=== PATIENT | male | born 1965 | race Caucasian/White ===

== ENCOUNTER 2019-08-02 19:56 | Outpatient (REF) | payer MEDICAID, SELFPAY ==
[2019-08-02 19:21] LABS: Anion Gap 6.7 mmol/L (3-11); BUN 13 mg/dL (7-18); CO2 31.3 mmol/L (21.0-32.0); CREATININE 1.24 mg/dL (0.70-1.30); Calcium 8.7 mg/dL (8.5-10.1); Calculated LDL 186 mg/dL (<100); Chloride 102 mmol/L (98-107); Cholesterol 274 mg/dL (<200); Glucose 100 mg/dL (74-106); HDL Cholesterol 44 mg/dL (40-60); Potassium 3.5 mmol/L (3.5-5.1); Sodium 140 mmol/L (136-145); Triglyceride 221 mg/dL (<150)
== END 2019-08-02 20:16 ==
LOC: NCHCN 19:56
PROVIDERS: PCP Family Medicine; Visit Provider Family Medicine
DX: I10 Essential (primary) hypertension (principal); R39.9 Unspecified symptoms and signs involving the genitourinary system; Z00.00 Encounter for general adult medical examination without abnormal findings
CPT/HCPCS: 80048; 80061

== ENCOUNTER 2020-06-29 02:32 | Outpatient (CLI) | payer MEDICAID, SELFPAY ==
[2020-06-29 10:43] LABS: Source Nasal/Nares
[2020-06-29 14:01] LABS: COVID-19 PCR Negative (Negative)
== END 2020-06-29 02:33 | disposition home or self-care (01) ==
LOC: LBO 02:32
PROVIDERS: PCP Family Medicine; Visit Provider Surgery
DX: Z20.822 Contact with and (suspected) exposure to COVID-19 (principal); Z01.818 Encounter for other preprocedural examination
CPT/HCPCS: 87635

== ENCOUNTER 2020-06-30 12:00 | Day surgery (SDC) | payer MEDICAID, SELFPAY ==
[2020-06-30 12:18] VITALS: BP 140/80; PULSE 55; RESP 16; TEMP 36.2; O2SAT 98
--- NOTE | 2020-06-30 12:23 | W.PM.DSUDISC ---
Discharge Plan Disposition Patient Disposition: HOME Condition: Good Discharge Details Reason For Visit: colon scope Attending Provider: Jazmin Cole Primary Care Provider: Ta Jensen Home Meds and New Rx's Prescriptions: Continued terazosin 5 mg capsule 5 mg PO QHS RF: 0 sildenafil [Viagra] 50 mg tablet 50 mg PO DAILY PRNRF: 0 loratadine [Allergy Relief (loratadine)] 10 mg tablet,disintegrating 10 mg PO DAILY RF: 0 lisinopril-hydrochlorothiazide 10-12.5 mg tablet 1 tab PO DAILY RF: 0 epinephrine [EpiPen 2-Kyree] 0.3 mg/0.3 mL auto-injector 0.3 mg IM Q5-15M PRNRF: 0 naproxen 500 MG tablet 500 mg PO PRN PRNRF: 0 Discontinued polyethylene glycol 3350 17 gram/dose powder 238 g PO ONCE Qty: 238 RF: 0 bisacodyl [Dulcolax (bisacodyl)] 5 mg tablet,delayed release (DR/EC) 5 mg PO ONCE Qty: 4 RF: 0 Discharge Instructions Additional Instructions: Findings:polyps No signs of Crohn's -No aspirin/NSAIDs (ibuprofen) for 72 hours. Follow up: We will send a letter in approximately 3 weeks with the results of the biopsies and pathology of the polyps, and when to repeat the colonoscopy, probably in 3 years time. Please call if you develop: fevers >101.5 Nausea or Vomiting Abdominal pain that is not transient DAY SURGERY UNIT POST COLONOSCOPY INSTRUCTIONS 1. Because there will be medication in your system for the next 24 hours, you may feel a little sleepy. Your coordination will be affected. Therefore: a. Do not drive or operate dangerous equipment for 24 hours. b. Do not drink alcohol beverages for 24 hours (not even beer). c. Plan to go home and rest for the day. 2. Generally there are no restrictions on your activity after a day or so has gone by, but you may feel a bit fatigued for a few days. 3 After you arrive home you may have a light meal and return to a normal diet as you can tolerate it without feeling sick to your stomach. 4. After surgery, you may feel pain or discomfort. This should be only transient, but if it persists please contact your doctor. 5. If there are any questions regarding the findings of your procedure, please feel free to contact your doctor. 6. If you are unable to contact your doctor with a problem, contact the hospital at [phone]. 7. Continue all your regular medications unless directed otherwise. I understand the above instructions and have no questions. Signature of Patient or Responsible Adult Escort Date/Time Name of Responsible Adult Escort Signature of Nurse Date/Time Activity:: No lifting over 20 pounds or strenuous at. Diet:: Small light meals x24 hours. Discharge Orders Discharge Orders: Discharge Order (Routine); Ordered 06/30/20 Ordered By: Jazmin Cole DS: Diagnosis Discharge Diagnosis (1) Adenomatous polyps: Status: Acute
[2020-06-30] MEDS: Lactated Ringers 1,000 ML 80 ML IV (12:39)
--- NOTE | 2020-06-30 14:00 | BOWEL_PTH ---
PATIENT: Nghia Owusu LOC: [facility] U#:[id number] AGE/SX: 55/M ROOM: RE06/30/[address]: Jazmin Cole : 1965 BED: DIS: 06/30/2020 SPEC #: [id number] RECD: 06/30/20 18:18 STATUS: [facility] #: [id number] CHARLEY: 06/30/20 14:[address]: Jazmin Cole DEPT: Surgical Specimen RECD BY: Alessandra Chapman ENTERED: 06/30/20 18:25 SP TYPE: Bowel OTHR DR: Ta Jensen Tissues: 1 - BIOPSY BOWEL 2 - BIOPSY BOWEL 3 - BIOPSY BOWEL 4 - BIOPSY BOWEL 5 - BIOPSY BOWEL 6 - BIOPSY BOWEL 7 - BIOPSY BOWEL 8 - BIOPSY BOWEL 9 - BIOPSY BOWEL 10 - BIOPSY BOWEL 11 - BIOPSY BOWEL 12 - BIOPSY BOWEL 13 - BIOPSY BOWEL 14 - BIOPSY BOWEL Procedures: GROSS AND MICRO LEVEL 4 Comments: [id number]
--- NOTE | 2020-06-30 14:14 | COLE_ITS ---
Date of service: 06/30/20 Time of Service: 14:14 Colonoscopy Report Date of procedure: 06/30/20 Pre-op diagnosis general: A. polyps and Crohn's Post-op diagnosis procedure note: same Surgeon: Jazmin Cole Anesthesia Type: General:No Airway Estimated blood loss (mL): 1 Pathology: other Complications: None Disposition: PACU Prep: Miralax/Dulcolax Retraction Time: 17mins Procedure Description: After informed consent was obtained the patient was taken to the procedure room and placed in a left decubitous position. Monitors were applied and a time out was done. The patients name, date of , procedure, allergies to medications and metal in their body was reviewed. The patient was then sedated. Once sedated and comfortable a rectal exam was done. External exam was normal. Internal exam revealed a normal sphincter tone and no palpable masses. The prostate w/out masses. The scope was then introduced and retrofelexed. No internal hemorrhoids were identified. The scope was then advanced to the cecum w/out difficulty. The TI and appendiceal orifice were identified. The prep was good. The scope was then slowly retracted over 17 minutes back into the rectum. Colon polyps were removed in the cecum, 70 cm and 20 cm. These were all less than 5 mm. They were all removed with cold biting forcep. Biopsies were taken of the terminal ileum, cecum, 90 cm, 80 cm, 70 cm, 60 cm, 50 cm, 40 cm, 30 cm, 20 cm, and in the rectum. These were taken with a cold biopsy forcep. 2 bites were taken at each location. The mucosa appears pink and healthy. There is no signs of any chronic longstanding disease. The terminal ileum appears normal. There is no signs of any stricturing. There is no diverticular disease. the scope was removed and the patient was woken up and taken back to Same day surgery in st able condition. The patient tolerated the procedure well and there were no immediate complications. Follow up: The patient should follow up in 3 years unless they develop changes in bowel habits or other new gastrointestinal complaints.
[2020-06-30 14:52] VITALS: BP 120/67; PULSE 52; RESP 16; TEMP 36.9; O2SAT 98
[2020-06-30 15:28] VITALS: BP 136/85; PULSE 51; RESP 16; TEMP 36.4; O2SAT 98
== END 2020-06-30 15:35 | disposition home or self-care (01) ==
PROVIDERS: PCP Family Medicine; Visit Provider Surgery
PROC: 0DJD8ZZ Inspection of Lower Intestinal Tract, Via Natural or Artificial Opening Endoscopic (ICD-10-PCS; CPT 45378; principal; 2020-06-30 12:30)
DX: Z12.11 Encounter for screening for malignant neoplasm of colon (principal); Z86.010 Personal history of colon polyps; K50.90 Crohn's disease, unspecified, without complications; D12.0 Benign neoplasm of cecum; I10 Essential (primary) hypertension
CPT/HCPCS: 45380; 88305; J2001

== ENCOUNTER 2020-07-12 22:05 | Outpatient (REF) | payer MEDICAID, SELFPAY ==
[2020-07-12 19:58] LABS: BUN 19 mg/dL (7-18); CREATININE 1.3 mg/dL (0.70-1.30); Calcium 8.6 mg/dL (8.5-10.1); Calculated LDL 121 mg/dL (<100); Chloride 103 mmol/L (98-107); Cholesterol 232 mg/dL (<200); Glucose 102 mg/dL (74-106); HDL Cholesterol 33 mg/dL (40-60); Potassium 3.5 mmol/L (3.5-5.1); Sodium 138 mmol/L (136-145); Triglyceride 391 mg/dL (<150)
== END 2020-07-12 22:06 | disposition home or self-care (01) ==
LOC: NCHCN 22:05
PROVIDERS: PCP Family Medicine; Visit Provider Family Medicine
DX: I10 Essential (primary) hypertension (principal); N28.9 Disorder of kidney and ureter, unspecified; E78.5 Hyperlipidemia, unspecified
CPT/HCPCS: 80048; 80061

== ENCOUNTER 2020-11-18 12:07 | Emergency (ER) | payer MEDICAID, SELFPAY ==
[2020-11-18 12:14] VITALS: BP 129/71; PULSE 57; RESP 16; TEMP 37.1; O2SAT 99
--- NOTE | 2020-11-18 12:30 | DI.RAD_ITS ---
Exam(s) XR ANKLE RT COMPLETE XR FOOT RT COMPLETE EXAM: XR ANKLE RT COMPLETE CLINICAL HISTORY: s/p twisting injury, r/o fx TECHNIQUE: COMPARISON: CR XR FOOT RT COMPLETE from 11/18/2020 CR XR FOOT RT COMPLETE from 11/18/2020 FINDINGS: Three views of the ankle and three views of the foot were obtained. The ankle mortise is well mainta ined. Alignment of the bones of the foot appears within normal limits. There is no evidence of acut e fracture or dislocation. IMPRESSION: RADIATION DOSE DELIVERED: Total DLP
[2020-11-18] MEDS: Ibuprofen 600 MG TAB PO (12:41)
--- NOTE | 2020-11-18 12:41 | ED.GENADUL_ITS ---
Discharge Plan Disposition Patient Disposition: HOME Condition: Stable Discharge Details Clinical Impression: Right foot sprain, Right ankle sprain, Contusion of right hand Primary Care Provider: Ta Jensen ED Provider: Alecia Yates Home Meds and New Rx's Prescriptions: Continued terazosin 5 mg capsule 5 mg PO QHS RF: 0 sildenafil [Viagra] 50 mg tablet 50 mg PO DAILY PRNRF: 0 loratadine [Allergy Relief (loratadine)] 10 mg tablet,disintegrating 10 mg PO DAILY RF: 0 lisinopril-hydrochlorothiazide 10-12.5 mg tablet 1 tab PO DAILY RF: 0 epinephrine [EpiPen 2-Kyree] 0.3 mg/0.3 mL auto-injector 0.3 mg IM Q5-15M PRNRF: 0 naproxen 500 MG tablet 500 mg PO PRN PRNRF: 0 Discharge Instructions Instructions: Ankle Sprain (ED), Contusion in Adults (ED), Foot Sprain (ED) Additional Instructions: Rest, ice, and elevate the affected area as much as possible. Alternate tylenol and motrin as needed and directed for pain. Follow-up with your primary care doctor in 1 week and with orthopedics if your symptoms do not improve or worsen. Return to the emergency department with any worsening or new concerning symptoms. Referrals: Vitaly Javier MD [ [facility] STAFF PHYSICIAN] - Discharge Data Discharge Physician: Alecia Yates Medical Decision Making 55-year-old male presents with right foot and ankle pain and swelling after twisting his ankle yesterday while outside working. Also states he fell onto his right hand but denies pain in his right hand or wrist. Right dorsal lateral proximal and mid foot note edema and ecchymosis. There is no deformity. He is neurovascularly intact. No evidence of trauma or tenderness to right hand or wrist. Patient referred for right foot and ankle x-rays which were negative. Will place an Victorino wrap. Patient instructed on importance of RICE. Advised to follow up with the primary care doctor for re-evaluation. Usual and customary return precautions given prior to discharge. Medical Records Medical records reviewed: Yes I reviewed the patient's medical records. Imaging Data Radiologic Study: Radiologist's impression: XR ANKLE and FOOT RT COMPLETE CLINICAL HISTORY: s/p twisting injury, r/o fx TECHNIQUE: COMPARISON: CR XR FOOT RT COMPLETE from 11/18/2020 CR XR FOOT RT COMPLETE from 11/18/2020 FINDINGS: Three views of the ankle and three views of the foot were obtained. The ankle mortise is well maintained. Alignment of the bones of the foot appears within normal limits. There is no evidence of acute fracture or dislocation. HPI General Mode of arrival: ambulatory . Date/Time Provider Initiated Documentation: 11/18/20 12:25 . Limitations to Documentation: no limitations . Information obtained by: patient . HPI Narrative: Patient is a 55-year-old male who presents with right foot and ankle pain and right hand injury after slip and fall while working outside yesterday. Patient states his main pain is in his right lateral foot. He admits to some tingling in his right hand but no significant pain. He has taken Tylenol and applied ice. He denies any other injuries. Related Data Home Medications Medication Instructions Recorded Confirmed naproxen 500 mg PO PRN PRN 05/31/16 11/18/20 epinephrine 0.3 mg/0.3 mL 0.3 mg IM Q5-15M PRN 05/25/20 11/18/20 injection, auto-injector lisinopril 10 1 tab PO DAILY 05/25/20 11/18/20 mg-hydrochlorothiazide 12.5 mg tablet loratadine 10 mg disintegrating 10 mg PO DAILY 05/25/20 11/18/20 tablet sildenafil 50 mg tablet 50 mg PO DAILY PRN 05/25/20 11/18/20 terazosin 5 mg capsule 5 mg PO QHS 05/25/20 11/18/20 Allergies Allergy/AdvReac Type Severity Reaction Status Date / Time bee stings Allergy Severe Anaphylaxsi Uncoded 11/18/20 12:20 s strong fragrants Allergy Severe Anaphylaxis Uncoded 11/18/20 12:20 Yellow jackets Allergy Severe Anaphylaxis Uncoded 11/18/20 12:20 General Stated Complaint: Orthopedic YOLANDA: 4 Review of Systems All systems reviewed & are unremarkable except as noted in HPI and below Constitutional Constitutional: Reports as per HPI, Denies chills and Denies fever(s) Eyes Eyes: Denies blurry vision ENT Ears, Nose, Mouth, and Throat: Denies dizziness, Denies sore throat and Denies throat swelling Cardiovascular Cardiovascular: Denies chest pain and Denies dyspnea Respiratory Respiratory: Denies cough and Denies dyspnea Gastrointestinal Gastrointestinal: Denies abdominal pain, Denies diarrhea and Denies vomiting Genitourinary Genitourinary: Denies hematuria and Denies dysuria Musculoskeletal Musculoskeletal: Denies back pain and Denies numbness Integumentary/Breasts Skin/Breast: Denies lesions and Denies rash Neurologic Neurologic: Denies dizziness, Denies localized weakness and Denies numbness Allergic/Immunologic Allergic/Immunologic: Denies throat swelling [facility] Medical History (Updated 11/18/20 @ 13:21 by Alecia Yates DO) Bee sting allergy GERD (gastroesophageal reflux disease) History of colon polyps History of Crohn's disease Hyperlipidemia Hypertension Renal insufficiency, mild Surgical History (Updated 07/12/20 @ 11:50 by Laila De Jesus RN) Colonoscopy - IV Sedation (05/31/16) History of colonoscopy (~06/30/20) Social History (Updated 06/23/20 @ 10:10 by KONG Piper) Smoking/Tobacco Use Status: Former Tobacco Use Quit Date: 04/14/99 Smoking risk assessment performed?: Yes Alcohol Intake: current Alcohol Intake frequency: holidays/special occasions only Drug use: Socially Substance use type: marijuana Do you feel safe at home: Yes Do you feel safe in your relationship?: Yes Exam Const General: cooperative, healthy appearing and no acute distress HENMT Head: normal to inspection Mouth: oral mucosae normal Eyes General: appearance normal, both eyes and all related structures Neck Neck: normal visual inspection Resp Effort & Inspection: normal respiratory effort and able to speak in complete sentences Cardio Rate: regular rate Skin General skin exam: no rashes or lesions noted Neuro General: patient alert, patient awake and patient oriented x3 Motor: muscle tone normal throughout Extrem Ankle/foot/toe images: 1. Moderate edema and ecchymosis noted to right dorsal lateral mid and proximal foot and right anterior ankle. Other: There is no tenderness to patient to right posterior or inferior lateral malleolus or right medial malleolus. No significant tenderness to the right fifth metatarsal. Right DP/PT pulses intact. No tenderness to palpation to right dorsal or volar hand. No pain with range of motion or tenderness to right wrist. No evidence of trauma to right hand Psych Appearance: grossly normal Affect: normal affect Course Vital Signs Vital signs: Vital Signs Temperature 98.8 F 11/18/20 12:14 Pulse 57 L 11/18/20 12:14 Respiratory Rate 16 11/18/20 12:14 Blood Pressure 129/71 11/18/20 12:14 Pulse Oximetry 99 11/18/20 12:14 Temperature 98.8 F 11/18/20 12:14 Temperature Source Temporal Artery Scan 11/18/20 12:14 Pulse 57 L 11/18/20 12:14 Respiratory Rate 16 11/18/20 12:14 Respiratory Effort Non-Labored 11/18/20 12:19 Blood Pressure 129/71 11/18/20 12:14 Blood Pressure Position Sitting 11/18/20 12:14 Pulse Oximetry 99 11/18/20 12:14 Oxygen Delivery Method Room Air 11/18/20 12:14 Oxygen Flow Rate 0 11/18/20 12:14 Pain Level 7 11/18/20 12:22
== END 2020-11-18 13:55 | disposition home or self-care (01) ==
PROVIDERS: Emergency Provider Physician Assistant; PCP Family Medicine
DX: S93.491A Sprain of other ligament of right ankle, initial encounter (principal); S93.691A Other sprain of right foot, initial encounter; S60.221A Contusion of right hand, initial encounter; W01.0XXA Fall on same level from slipping, tripping and stumbling without subsequent striking against object, initial encounter; X50.1XXA Overexertion from prolonged static or awkward postures, initial encounter
CPT/HCPCS: 99284; 73610; 73630; 99283

== ENCOUNTER 2021-03-20 06:14 | Emergency (ER) | payer MEDICAID, SELFPAY ==
[2021-03-20 06:23] VITALS: BP 140/77; PULSE 61; RESP 18; TEMP 36.8; O2SAT 99
[2021-03-20 06:25] VITALS: BP 149/77; PULSE 55; O2SAT 96
--- NOTE | 2021-03-20 06:30 | DI.RAD_ITS ---
Exam(s) XR WRIST LT COMP NAVICULAR EXAM: XR WRIST LT COMP NAVICULAR CLINICAL HISTORY: pain in wrist after fall, pain at distal radius. TECHNIQUE: 2D digital imaging was performed of the left wrist. Four images were obtained. Scaphoid , PA, oblique and lateral views were obtained. COMPARISON: No previous for comparison. FINDINGS: BONES: No acute fracture is present. No bony destructive lesion is seen. JOINTS: The carpal bones are normally aligned. SOFT TISSUE: Normal. IMPRESSION: No acute fracture or dislocation. DATA REPOSITORY: RADIATION DOSE DELIVERED:
--- NOTE | 2021-03-20 06:30 | DI.RAD_ITS ---
Exam(s) XR LUMBAR SPINE COMPLETE EXAM: XR LUMBAR SPINE COMPLETE CLINICAL HISTORY: pain in right paraspinal L spine after fall. TECHNIQUE: 2D digital imaging was performed of the lumbar spine. Five images were obtained. AP, la teral, right oblique, left oblique and L5-S1 spot views were obtained. COMPARISON: No exams were available for comparison FINDINGS: BONES: No fracture or destructive lesion. Vertebral bodies are unremarkable. Degenerative changes of the facets are seen at L5-S1. DISKS: Disc heights are well maintained. There are endplate osteophytes throughout the lumbar spine. ALIGNMENT: Lumbar spinal alignment is within normal limits. No spondylolysis or spondylolisthesis. SOFT TISSUE: Normal. IMPRESSION: No acute fracture or subluxation. DATA REPOSITORY: RADIATION DOSE DELIVERED:
[2021-03-20 06:31] VITALS: BP 139/72; PULSE 54
[2021-03-20] MEDS: Acetaminophen 500 MG TAB 1000 MG PO (06:38)
[2021-03-20] MEDS: Ibuprofen 800 MG TAB PO (06:38)
[2021-03-20] MEDS: Lidocaine 5% Patch 1 PATCH TP (06:39)
--- NOTE | 2021-03-20 06:52 | ED.GENADUL_ITS ---
Discharge Plan Disposition Patient Disposition: HOME Condition: Good Discharge Details Clinical Impression: Back pain, Acute wrist pain, Fall Primary Care Provider: Ta Jensen ED Provider: Darrion Woodson Home Meds and New Rx's Prescriptions: Continued terazosin 5 mg capsule 5 mg PO QHS RF: 0 sildenafil [Viagra] 50 mg tablet 50 mg PO DAILY PRNRF: 0 loratadine [Allergy Relief (loratadine)] 10 mg tablet,disintegrating 10 mg PO DAILY RF: 0 lisinopril-hydrochlorothiazide 10-12.5 mg tablet 1 tab PO DAILY RF: 0 epinephrine [EpiPen 2-Kyree] 0.3 mg/0.3 mL auto-injector 0.3 mg IM Q5-15M PRNRF: 0 naproxen 500 MG tablet 500 mg PO PRN PRNRF: 0 Discharge Instructions Instructions: Back Pain (ED), Wrist Sprain (ED) Additional Instructions: At this time the radiologist does not see any evidence of fracture on your spine or wrist. I suspect that you have a notable contusion to those areas and sprains. Please take Tylenol and Motrin as needed for pain. It will likely take a few weeks for the pain to resolve. Please use the wrist splint as needed for wrist support. You have been given a few pain pills to use only as needed for severe breakthrough pain. If you notice any worsening of your symptoms, or any new symptoms such as vomiting, diarrhea, fever, chills, shortness of breath, chest pain, numbness, weakness, or fainting , please return immediately to the emergency department for reevaluation. Please follow up with your primary care provider as soon as possible for reassessment and reevaluation. As always, it was a pleasure participating in your medical care today. Referrals: Ta Jensen [Primary Care Provider] - Medical Decision Making <Garcia Stevenson DO - Last Filed: 03/20/21 07:49> 56-year-old male with past medical history of Crohn's disease, GERD, high cholesterol, hypertension, mild renal insufficiency presents today for evaluation after a fall. Patient states that he slipped on the ice and went into a corkscrew pattern, hitting his left wrist, as well as his right back. He denies any pain in his buttock, chest, head or other extremities. He did not hit his head. He had no loss of consciousness. Pain is made worse in his back and worse with movement and palpation, improved with nothing. He denies any abdominal pain, numbness tingling or weakness. Patient denies any saddle anesthesia, numbness or tingling in the groin, change in sensation when wiping. Patient denies any change in sensation during sexual intercourse, difficulty achieving or maintaining an erection or ejaculation, bowel or bladder incontinence, leakage, or retention. Patient denies any weakness in the lower extremities, or imbalance. Physical exam demonstrates tenderness over the distal radius, as well as mild tenderness over her the transverse process of L3-L4. Suspect contusion, questionable potential mild fracture. Will get x-rays of these areas, give Tylenol, Motrin, and Toradol. 7:48 AM X-ray results have returned, no evidence of acute process per virtual radiology. No evidence of acute fracture. On reassessment the patient continues to show no clinical evidence of cauda equina syndrome. No midline spine tenderness. Patient urinates well, no gross hematuria. We are pending urinalysis, however I do feel that the patient is appropriate for discharge at this time. We will give thumb spica wrist splint for the patient's painful wrist, recommend Tylenol, Motrin, heating pad at home. Discussed red flags which to return. I have extensively reviewed the treatment plan and discharge instructions with the patient. I have addressed all patient concerns at this time. The patient was made aware of what symptoms to monitor for that would warrant a return to the emergency department. Discussed the plan with the patient, they demonstrate verbal understanding and agreement with our assessment and plan at this time. The documentation in this chart was dictated using [employer] dictation software. Please excuse any dictation errors. FINDINGS: Bones/joints: No acute fracture or dislocation Soft tissues: Mild swelling over the radial styloid process IMPRESSION: No acute fracture noted Thank you for allowing us to participate in the care of your patient. Dictated and Authenticated by: Jean Menard MD 03/20/2021 7:18 AM Eastern Time ([place] & [place]) FINDINGS: Bones/joints: Chronic loss of height and loss of lumbar lordosis is presumed degenerative No acute fracture. Foraminal stenosis at L4-L5 and L5-S1 noted Soft tissues: Unremarkable. IMPRESSION: No acute fracture noted Degenerative changes as described Thank you for allowing us to participate in the care of your patient. Dictated and Authenticated by: Jean Menard MD 03/20/2021 7:18 AM Eastern Time ([place] & [place]) <Darrion Woodson MD - Last Filed: 03/20/21 07:58> Patient discharged as per Dr. Thomason plan HPI <Garcia Stevenson DO - Last Filed: 03/20/21 07:49> General Date/Time Provider Initiated Documentation: 03/20/21 06:30 . HPI Narrative: 56-year-old male with past medical history of Crohn's disease, GERD, high cholesterol, hypertension, mild renal insufficiency presents today for evaluation after a fall. Patient states that he slipped on the ice and went into a corkscrew pattern, hitting his left wrist, as well as his right back. He denies any pain in his buttock, chest, head or other extremities. He did not hit his head. He had no loss of consciousness. Pain is made worse in his back and worse with movement and palpation, improved with nothing. He denies any abdominal pain, numbness tingling or weakness. Patient denies any saddle anesthesia, numbness or tingling in the groin, change in sensation when wiping. Patient denies any change in sensation during sexual intercourse, difficulty achieving or maintaining an erection or ejaculation, bowel or bladder incontinence, leakage, or retention. Patient denies any weakness in the lower extremities, or imbalance. Related Data Home Medications Medication Instructions Recorded Confirmed naproxen 500 mg PO PRN PRN 05/31/16 11/18/20 epinephrine 0.3 mg/0.3 mL 0.3 mg IM Q5-15M PRN 05/25/20 11/18/20 injection, auto-injector lisinopril 10 1 tab PO DAILY 05/25/20 11/18/20 mg-hydrochlorothiazide 12.5 mg tablet loratadine 10 mg disintegrating 10 mg PO DAILY 05/25/20 11/18/20 tablet sildenafil 50 mg tablet 50 mg PO DAILY PRN 05/25/20 11/18/20 terazosin 5 mg capsule 5 mg PO QHS 05/25/20 11/18/20 Allergies Allergy/AdvReac Type Severity Reaction Status Date / Time bee stings Allergy Severe Anaphylaxsi Uncoded 11/18/20 12:20 s strong fragrants Allergy Severe Anaphylaxis Uncoded 11/18/20 12:20 Yellow jackets Allergy Severe Anaphylaxis Uncoded 11/18/20 12:20 General Stated Complaint: Nk/Back Pain YOLANDA: 4 Review of Systems <Garcia Stevenson DO - Last Filed: 03/20/21 07:49> All systems reviewed & are unremarkable except as noted in HPI and below PFSH <Garcia Stevenson DO - Last Filed: 03/20/21 07:49> Active Problem List Right foot sprain (Acute) Right ankle sprain (Acute) Contusion of right hand (Acute) Tubular adenoma (Acute ~06/2020) Adenomatous polyps (Acute) History of Crohn's disease (Acute) Medical History Bee sting allergy GERD (gastroesophageal reflux disease) History of colon polyps Hyperlipidemia Hypertension Renal insufficiency, mild Surgical History Colonoscopy - IV Sedation (05/31/16) History of colonoscopy (~06/30/20) Social History Smoking/Tobacco Use Status: Former Tobacco Use Quit Date: 04/14/99 Smoking risk assessment performed?: Yes Alcohol Intake: current Alcohol Intake frequency: holidays/special occasions only Drug use: Socially Substance use type: marijuana Do you feel safe at home: Yes Do you feel safe in your relationship?: Yes Exam <Garcia Stevenson DO - Last Filed: 03/20/21 07:49> Narrative Exam Narrative: 1.Const: Well-nourished, Well-developed, appearing stated age 2.Eyes: PERRL, no conjunctival injection, and symmetrical lids. 3.ENT: Atraumatic external nose and ears. Moist MM. Neck: Symmetric, trachea midline, No thyromegaly. 4.CVS: +S1/S2, No murmurs or gallops. Peripheral pulses 2+ and equal in all extremities. Brisk capillary refill in all extremities. 5.RESP: Unlabored respiratory effort. Clear to auscultation bilaterally. No wheezes rales or rhonchi 6.GI: Soft, Nontender/Nondistended, No hepatosplenomegaly. No guarding or rebound. No flank or CVA tenderness. No rib tenderness. 7.MSK: Normocephalic/Atraumatic, Extremities w/o deformity or ttp No cyanosis or clubbing, Normal movement of all extremities. Left wrist: Left wrist demonstrate tenderness at the distal radius, as well as over the anatomical snuffbox. No tenderness over the distal ulna. 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 Normal movement for flexion extension for the wrist. Pain is slightly worsened with varus stretching of the wrist. No significant bruising. Sensation intact throughout. No midline tenderness to palpation over the CTLS spine. Patient does have tenderness over the transverse process of L3-L4 and L5 on the right side. No midline tenderness or left paraspinal tenderness. Normal ROM in flexion, extension, side bend, and rotation. Patient has +5 out of 5 strength in the lower extremities in dorsiflexion and plantarflexion, knee flexion and extension, hip flexion and extension. Normal strength for dorsiflexion and plantar flexion of the great toe bilaterally. There is +2 over 2 dorsalis pedis pulses bilaterally. There is normal sensation to the skin with light touch at the foot, knee, and hip. Normal saddle sensation. Good sensation over the deep sural nerve area bilaterally. Rectal exam demonstrates good rectal tone and perirectal sensation. Reflexes are +2 over 4 in the patellar reflex bilaterally. +5 out of 5 strength in the medial, ulnar, radial nerve distribution bilaterally in the hands as well as intact light touch sensation to these dermatomes on the hands 8.Skin: Warm, Dry. No rashes or lesions. 9.Neuro: final expense agent II-XII grossly intact. Sensation grossly intact, no focal neurologic deficits. 10.Psych: (AAO) x3. Appropriate mood and affect Course <Garcia Stevenson DO - Last Filed: 03/20/21 07:49> Vital Signs Vital signs: Vital Signs Temperature 36.8 C 03/20/21 06:23 Pulse 61 03/20/21 06:23 Respiratory Rate 18 03/20/21 06:23 Blood Pressure 140/77 03/20/21 06:23 Pulse Oximetry 99 03/20/21 06:23 Temperature 36.8 C 03/20/21 06:23 Temperature Source Tympanic 03/20/21 06:23 Pulse 61 03/20/21 06:23 Respiratory Rate 18 03/20/21 06:23 Respiratory Effort 03/20/21 06:27 Blood Pressure 140/77 03/20/21 06:23 Blood Pressure Position Sitting 03/20/21 06:23 Pulse Oximetry 99 03/20/21 06:23 Oxygen Delivery Method Room Air 03/20/21 06:23 Oxygen Flow Rate 0 03/20/21 06:23 Pain Level 7 03/20/21 06:23 Sign Out <Garcia Stevenson DO - Last Filed: 03/20/21 07:49> Sign Out Data: Sign Out Comment: Back pain after fall, follow-up on urinalysis. Expected discharge Last updated by Garcia Stevenson DO at 03/20/21 07:45
--- NOTE | 2021-03-20 07:18 | DI.VRAD_ITS ---
PROCEDURE INFORMATION: Exam: XR Lumbosacral Spine Exam date and time: 03/20/2021 6:32 AM Age: 56 years old Clinical indication: Injury or trauma; Work related; Blunt trauma (contusions or hematomas); Injury date: 03/20/21; Injury details: Pain in right paraspinal L spine after fall TECHNIQUE: Imaging protocol: XR of the lumbosacral spine. Views: 4 or 5 views. COMPARISON: No relevant prior studies available. FINDINGS: Bones/joints: Chronic loss of height and loss of lumbar lordosis is presumed degenerative No acute fracture. Foraminal stenosis at L4-L5 and L5-S1 noted Soft tissues: Unremarkable. IMPRESSION: No acute fracture noted Degenerative changes as described Dictated and Authenticated by: Jean Menard MD. Ordering:ALE Zelaya MD
--- NOTE | 2021-03-20 07:18 | DI.VRAD_ITS ---
PROCEDURE INFORMATION: Exam: XR Left Wrist Exam date and time: 03/20/2021 6:32 AM Age: 56 years old Clinical indication: Injury or trauma; Work related; Blunt trauma (contusions or hematomas); Left; Injury date: 03/20/21; Injury details: Pain in wrist after fall, pain at distal radius TECHNIQUE: Imaging protocol: XR Left wrist. Views: 3 or more views. COMPARISON: No relevant prior studies available. FINDINGS: Bones/joints: No acute fracture or dislocation Soft tissues: Mild swelling over the radial styloid process IMPRESSION: No acute fracture noted Dictated and Authenticated by: Jean Menard MD. Ordering:ALE Zelaya MD
[2021-03-20 07:46] VITALS: BP 120/59; PULSE 53; RESP 16; TEMP 36.6; O2SAT 98
[2021-03-20 07:50] LABS: Bilirubin Negative (Negative); Blood Trace-lysed (Negative); Clarity Clear (Clear); Glucose Negative (Negative); Ketones Negative (Negative); Leukocyte Esterase Negative (Negative); Nitrite Negative (Negative); Urobilinogen 0.2 EU/dL (Up TO 0.2); pH 5.5 (5-8)
[2021-03-20 08:08] LABS: Bacteria Rare HPF (Negative); Epithelial Cells Rare HPF (Negative); WBC 0-2 HPF (0-5)
[2021-03-20 08:09] LABS: C & S Indicated? No; Casts Negative LPF (Negative); Crystals Negative HPF (Negative); Mucus Negative (Negative)
[2021-03-20 08:13] VITALS: BP 120/59; PULSE 53; RESP 16; TEMP 36.6; O2SAT 98
== END 2021-03-20 08:12 | disposition home or self-care (01) ==
PROVIDERS: Student in an Organized Health Care Education/Training Program; Emergency Provider Emergency Medicine; PCP Family Medicine
DX: M54.50 Low back pain, unspecified (principal); M25.532 Pain in left wrist; W00.0XXA Fall on same level due to ice and snow, initial encounter
CPT/HCPCS: 29125; 99284; 72110; 73110; 81003; 81015; 99283

== ENCOUNTER 2021-04-18 19:22 | Outpatient (REF) | payer MEDICAID, SELFPAY ==
[2021-04-18 19:29] LABS: Anion Gap 8.5 mmol/L (3-11); BUN 18 mg/dL (7-18); CO2 29.5 mmol/L (21.0-32.0); CREATININE 1.2 mg/dL (0.70-1.30); Calcium 9.1 mg/dL (8.5-10.1); Chloride 104 mmol/L (98-107); Glucose 101 mg/dL (74-106); Potassium 3.6 mmol/L (3.5-5.1); Sodium 142 mmol/L (136-145)
== END 2021-04-18 19:23 | disposition home or self-care (01) ==
LOC: LBN 19:22
PROVIDERS: PCP Family Medicine; Visit Provider Family Medicine
DX: N28.9 Disorder of kidney and ureter, unspecified (principal)
CPT/HCPCS: 80048

== ENCOUNTER 2021-05-29 00:32 | Outpatient (CLI) | payer MEDICAID, SELFPAY ==
--- NOTE | 2021-05-29 | DI.MRI_ITS ---
Exam(s) MR LUMBAR SPINE WO EXAM: MR LUMBAR SPINE WO CLINICAL HISTORY: ACUTE LOW BACK PAIN, M54.5S/P FALL. TECHNIQUE: Multiplanar multisequence MRI of the Lumbar spine was performed. COMPARISON: CR,XR XR LUMBAR SPINE COMPLETE from 03/20/2021 FINDINGS: Conus medullaris is at normal level. There is no evidence of conus mass nor subjacent clumping of in trathecal nerve roots to suggest arachnoiditis. The distal thecal sac appears unremarkable.There is a small Tarlov intra sacral seen at lower S2 level, right of center, measuring 4 x 4 millimeter. Bones:There are no fractures nor ominous osseous lesions in the lumbar vertebral bodies and visualize d sacrum. With respect to the individual levels... T12-L1: Unremarkable L1-2: Normal disc height and signal. No disc herniation nor central canal stenosis.No foraminal steno sis L2-3: Modic type 2 sub endplate fatty marrow changes subjacent to the inferior endplate of L2. There is mild disc space narrowing on the right side of this disc space. There is mild symmetrical annula r bulging. Central canal dimensions are normal. No significant foraminal stenosis. No facet arthro johanne scratch L3-4: Mild disc space narrowing posteriorly with mild Modic type 2 sub endplate fatty marrow changes. There is a central subligamentous disc bulge superimposed upon annular bulging. This extends poste riorly 2 millimeters and slightly indents the anterior thecal sac. However, central canal dimensions are lower normal. There is no significant foraminal stenosis. No facet arthropathy. L4-5: There is mild disc space narrowing posteriorly. There is annular bulging with a superimposed c entral subligamentous disc protrusion. This extends posteriorly approximately 2 millimeters and inde nts the anterior thecal sac. Central canal dimensions are lower normal. There is no significant for aminal stenosis. Mild facet arthropathy. No significant ligamentum flavum hypertrophy L5-S1: Normal disc height and signal. Mild annular bulging without a dominant disc herniation. No c entral canal stenosis. No foraminal stenosis. Mild facet arthropathy. Soft tissues: Small probable cyst noted in the superior aspect left kidney, only partially included in the field of view. IMPRESSION: 1. Mild multilevel disc findings as described individually above. Although these central subligament ous disc bulges slightly indent the anterior aspect of the thecal sac at these levels, there does not appear to be significant central canal stenosis and there is no significant foraminal stenosis evide nt. Mild facet arthropathy is evident. 2. No significant osseous lesions. DATA REPOSITORY:
== END 2021-05-29 00:52 ==
PROVIDERS: PCP Family Medicine; Visit Provider Family Medicine
DX: M54.59 Other low back pain (principal); M51.37 Other intervertebral disc degeneration, lumbosacral region; M47.817 Spondylosis without myelopathy or radiculopathy, lumbosacral region; W19.XXXD Unspecified fall, subsequent encounter
CPT/HCPCS: 72148

== ENCOUNTER 2021-05-29 14:53 | Outpatient (CLI) | payer MEDICAID, SELFPAY ==
--- NOTE | 2021-05-29 14:30 | DI.RAD_ITS ---
Exam(s) XR WRIST LT COMP NAVICULAR EXAM: XR WRIST LT COMP NAVICULAR CLINICAL HISTORY: left wrist pain. TECHNIQUE: 2D digital imaging was performed. COMPARISON: CR,XR XR WRIST LT COMP NAVICULAR from 03/20/2021 FINDINGS: There is no evidence of acute fracture or dislocation. Scaphoid appears unremarkable. No significan t ulnar variance. No obvious degenerative changes. In the dorsal aspect of the wrist there is an osseous density seen which probably accessory ossicle-o s styloideum. This ossicle lies between the capitate and the bases of the 2nd and 3rd metacarpals an d may produce a small protuberance on the dorsal aspect of the hand and can sometimes give rise to sy mptoms-carpe bossu syndrome. IMPRESSION: DATA REPOSITORY: RADIATION DOSE DELIVERED:
== END 2021-05-29 14:54 | disposition home or self-care (01) ==
LOC: DIORS 14:54
PROVIDERS: PCP Family Medicine; Referring Provider Family Medicine; Visit Provider Physician Assistant
DX: M25.532 Pain in left wrist (principal)
CPT/HCPCS: 73110

== ENCOUNTER → 2021-08-23 00:12 | Outpatient (CLI) | payer MEDICAID, SELFPAY ==
--- NOTE | 2021-08-23 10:30 | DI.RAD_ITS ---
Exam(s) XR HIP LT COMPLETE AP PELVIS EXAM: XR HIP LT COMPLETE AP PELVIS CLINICAL HISTORY: LT HIP PAIN, M25.552, SUGGESTION OF OA ON MRI FOR LBP TECHNIQUE: COMPARISON: No exams were available for comparison FINDINGS: Two views were obtained. There may be slight narrowing of the cartilaginous joint spaces of both hip s superiorly. Mild hypertrophic acetabular degenerative changes noted. Humeral heads are fairly wel l maintained. IMPRESSION: Mild DJD both hips. RADIATION DOSE DELIVERED: Total DLP
== END ==
PROVIDERS: PCP Family Medicine; Visit Provider Family Medicine
DX: M25.552 Pain in left hip (principal); M16.0 Bilateral primary osteoarthritis of hip
CPT/HCPCS: 73502

== ENCOUNTER → 2021-08-28 01:06 | Outpatient (CLI) | payer MEDICAID, SELFPAY ==
--- NOTE | 2021-08-28 | DI.US_ITS ---
Exam(s) US RENAL EXAM: US RENAL CLINICAL HISTORY: PROBABLE LEFT RENAL CYST, N28.1, IMAGED ON LUMBAR MRI TECHNIQUE: Ultrasound of both kidneys performed using standard protocol. COMPARISON: No exams were available for comparison FINDINGS: RIGHT KIDNEY: Measures 12 cm in length. No cysts evident. Normal cortical thickness and corticomedullary differenti ation .No solid masses No intrarenal calculi nor hydronephrosis. LEFT KIDNEY: Measures 9 cm in length. There is a small cyst in the superior pole of the left kidney measuring 1 c m. No solid masses. There is normal cortical thickness and corticomedullary differentiation in the left kidney. No intrarenal calculi nor hydonephrosis. URINARY BLADDER: Prevoid volume is 86 cc Postvoid volume is 3 cc No evidence of bladder mass nor diverticuli. Ureterovesical jets: Both identified and appear symmetrical IMPRESSION: 1. No significant ultrasound findings in the kidneys. Small 1 cm cyst noted in the superior pole of the left kidney. No solid renal masses. No hydronephrosis 2. No significant focal findings in the urinary bladder. DATA REPOSITORY:
== END ==
PROVIDERS: PCP Family Medicine; Visit Provider Family Medicine
DX: N28.1 Cyst of kidney, acquired (principal)
CPT/HCPCS: 76770

== ENCOUNTER → 2021-08-31 00:51 | Outpatient (CLI) | payer MEDICAID, SELFPAY ==
--- NOTE | 2021-08-31 06:45 | DI.MRI_ITS ---
Exam(s) MR UPPER JOINT LT WO EXAM: MR UPPER JOINT LT WO CLINICAL HISTORY: L WRIST PAIN, DE QUERVAINS TENOSYNOVITIS LT, FX LT DISTAL RADIUS, M65.4. TECHNIQUE: Multiplanar multisequence MRI was performed. COMPARISON: None. FINDINGS: The examination is limited due to patient motion artifact. BONES: There is no fracture or contusion pattern. There are small cysts seen in the triquetrum and th e lunate. There is mild edema seen in the posterior aspect of the ulna. JOINTS: The radiocarpal joint is unremarkable. The carpal joints are unremarkable. TENDONS: Flexors: Unremarkable. Extensors: Unremarkable. The abductor pollicis longus and extensor pollicis brevis tendons are unrema rkable. There is no fluid surrounding these tendons. The surrounding fat is well maintained. No as sociated soft tissue mass is seen. There is a small fluid collection associated with the extensor car pi ulnaris tendon. It measures 1.1 x 0.3 x 1.0 cm. MUSCLES: Unremarkable. MEDIAN NERVE: Unremarkable on this noncontrast examination. ULNAR NERVE: Unremarkable on this noncontrast examination. SOFT TISSUES: There is a 0.7 x 0.7 cm cyst in the anterior lateral soft tissues of the wrist. It lie s anterior to the radial styloid. There may be communication with the radiocarpal joint. LIGAMENTS: Unremarkable. TRIANGULAR FIBROCARTILAGE: Unremarkable. OTHER: IMPRESSION: 1. Examination limited by patient motion artifact. 2. Unremarkable appearance of the extensor pollicis brevis and abductor pollicis longus tendons and s urrounding soft tissues. 3. 0.7 x 0.7 cm cyst adjacent to the radial styloid anteriorly. There may be communication with radio carpal joint and this may represent a ganglion cyst. 4. Small fluid collection associated with the extensor carpi ulnaris tendon which may represent a eldon glion cyst or tenosynovitis. 5. No evidence of an occult fracture. DATA REPOSITORY:
== END ==
PROVIDERS: PCP Family Medicine; Visit Provider Student in an Organized Health Care Education/Training Program
DX: M65.4 Radial styloid tenosynovitis [de Quervain] (principal); S52.502A Unspecified fracture of the lower end of left radius, initial encounter for closed fracture; M25.832 Other specified joint disorders, left wrist; X58.XXXA Exposure to other specified factors, initial encounter
CPT/HCPCS: 73221

== ENCOUNTER 2022-08-21 14:28 | Outpatient (REF) | payer MEDICAID, SELFPAY ==
[2022-08-21 14:46] LABS: Hemoglobin A1C 5.6 % (<5.7)
[2022-08-21 14:59] LABS: Anion Gap 10.5 mmol/L (3-11); BUN 14 mg/dL (7-18); CO2 31.5 mmol/L (21.0-32.0); CREATININE 1.1 mg/dL (0.70-1.30); Calcium 8.9 mg/dL (8.5-10.1); Calculated LDL 79 mg/dL (<100); Chloride 100 mmol/L (98-107); Cholesterol 172 mg/dL (<200); Estimated GFR 77.33 (mL/min/1.73m2); Glucose 142 mg/dL (74-106); HDL Cholesterol 36 mg/dL (40-60); Sodium 142 mmol/L (136-145); Triglyceride 288 mg/dL (<150)
[2022-08-21 15:07] LABS: Potassium 2.9 mmol/L (3.5-5.1)
[2022-08-22 10:06] LABS: HIV-1/2 Ag & Ab Screen Negative (Negative)
[2022-08-22 10:12] LABS: Varicella IgG Antibody Positive (See Note)
== END 2022-08-21 14:29 | disposition home or self-care (01) ==
LOC: NCHCN 14:28
PROVIDERS: PCP Family Medicine; Visit Provider Family Medicine
DX: I10 Essential (primary) hypertension (principal); R73.09 Other abnormal glucose; E78.5 Hyperlipidemia, unspecified; Z11.4 Encounter for screening for human immunodeficiency virus [HIV]; Z11.59 Encounter for screening for other viral diseases; Z01.84 Encounter for antibody response examination
CPT/HCPCS: 80048; 80061; 86787; 87389; 83036

== ENCOUNTER 2022-09-04 10:28 | Outpatient (REF) | payer MEDICAID, SELFPAY ==
[2022-09-04 16:13] LABS: Anion Gap 7.6 mmol/L (3-11); BUN 17 mg/dL (7-18); CO2 31.4 mmol/L (21.0-32.0); CREATININE 1.3 mg/dL (0.70-1.30); Chloride 100 mmol/L (98-107); Estimated GFR 63.28 (mL/min/1.73m2); Glucose 101 mg/dL (74-106); Magnesium 2.1 mg/dL (1.8-2.4); Potassium 3.2 mmol/L (3.5-5.1); Sodium 139 mmol/L (136-145)
== END 2022-09-04 10:29 | disposition home or self-care (01) ==
LOC: NCHCN 10:28
PROVIDERS: PCP Family Medicine; Visit Provider Family Medicine
DX: E87.8 Other disorders of electrolyte and fluid balance, not elsewhere classified (principal)
CPT/HCPCS: 80048; 83735

== ENCOUNTER 2022-10-01 15:49 | Outpatient (REF) | payer MEDICAID, SELFPAY ==
[2022-10-03 10:10] LABS: Varicella IgG Antibody Positive (See Note)
== END 2022-10-01 15:50 | disposition home or self-care (01) ==
LOC: NCHCN 15:49
PROVIDERS: PCP Family Medicine; Visit Provider Family Medicine
DX: Z00.00 Encounter for general adult medical examination without abnormal findings (principal)
CPT/HCPCS: 86787

== ENCOUNTER 2023-06-06 18:37 | Outpatient (REF) | payer MEDICAID, SELFPAY ==
[2023-06-06 18:31] LABS: HCT 42.4 % (40.0-50.0); HGB 15.1 g/dL (13.5-17.5); MCH 31.4 pg (27.0-33.0); MCHC 35.6 % (32.0-36.0); MCV 88 fL (80-95); Platelet Count 250 10^3/uL (130-400); RBC 4.81 10^6/uL (4.36-5.78); RDW 12.6 % (11.8-14.1); RDW-SD 41.1 fL; WBC 8.07 10^3/uL (4.4-10.8)
[2023-06-06 18:39] LABS: Anion Gap 12.6 mmol/L (3-11); BUN 34 mg/dL (7-18); CO2 30.4 mmol/L (21.0-32.0); CREATININE 1.5 mg/dL (0.70-1.30); Calcium 9.4 mg/dL (8.5-10.1); Chloride 94 mmol/L (98-107); Estimated GFR 52.97 (mL/min/1.73m2); Glucose 113 mg/dL (74-106); Magnesium 2.5 mg/dL (1.8-2.4); Sodium 137 mmol/L (136-145)
== END 2023-06-06 18:38 | disposition home or self-care (01) ==
LOC: NCHCN 18:37
PROVIDERS: PCP Family Medicine; Visit Provider Family Medicine
DX: R55 Syncope and collapse (principal)
CPT/HCPCS: 80048; 85027; 83735

== ENCOUNTER 2023-06-27 11:25 | Outpatient (REF) | payer MEDICAID, SELFPAY ==
[2023-06-27 15:21] LABS: Anion Gap 10.3 mmol/L (3-11); BUN 13 mg/dL (7-18); CO2 27.7 mmol/L (21.0-32.0); CREATININE 1.2 mg/dL (0.70-1.30); Chloride 106 mmol/L (98-107); Estimated GFR 69.23 (mL/min/1.73m2); Glucose 96 mg/dL (74-106); Sodium 144 mmol/L (136-145)
== END 2023-06-27 11:26 | disposition home or self-care (01) ==
LOC: NCHCN 11:25
PROVIDERS: PCP Family Medicine; Referring Provider Family Medicine; Visit Provider Family Medicine
DX: R55 Syncope and collapse (principal)
CPT/HCPCS: 80048

== ENCOUNTER 2023-06-27 13:42 | Outpatient (CLI) | payer MEDICAID, SELFPAY ==
--- NOTE | 2023-08-04 09:18 | W.CARDEVENT ---
Date of service: 08/04/23 Time of Service: 09:18 Cardiac Event Recorder Referring Provider:: Ta Jensen Indications:: syncope Cardiac Event Note: This is a cardiac event monitor. Patient was monitored for 12 days 4 hours . rhythm throughout was sinus with an average heart rate of 73. Minimum was 43, maximum 157 There were very rare isolated atrial and ventricular ectopic beats . there was no atrial fibrillation, no high-grade AV block, no pauses greater than 3 seconds. A total of 4 self-limited atrial runs occurred. The longest of these was 7 beats in duration. All were asymptomatic. Multiple patient symptoms were reported which had no correlation to any dysrhythmia
== END 2023-06-27 13:43 | disposition home or self-care (01) ==
PROVIDERS: PCP Family Medicine; Visit Provider Family Medicine
DX: R55 Syncope and collapse (principal); I49.1 Atrial premature depolarization
CPT/HCPCS: 93246

== ENCOUNTER → 2023-08-06 00:46 | Outpatient (CLI) | payer MEDICAID, SELFPAY ==
--- NOTE | 2023-08-06 08:30 | DI.US_ITS ---
APPROVED REPORT EXAM: Comprehensive 2D, Doppler, and color-flow Echocardiogram Patient Location: Out-Patient Legal Administrative Assistant: Hawa Luna RDCS (AE) Indications: Syncope and collapse Other Information Study Quality: Adequate Conclusion Normal left ventricular wall thickness and chamber size. EF is 58%. Wall motion is normal Normal right ventricular size and function Both atria are normal in size There is no structural or hemodynamically significant valvular disease Wall motion Left Ventricle The left ventricle is normal size. The left ventricular systolic function is normal. The left ventric ular ejection fraction is within the normal range. There is normal left ventricular wall thickness. T here is normal LV segmental wall motion. There is no ventricular septal defect visualized. LVEF is 58 %. Right Ventricle The right ventricle is normal size. The right ventricular systolic function is normal. Atria The left atrium size is normal. The right atrium size is normal. The interatrial septum is intact wit h no evidence for an atrial septal defect. Aortic Valve The aortic valve is normal in structure. Aortic valve is trileaflet. There is no aortic valvular sten osis. No aortic regurgitation is present. Mitral Valve The mitral valve is normal in structure. No evidence of mitral valve stenosis. Trace mitral regurgita tion. Tricuspid Valve The tricuspid valve is normal in structure. There is no tricuspid valve stenosis. Trace tricuspid reg urgitation. Unable to assess PA pressure. Pulmonic Valve The pulmonary valve is normal in structure. There is no pulmonic valvular stenosis. Trace pulmonic re gurgitation. Great Vessels The aortic root is normal in size. The ascending aorta is normal in size. Aortic arch is normal in ca liber. IVC is normal in size and collapses >50% with inspiration. Pericardium There is no pericardial effusion. 2D Dimensions IVSD d PLAX 0.96 cm M: 0.6-1.2 Ao Root d 3.06 cm M: 3.1 - 3.7 LVPW d PLAX 0.96 cm M: 0.6 - 1.2 Ao Asc Diam d 3.20 cm M: 2.6 - 3.4 LVID d PLAX 4.61 cm M: 4.2 - 5.8 Left Atrium 1.89 cm M: 3.0 - 4.0 LVDs 3.25 cm M: 2.5 - 4.0 LV EF Teichholz 56.5 % FS 29.50 % LV EDV (Teich) 98.0 mL LV ESV (Teich) 42.6 mL M-Mode TAPSE 2.39 cm (M/F) >1.7 Auto EF LV EDV A4C 122.7 mL LV EDV A2C 136.4 mL LV EDV BP 132.0 mL LV ESV A4C 53.3 mL LV ESV A2C 57.7 mL LV ESV BP 56.0 mL LVEF(%) A4C 56.6 % LVEF(%) A2C 57.7 % LVEF(%) BP 57.6 % LV SV A4C 69.4 ml LV SV A2C 78.7 ml LV SV BP 76.0 ml LV CO A4C 4.0 L/min LV CO A2C 4.5 L/min LV CO BP 4.2 L/min HR A4C 57.33 BPM HR A2C 57.33 BPM LV EDV Index (BP) LA Volume LA Length A4C 4.8 cm LA Length A2C 4.7 cm LA Area A4C s 15.88 cm2 LA Area A2C s 19.67 cm2 LA Vol A4C A-L 44.32 mL LA Vol A2C A-L 69.49 mL LA Vol Biplane A-L 56.1 mL LA Vol/BSA A4C A-L LA Vol/BSA A2C A-L LA Vol/BSA BP A-L 28.8 mL/m2 LA Vol A4C MOD 41.8 mL LA Vol A2C MOD 66.5 mL LA Vol BP MOD 53.2 mL RA Volume RA Area A4C 9.2 cm2 RA ESV A4C (A-L) 16.7mL RA Vol/BSA A4C A-L RA Length A4C 4.3 cm RA ESV A4C (MOD) 15.7mL LV Diastology MV E' medial 0.082 (>0.07 m/s) MV E Vmax 0.73 (0.4-1.3 m/s) MV E/E' MED 8.94 (<14) MV A Vmax 0.85 (0.4-1.3 m/s) MV E' lateral 0.123 (>0.1 m/s) E/A Ratio 0.9 MV E/E' LAT 5.96 (<14) MV E' Average 0.103 m/s MV E/E'(average) 7.15 Aortic Valve AoV Vmax 1.52 m/s LVOT Vmax 1.02 m/s AoV Peak Grad 9.2 mmHg LVOT Peak Grad 4.1 mmHg AoV Area (Vmax) 2.17 cm2 LVOT VTI 0.243 m AoV VTI 0.350 m LVOT Mean Grad 2.0 mmHg AoV Mean Rashid. 1.03 m/s LVOT SV 78.88 mL AoV Mean Grad 4.9 mmHg LVOT Diam s 2.00 cm AoV Area (VTI) 2.26 cm2 Velocity Ratio 0.67 Mitral Valve MV DT 271 (160-240 msec) MV Vmax TIPS 0.96 m/s MV Mean Grad 1.2 (<2mmHg) MV VTI 0.333 m Pulmonary Valve PV Vmax 1.15 (0.5-1.5 m/s) RVOT Vmax 0.69 m/s PV Peak Grad 5.3 mmHg RVOT Peak Gr. 1.9 mmHg PV Mean Rashid 0.71 m/s RVOT VTI 0.167 m PV Mean Grad 2.4 mmHg RVOT Mean Gr. 1.1 mmHg Tricuspid Valve RA Pressure 3.00 mmHg TV S' 0.18 m/s
== END ==
PROVIDERS: PCP Family Medicine; Visit Provider Family Medicine
DX: R55 Syncope and collapse (principal)
CPT/HCPCS: 93306

== ENCOUNTER 2023-10-07 15:19 | Outpatient (REF) | payer MEDICAID, SELFPAY ==
[2023-10-07 19:13] LABS: Anion Gap 11.7 mmol/L (3-11); BUN 15 mg/dL (7-18); CO2 26.3 mmol/L (21.0-32.0); CREATININE 1.2 mg/dL (0.70-1.30); Calcium 8.9 mg/dL (8.5-10.1); Chloride 105 mmol/L (98-107); Estimated GFR 69.23 (mL/min/1.73m2); Glucose 97 mg/dL (74-106); Potassium 3.8 mmol/L (3.5-5.1); Sodium 143 mmol/L (136-145)
== END 2023-10-07 15:20 | disposition home or self-care (01) ==
LOC: NCHCN 15:19
PROVIDERS: PCP Family Medicine; Visit Provider Student in an Organized Health Care Education/Training Program
DX: I10 Essential (primary) hypertension (principal)
CPT/HCPCS: 80048

== ENCOUNTER 2023-10-28 06:14 | Day surgery (SDC) | payer MEDICAID, SELFPAY ==
--- OUTSIDE RECORDS SUMMARY | 2023-10-28 06:15 | XMS_ITS | Continuity of Care Document ---
Author Organization [facility] Ambulatory Clinics Address [address] [place] [address] Care Team Providers Care Senior Account Clerk Name Role Phone JESSA GLOVER Primary Care Physician Encounter [facility] NBR [id number] Date(s): 10/08/23 - 10/08/23 [facility] Ambulatory Clinics [address] [place] [address]- [place] Patient Care team information Care Team Personnel Name: JESSA GLOVER Position: No Access Member Role: Primary Care Physician Address: Address: [address] [address]
--- OUTSIDE RECORDS SUMMARY | 2023-10-28 06:15 | XMS_ITS | Referral Summary ---
Author Organization [facility] Address [address] [place] [address] Care Team Providers Care Old Coin Dealer Name Role Phone Ta Jensen MD Primary Care Provider [phone] Social History Tobacco Use Types Packs/Day Years Used Date Smoking Tobacco: Never Assessed Interpersonal Safety Answer Date Record ed Physically Hurt Never 11/14/2019 Verbally Threaten Not on file 11/14/2019 Sex and Gender Information Value Date Recorded Sex Assigned at Not on file Gender Identity Not on file Sexual Orientation Not on file Plan of Treatment Not on file Care Teams Old Coin Dealer Relationship Specialty Start Date End Date Ta Jensen MD [facility] [place] [address] PCP - General 06/04/16
--- OUTSIDE RECORDS SUMMARY | 2023-10-28 06:15 | XMS_ITS | Clinical Summary ---
Author Organization [facility] Address [address] [place] [address] Care Team Providers Care Dye Range Tender Name Role Phone Ta Jensen MD Primary Care Provider [phone] Social History Tobacco Use Types Packs/Day Years Used Date Smoking Tobacco: Never Assessed Interpersonal Safety Answer Date Record ed Physically Hurt Never 11/14/2019 Verbally Threaten Not on file 11/14/2019 Sex and Gender Information Value Date Recorded Sex Assigned at Not on file Gender Identity Not on file Sexual Orientation Not on file Plan of Treatment Health Maintenance Due Date Last Done Comments Hepatitis C Screen 1965 COVID-19 Vaccine (2022-24 season) 2022 RSV Immunization ( o r 60+ Years) (1 - 1-dose 60+ series) 2023 Care Teams Dye Range Tender Relationship Specialty Start Date End Date Ta Jensen MD [facility] [place] [address] PCP - General 06/04/16
--- OUTSIDE RECORDS SUMMARY | 2023-10-28 06:15 | XMS_ITS | Encounter Summary ---
Author Organization [facility] Address [address] [place] [address] Care Team Providers Care Glass Blowing Instructor Name Role Phone Ta Jensen MD Primary Care Provider [phone] Encounter Details Date Type Department Care Team (Late st Contact Info) Description 10/02/2022 Lab Requisition [facility] Pathology & Laboratory Medicine - [address] [id number] Outr Resulting Lab, Provider Social History Tobacco Use Types Packs/Day Years Used Date Smoking Tobacco: Never Assessed Interpersonal Safety Answer Date Record ed Physically Hurt Never 11/14/2019 Verbally Threaten Not on file 11/14/2019 Sex and Gender Information Value Date Recorded Sex Assigned at Not on file Gender Identity Not on file Sexual Orientation Not on file documented as of this encounter Plan of Treatment Not on file documented as of this encounter Procedures Procedure Name Priority Date/Time Associated Diagnosis Comments VARICELLA IGG ANTIBODY Routine 10/01/2022 13:15 EDT documented in this encounter Results * VARICELLA IGG ANTIBODY (10/01/2022 13:15 EDT) Varicella IgG Ab Positive See Note 10/03/2022 10:05 EDT [facility] Comment:Presence of detectab le Varicella Zoster virus IgG antibodies. Blood VENOUS BLOOD / Unknown 10/01/2022 13:15 EDT 10/02/2022 16:58 EDT Provider Outr Resulting Lab IMMUNOLOGY A ND SEROLOGY ORDERABLES [facility] [address] [place] [address] documented in this encounter Visit Diagnoses Not on filedocumented in this encounter Care Teams Glass Blowing Instructor Relationship Specialty Start Date End Date Ta Jensen MD [address] [place] [address] PCP - General 06/04/16 documented as of this encounter
--- OUTSIDE RECORDS SUMMARY | 2023-10-28 06:16 | XMS_ITS | Encounter Summary ---
Author Organization [facility] Address [address] [place] [address] Care Team Providers Care Sign Painter Helper Name Role Phone Unavailable Primary Care Provider Unavailabl e Encounter Details Date Type Department Care Team (Late st Contact Info) Description 06/25/2007 Before [facility] Converted Visit (Maple) [facility] - Maple conversion [address] [place] [address] Jl Priest MD Social History Tobacco Use Types Packs/Day Years Used Date Smoking Tobacco: Never Assessed Sex and Gender Information Value Date Recorded Sex Assigned at Not on file Gender Identity Not on file Sexual Orientation Not on file documented as of this encounter Progress Notes * Jl Priest MD - 01/09/2009 1219 EDT DIVISION OF GASTROENTEROLOGY July 14, 2007 MR. NGHIA OWUSU [address] [place] [address] Dear Mr. Owusu: The small polyp we removed during your recent colonoscopy was a benign hyperplastic polyp. Hyperplastic polyps have no premalignant potential and require no particular colorectal cancer screening other than that recommended for the general population. The biopsies from the terminal ileum were completely normal and there was no endoscopic or pathologic evidence of Crohn's disease. It is my opinion that you should stop your 6-mercaptopurine and see if your joints do not feel better. The diagnosis of Crohn's disease seems uncertain to me. I would be happy to discuss this with you in person, by phone or by e-mail. Alternatively, I would be happy to talk with Ms. Salazar or Dr. Taylor if I could be helpful. Sincerely, Signed by Jl Priest MD, FACG 07/21/2007 13:07 Yvonne Priest MD, [id number] L Moses, MD, FACGPmohinder Priest MD, [phone] - Jl Priest MD, FACG - CAROLE Job ID: [id number] Doc ID: [id number] cc: MD Janice Acuña NP *Patient * Jl Priest MD - 01/09/2009 1150 EDT DIVISION OF GASTROENTEROLOGY July 10, 2007 MR. NGHIA OWUSU [address] [place] [address] Dear Nghia: As I suspected your 6 MP level is low; however, the remainder of your laboratory values are normal and your endoscopy appeared normal although I am still waiting for biopsies to become available. I would recommend that you maintain your medication at its current dose until I have had a chance to review your biopsies. If there is evidence of microscopic inflammation then I think we should double your dose of 6 MP to 100 mg a day. If there is no evidence of inflammatory bowel disease on any of the biopsies I think we should review the previous evidence that supported this diagnosis and consider whether or not you require this medication at all. Sincerely, Signed by Jl Priest MD, [facility] 07/13/2007 08:18 Yvonne Priest MD, [id number] L Moses, MD, FAC - Jl Priest MD, FACG - Job ID: [id number] Doc ID: [id number] cc: Janice Salazar NP *Patient documented in this encounter Procedure Notes * Jl Priest MD - 01/12/2009 2221 EDT [facility] Colonoscopy Procedure Report Attending Physician: JL PRIEST MD Referring Physician:JANICE SALAZAR NP Exam Date:07/07/2007 Introduction: A 42 year old male patient presents for an outpatient Colonoscopy Indications: ?? Surveillance of Crohn's disease (555.9), with histology that showed indefinite dysplasia. Consent: benefits, risks, and alternatives to the procedure were discussed and informed consent wasobtained from the patient. Preparation: pulse oximetry and blood pressure were monitored throughout the procedure. ASA Classification: Class 2 -Patient has mild to moderate systemic disturbance that may or may not be related to the disorder requiring surgery. Mallampati Classification: Class 1 - Uvula, faucial pillars, soft palate visible. Medications: ?? Demerol 125 mg IV ?? Versed 4 mg IV Rectal Exam: Normal rectal exam. Procedure: colonoscope was passed through the anus under direct visualization and advanced with ease to the terminal ileum, confirmed by appendiceal orifice, cecal strap (lovelock's foot), and ileocecal valve. The scope was withdrawn and the mucosa was carefully examined. The quality of the preparationwas good. The views were good. The patient's toleration of the procedure was good. Findings: colon appeared to be normal. Multiple cold forceps biopsies were taken. The colon appeared to be normal. Unplanned Events: There were no unplanned events. Summary: ?? Normal colon. ?? Normal colon. Recommendations: ?? Follow-up on the results of the biopsy specimens. ?? Continue current medications. Performed By: The procedure was performed by Dr. Jl Priest. Report electronically signed by Dr. JL PRIEST MD, MD, FACG on 07/07/2007 at 15:06 [facility] Document ID: [id number] documented in this encounter Consult Notes * Jl Priest MD - 01/05/2009 0059 EDT DIVISION OF GASTROENTEROLOGY CONSULTATION - 06/25/2007 Jaince Salazar NP [facility] [address] [place] [address] Dear Janice: I saw Nghia Owusu in consultation today. As you know he has had progressive symptoms over the last year including a muriate of GI symptoms and arthritic complaints mostly in his hands and wrists. My consultation with Mr. Owusu and his lasted approximately 30 minutes today. Our entire visit consisted of review of his history, problem solving and decision making. It seems most reasonable to repeat his colonoscopy with ileoscopy to look for evidence of active Crohndisease. I have also sent a battery of standard labs as well as 6 MP related metabolite levels. My guess is that Mr. Serrato under treated at 50 mg, but rather than making any changes today we have opted to data collection. I will forward the results of everything to you as it becomes available. Sincerely, Signed by Jl Priest MD, FACG 06/30/2007 16:45 Jl Priest MD, FACG [phone] D: - Jl Priest MD, FACG - NICHOL Job ID: [id number] Doc ID: [id number] cc: Janice Salazar NP documented in this encounter Plan of Treatment Not on file documented as of this encounter Visit Diagnoses Not on filedocumented in this encounter
--- OUTSIDE RECORDS SUMMARY | 2023-10-28 06:16 | XMS_ITS | Encounter Summary ---
Author Organization [facility] Address [address] [place] [address] Care Team Providers Care Loans Officer Name Role Phone Alonso Taylor MD Primary Care Provider [phone] Encounter Details Date Type Department Care Team (Late st Contact Info) Description 05/31/2016 Results Only [facility] [phone] Lisette Damico, DO [address] [place] [address] Social History Tobacco Use Types Packs/Day Years Used Date Smoking Tobacco: Never Assessed Sex and Gender Information Value Date Recorded Sex Assigned at Not on file Gender Identity Not on file Sexual Orientation Not on file documented as of this encounter Plan of Treatment Not on file documented as of this encounter Procedures Procedure Name Priority Date/Time Associated Diagnosis Comments SURGICAL PATHOLOGY Routine 05/31/2016 12 :04 EST documented in this encounter Results * SURGICAL PATHOLOGY (05/31/2016 12:04 EST) Pathology Report: SURGICAL PATHOLOGY REPORT Reports generated via electronic interface contain original data; however they are lacking the format of the original report. Caution should be taken when reading/interpret ing unformatted reports. Name: ? NGHIA OWUSU ? Accession #: ? [id number] ? : ? 1965 (Age: 51) ??M ? Collect Date: ? 05/31/2016 ? Location: ? [facility] ? Receive Date: ? 06/03/2016 ? Provider: LISETTE DAMICO DO Copy to: ALONSO ANNE MD ? Final Pathologic Diagnosis: A. COLON, CECUM, POLYP, BIOPSY: - ??Fragments of tubular adenoma. Document reviewed and electronically signed by: CATRACHITO URIBE MD Report ??Date: 06/05/2016 14:03 By the signature above, the attending physician certifies that he/she has personally conducted a gross and/or microscopic examination of the described specimens and rendered or confirmed the above diagnosis. Specimen(s) Received: Cecal polyp Clinical History: Screening; Crohn's dx Gross Description: ? Received in formalin labelled with proper patient identification (initials B, D) and cecal polyp is a pink-saldaña tissue fragment (0.3 x 0.3 x 0.2 cm). Submitted intact in 1. KONG Morfin (ASCP) 06/03/2016 1:20 PM End of Report [facility] 05/31/2016 12:0 4 EST 06/03/2016 12:04 EST Lisette Damico DO PATHOLOGY ORDERABLES [facility] [address] [place] [address] documented in this encounter Visit Diagnoses Not on filedocumented in this encounter Care Teams Loans Officer Relationship Specialty Start Date End Date Alonso Taylor MD [address] [place] [address] PCP - General 05/15/11 06/03/16 documented as of this encounter
--- OUTSIDE RECORDS SUMMARY | 2023-10-28 06:16 | XMS_ITS | Encounter Summary ---
Author Organization [facility] [address] Care Team Providers Care Health Services Administrator Name Role Phone Ta Jensen MD Primary Care Provider Encounter Details Date Type Department Care Team (Late st Contact Info) Description 01/27/2023 Telephone [facility] [place] [id number] Amalia Fernando Social History Tobacco Use Types Packs/Day Years Used Date Smoking Tobacco: Former Smokeless Tobacco: Never Comments:Quit Over 25yrs ago Sex and Gender Information Value Date Recorded Sex Assigned at Not on file Gender Identity Not on file Sexual Orientation Not on file documented as of this encounter Miscellaneous Notes * Telephone Encounter - Amalia Fernando - 01/27/2023 10:13 AM EDT LVM on 01/27/23 in regards to rescheduling his appointment with Sana Acevedo from 01/27/23. Call [phone]. documented in this encounter Plan of Treatment Not on file documented as of this encounter Visit Diagnoses Not on filedocumented in this encounter Care Teams Health Services Administrator Relationship Specialty Start Date End Date Ta Jensen MD [address] [place], [place] [address] [address] PCP - General Family Medicine 07/22/20 documented as of this encounter
--- OUTSIDE RECORDS SUMMARY | 2023-10-28 06:16 | XMS_ITS | Encounter Summary ---
Author Organization [facility] [place] [address] Care Team Providers Care Patrol Guard Name Role Phone Ta Jensen MD Primary Care Provider [phone] Reason for Visit * Auth/Cert (Routine) Specialty Diagnoses / Procedures Referred By Contac t Referred To Contact Diagnoses lumbar spondylosis without myelopathy Procedures PRO INJECTION PV FACET JOINT LUMBAR/SACRAL SECOND LEVEL PRO INJECTION PV FACET JOINT LUMBAR/SACRAL SINGLE LEVEL INJECTION, FACET JOINT, W\FLUORO, LUMBAR, 2ND LEVEL (WRVU 1) INJECTION, FACET JOINT, W\FLUORO, LUMBAR, SINGLE (WRVU 1.52) Donna Severino MD [facility] [place] [address] [facility] Referral ID Status Reason Start Date Expiration Date Visits Re quested Visits Authorized [id number] 1 1 Encounter Details Date Type Department Care Team (Latest Contact Info) Description 12/30/2022 9:26 AM EDT - 12/30/2022 11:42 AM EDT Hospital [place] [address] Donna Severino MD [facility] [place] [address] Spondylosis without myelopathy or radiculopathy, lumbar region Discharge Disposition: Home Social History Tobacco Use Types Packs/Day Years Used Date Smoking Tobacco: Former Smokeless Tobacco: Never Comments:Quit Over 25yrs ago Sex and Gender Information Value Date Recorded Sex Assigned at Not on file Gender Identity Not on file Sexual Orientation Not on file documented as of this encounter Last Filed Vital Signs Vital Sign Reading Time Taken Comments Blood Pressure 131/86 12/30/2022 11:25 AM EDT Pulse 51 12/30/2022 9:42 AM EDT Temperature - - Respiratory Rate 14 12/30/2022 9:42 AM EDT Oxygen Saturation 91% 12/30/2022 11:30 AM EDT Inhaled Oxygen Concentration - - Weight 86.2 kg (190 lb) 12/30/2022 9:42 AM EDT Height 165.1 cm (5' 5) 12/30/2022 9:42 AM EDT Body Mass Index 31.62 12/30/2022 9:42 AM EDT documented in this encounter Medications at Time of Discharge Medication Sig Dispensed Refills Start Date End Date hydroCHLOROthiazide (Hydrodiuril) 12.5 mg tablet Take 12.5 mg by mouth daily. 09/07/2022 lisinopriL (Zestril) 40 mg tablet TAKE ONE TABLET BY MOUTH EVERY DAY WITH 12.5MG HYDROCHLOROTHIAZIDE 09/07/2022 EPINEPHrine 0.3 mg/0.3 mL Auto-Injector Inject 1 kit into the muscle once as needed. Inject 0.3 mL IM once as needed for allergic reaction (Throat tight, difficulty breathing). Call 911 as directed. atorvastatin (Lipitor) 10 mg Tablet Take 10 mg by mouth nightly. 07/09/2021 cyclobenzaprine (Flexeril) 10 mg Tablet 10 mg nightly. 07/18/[address] (Cymbalta) 30 mg Capsule, Delayed Release(E.C.) 30 mg daily. 07/24/2021 loratadine (Claritin) 10 mg Tablet Take 10 mg by mouth daily. 04/11/2021 terazosin (Hytrin) 5 mg Capsule 5 mg daily. 05/11/2021 documented as of this encounter H&P Notes * Donna Severino MD - 12/30/2022 9:33 AM EDT Patient Name: Nghia Owusu Patient Age: 57 y.o. Birthdate: 1965 Admit date: 12/30/2022 Attending Physician: Donna Severino MD [facility] PREPROCEDURE HISTORY AND PHYSICAL HPI: Nghia Owusu is a 57 y.o. male who presents today for: Procedure: bilateral Lumbar Radiofrequency Of note,patient is worker comp. Please refer to the note by Sana Acevedo APRN on 10/25/22 for medical necessity. The history is obtained from the patient, and I have reviewed medical records provided by the referring physician, located in the electronic medical record to fill in gaps in the patient's recollection of events, treatments and outcomes. ROS: Patient denies recent fever, chills, infection, wounds, hospitalizations, ED visits, use of antibiotics. Pertinent positives and negatives otherwise noted in the HPI. I have reviewed the patient's past medical history, past surgical history, list of medications, allergies, family history and social history as documented in the electronic medical record. Physical Examination: BP 144/84 (Patient Position: Sitting) Pulse 51 Resp 14 Ht 165.1 cm (5' 5) Wt 86.2 kg (190 lb) SpO2 99% BMI 31.62 kg/m?? Pain Ratin/10 No pertinent changes are noted from previous assessment. Pulmonary/Chest: Effort normal. Skin: Skin is warm and dry. No rash noted. Not diaphoretic. Radiologic Data: Relevant imaging was reviewed today. Labs: No labs required Assessment and Plan: lumbar spondylosis without myelopathy Plan to proceed with bilateral Lumbar Radiofrequency. Addressed all questions and concerns. Nursing intake/checklist reviewed. Medications holds confirmed. Risks and benefits discussed with patient. No contraindications to the procedure at this time, will proceed. Micki Duque MD [facility] [place] [address] / documented in this encounter Miscellaneous Notes * Op Note - Donna Severino MD - 12/30/2022 10:25 AM EDT Pain Management Operative Note Patient Name: Nghia Owusu : [id number] MR#: [id number] Case Date: 12/30/2022 Surgeon: Surgeon(s) and Role: * Donna Severino MD - Primary * Micki Duque MD - Fellow - Assisting Present on Admission: Spondylosis without myelopathy or radiculopathy, lumbar region Postoperative diagnosis: Same LUMBAR/SACRAL MEDIAL BRANCH RADIOFREQUENCY Patient: Nghia Owusu Provider: Donna Severino MD Nghia Owusu has been referred to the [facility] for radiofrequency treatment of chronic axial back pain. Mr. Owusu has had long standing back pain which is facet joint generated and which has been refractory to other therapies. Local anesthetic medial branch blocks resulted in Mr. Owusu reporting a significant reduction of the usual axial component of pain for at least the duration of the local anesthetic effect. COMMENTS: B/L L3,4,5 MBRFA Mr. Owusu was interviewed and the medical record reviewed. There were no medical, pharmacologic, radiographic or other structural contraindications to attempting fluoroscopically guided radiofrequency treatment. Risks and expected side effects as well as potential benefit of the procedure were reviewed with Mr. Owusu, and he voiced concerns addressed. The printed consent form was signed and witnessed. Standard time-out procedure was performed. Mr. Owusu was placed in the prone position on the fluoroscopy table and automated blood pressure cuff and pulse oximeter applied. The skin entry points for approaching the anatomic target points of the segmental medial branches of bilaterally L3, L4, and L5-DR were identified with fluoroscopy and marked. Following thorough Chlorhexadine preparation of the skin and draping and 1% lidocaine infiltration of the skin entry points and subcutaneous tissues, a single 10 cm 18 guage curved needle witha 10mm active tip radiofrequency cannula was placed under fluoroscopic guidance along or across theanatomic course of each respective segmental medial branch. Each placement was stimulated at 2Hz without any evidence of distal myotomal stimulation. Lidocaine preservative free 2% was injected at each level after negative aspiration. At each placement a continuous mode radiofrequency treatment wasdone at 80 degrees C for 90 secs and then rotated 180degrees and then repeated. The needles were then removed without difficulty. This radiofrequency treatment should result in the denervation of the bilaterally L4-L5 and L5-S1. A total of 4 facets were expected to be denervated from today's treatment. Patient's neurological examination was unchanged postprocedure. Mr. Owusu's vital signs were stable throughout the procedure and were as recorded in the docflowsheet by the nursing staff. If given, dosages of intravenous drugs for anxiolysis and analgesia were documented in the Medication Administration Record (MAR). 1.5 mg midazolam was administered intravenous. Post-procedure pain score: 2/10. Follow up plans and appointments were discussed with Nghia Owusu. Post procedure instruction was given as documented in the nursing documentation and having met discharge criteria, he was discharged from the [facility]. COMMENTS: F/U with Sana Acevedo APRN as scheduled. I was the attending physician supervising the fellow in the above care and I was present with the fellow for the carlson component(s) of the procedure and remained immediately available throughout the remainder. Donna Severino MD [facility] [employer]esthes[employer] [facility] [employer] [address] [address] / [facility] CC: No referring provider defined for this encounter. documented in this encounter Plan of Treatment Not on file documented as of this encounter Procedures Procedure Name Priority Date/Time Associated Diagnosis Comments Dstr Paravertebral Fct Jnt Nrves Lumbar or Sacral Single 12/30/2022 10:17 AM EDT Spondylosis without myelopathy or radiculopathy, lumbar region Dstr Paravertebral Fct Jnt Nrves Lumbar or Sacral Addl 12/30/2022 10:17 AM EDT Spondylosis without myelopathy or radiculopathy, lumbar region DESTRUCT BY LYTIC AGENT, FACET JNT NERVE(S), LUMBAR OR SACRAL, EA ADD Routine 12/30/2022 9:36 AM EDT Spondylosis without myelopathy or radiculopathy, lumbar region DESTRUCTI BY LYTIC AGENT, FACET JOINT NERVE(S); LUMBAR OR SACRAL, SNGL Routine 12/30/2022 9:36 AM EDT Spondylosis without myelopathy or radiculopathy, lumbar region documented in this encounter Visit Diagnoses Diagnosis Spondylosis without myelopathy or radiculopathy, lumbar region documented in this encounter Active and Recently Administered Medications Times are shown in EDT. PRN Medication Order 12/28/2022 12/29/2022 12/30/2022 lidocaine (pf) (Xylocaine) (10 mg/mL) 1% injection (CANCELED) PRN, Starting on Fri12/30/22 at 1125, Until Fri12/30/22 at 1342, Intra-Operative (Intra-Procedure), Routine 1125 (Given - Provid er: Micki Duque MD - Comment: LRFA) lidocaine (pf) (Xylocaine) (20 mg/mL) 2% injection (CANCELED) PRN, Starting on Fri12/30/22 at 1125, Until Fri12/30/22 at 1342, Intra-Operative (Intra-Procedure), Routine 1125 (Given - Provid er: Micki Duque MD - Comment: LRFA) midazolam (pf) (Versed) (1 mg/mL) injection (CANCELED) PRN, Starting on Fri12/30/22 at 1028, Until Fri12/30/22 at 1342, Intra-Operative (Intra-Procedure), Routine 1028 (Given - Provid er: Jennifer Johnston RN - Comment: LRFA)1032 (Given - Provider: Jennifer Johnston RN - Comment: LRFA) documented in this encounter Care Teams Patrol Guard Relationship Specialty Start Date End Date Ta Jensen MD [address] [place] [address] PCP - General Family Medicine 07/22/20 documented as of this encounter
--- OUTSIDE RECORDS SUMMARY | 2023-10-28 06:16 | XMS_ITS | Encounter Summary ---
Author Organization [facility] [place] [address] Care Team Providers Care Emergency Dispatcher Name Role Phone Ta Jensen MD Primary Care Provider [phone] Encounter Details Date Type Department Care Team (Late st Contact Info) Description 08/22/2023 Telephone [facility] [place] [id number] Leeann Ramos Social History Tobacco Use Types Packs/Day Years Used Date Smoking Tobacco: Former Smokeless Tobacco: Never Comments:Quit Over 25yrs ago Sex and Gender Information Value Date Recorded Sex Assigned at Not on file Gender Identity Not on file Sexual Orientation Not on file documented as of this encounter Miscellaneous Notes * Telephone Encounter - Leeann Ramos - 08/22/2023 10:57 AM EDT 08/22/2023 Patient called in about pelvic pain and wanting appt. Advised we have not seen him for this issue and he needs referral sent. He will contact PCP for this. documented in this encounter Plan of Treatment Not on file documented as of this encounter Visit Diagnoses Not on filedocumented in this encounter Care Teams Emergency Dispatcher Relationship Specialty Start Date End Date Ta Jensen MD [facility] [place] [id number] PCP - General Family Medicine 07/22/20 documented as of this encounter
--- OUTSIDE RECORDS SUMMARY | 2023-10-28 06:16 | XMS_ITS | Encounter Summary ---
Author Organization [facility] Address [address] [place] [address] Care Team Providers Care Resource Conservationist Name Role Phone Unavailable Primary Care Provider Unavailabl e Encounter Details Date Type Department Care Team (Latest Contact Info) Description 06/25/2007 10:23 EDT - 06/25/2007 11:59 EDT Hospital Encounter [facility] [address] [place] [address] Jl Robledo MD Discharge Disposition: Auto Discharge Social History Tobacco Use Types Packs/Day Years Used Date Smoking Tobacco: Never Assessed Sex and Gender Information Value Date Recorded Sex Assigned at Not on file Gender Identity Not on file Sexual Orientation Not on file documented as of this encounter Discharge Disposition Disposition Code Departure Means Destination Auto Discharge documented in this encounter Plan of Treatment Not on file documented as of this encounter Visit Diagnoses Not on filedocumented in this encounter
--- OUTSIDE RECORDS SUMMARY | 2023-10-28 06:16 | XMS_ITS | Encounter Summary ---
Author Organization [facility] Address [address] [place] [address] Care Team Providers Care Fleet Assistant Name Role Phone Ta Taylor MD Primary Care Provider [phone] Encounter Details Date Type Department Care Team (Latest Contact Info) Description 05/31/2016 10:05 EST - 05/31/2016 23:59 EST Hospital Encounter [facility] [address] [place] [address] Unknown, Provider, Discharge Disposition: Home or Self Care Social History Tobacco Use Types Packs/Day Years Used Date Smoking Tobacco: Never Assessed Sex and Gender Information Value Date Recorded Sex Assigned at Not on file Gender Identity Not on file Sexual Orientation Not on file documented as of this encounter Discharge Disposition Disposition Code Departure Means Destination Home or Self Detention documented in this encounter Plan of Treatment Not on file documented as of this encounter Visit Diagnoses Not on filedocumented in this encounter Care Teams Fleet Assistant Relationship Specialty Start Date End Date Ta Taylor MD [address] [place] [address] PCP - General 05/15/11 06/03/16 documented as of this encounter
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
--- OUTSIDE RECORDS SUMMARY | 2023-10-28 06:16 | XMS_ITS | Encounter Summary ---
Author Organization [facility] [address] Care Team Providers Care Flanging Machine Operator Name Role Phone Ta Jensen MD Primary Care Provider [phone] Encounter Details Date Type Department Care Team (Late st Contact Info) Description 11/01/2021 Telephone [place] [phone] Chelly Sousa, RN Social History Tobacco Use Types Packs/Day Years Used Date Smoking Tobacco: Former Smokeless Tobacco: Never Comments:Quit Over 25yrs ago Sex and Gender Information Value Date Recorded Sex Assigned at Not on file Gender Identity Not on file Sexual Orientation Not on file documented as of this encounter Miscellaneous Notes * Telephone Encounter - Chelly Sousa, RN - 11/01/2021 2:46 PM EDT Reached voicemail and left message as identified in contacts Identified myself and provided callback number: [phone] 1. Patient instructed to arrive at 1000 on 11/06/21 with their driver trainee for their RFA procedure. Please plan to spend about 2 hours at the center (3 hours for RFA) 2. Bring Updated list of medications including dosage and reason for taking. 3. Call the Pain Clinic Nurse at for any of the following situations that occur within 2 weeks of your procedure date: a. Any questions about your procedure b. You are having a Covid vaccine or other vaccine c. You have been exposed to anybody with a contagious illness such as Covid, flu, d. You are taking antibiotics to treat an infection e. You have any skin rashes, breakdown, blisters or open wounds f. You have had any hospitalizations, ED visit, surgery, other procedure, dental procedure g. You have taken oral steroids, or had a steroid injection. 4. If you have any of the following symptoms that are NEW and NOT explained by another health condition you need to call the [facility] hotline to arrange for testing prior to your procedure: fever or chills, cough, shortness of breath or difficulty breathing, fatigue, muscle or body aches, headache, new loss of taste or smell, sore throat, congestion or runny nose, nausea or vomiting, diarrhea. The [employer] hotline number is: [phone] 5. If your pain has resolved or significantly improved such as a rating of 3 out of 10 or less, youmay need to cancel your procedure because it will likely be of little benefit to you and it is likely that your insurance will not cover it. Please call the Pain clinic nurse to discuss. 6. Was patient instructed to stop any medications? Yes a. If yes, instructions reviewed as follows: b. Name, date of last dose. ASPIRIN (6 DAY HOLD) c. Please call to reschedule your procedure if you did not stop this medication as directed. 7. Is patient having a nerve block: No a. If yes, instructed to not take any pain medication for 12 hours before the procedure time. 8. Please continue to take any prescribed medications that you were not told to stop, especially blood pressure medication because your procedure may be cancelled if your blood pressure is too high. 9. You were instructed to follow NPO guidelines: Yes if yes the following instructions were reviewed: a. You may eat up to 6 hours before your procedure b. You may have clear liquids only up to 2 hours before your procedure: water, apple juice, richard maggi, sprite, popsicles, broth, tea or coffee plain or with sweetener, absolutely no dairy products, no milk including soy, oat, almond. 10. If RFA: Does patient have a pacemaker? No If yes, document that cardiology was called and notified. documented in this encounter Plan of Treatment Not on file documented as of this encounter Visit Diagnoses Not on filedocumented in this encounter Care Teams Flanging Machine Operator Relationship Specialty Start Date End Date Ta Jensen MD [address] [place] [id number] PCP - General Family Medicine 07/22/20 documented as of this encounter
--- OUTSIDE RECORDS SUMMARY | 2023-10-28 06:16 | XMS_ITS | Encounter Summary ---
Author Organization [facility] [place] [address] Care Team Providers Care Preventive Medicine Physician Name Role Phone Ta Jensen MD Primary Care Provider [phone] Reason for Visit * Auth/Cert (Routine) Specialty Diagnoses / Procedures Referred By Contac t Referred To Contact Diagnoses lumbar spondylosis without myelopathy Procedures PRO INJECTION PV FACET JOINT LUMBAR/SACRAL SECOND LEVEL PRO INJECTION PV FACET JOINT LUMBAR/SACRAL SINGLE LEVEL INJECTION, FACET JOINT, W\FLUORO, LUMBAR, 2ND LEVEL (WRVU 1) INJECTION, FACET JOINT, W\FLUORO, LUMBAR, SINGLE (WRVU 1.52) Donna Severino MD [facility] [place] [address] [facility] Referral ID Status Reason Start Date Expiration Date Visits Re quested Visits Authorized [id number] 1 1 Encounter Details Date Type Department Care Team (Late st Contact Info) Description 12/30/2022 10:00 AM EDT Ancillary [place] [address] Donna Severino MD [facility] [place] [address] Social History Tobacco Use Types Packs/Day Years [...] Procedure Name Priority Date/Time Associated Diagnosis Comments FILM LIBRARY STORAGE ONLY PAIN CLINIC C ARM Routine 12/30/2022 1:58 PM EDT documented in this encounter Results * Film Library- Storage Only pain Clinic C-Arm (12/30/2022 1:58 PM EDT) Narrative [facility] - 12/30/2022 1:58 PM EDT See PACS for result report. Donna Severino MD G FILM LIBRARY ORD ERABLES [place], [place] documented in this encounter Visit Diagnoses Not on filedocumented in this encounter Care Teams Preventive Medicine Physician Relationship Specialty Start Date End Date Ta Jensen MD [address] [place] [address] PCP - General Family Medicine 07/22/20 documented as of this encounter
--- OUTSIDE RECORDS SUMMARY | 2023-10-28 06:16 | XMS_ITS | Clinical Summary ---
Author Organization [facility] Address [facility] [place] [address] Care Team Providers Care Healthcare Advisory Services Manager Name Role Phone Ta Jensen MD Primary Care Provider [phone] Allergies Active Allergy Reactions Criticality Noted Date Comments Unclassified Drug Rash 07/26/2021 Febreze spray. Reactions are rash, itching Venom-Yellow Jacket Anaphylaxis High 07/26/2021 Medications Medication Sig Dispensed Refills Start Date End Date Status atorvastatin (Lipitor) 10 mg Tablet Take 10 mg by mouth nightly. 07/09/2021 Active cyclobenzaprine (Flexeril) 10 mg Tablet 10 mg nightly. 07/18/[address] (Cymbalta) 30 mg Capsule, Delayed Release(E.C.) 30 mg daily. 07/24/2021 Active loratadine (Claritin) 10 mg Tablet Take 10 mg by mouth daily. 04/11/2021 Active terazosin (Hytrin) 5 mg Capsule 5 mg daily. 05/11/2021 Active EPINEPHrine 0.3 mg/0.3 mL Auto-Injector Inject 1 kit into the muscle once as needed. Inject 0.3 mL IM once as needed for allergic reaction (Throat tight, difficulty breathing). Call 911 as directed. Active hydroCHLOROthiaz jj (Hydrodiuril) 12.5 mg tablet Take 12.5 mg by mouth daily. 09/07/2022 Active lisinopriL (Zestril) 40 mg tablet TAKE ONE TABLET BY MOUTH EVERY DAY WITH 12.5MG HYDROCHLOROTHIAZIDE 09/07/2022 Active Active Problems Problem Noted Date Diagnosed Date Spondylosis without myelopat hy or radiculopathy, lumbar region 08/16/2021 Lumbar spondylosis 08/15/2021 Encounters Date Type Department Care Team Description 08/22/2023 Telephone [place] [phone] Rachel Leeann M 08/07/2023 Telephone [place] [address] Amalia Fernando from Last 3 Months Social History Tobacco Use Types Packs/Day Years Used Date Smoking Tobacco: Former Smokeless Tobacco: Never Comments:Quit Over 25yrs ago Sex and Gender Information Value Date Recorded Sex Assigned at Not on file Gender Identity Not on file Sexual Orientation Not on file Last Filed Vital Signs Vital Sign Reading [...] Mass Index 31.62 12/30/2022 9:42 AM EDT Plan of Treatment Health Maintenance Due Date Last Done Comments CT Colonography 1965 Colonoscopy 1965 Colorectal Cancer Screening 1965 FIT DNA 1965 FIT 1965 Sigmoidoscopy (10 year) with FIT yearly 1965 Sigmoidoscopy 1965 HIV screen 1981 Hepatitis C Screening 1981 Tdap adult 1982 Tetanus vaccine 1982 Diabetes Screening (HgbA1C or Glucose) 2003 Zoster vaccine (1 of 2) 2013 Advance Directive 2018 Covid-19 Vaccine ( - season) 2022 Influenza (Flu) vaccine (1 o f 1 - Influenza standard series) 12/14/2023 Care Teams Healthcare Advisory Services Manager Relationship Specialty Start Date End Date Ta Jensen MD [address] [place] [id number] PCP - General Family Medicine 07/22/20
--- OUTSIDE RECORDS SUMMARY | 2023-10-28 06:16 | XMS_ITS | Encounter Summary ---
Author Organization [facility] Address [address] [place] [address] Care Team Providers Care Hand Candy Molder Name Role Phone Unavailable Primary Care Provider Unavailabl e Encounter Details Date Type Department Care Team (Late st Contact Info) Description 07/07/2007 Results Only [facility] - [facility] [address] [place] [address] Jl Priest MD Social History Tobacco Use [...] Date/Time Associated Diagnosis Comments SURGICAL PATHOLOGY Routine 07/07/2007 0:00 EDT documented in this encounter Results * SURGICAL PATHOLOGY (07/07/2007 0:00 EDT) Pathology Report: SURGICAL PATHOLOGY REPORT Reports generated via electronic interface contain original data; however they are lacking the format of the original report. Caution should be taken when reading/interpreti ng unformatted reports. Name: ? NGHIA OWUSU ? Accession #: ? [id number] ? : ? 1965 (Age: 42) ??M ? Collect Date: ? 07/07/2007 ? Location: ? [facility] ? Receive Date: ? 07/07/2007 ? Provider: JL PRIEST MD Copy to: JIMI HAWKINS MD ? Final Pathologic Diagnosis: A. ?Terminal ileum, biopsies: ? 1. ??Ileal mucosa with no specific pathologic features. ??See comment. ? B. ?? Rectum, polyp, biopsies: ? 1. ??Hyperplastic polyp overlying prominent lymphoid aggregate. ?? Comment: ? The current biopsies were compared to the previous biopsies ([id number]), and the current specimen does not demonstrate the chronic or active ileitis seen in the prior biopsies. ??(Dr. Javier)/mpl Document reviewed and electronically signed by: Ana Vargas MD Report ??Date: 07/10/2007 16:33 By the signature above, the attending physician certifies that he/she has personally conducted a gross and/or microscopic examination of the described specimens and rendered or confirmed the above diagnosis. Specimen(s) Received: A. ?Bx TI B. ? Bx rectal polyp Clinical History: ? Hx of IBD Crohn's ??bx's from TI ??please compare with previous bx. A. R/O active ileitis Gross Description: ? Received in Hollande's fixative labelled Francoise and bx T.I. are five biopsies which vary in size from 0.3 x 0.2 x 0.1 cm up to 0.7 x 0.4 x 0.2 cm. The specimen is submitted entirely as (A1) and (A2). ?? Received in Hollande's fixative labelled Francoise and bx rectal polyp are two polypoid biopsies measuring 0.2 x 0.2 x 0.1 cm each. ??The specimens are submitted intact as (B). ??(Amirah Collado/mpl ?? End of Report YANE SHANE 07/07/2007 07/07/2007 8:5 4 EDT Jl Priest MD PATHOLOGY ORDERABLES Performing Organization Address City/State/[facility] Co de Phone Number [facility] [address] [place] [address] documented in this encounter Visit Diagnoses Not on filedocumented in this encounter
--- OUTSIDE RECORDS SUMMARY | 2023-10-28 06:16 | XMS_ITS | Encounter Summary ---
Author Organization [facility] [place] [address] Care Team Providers Care Materials Management Supervisor Name Role Phone Ta Jensen MD Primary Care Provider [phone] Encounter Details Date Type Department Care Team (Late st Contact Info) Description 01/17/2022 12:00 PM EDT Notes Only [facility] at [facility] [place] [address] [facility] [place] [address] Social History Tobacco Use Types Packs/Day Years Used Date Smoking Tobacco: Former Smokeless Tobacco: Never Comments:Quit Over 25yrs ago Sex and Gender Information Value Date Recorded Sex Assigned at Not on file Gender Identity Not on file Sexual Orientation Not on file documented as of this encounter Progress Notes * Lay Echeverria - 01/17/2022 12:00 PM EDT [facility] Care, A Service of the [facility] Patient: Nghia Owusu Date: 01/17/2022 Appointment: Telehealth, No Charge Visit Nghia attended a 60 minute Welcome Group for the Active Pain Care Service (APCS). Patients were provided detailed information on the programs and treatment options available to them through the APCS. The group also presented the rationale for engaging in active treatment strategies that include education and interdisciplinary, multimodal therapies. Patients' questions were answered and they wereprovided written materials describing the APCS and recommended next steps. Participants were encouraged to schedule an appointment for a Pain Neuroscience Education class, asresearch studies have shown that if patients have a basic understanding of how chronic pain develops and functions physiologically, they experience better treatment outcomes including improved function, reduced reliance on medications, and have greater interest in healthy exercise and movement. Plan: Nghia will be scheduled to attend Pain 100 if he is interested in participating in APCS. documented in this encounter Plan of Treatment Not on file documented as of this encounter Visit Diagnoses Not on filedocumented in this encounter Care Teams Materials Management Supervisor Relationship Specialty Start Date End Date Ta Jensen MD [address] [place] [address] PCP - General Family Medicine 07/22/20 documented as of this encounter
--- OUTSIDE RECORDS SUMMARY | 2023-10-28 06:16 | XMS_ITS | Encounter Summary ---
Author Organization [facility] [place] [address] Care Team Providers Care Supervisor Television Chassis Repair Name Role Phone Ta Jensen MD Primary Care Provider [phone] Reason for Visit * Auth/Cert (Routine) Specialty Diagnoses / Procedures Referred By Contac t Referred To Contact Diagnoses lumbar spondylosis without myelopathy Procedures PRO INJECTION PV FACET JOINT LUMBAR/SACRAL SECOND LEVEL PRO INJECTION PV FACET JOINT LUMBAR/SACRAL SINGLE LEVEL INJECTION, FACET JOINT, W\FLUORO, LUMBAR, 2ND LEVEL (WRVU 1) INJECTION, FACET JOINT, W\FLUORO, LUMBAR, SINGLE (WRVU 1.52) Donna Severino MD [facility] [place] [address] [facility] Referral ID Status Reason Start Date Expiration Date Visits Re quested Visits Authorized [id number] 1 1 Encounter Details Date Type Department Care Team (Late st Contact Info) Description 12/30/2022 10:00 AM EDT - 12/30/2022 11:00 AM EDT Surgery [place] [address] Donna Severino MD [facility] [place] [address] DESTRUCT BY LYTIC AGENT, FACET JNT NERVE(S), LUMBAR OR SACRAL, EA ADD (WRVU 1.16) Social History Tobacco Use Types Packs/Day Years Used Date Smoking Tobacco: Former Smokeless Tobacco: Never Comments:Quit Over 25yrs ago Sex and Gender Information Value Date Recorded Sex Assigned at Not on file Gender Identity Not on file Sexual Orientation Not on file documented as of this encounter Last Filed Vital Signs Vital Sign Reading Time Taken Comments Blood Pressure 125/76 12/30/2022 11:00 AM EDT Pulse 51 12/30/2022 9:42 AM EDT Temperature - - Respiratory Rate 14 12/30/2022 9:42 AM EDT Oxygen Saturation 94% 12/30/2022 11:00 AM EDT Inhaled Oxygen Concentration - - [...] date: 12/30/2022 Attending Physician: Donna Severino MD [facility] PREPROCEDURE HISTORY AND [...] Duque MD [facility] [place] [address] / documented in this encounter Miscellaneous Notes * Op Note - Donna Severino MD - 12/30/2022 10:25 AM EDT Pain Management Operative Note Patient Name: Nghia Owusu : [id number] MR#: [id number] Case Date: 12/30/2022 Surgeon: Surgeon(s) and Role: [...] remainder. Donna Severino MD [facility] Panel Maker of Anesthesiology [facility] [employer] [facility] [address] [phone] / [facility] CC: No referring provider defined for this [...] Spondylosis without myelopathy or radiculopathy, lumbar region Spondylosis without myelopathy or radiculopathy, lumbar region documented in this encounter Administered Medications Inactive Administered Medications - up to 3 most recent administrations Medication Order MAR Action Action Date Dose Rate Site lidocaine (pf) (Xylocaine) (10 mg/mL) 1% injection PRN, Starting on Fri12/30/22 at 1125, Until Fri12/30/22 at 1342, Intra-Operative (Intra-Procedure), Routine Given 12/30/2022 11:25 AM EDT 6 mLs lidocaine (pf) (Xylocaine) (20 mg/mL) 2% injection PRN, Starting on Fri12/30/22 at 1125, Until Fri12/30/22 at 1342, Intra-Operative (Intra-Procedure), Routine Given 12/30/2022 11:25 AM EDT 6 mLs midazolam (pf) (Versed) (1 mg/mL) injection PRN, Starting on Fri12/30/22 at 1028, Until Fri12/30/22 at 1342, Intra-Operative (Intra-Procedure), Routine Given 12/30/2022 10:32 AM EDT 0.5 mg Right Arm Given 12/30/2022 10:28 AM EDT 1 mg R ight Arm documented in this encounter Active and Recently [...] LRFA) documented in this encounter Care Teams Supervisor Television Chassis Repair Relationship Specialty Start Date End Date Ta Jensen MD [facility] [place] [address] PCP - General Family Medicine 07/22/20 documented as of this encounter
--- OUTSIDE RECORDS SUMMARY | 2023-10-28 06:16 | XMS_ITS | Encounter Summary ---
Author Organization [facility] Address [address] [place] [address] Care Team Providers Care Access Consultant Name Role Phone Unavailable Primary Care Provider Unavailabl e Encounter Details Date Type Department Care Team (Late st Contact Info) Description 05/13/2011 Results Only [facility] Laboratory Services - [facility] [address] [place], [place] [id number] Miek Yu MD [address] [place] [address] [place] [address] Social History Tobacco Use Types Packs/Day Years Used Date Smoking Tobacco: Never Assessed Sex and Gender Information Value Date Recorded Sex Assigned at Not on file Gender Identity Not on file Sexual Orientation Not on file documented as of this encounter Plan of Treatment Not on file documented as of this encounter Procedures Procedure Name Priority Date/Time Associated Diagnosis Comments SURGICAL PATHOLOGY Routine 05/13/2011 0:00 EST documented in this encounter Results * SURGICAL PATHOLOGY (05/13/2011 0:00 EST) Pathology Report: SURGICAL PATHOLOGY REPORT Reports generated via electronic interface contain original data; however they are lacking the format of the original report. Caution should be taken when reading/interpreting unformatted reports. Name: ? NGHIA OWUSU ? Accession #: ? [id number] ? : ? 1965 (Age: 46) ??M ? Collect Date: ? 05/13/2011 ? Location: ? [facility] ? Receive Date: ? 05/13/2011 ? Provider: MIKE YU MD Copy to: ALONSO HAWKINS MD ? Final Pathologic Diagnosis: ? Soft tissue, right hand, dorsal aspect, mass, excisional biopsy: - Suppurative granulomatous inflammation. ??See comment. Comment: ? Histologic evaluation reveals a thick area of fibrosis and chronic inflammation surrounding a central area of abundant epithelioid histiocytes with areas of stellate microabscesses. ??Rare polarizable foreign material is identified within small vessels and histiocytes. ??Differential diagnosis includes infectious etiologies such as cat scratch disease, fungal infection, acid fast organisms and bacterial organisms. ??Grocott methenamine silver (GMS) for fungal organisms and acid fast bacilli stains are negative. ??In addition, no bacterial organisms are identified on Brown and Brenn stain. ??Positive and negative controls stained appropriately. Immunohistochemical staining for Bartonella henselae is negative. ??Despite the negative stains for organisms, given the amount of acute inflammation and the clinical history of trauma, a superimposed infectious process is favored. ??Microbiology cultures are recommended should the mass persist/recur clinically. ??Recreation Director sections of this case have been reviewed at intradepartmental consultation conference. Case discussed with Dr. Mike Yu on 05/17/11 at 9:30am. ? Immunohistochemical staining was performed on this case to further characterize the lesion. ??Positive and negative controls stained appropriately. Block ?Antibody (Clone) ? Result A2 ?Bartonella henselae (H2A10, [facility]) ? Negative NOTE: ??One or more of the reagents used in immunohistochemical testing in this case may not have been cleared or approved by the U.S. Food and Drug Administration (FDA). ??The FDA has determined that such clearance or approval is not necessary. ??These tests are used for clinical purposes. ??They should not be regarded as investigational or for research. ??These reagents' ??performance characteristics have been determined by [facility]. ??This laboratory is certified under the Clinical Laboratory Improvement Amendments of 1988 (CLIA-88) as qualified to perform high complexity clinical laboratory testing. ?(Dr. Ramos)/[facility] Document reviewed and electronically signed by: JENNIFER RAMOS MD Report ??Date: 05/19/2011 16:51 By the signature above, the attending physician certifies that he/she has personally conducted a gross and/or microscopic examination of the described specimens and rendered or confirmed the above diagnosis. Specimen(s) Received: ? Right hand dorsal mass Clinical History: ? Rt hand mass Gross Description: ? Received in formalin labelled Nghia Owusu and right hand dorsal mass is a hidalgo-white, firm 3.2 x 3.0 x 0.7 cm fibrous, unoriented nodule. ??The cut surfaces are saldaña-yellow and mottled. ??No areas of hemorrhage are present. Approximately 50% of the specimen is submitted as (A1) to (A3). ??(Willian Tavera)/eleno End of Report YANE SHANE 05/13/2011 05/13/2011 16: 26 EST Mike Yu MD PATHOLOGY ORDERABLES [facility] [address] [place] [address] documented in this encounter Visit Diagnoses Not on filedocumented in this encounter
--- OUTSIDE RECORDS SUMMARY | 2023-10-28 06:16 | XMS_ITS | Encounter Summary ---
[place] [address] Care Team Providers Care Compounder Flavorings Name Role Phone Ta Jensen MD Primary Care Provider [phone] Reason for Visit * Reason Onset Date Comments Post Procedure Call 11/26/2022 Post bilater al L3, L4, L5-Dr [facility] Encounter Details Date Type Department Care Team (Late st Contact Info) Description 11/26/2022 Telephone [place] [phone] Hillary Beaver RN Post Procedure Call (Post bilateral L3, L4, L5-Dr [facility]) Social History Tobacco Use Types Packs/Day Years Used Date Smoking Tobacco: Former Smokeless Tobacco: Never Comments:Quit Over 25yrs ago Sex and Gender Information Value Date Recorded Sex Assigned at Not on file Gender Identity Not on file Sexual Orientation Not on file documented as of this encounter Miscellaneous Notes * Telephone Encounter - Hillary Beaver RN - 11/26/2022 9:23 AM EDT Post-procedure telephone follow up: patient reporting their response to the lumbar medial branch block procedure performed on 11/14/22 in the [facility] by Donna Severino MD. This is patient's: first medial branch block Patient reports that after the procedure they experienced: _x_ Patient reported post-block numeric pain scale: 1 /10 (average pain since procedure) _x_ Post-procedure pain has been reduced by 90%. (> 80% Medicare/MVP/Medicaid) _x_ Post-procedure pain has been reduced by 90%. (> 50% all other insurers) _x_ Pain relief: moderate If pain is reduced, it lasted: Yes less than 4 hours What is current pain score on a scale of 0-10? 9 Does patient's pain make activities of daily living difficult? If yes, please describe what activity and level of difficulty. Yes. Every thing is much harder to do. Pertinent recent trauma or surgery? no If yes; consult w referring provider If No, proceed Review of Pertinent Medical History for changes since last MBB: - h/o Thrombocytopenia/bleeding tendency/platelet dysfunction: no - h/o Liver disease; abnormal liver function: no - h/o Chronic kidney disease (CKD); abnormal kidney function: no - Patient on dialysis? no -Patient has pacemaker/defibrillator: no Is patient taking an anticoagulant? None Is patient taking any NSAIDS/supplements? Fish Oil ([place] 3s) , Ibuprofen (Advil, Motrin, Midol) , and Naproxen (Naprosyn, Aleve) Is patient taking aspirin? no If yes, is it prescribed? no If yes, what reason is it prescribed? Is patient taking Antibiotics? No Is patient a diabetic? No Hemoglobin A1C? Has patient been on greater than 40mg of steroid 14 days or longer? No Has patient had any steroid injections anywhere in his/her body within the last two weeks? No Does patient request sedation? yes Does patient need NPO guidelines? yes Does patient have allergies to contrast/local anesthetic/steroid? No Any changes? no Based on the information provided above and after discussion with the patient, the following actions will be taken: _x_ Patient meets criteria for radiofrequency treatment: order will be pended to Dr. Severino Patient denies further questions at this time and expressed understanding of plan. Encouraged patient to call pain clinic RN for future questions or concerns. documented in this encounter Plan of Treatment Not on file documented as of this encounter Visit Diagnoses Not on filedocumented in this encounter Care Teams Compounder Flavorings Relationship Specialty Start Date End Date [place] [address] PCP - General Family Medicine 07/22/20 documented as of this encounter
--- OUTSIDE RECORDS SUMMARY | 2023-10-28 06:16 | XMS_ITS | Encounter Summary ---
Author Organization [facility] Address [address] [place] [address] Care Team Providers Care Bowling Teacher Name Role Phone Ta Jensen MD Primary Care Provider [phone] Encounter Details Date Type Department Care Team (Late st Contact Info) Description 06/30/2020 Lab Requisition [facility] Pathology & Laboratory Medicine - [facility] [address] [place] [address] Jazmin Cole, DO [address] [place] [address] Encounter for other general examination Social History Tobacco Use Types Packs/Day Years [...] Priority Date/Time Associated Diagnosis Comments SURGICAL PATHOLOGY Today 06/30/2020 14 :00 EDT Encounter for other general examination documented in this encounter Results * SURGICAL PATHOLOGY (06/30/2020 14:00 EDT) Final Diagnosis A. ILEUM, TERMINAL, BIOPSY: - Small intestinal mucosa with no significant diagnostic abnormalities. B. COLON, CECUM, BIOPSY: - Colonic mucosa with no significant diagnostic abnormalities. C. COLON, CECUM, POLYP, BIOPSY: - Tubular adenoma. D. COLON, 90 CMS, BIOPSY: - Colonic mucosa with no significant diagnostic abnormalities. E. COLON, 80 CMS, BIOPSY: - Colonic mucosa with no significant diagnostic abnormalities. F. COLON, 70 CMS, BIOPSY: - Colonic mucosa with no significant diagnostic abnormalities. G. COLON, 70 CMS, POLYP, BIOPSY: - Colonic mucosa with focal hyperplastic change. H. COLON, 60 CMS, BIOPSY: - Colonic mucosa with no significant diagnostic abnormalities. I. COLON, 50 CMS, BIOPSY: - Colonic mucosa with no significant diagnostic abnormalities. J. COLON, 40 CMS, BIOPSY: - Colonic mucosa with no significant diagnostic abnormalities. K. COLON, 30 CMS, BIOPSY: - Colonic mucosa with no significant diagnostic abnormalities. L. COLON, 20 CMS, BIOPSY: - Colonic mucosa with no significant diagnostic abnormalities. M. COLON, 20 CMS, POLYP, BIOPSY: - Hyperplastic polyp. N. RECTUM, BIOPSY: - Colonic mucosa with no significant diagnostic abnormalities. 07/04/2020 13:40 [facility] Attestation By the signature below, the attending physician certifies that they have 1) personally conducted a gross and/or microscopic examination of the described specimen(s), and/or personally interpreted the results of laboratory testing of the described specimen(s), and 2) personally rendered or confirmed the above diagnosis. 07/04/2020 13:40 [facility] at 1340 Clinical History Crohn's disease 07/04/2020 13:40 [facility] Gross Description A. Received in formalin labelled with proper patient identification (initials B, D) and terminal ileum is a single fragment of saldaña soft tissue (0.5 x 0.3 x 0.2 cm). The specimen is entirely submitted in A1. B. Received in formalin labelled with proper patient identification (initials B, D) and cecum Bx is a single fragment of saldaña soft tissue (0.4 x 0.3 x 0.2 cm). The specimen is entirely submitted in B1. C. Received in formalin labelled with proper patient identification (initials B, D) and cecum polyp is a single fragment of saldaña soft tissue (0.4 x 0.4 x 0.3 cm). The specimen is entirely submitted in C1. D. Received in formalin labelled with proper patient identification (initials B, D) and polyp at 90 Bx is a single fragment of saldaña soft tissue (0.7 x 0.5 x 0.3 cm). The specimen is entirely submitted in D1. E. Received in formalin labelled with proper patient identification (initials B, D) and colon Bx at 80 is a single fragment of saldaña soft tissue (0.4 x 0.3 x 0.2 cm). The specimen is entirely submitted in E1. F. Received in formalin labelled with proper patient identification (initials B, D) and colon Bx at 70 is a single fragment of saldaña soft tissue (0.4 x 0.3 x 0.2 cm). The specimen is entirely submitted in F1. G. Received in formalin labelled with proper patient identification (initials B, D) and colon polyp X 70 is a single fragment of saldaña soft tissue (0.8 x 0.3 x 0.2 cm). The specimen is entirely submitted in G1. H. Received in formalin labelled with proper patient identification (initials B, D) and Bx at 60 is a single fragment of saldaña soft tissue (0.6 x 0.3 x 0.2 cm). The specimen is entirely submitted in H1. I. Received in formalin labelled with proper patient identification (initials B, D) and Bx at 50 are 2 fragments of saldaña-yellow soft tissue (0.2 x 0.2 x 0.2 cm and 0.7 x 0.2 x 0.2 cm). The specimen is entirely submitted in I1. J. Received in formalin labelled with proper patient identification (initials B, D) and Bx at 40 is a single fragment of saldaña-yellow soft tissue (0.4 x 0.4 x 0.3 cm). The specimen is entirely submitted in J1. K. Received in formalin labelled with proper patient identification (initials B, D) and Bx at 30 is a single fragment of saldaña soft tissue (0.3 x 0.3 x 0.3 cm). The specimen is entirely submitted in K1. L. Received in formalin labelled with proper patient identification (initials B, D) and Bx at 20 is a single fragment of saldaña soft tissue (0.5 x 0.3 x 0.2 cm). The specimen is entirely submitted in L1. M. Received in formalin labelled with proper patient identification (initials B, D) and polyp at 20 is a single fragment of saldaña soft tissue (0.4 x 0.4 x 0.2 cm). The specimen is entirely submitted in M1. N. Received in formalin labelled with proper patient identification (initials B, D) and rectal Bx are 2 fragments of saldaña soft tissue (0.2 x 0.2 x 0.3 cm and 0.4 x 0.3 x 0.2 cm). The specimen is entirely submitted in N 1. KONG VERA(ASCP) 07/03/2020 9:44 07/04/2020 13:40 EDT [facility] Performing Lab [facility] 07/04/2020 13:40 EDT [facility] Scanned Images 07/04/2020 13:40 EDT [facility] Tissue SPECIMEN FROM RECTUM / Unknown 06/30/2020 14:00 EDT 06/30/2020 22:46 EDT Tissue specimen (specimen) CECUM STRUCTURE / Unknown 06/30/2020 14:00 EDT 06/30/2020 22:46 EDT Tissue specimen (specimen) CECUM STRUCTURE / Unknown 06/30/2020 14:00 EDT 06/30/2020 22:46 EDT Tissue specimen (specimen) COLON STRUCTURE / Unknown 06/30/2020 14:00 EDT 06/30/2020 22:46 EDT Tissue specimen (specimen) COLON STRUCTURE / Unknown 06/30/2020 14:00 EDT 06/30/2020 22:46 EDT Tissue specimen (specimen) COLON STRUCTURE / Unknown 06/30/2020 14:00 EDT 06/30/2020 22:46 EDT Tissue specimen (specimen) COLON STRUCTURE / Unknown 06/30/2020 14:00 EDT 06/30/2020 22:46 EDT Tissue specimen (specimen) COLON STRUCTURE / Unknown 06/30/2020 14:00 EDT 06/30/2020 22:46 EDT Tissue specimen (specimen) COLON STRUCTURE / Unknown 06/30/2020 14:00 EDT 06/30/2020 22:46 EDT Tissue specimen (specimen) COLON STRUCTURE / Unknown 06/30/2020 14:00 EDT 06/30/2020 22:46 EDT Tissue specimen (specimen) COLON STRUCTURE / Unknown 06/30/2020 14:00 EDT 06/30/2020 22:46 EDT Tissue specimen (specimen) COLON STRUCTURE / Unknown 06/30/2020 14:00 EDT 06/30/2020 22:46 EDT Tissue specimen (specimen) COLON STRUCTURE / Unknown 06/30/2020 14:00 EDT 06/30/2020 22:46 EDT Tissue specimen (specimen) SPECIMEN FROM RECTUM / Unknown 06/30/2020 14:00 EDT 06/30/2020 22:46 EDT Jazmin Cole DO PATHOLOGY ORDERABLES [facility] [address] [place] [address] documented in this encounter Visit Diagnoses Diagnosis Encounter for other general examination documented in this encounter Care Teams Bowling Teacher Relationship Specialty Start Date End Date Ta Jensen MD [address] [place] [address] PCP - General 06/04/16 documented as of this encounter
--- OUTSIDE RECORDS SUMMARY | 2023-10-28 06:16 | XMS_ITS | Encounter Summary ---
[place] [address] Care Team Providers Care Basin Operator Name Role Phone Ta Jensen MD Primary Care Provider Reason for Referral * Consultation (Routine) - Closed Specialty Diagnoses / Procedures Referred By Contac t Referred To Contact [facility] Diagnoses Disc degeneration, lumbar Lumbar spondylosis F/U to back pain/no new imaging/? repeat injections FUV TRANSCRIPTION COORDINATOR last seen 12/2021 Ta Jensen MD [address] [place] [address] [facility] [place] [address] Referral ID Status Reason Start Date Expiration Date V isits Requested Visits Authorized [id number] Closed Consult, Test & Treat PCP Updated and/or Approved 06/04/2022 06/04/2023 1 1 Encounter Details Date Type Department Care Team (Latest Contact Info) Description 06/04/2022 Transcribe Orders eDH Incoming Referrals [phone] Ta Jensen MD [address] [place] [address] Disc degeneration, lumbar; Lumbar spondylosis Social History Tobacco Use Types Packs/Day Years Used Date Smoking Tobacco: Former Smokeless Tobacco: Never Comments:Quit Over 25yrs ago Sex and Gender Information Value Date Recorded Sex Assigned at Not on file Gender Identity Not on file Sexual Orientation Not on file documented as of this encounter Plan of Treatment Scheduled Referrals Name Type Priority Associated Diagnoses Orde r Schedule Referral to Pain Management Outpatient Referral Routine Disc degeneration, lumbar Lumbar spondylosis Ordered: 06/04/2022 documented as of this encounter Visit Diagnoses Diagnosis Disc degeneration, lumbar Degeneration of lumbar or lumbosacral intervertebral disc Lumbar spondylosis Lumbosacral spondylosis without myelopathy documented in this encounter Care Teams Basin Operator Relationship Specialty Start Date End Date Ta Jensen MD [address] [place] [address] PCP - General Family Medicine 07/22/20 documented as of this encounter
--- OUTSIDE RECORDS SUMMARY | 2023-10-28 06:16 | XMS_ITS | Encounter Summary ---
Author Organization [facility] Address [address] [place] [address] Care Team Providers Care Entry Level Management Name Role Phone Unavailable Primary Care Provider Unavailabl e Encounter Details Date Type Department Care Team (Late st Contact Info) Description 06/25/2007 Results Only [facility] G[facility] - [facility] [address] [place], [place] [id number] Jl Robledo MD Social History Tobacco Use Types Packs/Day Years Used Date Smoking Tobacco: Never Assessed Sex and Gender Information Value Date Recorded Sex Assigned at Not on file Gender Identity Not on file Sexual Orientation Not on file documented as of this encounter Plan of Treatment Not on file documented as of this encounter Procedures Procedure Name Priority Date/Time Associated Diagnosis Comments ZZPROMETHEUS THIOPURINE METABOLITES Routine 06/25/2007 13:26 EDT COMPLETE BLOOD COUNT Routine 06/25/2007 13:26 EDT C REACTIVE PROTEIN Routine 06/25/2007 13 :26 EDT HEPATIC FUNCTION PANEL (ALB,ALK PHOS,ALT,AST,DBIL,TOT AVILA,TOT PROT) Routine 06/25/2007 13:26 EDT documented in this encounter Results * PROMETHEUS THIOPURINE METABOLITES (06/25/2007 13:26 EDT) 6 TGN Metabolite Result 26Reference range: 230 to 400 [facility] 6 TGN Metabolite Result Assessment Lower Likelihood of Response [facility] 6 MMPN Metabolite Result < the lower limit of detection 264 Reference range: <5700 [facility] 6 MMPN Metabolite Result Assessment Not quantifiable. Lower Risk of Hepatotoxicity(Note ) ? Units of Measure: ??pmole/8 x 10(8) RBC ? Serial monitoring and graph information mailed separately. ? Proprietary and patented technology by [employer] ??The therapeutic range and toxic ? thresholds were established in ??an IBD patient population ? receiving azathioprine or 6-mercaptopurine. ??Metabolite ? testing should not replace laboratory monitoring for ? toxicity. ? References: ? Earlene Bueno et al. Pharmacogenomics and metabolite ? measurement for 6-mercaptopurine therapy in patients with ? inflammatory bowel disease. ??Gastroenterology. ??2000;118: ? 197-442. ? Frances MCKEON. Recent Advances in the diagnosis and treatment ? of pediatric inflammatory bowel disease. ??Gastroeterol Rep. ? 2000;1:248-252. ? Matilda Hermosillo et al. Utilisation of erythrocyte 6-thioguanine ? metabolite levels to optimize azathioprine therapy in ? patients with inflammatory bowel disease. Gut. ? 2001;48:642-646. ? LINDA Daniels. Clinical use and practical application of ? TPMT Enzyme and 6-mercaptopurine metabolite monitoring in ? IBD. Rev Gastroenterol Disord. 2003;3(suppl 1):S30-S38. ? Dionte Hermosillo et al. Azathioprine metabolite measurements in the ? treatment of autoimmune hepatitis in pediatric patients: ? A preliminary report. J Ped Gastro Nutr. 2002;35:391-398. ? max Hooper. The clinical pharmacology of 6-mercapto- ? purine. ??Eur J Clin Pharmacol. 1992;43(4):329-339. ? Yung Dorsey. Clinical implication of thiopurine methyltrans- ? ferase-Optimization of drug dosage and potential drug ? interactions. Ther Drug Monit 1998;20(5):527-531. ? Nohelia Roberson Optimizing treatment with thioguanine ? derivative in inflammatory bowel disease. ??Best Pract Res ? Clin Gastroenterol 2003;17(1):37-46. ? TEST PERFORMED BY [employer] [facility] ?[address] ?[place], [place] ??[address] ? [facility] 06/25/2007 13:2 6 EDT 06/25/2007 13:27 EDT Jl Robledo MD CHEMISTRY & BLOOD GA S ORDERABLES Performing Organization Address [facility] de Phone Number [facility] [address] [place] [address] * LIVER FUNCTION TESTS (06/25/2007 13:26 EDT) Albumin 4.5 3.4 - 4.9 g/dl [facility] Total Protein 7.2 6.5 - 8.3 g/dl [facility] Total Alkaline Phosphatase 94 38 - 126 U/L [facility] ALT 29 21 - 72 U/L [facility] AST 28 15 - 46 U/L [facility] Unconjugated Bilirubin 0.4 0.1 - 1.1 mg/dl [facility] Conjugated Bilirubin 0.0 0.0 - 0.3 mg/dl [facility] Bilirubin, Total <0.5 0.2 - 1.3 mg/dl [facility] 06/25/2007 13:2 6 EDT 06/25/2007 13:27 EDT Jl Robledo MD CHEMISTRY & BLOOD GA S ORDERABLES Performing Organization Address [facility] de Phone Number [facility] [address] [place] [address] * C-REACTIVE PROTEIN (06/25/2007 13:26 EDT) C-Reactive Protein 0.8 <1.0 mg/dl [facility] 06/25/2007 13:2 6 EDT 06/25/2007 13:27 EDT Jl Robledo MD CHEMISTRY & BLOOD GA S ORDERABLES [facility] [address] [place] [address] * HEMAGRAM (06/25/2007 13:26 EDT) WBC 6.02 4.0 - 10.4 K/cmm [facility] RBC 4.40 4.36 - 5.78 M/cmm [facility] Hemoglobin 14.4 13.8 - 17.3 gm/dl [facility] HCT 40.9 39.5 - 50.2 % [facility] MCV 93 81 - 95 fl [facility] MCH 32.6 27.6 - 33.0 pg [facility] MCHC 35.2 32.8 - 36.4 gm/dl [facility] PLT 244 141 - 320 K/cmm [facility] RDW-CV 13.6 11.8 - 14.1 % [facility] 06/25/2007 13:2 6 EDT 06/25/2007 13:27 EDT Jl Robledo MD HEMATOLOGY & PF4 ORD ERABLES [facility] [address] [place] [address] documented in this encounter Visit Diagnoses Not on filedocumented in this encounter
--- OUTSIDE RECORDS SUMMARY | 2023-10-28 06:16 | XMS_ITS | Encounter Summary ---
Author Organization [facility] Address [address] [place] [address] Care Team Providers Care Nurse Receptionist Name Role Phone Unavailable Primary Care Provider Unavailabl e Encounter Details Date Type Department Care Team (Latest Contact Info) Description 12/05/2005 12:32 EDT Hospital Encounter [facility] [address] [place] [address] Jl Robledo MD Discharge Disposition: Auto Discharge [...]
--- OUTSIDE RECORDS SUMMARY | 2023-10-28 06:16 | XMS_ITS | Encounter Summary ---
Author Organization [facility] [place] [address] Care Team Providers Care Automation Manager Name Role Phone Ta Jensen MD Primary Care Provider [phone] Reason for Visit * Auth/Cert Specialty Diagnoses / Procedures Referred By Contac t Referred To Contact Diagnoses lumbar spondylosis without myelopathy Procedures PRO INJECTION PV FACET JOINT LUMBAR/SACRAL SECOND LEVEL PRO INJECTION PV FACET JOINT LUMBAR/SACRAL SINGLE LEVEL INJECTION, FACET JOINT, W\FLUORO, LUMBAR, 2ND LEVEL (WRVU 1) INJECTION, FACET JOINT, W\FLUORO, LUMBAR, SINGLE (WRVU 1.52) Referral ID Status Reason Start Date Expiration Date Visits Re quested Visits Authorized [id number] 1 1 Encounter Details Date Type Department Care Team (Late st Contact Info) Description 09/20/2021 9:00 AM EDT Ancillary [place] [address] Donna Severino MD [facility] [place] [address] Social History Tobacco Use Types Packs/Day Years [...] STORAGE ONLY PAIN CLINIC C ARM Routine 09/20/2021 1:05 PM EDT documented in this encounter Results * Film Library- Storage Only pain Clinic C-Arm (09/20/2021 1:05 PM EDT) Narrative RED - 09/20/2021 1:05 PM EDT See PACS for result report. Donna Severino MD IMG FILM LIBRARY ORD ERABLES [place], [place] documented in this encounter Visit Diagnoses Not on filedocumented in this encounter Care Teams Automation Manager Relationship Specialty Start Date End Date Ta Jensen MD [address] [place] [address] PCP - General Family Medicine 07/22/20 documented as of this encounter
--- OUTSIDE RECORDS SUMMARY | 2023-10-28 06:16 | XMS_ITS | Encounter Summary ---
Author Organization [facility] [place] [address] Care Team Providers Care Chandelier Maker Name Role Phone Ta Jensen MD Primary Care Provider [phone] Reason for Referral * Occupational Therapy (Routine) - Closed Specialty Diagnoses / Procedures Referred By Contac t Referred To Contact Occupational Therapy Diagnoses Pain in left wrist Crow Russell Jr., MD [facility] [place] [address] [facility] [address] [place] [address] Referral ID Status Reason Start Date Expiration Date V isits Requested Visits Authorized [id number] Closed Evaluate and Treat 11/06/2021 11/06/2022 12 12 * Occupational Therapy (Routine) - Closed Specialty Diagnoses / Procedures Referred By Contac t Referred To Contact Diagnoses Pain in left wrist Crow Russell Jr., MD [facility] [place] [address] Referral ID Status Reason Start Date Expiration Date V isits Requested Visits Authorized [id number] Closed Evaluate and Treat 11/06/2021 05/05/2022 20 20 * Consultation (Routine) - Closed Specialty Diagnoses / Procedures Referred By Contac t Referred To Contact Neurology Diagnoses Pain in left wrist bilat ulnar 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 Crow Russell Jr., MD [facility] [place] [address] [facility] [address] [place] [address] Referral ID Status Reason Start Date Expiration Date V isits Requested Visits Authorized [id number] Closed Test Only 11/06/2021 11/06/2022 1 1 Reason for Visit * Reason Comments Establish Care NXR L WRIST PAIN DOI 03/20/21 * Consultation (Routine) - Closed Specialty Diagnoses / Procedures Referred By Contac t Referred To Contact Orthopaedics Diagnoses Pain in left wrist PAIN IN LEFT WRIST Lamin Bess MD [address] [address] [facility] Orthopaedics [address] [place] [address] Referral ID Status Reason Start Date Expiration Date V isits Requested Visits Authorized [id number] Closed Consult, Test & Treat PCP Updated and/or Approved 09/14/2021 09/14/2022 6 6 Encounter Details Date Type Department Care Team (Late st Contact Info) Description 11/06/2021 9:30 AM EDT Office [place] [address] Crow Russell Jr., MD [facility] [place] [address] Pain in left wrist Social History Tobacco Use Types Packs/Day Years Used Date Smoking Tobacco: Former Smokeless Tobacco: Never Comments:Quit Over 25yrs ago Sex and Gender Information Value Date Recorded Sex Assigned at Not on file Gender Identity Not on file Sexual Orientation Not on file documented as of this encounter Last Filed Vital Signs Vital Sign Reading Time Taken Comments Blood Pressure 136/77 11/06/2021 9:16 AM EDT Pulse - - Temperature - - Respiratory Rate - - Oxygen Saturation - - Inhaled Oxygen Concentration - - Weight 86.2 kg (190 lb) 11/06/2021 9:16 AM EDT Height 170.2 cm (5' 7) 11/06/2021 9:16 AM EDT Body Mass Index 29.76 11/06/2021 9:16 AM EDT documented in this encounter Progress Notes * Santos Hernandez MD - 11/06/2021 9:30 AM EDT Nghia Owusu 1965 [id number] 11/06/2021 HPI: 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 The onset of symptoms was 7 months prior when he fell onto his flexed wrist and LUE while loading tools into his truck. The pain is localized to the left wrist and radiates to the dorsal aspect of his ring and small finger. The patient notes mild neurosensory symptoms with decreased sensation in this region. There is mild pain at rest, no pain at night interfering with sleep, and moderate pain aggravated by activity. 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 He has not participated in hand therapy. He notes continued weakness of grasp on left and denies such issues prior to the injury. He has had plain xrays and MRI of the wrist, both reportedly normal. Has been out of work since injury. Here for second opinion. Takes no medications currently. Specific treatment and/or therapy to date: none. No related injury. History reviewed. No pertinent past medical history. Past Surgical History: Procedure Laterality Date ??? PRO INJ PARAVERTEBRAL FACET JT W/IMAGE GUID, LUMBAR/SACRAL, 3RD OR ADDL LEVEL Bilateral 08/16/2021 INJECTION, FACET JOINT, W\FLUORO, LUMBAR, 3RD LEVEL (WRVU 1) performed by Donna Severino MD at [facility] PAIN MGMT [facility] ??? PRO INJECTION PV FACET JOINT LUMBAR/SACRAL SECOND LEVEL Bilateral 08/16/2021 INJECTION, FACET JOINT, W\FLUORO, LUMBAR, 2ND LEVEL (WRVU 1) performed by Donna Severino MD at [facility] PAIN [facility]MT [facility] ??? PRO INJECTION PV FACET JOINT LUMBAR/SACRAL SECOND LEVEL Bilateral 09/20/2021 INJECTION, FACET JOINT, W\FLUORO, LUMBAR, 2ND LEVEL (WRVU 1) performed by Donna Severino MD at [facility] PAIN MGMT [facility]O ??? PRO INJECTION PV FACET JOINT LUMBAR/SACRAL SINGLE LEVEL Bilateral 08/16/2021 INJECTION, FACET JOINT, W\FLUORO, LUMBAR, SINGLE (WRVU 1.52) performed by Donna Severino MD at [facility] PAIN MGMT MSO ??? PRO INJECTION PV FACET JOINT LUMBAR/SACRAL SINGLE LEVEL Bilateral 09/20/2021 INJECTION, FACET JOINT, W\FLUORO, LUMBAR, SINGLE (WRVU 1.52) performed by Donna Severino MD at [facility] PAIN MGMT MSO History reviewed. No pertinent family history. Social History Socioeconomic History ??? Marital status: [...] on file Housing Stability: Not on file Review of Systems General: Negative Skin: Negative Eyes: Negative Cardiac: Negative Respiratory: Negative GI: Negative : Negative Musculoskeletal: Negative other than related to the chief complaint. Neurological: Negative Meds: Current Outpatient Medications on File Prior to Visit Medication Sig Dispense Refill ??? atorvastatin (Lipitor) 10 mg Tablet Take 10 mg by mouth nightly. ??? cyclobenzaprine (Flexeril) 10 mg Tablet 10 mg nightly. ??? DULoxetine DR (Cymbalta) 30 mg Capsule, Delayed Release(E.C.) 30 mg daily. ??? lisinopriL-hydrochlorothiazide (Zestoretic) 10-12.5 mg Tablet Take 1 tablet by mouth daily. FORBLOOD PRESSURE ??? terazosin (Hytrin) 5 mg Capsule 5 mg daily. ??? EPINEPHrine 0.3 mg/0.3 mL Auto-Injector Inject 1 kit into the muscle once as needed. Inject 0.3mL IM once as needed for allergic reaction (Throat tight, difficulty breathing). Call 911 as directed. ??? loratadine (Claritin) 10 mg Tablet Take 10 mg by mouth daily. No current facility-administered medications on file prior to visit. Physical Exam: Blood pressure 136/77, height 170.2 cm (5' 7), weight 86.2 kg (190 lb). Patient is well-appearing, alert and oriented. Breathing is comfortably at rest. Ambulates with normal gait without assistive device. Range of motion Cervical spine; flex/extension, rotation, and lateral bending with normal ROM. . Remainder upper limbs with normal ROM bilaterally. No thenar atrophy or softening noted. No palmar crepitus or flexor tenosynovitis. No triggering. Pain to palpation at dorsal aspect of distal radius at midline. Ulnocarpal abutment maneuvers produce no pain. DRUJ stable. Midcarpal laxity absent. Crank test negative LEFT, negative RIGHT; Grind test negative LEFT, negative RIGHT. Flexion-axial loading with no subluxation with no pain LEFT, and no subluxation and no pain RIGHT. Jennifer's test negative. MCPJ without hyperextension laxity or varus/valgus laxity. Wrist flexion test negative. Tinel's negative at bilateral wrists, positive at left elbow. Ulnar nerve positive Tinel's at elbow on left. Positive flexion/compression test LEFT ulnar nerve, negative on right. No discernable weakness left hand grasp or interossei. Motor strength 5/5 bilateral to manual resistance testing. Deep tendon reflexes 2+, symmetrical bilateral. Sensation intact bilateral to light touch at rest, EXCEPT dorsoulnar left wrist and hand. No skin lesions or stasis dermatitis. Imaging: XR L wrist: Personal review of radiographs obtained 03/20/21 (date of injury) demonstrates mild softtissue edema of the wrist without apparent fracture. MRI without abnormality Active Problem List: Patient Active Problem List Diagnosis Code ??? Lumbar spondylosis M47.816 ??? Spondylosis without myelopathy or radiculopathy, lumbar region M47.816 Assessment: LEFT hand work-related injury with persistent weakness of grasp and intermittent numbness and clinical irritation of ulnar nerve at elbow Plan: The nature of the problem and the individual situation was discussed at length with the patient. Consistent with treatment of the primary diagnosis, we have recommended work hardening in conjunction with further evaluation LEFT ulnar nerve for entrapment and elbow and / or wrist with neurology. We will see him back after NCV and pursue work hardening in the interim. Santos Hernandez MD PGY-3, Orthopaedics I have seen and examined the above named patient, reviewed and edited the contents of the note supplied by the resident or physician lead designer with whom I saw the patient, and reviewed our findings and recommendations with the patient in person. Crow Russell Jr, MD Department of Orthopaedics [facility] documented in this encounter Plan of Treatment Scheduled Referrals Name Type Priority Associated Diagnoses Order Schedule Referral to Neurology Outpatient Referral Routine Pain in left wrist Ordered: 11/06/2021 Referral to Occupational Therapy Outpatient Referral Routine Pain in left wrist Ordered: 11/06/2021 Referral to Occupational Therapy Outpatient Referral Routine Pain in left wrist Ordered: 11/06/2021 documented as of this encounter Visit Diagnoses Diagnosis Pain in left wrist Pain in joint, forearm documented in this encounter Care Teams Chandelier Maker Relationship Specialty Start Date End Date Ta Jnesen MD [address] [place] [address] PCP - General Family Medicine 07/22/20 documented as of this encounter
--- OUTSIDE RECORDS SUMMARY | 2023-10-28 06:16 | XMS_ITS | Encounter Summary ---
Author Organization [facility] [place] [address] Care Team Providers Care Travel Service Consultant Name Role Phone Ta Jensen MD Primary Care Provider Encounter Details Date Type Department Care Team (Late st Contact Info) Description 10/03/2021 Orders Only [facility] [place] [address] Donna Severino MD [facility] [place] [address] Lumbar spondylosis (Primary Dx) Social History Tobacco [...] myelopathy documented in this encounter Care Teams Travel Service Consultant Relationship Specialty Start Date End Date Ta Jensen MD [address] [place] [address] [address] [facility] [place] [id number] PCP - General Family Medicine 07/22/20 documented as of this encounter
--- OUTSIDE RECORDS SUMMARY | 2023-10-28 06:16 | XMS_ITS | Encounter Summary ---
Author Organization [facility] [place] [address] Care Team Providers Care Life Management Teacher Name Role Phone Ta Jensen MD Primary Care Provider [phone] Encounter Details Date Type Department Care Team (Late st Contact Info) Description 10/03/2021 Telephone [facility] [place] [address] Hillary Beaver RN Social History Tobacco Use Types Packs/Day Years Used Date Smoking Tobacco: Former Smokeless Tobacco: Never Comments:Quit Over 25yrs ago Sex and Gender Information Value Date Recorded Sex Assigned at Not on file Gender Identity Not on file Sexual Orientation Not on file documented as of this encounter Miscellaneous Notes * Telephone Encounter - Hillary Beaver RN - 10/03/2021 11:04 AM EDT Post-procedure phone call from patient to report their response to the lumbar medial branch block procedure performed on 09/20/21 in the [facility] by Donna Severino MD. This is patient's: second medial branch block Patient reports that after the procedure they experienced: _x_ Patient reported post-block numeric pain scale: 0 /10 (average pain since procedure) _x_ Post-procedure pain has been reduced by 95%. (> 80% Medicare/MVP/Medicaid) _x_ If relief > 80% with ability to perform painful maneuvers; schedule 2nd MBB: no _x_ Post-procedure pain has been reduced by 95%. (> 50% all other insurers) _x_ Pain relief: complete If pain is reduced, it lasted: Yes less than 4 hours What is current pain score on a scale of 0-10? 8 Does patient's pain make activities of daily living difficult? If yes, please describe what activity and level of difficulty. Can't walk or sit long. Can't sleep Pertinent recent trauma or surgery? no If [...] anticoagulant? None Is patient taking any NSAIDS/supplements? Multivitamin Is patient taking aspirin? yes If yes, is it prescribed? No If yes, what reason is it prescribed? Is patient taking Antibiotics? No Has patient been on greater than 40mg [...] _x_ Patient meets criteria for radiofrequency treatment: note will be routed to Dr. Severino. Patient denies further questions at this time and expressed understanding of plan. Encouraged patient to call pain clinic RN for future questions or concerns. documented in this encounter Plan of Treatment Not on file documented as of this encounter Visit Diagnoses Not on filedocumented in this encounter Care Teams Life Management Teacher Relationship Specialty Start Date End Date Ta Jensen MD [facility] [place] [address] PCP - General Family Medicine 07/22/20 documented as of this encounter
--- OUTSIDE RECORDS SUMMARY | 2023-10-28 06:16 | XMS_ITS | Encounter Summary ---
Author Organization [facility] [place] [address] Care Team Providers Care Entrepreneur Name Role Phone Ta Jensen MD Primary Care Provider [phone] Reason for Visit * Auth/Cert Specialty Diagnoses / Procedures Referred By Contac t Referred To Contact Diagnoses Lumbar spondylosis without myelopathy Procedures PRO DSTR PARAVERTEBRAL FCT JNT NRVES LUMBAR OR SACRAL ADDL PRO DSTR PARAVERTEBRAL FCT JNT NRVES LUMBAR OR SACRAL SINGLE DESTRUCT BY LYTIC AGENT, FACET JNT NERVE(S), LUMBAR OR SACRAL, EA ADD (WRVU 1.16) DESTRUCTI BY LYTIC AGENT, FACET JOINT NERVE(S); LUMBAR OR SACRAL, SNGL (WRVU 3.78) Donna Severino MD [facility] [place] [address] [facility] Referral ID Status Reason Start Date Expiration Date Visits Re quested Visits Authorized [id number] 1 1 Encounter Details Date Type Department Care Team (Latest Contact Info) Description 11/06/2021 10:48 AM EDT - 11/06/2021 12:15 PM EDT Hospital Encounter Pain Management [facility] [place] [address] [facility] [place] [address] Lumbar spondylosis Discharge Disposition: Home Social History Tobacco Use Types Packs/Day Years Used Date Smoking Tobacco: Former Smokeless Tobacco: Never Comments:Quit Over 25yrs ago Sex and Gender Information Value Date Recorded Sex Assigned at Not on file Gender Identity Not on file Sexual Orientation Not on file documented as of this encounter Last Filed Vital Signs Vital Sign Reading Time Taken Comments Blood Pressure 117/83 11/06/2021 12:00 PM EDT Pulse 55 11/06/2021 10:53 AM EDT Temperature - - Respiratory Rate 12 11/06/2021 11:59 AM EDT Oxygen Saturation 97% 11/06/2021 12:00 PM EDT Inhaled Oxygen Concentration - - Weight 86.2 kg (190 lb) 11/06/2021 10:53 AM EDT Height 167.6 cm (5' 6) 11/06/2021 10:53 AM EDT Body Mass Index 30.67 11/06/2021 10:53 AM EDT documented in this encounter Discharge Instructions * Discharge Instructions* Keshav Villegas - 11/06/2021 11:08 AM EDT Pain Management Center Discharge Instructions: You were seen today by Surgeon(s): Donna Severino MD The following was performed: Procedure(s) (LRB): DESTRUCT BY LYTIC AGENT, FACET JNT NERVE(S), LUMBAR OR SACRAL, EA ADD (WRVU 1.16) (Bilateral) DESTRUCTI BY LYTIC AGENT, FACET JOINT NERVE(S); LUMBAR OR SACRAL, SNGL (WRVU 3.78) (Bilateral) It is normal that the injection site will be sore for up to 48 hours. [x] You may also experience mild stiffness in the joint near the injection site. You may resume your normal activities: tomorrow. You may shower today. DO NOT tub bathe, use whirlpools, hot tubs or pool therapy for 2 days. RemoveBand-Aid(s) later today/tomorrow. Do not drive until tomorrow. Use caution walking/climbing stairs as you may be unsteady on your feet. You may use your usual medications, including pain medications, as directed, unless otherwise instructed. You may use an ice pack as needed for the first 24 hours, on for 20 minutes then off for 20 minutes. Do not apply heat today. [x] You received medication through an intravenous line to lessen the anxiety/pain of your procedure. DO NOT operate heavy or dangerous equipment/tools, or sign important papers today. Attempt to empty your bladder 4-6 hours after your procedure. [ ] If you have diabetes, monitor your blood sugars frequently. If your blood sugar increases and is of concern, contact your Primary Care Provider. You received the following medications: Medications Given During Procedure Date/Time Order Dose Route Action 11/06/2021 1125 BUpivacaine (pf) (Marcaine) (2.5 mg/mL) 0.25% injection 3 mL Other Given 11/06/2021 1150 dexAMETHasone (PF) (Decadron) (10 mg/mL) injection 10 mg Given 11/06/2021 1126 lidocaine (pf) (Xylocaine) (10 mg/mL) 1% injection 6 mL Other Given 11/06/2021 1126 lidocaine (pf) (Xylocaine) (20 mg/mL) 2% injection 6 mL Other Given 11/06/2021 1128 midazolam (pf) (Versed) (1 mg/mL) injection 1 mg Intravenous Given During regular business hours, please phone the Pain Management Center at with any questions or if the following or other troubling symptoms develop: 1) Prolonged dizziness or weakness (more than 1 day). 2) Localized swelling, redness or drainage at the injection site(s). 3) Temperature of 101 degrees that lasts for more than 4 hours. After 5 PM or on weekends, call and ask for Pain Clinic provider on-call. If you are unable to reach the Pain Management Center and have a complication, please call your Primary Care Provider or proceed to your local emergency department. Keshav Villegas Special instructions documented in this encounter Medications at Time of Discharge Medication Sig Dispensed Refills Start Date End Date EPINEPHrine 0.3 mg/0.3 mL Auto-Injector Inject 1 kit into the muscle once as needed. Inject 0.3 mL IM once as needed for allergic reaction (Throat tight, difficulty breathing). Call [phone] as directed. atorvastatin (Lipitor) 10 mg Tablet [...] H&P Notes * Donna Severino MD - 11/06/2021 12:15 PM EDT Patient Name: Nghia Owusu Patient Age: 56 y.o. Birthdate: 1965 Admit date: 11/06/2021 Attending Physician: Donna Severino MD PREPROCEDURE HISTORY AND PHYSICAL Date of Visit: November 06, 2021 Chief Complaint: Low back pain HPI: Subjective Nghia Owusu is a 56 y.o. male who presents today for bilateral L3,4,5 MBRFA. The patient denies any recent anticoagulation. The patient denies any allergy to local anesthetics, contrast dye, or steroids. Patient denies any recent antibiotic use. Patient states they are in their usual state of health. Patient reports being NPO since midnight. The history is obtained from the patient, and I have reviewed medical records provided by the referring physician and located in the electronic medical record to fill in gaps in the patient's recollection of events, treatments and outcomes. LOCATION: across the lower back. PAIN LEVEL 9/10 AT REST PAST MEDICAL HISTORY: No past medical history on file. PAST SURGICAL HISTORY: Past Surgical History: Procedure Laterality Date ??? PRO INJ PARAVERTEBRAL FACET JT W/IMAGE GUID, LUMBAR/SACRAL, 3RD OR ADDL LEVEL Bilateral 08/16/2021 INJECTION, FACET JOINT, W\FLUORO, LUMBAR, 3RD LEVEL (WRVU 1) performed by Donna Severino MD at [facility] ??? PRO INJECTION PV FACET JOINT LUMBAR/SACRAL SECOND LEVEL Bilateral 08/16/2021 INJECTION, FACET JOINT, W\FLUORO, LUMBAR, 2ND LEVEL (WRVU 1) performed by Donna Severino MD at [facility] ??? PRO INJECTION PV FACET JOINT LUMBAR/SACRAL SECOND LEVEL Bilateral 09/20/2021 INJECTION, FACET JOINT, W\FLUORO, LUMBAR, 2ND LEVEL (WRVU 1) performed by Donna Severino MD at [facility] ??? PRO INJECTION PV FACET JOINT LUMBAR/SACRAL SINGLE LEVEL Bilateral 08/16/2021 INJECTION, FACET JOINT, W\FLUORO, LUMBAR, SINGLE (WRVU 1.52) performed by Donna Severino MD at [facility] ??? PRO INJECTION PV FACET JOINT LUMBAR/SACRAL SINGLE LEVEL Bilateral 09/20/2021 INJECTION, FACET JOINT, W\FLUORO, LUMBAR, SINGLE (WRVU 1.52) performed by Donna Severino MD at [facility] ALLERGIES: Venom-yellow jacket and Unknown [unclassified drug] MEDICATIONS: No current facility-administered medications for this encounter. Current Outpatient Medications: ??? atorvastatin (Lipitor) 10 mg Tablet, Take 10 mg by mouth nightly., Disp: , Rfl: ??? cyclobenzaprine (Flexeril) 10 mg Tablet, 10 mg nightly., Disp: , Rfl: ??? DULoxetine DR (Cymbalta) 30 mg Capsule, Delayed Release(E.C.), 30 mg daily., Disp: , Rfl: ??? lisinopriL-hydrochlorothiazide (Zestoretic) 10-12.5 mg Tablet, Take 1 tablet by mouth daily. FOR BLOOD PRESSURE, Disp: , Rfl: ??? loratadine (Claritin) 10 mg Tablet, Take 10 mg by mouth daily., Disp: , Rfl: ??? terazosin (Hytrin) 5 mg Capsule, 5 mg daily., Disp: , Rfl: ??? EPINEPHrine 0.3 mg/0.3 mL Auto-Injector, Inject 1 kit into the muscle once as needed. Inject 0.3 mL IM once as needed for allergic reaction (Throat tight, difficulty breathing). Call 911 as directed., Disp: , Rfl: FAMILY HISTORY: No family history on file. SOCIAL HISTORY: Social History Socioeconomic History ??? Marital status: [...] on file Housing Stability: Not on file ROS: Patient denies any recent illness, infection, or rash. PHYSICAL EXAM: BP 117/83 Pulse 55 Resp 12 Ht 167.6 cm (5' 6) Wt 86.2 kg (190 lb) SpO2 97% BMI 30.67 kg/m?? GEN: Patient in no acute distress RESP: Patient breathing comfortably on room air SKIN: No rash, skin breakdown, or infection noted near intended procedure site. PSYCH: Patient alert and oriented RADIOLOGIC DATA: Imaging reviewed LABS/DX RESULTS: Last wbc, hgb, hct plt No results for input(s): WBC, HGB, HCT in the last 72 hours. Invalid input(s): PLT ASSESSMENT: Assessment 1. Lumbar spondylosis PLAN: There are no contraindications to the planned procedure. Proceed with bilateral L3,4,5 MBRFA . Donna Severino MD 11/06/2021 documented in this encounter Miscellaneous Notes * Op Note - Donna Severino MD - 11/06/2021 11:27 AM EDT Pain Management Operative Note Patient Name: Nghia Owusu : [id number] MR#: [id number] Case Date: 11/06/2021 Surgeon: Surgeon(s) and Role: * Donna Severino MD - Primary Present on Admission: ??? Spondylosis without myelopathy or radiculopathy, lumbar [...] the segmental medial branches of bilaterally L3, L4 and L5-DR were identified with fluoroscopy and marked. Following thorough Chlorhexadine preparation of the skin and draping and 1% lidocaine infiltration of the skin entry points and subcutaneous tissues, a single 10 cm 18 guage curved needle with a 10mm active tip radiofrequency cannula was placed under fluoroscopic guidance along or across the anatomic course of each respective segmental medial branch. Each placement was stimulated at 2Hz without any evidence of distal myotomal stimulation. 1 ml Lidocaine preservative free 2% was injected at each level after negative aspiration. At each placement a continuous mode radiofrequency treatmentwas done at 80 degrees C for 90 secs and then rotated 180degrees and then repeated. Once the radiofr equency treatment was completed 0.15 cc of Dexamethasone (10 mg/cc) was injected at each site followed by 0.5 cc 0.25% Bupivacaine. The needles were then removed without difficulty. [...] documented in the Medication Administration Record (MAR). 1 mg midazolam administered intravenous. Follow up plans and appointments were discussed with Nghia Owusu. Post procedure instruction was given as documented in the nursing documentation and having met discharge criteria, he was discharged from the Pain Management Center. COMMENTS: F/U with Sana HARDY in 6 weeks. I personally performed the entire procedure. Donna Severino MD [facility] Tooling Supervisor of Anesthesiology [facility] [employer] [facility] [address] [phone] / [facility] CC: Sana Acevedo, JESSICA [facility] [place] [address] documented in this encounter Plan of Treatment Not on file documented as of this encounter Procedures Procedure Name Priority Date/Time Associated Diagnosis Comments Dstr Paravertebral Fct Jnt Nrves Lumbar or Sacral Single 11/06/2021 11:20 AM EDT Lumbar spondylosis Dstr Paravertebral Fct Jnt Nrves Lumbar or Sacral Addl 11/06/2021 11:20 AM EDT Lumbar spondylosis DESTRUCT BY LYTIC AGENT, FACET JNT NERVE(S), LUMBAR OR SACRAL, EA ADD Routine 11/06/2021 10:50 AM EDT Lumbar spondylosis DESTRUCTI BY LYTIC AGENT, FACET JOINT NERVE(S); LUMBAR OR SACRAL, SNGL Routine 11/06/2021 10:50 AM EDT Lumbar spondylosis documented in this encounter Visit Diagnoses Diagnosis Lumbar spondylosis Lumbosacral spondylosis without myelopathy documented in this encounter Active and Recently Administered Medications Times are shown in EDT. PRN Medication Order 11/04/2021 11/05/2021 11/06/2021 BUpivacaine (pf) (Marcaine) (2.5 mg/mL) 0.25% injection (CANCELED) ONCE PRN, Starting on Fri11/06/21 at 1125, Until Fri11/06/21 at 1416, Intra-Operative (Intra-Procedure), Routine 1125 (Given - Provid er: Donna Severino MD - Comment: bilateral lumbar RFA) dexAMETHasone (PF) (Decadron) (10 mg/mL) injection (CANCELED) ONCE PRN, Starting on Fri11/06/21 at 1150, Until Fri11/06/21 at 1416, Intra-Operative (Intra-Procedure), Routine 1150 (Given - Provid er: Donna Severino MD - Comment: bilateral lumbar RFA) lidocaine (pf) (Xylocaine) (10 mg/mL) 1% injection (CANCELED) ONCE PRN, Starting on Fri11/06/21 at 1126, Until Fri11/06/21 at 1416, Intra-Operative (Intra-Procedure), Routine 1126 (Given - Provid er: Donna Severino MD - Comment: bilateral lumbar RFA) lidocaine (pf) (Xylocaine) (20 mg/mL) 2% injection (CANCELED) ONCE PRN, Starting on Fri11/06/21 at 1126, Until Fri11/06/21 at 1416, Intra-Operative (Intra-Procedure), Routine 1126 (Given - Provid er: Donna Severino MD - Comment: bilateral lumbar RFA) midazolam (pf) (Versed) (1 mg/mL) injection (CANCELED) ONCE PRN, Starting on Fri11/06/21 at 1128, Until Fri11/06/21 at 1416, Intra-Operative (Intra-Procedure), Routine 1128 (Given - Provid er: Ceci Panda RN - Comment: bilateral lumbar RFA) documented in this encounter Care Teams Entrepreneur Relationship Specialty Start Date End Date Ta Jensen MD [address] [place] [address] PCP - General Family Medicine 07/22/20 documented as of this encounter
--- OUTSIDE RECORDS SUMMARY | 2023-10-28 06:16 | XMS_ITS | Encounter Summary ---
Author Organization [facility] Address [address] [place] [address] Care Team Providers Care Automotive Electrical Fitter Name Role Phone Unavailable Primary Care Provider Unavailabl e Encounter Details Date Type Department Care Team (Late st Contact Info) Description 12/05/2005 Before PRISM Converted Visit (Maple) [facility] - Maple conversion [address] [place] [address] Jl Robledo MD Social History Tobacco Use Types Packs/Day Years Used Date Smoking Tobacco: Never Assessed Sex and Gender Information Value Date Recorded Sex Assigned at Not on file Gender Identity Not on file Sexual Orientation Not on file documented as of this encounter Progress Notes * Jl Robledo MD - 04/07/2009 0238 EST DIVISION OF GASTROENTEROLOGY PROGRESS/FOLLOWUP NOTE - 12/05/2005 I met with Mr. Owusu and his for approximately 35 minutes today. Our entire visit entire consisted of counseling, discussion, and decision making. He is currently taking 60 mgs of prednisone and his standard dose of tetracyclineat 500 mgs twice a day. 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 We spent a good deal of todays visit discussing other therapeutic options which are more likely to be successful. When I initially evaluated Mr. 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 Mr. Owusu will take 25 mgs of 6 mercaptopurine daily for 3 days. If he tolerates that well he will increase to 50 mgs a day which will be his standard dose until we check metabolite levels in 6-12 weeks. In the meantime, char taper his prednisone slowly. Alesha arranged a followup appointment for him and will communicate all results to Janice Salazar who follows him for his primary care. Signed by Jl Robledo MD, FACG 12/09/2005 11:37 Yvonne Robledo MD, [id number] L Moses, MD, FACG Jl Robledo MD, [facility] [phone] - Jl Robledo MD, FACG A - abbie Job ID: [id number] Document ID: [id number] cc: Janice Salazar NP documented in this encounter Plan of Treatment Not on file documented as of this encounter Visit Diagnoses Not on filedocumented in this encounter
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
--- OUTSIDE RECORDS SUMMARY | 2023-10-28 06:16 | XMS_ITS | Encounter Summary ---
Author Organization [facility] [place] [address] Care Team Providers Care Power Plant Operations Manager Name Role Phone Ta Jensen MD Primary Care Provider [phone] Encounter Details Date Type Department Care Team (Late st Contact Info) Description 08/07/2023 Telephone [facility] [place] [id number] Amalia Fernando Social History Tobacco Use Types Packs/Day Years Used Date Smoking Tobacco: Former Smokeless Tobacco: Never Comments:Quit Over 25yrs ago Sex and Gender Information Value Date Recorded Sex Assigned at Not on file Gender Identity Not on file Sexual Orientation Not on file documented as of this encounter Miscellaneous Notes * Telephone Encounter - Amalia Fernando - 08/07/2023 8:03 AM EDT [facility] 08/07/23 in regards to scheduling a follow up with Sana Acevedo APRN. Please call [phone]. Note: Follow up to Low back pain/ S/p RFA 12/30/22/ Discuss next steps documented in this encounter Plan of Treatment Not on file documented as of this encounter Visit Diagnoses Not on filedocumented in this encounter Care Teams Power Plant Operations Manager Relationship Specialty Start Date End Date Ta Jensen MD [address] [place] [address] [place] [address] PCP - General Family Medicine 07/22/20 documented as of this encounter
--- OUTSIDE RECORDS SUMMARY | 2023-10-28 06:16 | XMS_ITS | Encounter Summary ---
Author Organization [facility] Address [address] [place] [address] Care Team Providers Care It Analyst Name Role Phone Unavailable Primary Care Provider Unavailabl e Encounter Details Date Type Department Care Team (Late st Contact Info) Description 06/21/2003 Results Only [facility] conversion [address] [place] [address] Nickolas Montano, DO [address] [facility] [address] [place], [place] [id number] Social History Tobacco Use Types Packs/Day Years Used Date Smoking Tobacco: Never Assessed Sex and Gender Information Value Date Recorded Sex Assigned at Not on file Gender Identity Not on file Sexual Orientation Not on file documented as of this encounter Plan of Treatment Not on file documented as of this encounter Procedures Procedure Name Priority Date/Time Associated Diagnosis Comments SURGICAL PATHOLOGY Routine 06/21/2003 0:00 EST documented in this encounter Results * SURGICAL PATHOLOGY (06/21/2003 0:00 EST) Pathology Report: SURGICAL PATHOLOGY REPORT Reports generated via electronic interface contain original data; however they are lacking the format of the original report. Caution should be taken when reading/interpreti ng unformatted reports. Name: ? NGHIA OWUSU ? Accession #: ? [id number] ? : ? 1965 (Age: 38) ??M ? Collect Date: ? 06/21/2003 ? Location: ? [facility] ? Receive Date: ? 06/21/2003 ? Provider: NICKOLAS MONTANO DO Copy to: ALONSO HAWKINS MD ? Final Pathologic Diagnosis: ? Stomach, antrum, biopsy: - Chronic gastritis. ??See comment. Comment: ? A Emerald stain is performed and is negative for Helicobacter pylori-like microorganisms. ??(Dr. Park)/[facility] Document reviewed and electronically signed by: PRABHJOT KURTZ MD Report ??Date: 06/27/2003 10:39 By the signature above, the attending physician certifies that he/she has personally conducted a gross and/or microscopic examination of the described specimens and rendered or confirmed the above diagnosis. Specimen(s) Received: ? Bx @ antrum Clinical History: ? Epigastric pain with GI type symptoms Gross Description: ? Received in Hollande's fixative labelled Francoise and Bx at antrum is a saldaña-pink, 0.2 x 0.2 x 0.2 cm soft tissue fragment. The specimen is entirely submitted in one cassette. ??(Willian Bishop/renae End of Report [facility] 06/21/2003 06/21/2003 15: 24 EST Nickolas Montano DO PATHOLOGY ORDER KASEY [facility] [address] [place] [address] documented in this encounter Visit Diagnoses Not on filedocumented in this encounter
--- OUTSIDE RECORDS SUMMARY | 2023-10-28 06:16 | XMS_ITS | Encounter Summary ---
Author Organization [facility] Address [address] [place] [address] Care Team Providers Care Barrel Dedenting Machine Operator Name Role Phone Unavailable Primary Care Provider Unavailabl e Encounter Details Date Type Department Care Team (Late st Contact Info) Description 06/25/2004 Results Only [facility] conversion [address] [place] [address] Fransisco Montano MD [address] [place] [address] Social History Tobacco Use Types Packs/Day Years Used Date Smoking Tobacco: Never Assessed Sex and Gender Information Value Date Recorded Sex Assigned at Not on file Gender Identity Not on file Sexual Orientation Not on file documented as of this encounter Plan of Treatment Not on file documented as of this encounter Procedures Procedure Name Priority Date/Time Associated Diagnosis Comments SURGICAL PATHOLOGY Routine 06/25/2004 0:00 EST documented in this encounter Results * SURGICAL PATHOLOGY (06/25/2004 0:00 EST) Pathology Report: SURGICAL PATHOLOGY REPORT Reports generated via electronic interface contain original data; however they are lacking the format of the original report. Caution should be taken when reading/interpreti ng unformatted reports. Name: ? NGHIA OWUSU ? Accession #: ? [id number] ? : ? 1965 (Age: 39) ??M ? Collect Date: ? 06/25/2004 ? Location: ? [facility] ? Receive Date: ? 06/25/2004 ? Provider: FRANSISCO MONTANO MD Copy to: ALONSO HAWKINS MD ? Final Pathologic Diagnosis: A. ?Ileum, terminal, biopsy: 1. ?Patchy active enteritis. ??See comment. B. ?Colon, cecum, biopsy: 1. ?Colonic mucosa with no specific pathologic features. 2. ?No active or chronic colitis identified. C. ?Colon, transverse, biopsy: 1. ?Colonic mucosa with no specific pathologic features. 2. ?No active or chronic colitis identified. D. ?Colon, descending, biopsy: 1. ?Colonic mucosa with no specific pathologic features. 2. ?No active or chronic colitis identified. E. ?Rectum, biopsy: 1. ?Colorectal mucosa with no specific pathologic features. 2. ?No active or chronic colitis identified. Comment: ? Sections of terminal ileum (A) show patchy neutrophilic inflammation with focal erosion. ??No granulomas are identified. ??Although this may represent an acute enteritis of infectious etiology, Crohn' s disease could also show similar manifestations. ??However, due to the limited involvement, a definitive diagnosis of Crohn' s disease cannot be made on this biopsy series. ??Correlation with the endoscopic impression and clinical follow up is advised. ?? Document reviewed and electronically signed by: PRATEEK ALEJO MD Report ??Date: 06/27/2004 14:54 By the signature above, the attending physician certifies that he/she has personally conducted a gross and/or microscopic examination of the described specimens and rendered or confirmed the above diagnosis. Specimen(s) Received: A. ?Bx terminal ileum (#1) B. ?Cecum bx (#2) C. ?Transverse colon bx (#3) D. ?Descending colon bx (#4) E. ?Bx rectum (#5) Clinical History: ? Inflammatory bowel disease Gross Description: ? Received in Hollande's fixative labeled Francoise and bx terminal ileum are six saldaña-pink friable soft tissue fragments ranging from 0.2 x 0.2 x 0.2 cm to 0.5 x 0.3 x 0.2 cm. ??The specimen is entirely submitted as (A1) and (A2). Received in Hollande's fixative labeled Francoise and cecum bx are three saldaña-pink soft tissue fragments ranging from 0.2 x 0.2 x 0.1 cm to 0.6 x 0.2 x 0.1 cm. ??The specimen is entirely submitted as (B). Received in Hollande's fixative labeled Francoise and transverse colon bx are two saldaña-pink soft tissue fragments measuring 0.3 x 0.2 x 0.2 cm and 0.5 x 0.2 x 0.2 cm. ??The specimen is entirely submitted as (C). Received in Hollande's fixative labeled Francoise and descending colon bx are two saldaña-pink soft tissue fragments measuring 0.2 x 0.2 x 0.2 cm and 0.4 x 0.2 x 0.2 cm. ??The specimen is entirely submitted as (D). Received in Hollande's fixative labeled Francoise and bx rectum are four saldaña-pink soft tissue fragments ranging from 0.2 x 0.2 x 0.2 cm to 0.5 x 0.2 x 0.2 cm. ??The specimen is entirely submitted as (E1) and (E2). ??(Willian Tavera)/[facility] End of Report [facility] 06/25/2004 06/25/2004 14: 55 EST Fransisco Montano MD PATHOLOGY ORDERABLE S Performing Organization Address City/State/[facility] Co de Phone Number [facility] [address] [address] documented in this encounter Visit Diagnoses Not on filedocumented in this encounter
--- OUTSIDE RECORDS SUMMARY | 2023-10-28 06:16 | XMS_ITS | Encounter Summary ---
Author Organization [facility] [place] [address] Care Team Providers Care Classroom Assistant Name Role Phone Ta Jensen MD Primary Care Provider [phone] Encounter Details Date Type Department Care Team (Latest Contact Info) Description 10/25/2022 Travel Social History Tobacco Use Types Packs/Day Years [...] on filedocumented in this encounter Care Teams Classroom Assistant Relationship Specialty Start Date End Date Ta Jensen MD [address] [place] [address] PCP - General Family Medicine 07/22/20 documented as of this encounter
--- OUTSIDE RECORDS SUMMARY | 2023-10-28 06:16 | XMS_ITS | Encounter Summary ---
Author Organization [facility] [place] [address] Care Team Providers Care Business Analysis Professional Name Role Phone Ta Jensen MD Primary Care Provider [phone] Encounter Details Date Type Department Care Team (Late st Contact Info) Description 09/24/2021 Telephone [place] [address] Hillary Beaver, RN Social History Tobacco Use Types Packs/Day Years Used Date Smoking Tobacco: Former Smokeless Tobacco: Never Comments:Quit Over 25yrs ago Sex and Gender Information Value Date Recorded Sex Assigned at Not on file Gender Identity Not on file Sexual Orientation Not on file documented as of this encounter Miscellaneous Notes * Telephone Encounter - Hillary Beaver, RN - 09/24/2021 9:19 AM EDT Out going call to talk with Nghia about the 2nd bilateral L3, L4, L5 MBB's that he had with Dr Tirado 09/20/21. Left the message for him to call us. documented in this encounter Plan of Treatment Not on file documented as of this encounter Visit Diagnoses Not on filedocumented in this encounter Care Teams Business Analysis Professional Relationship Specialty Start Date End Date Ta Jensen MD [facility] [place] [address] PCP - General Family Medicine 07/22/20 documented as of this encounter
--- OUTSIDE RECORDS SUMMARY | 2023-10-28 06:16 | XMS_ITS | Encounter Summary ---
Author Organization [facility] [place] [address] Care Team Providers Care Pile Driving Technician Name Role Phone Ta Jensen MD Primary Care Provider [phone] Reason for Visit * Auth/Cert Specialty Diagnoses [...] SACRAL, SNGL (WRVU 3.78) Donna Severino MD [facility] [place] [address] [facility] Referral ID Status Reason Start Date Expiration Date Visits Re quested Visits Authorized [id number] 1 1 Encounter Details Date Type Department Care Team (Late st Contact Info) Description 11/06/2021 10:30 AM EDT Ancillary [place] [address] Donna Severino MD [facility] [place] [address] Social History Tobacco Use Types Packs/Day Years [...] STORAGE ONLY PAIN CLINIC C ARM Routine 11/06/2021 4:56 PM EDT documented in this encounter Results * Film Library- Storage Only pain Clinic C-Arm (11/06/2021 4:56 PM EDT) Narrative [facility] - 11/06/2021 4:56 PM EDT See PACS for result report. Donna Severino MD IMG FILM LIBRARY ORD ERABLES Performing Organization Address City/State/[facility] Co de Phone Number [place], [place] documented in this encounter Visit Diagnoses Not on filedocumented in this encounter Care Teams Pile Driving Technician Relationship Specialty Start Date End Date Ta Jensen [place] [address] PCP - General Family Medicine 07/22/20 documented as of this encounter
--- OUTSIDE RECORDS SUMMARY | 2023-10-28 06:16 | XMS_ITS | Encounter Summary ---
Author Organization [facility] [place] [address] Care Team Providers Care Database Report Writer Name Role Phone Ta Jensen MD Primary Care Provider [phone] Encounter Details Date Type Department Care Team (Late st Contact Info) Description 11/22/2022 Telephone [facility] [place] [address] Hillary Beaver RN Social History Tobacco Use Types Packs/Day Years Used Date Smoking Tobacco: Former Smokeless Tobacco: Never Comments:Quit Over 25yrs ago Sex and Gender Information Value Date Recorded Sex Assigned at Not on file Gender Identity Not on file Sexual Orientation Not on file documented as of this encounter Miscellaneous Notes * Telephone Encounter - Hillary Beaver, RN - 11/22/2022 12:50 PM EDT Out going call to Nghia to go over his pain scores from the bilateral L3, L4, L5-Dr procedure on 11/14/[address] Severino. LVMM that if he got good relief we can proceed to the RFA. documented in this encounter Plan of Treatment Not on file documented as of this encounter Visit Diagnoses Not on filedocumented in this encounter Care Teams Database Report Writer Relationship Specialty Start Date End Date Ta Jensen [place] [address] PCP - General Family Medicine 07/22/20 documented as of this encounter
--- OUTSIDE RECORDS SUMMARY | 2023-10-28 06:16 | XMS_ITS | Encounter Summary ---
Author Organization [facility] [place] [address] Care Team Providers Care Blank Driller Name Role Phone Ta Jensen MD Primary Care Provider [phone] Reason for Visit * Auth/Cert (Routine) Specialty Diagnoses / Procedures Referred By Contac t Referred To Contact Diagnoses lumbar spondylosis Procedures PRO INJECTION PV FACET JOINT LUMBAR/SACRAL SECOND LEVEL PRO INJECTION PV FACET JOINT LUMBAR/SACRAL SINGLE LEVEL INJECTION, FACET JOINT, W\FLUORO, LUMBAR, 2ND LEVEL (WRVU 1) INJECTION, FACET JOINT, W\FLUORO, LUMBAR, SINGLE (WRVU 1.52) Donna Severino MD [facility] [place] [address] [facility] Referral ID Status Reason Start Date Expiration Date Visits Re quested Visits Authorized [id number] 1 1 Encounter Details Date Type Department Care Team (Late st Contact Info) Description 11/14/2022 2:00 PM EDT Ancillary Procedure [place] [address] Donna Severino MD [facility] [place] [address] Social History Tobacco Use Types Packs/Day Years [...] STORAGE ONLY PAIN CLINIC C ARM Routine 11/14/2022 3:44 PM EDT documented in this encounter Results * Film Library- Storage Only pain Clinic C-Arm (11/14/2022 3:44 PM EDT) Narrative [facility] - 11/14/2022 3:44 PM EDT See PACS for result report. Donna Severino MD [facility] FILM LIBRARY ORD ERABLES [place], [place] documented in this encounter Visit Diagnoses Not on filedocumented in this encounter Care Teams Blank Driller Relationship Specialty Start Date End Date Ta Jensen MD [address] [place] [address] PCP - General Family Medicine 07/22/20 documented as of this encounter
--- OUTSIDE RECORDS SUMMARY | 2023-10-28 06:16 | XMS_ITS | Encounter Summary ---
Author Organization [facility] Address [address] [place] [address] Care Team Providers Care Plastic Fixture Builder Name Role Phone Ta Jensen MD Primary Care Provider [phone] Encounter Details Date Type Department Care Team (Late st Contact Info) Description 08/21/2022 Lab Requisition [facility] Pathology & Laboratory Medicine - [facility] [address], [place] [id number] Outr Resulting Lab, Provider Social History Tobacco [...] Procedure Name Priority Date/Time Associated Diagnosis Comments HIV 1/2 ANTIGEN AND ANTIBODY, 4TH GENERATION Routine 08/21/2022 12:10 EDT documented in this encounter Results * HIV 1/2 ANTIGEN AND ANTIBODY, 4TH GENERATION (08/21/2022 12:10 EDT) HIV 1 and 2 Antibody/p24 Antigen, 4th Generation Negative Negative 08/22/2022 10:00 EDT [facility] Comment:If acute HIV-1 infec tion is suspected in a high risk patient, submit plasma specimen for HIV-1 RNA quantitation test. Blood VENOUS BLOOD / Unknown 08/21/2022 12:10 EDT 08/21/2022 21:03 EDT Narrative [facility] - 08/22/2022 10:00 EDT Fourth Generation assay performed on the Siemens Centaur XPT. Provider Outr Resulting Lab IMMUNOLOGY A ND SEROLOGY ORDERABLES [facility] [address] [place] [address] documented in this encounter Visit Diagnoses Not on filedocumented in this encounter Care Teams Plastic Fixture Builder Relationship Specialty Start Date End Date Ta Jensen MD [address] [place] [address] PCP - General 06/04/16 documented as of this encounter
--- OUTSIDE RECORDS SUMMARY | 2023-10-28 06:16 | XMS_ITS | Encounter Summary ---
[place] [address] Care Team Providers Care Employee Development Specialist Name Role Phone Ta Jensen MD Primary Care Provider Reason for Referral * Consultation (Routine) - Duplicate Referral Specialty Diagnoses / Procedures Referred By Contac t Referred To Contact [facility] Diagnoses DDD (degenerative disc disease), lumbar Lumbar spondylosis Ta Jensen MD [address] [place] [address] [facility] [place] [address] Referral ID Status Reason Start Date Expiration Date Visits Requested Visits Authorized [id number] Duplicate Referral Consult, Test & Treat PCP Updated and/or Approved 02/20/2022 02/20/2023 6 6 Encounter Details Date Type Department Care Team (Latest Contact Info) Description 02/20/2022 Transcribe Orders eDH Incoming Referrals [phone] Ta Jensen MD [address] [place] [address] DDD (degenerative disc disease), lumbar; Lumbar spondylosis Social History Tobacco Use [...] Associated Diagnoses Orde r Schedule Referral to Spine Center Outpatient Referral Routine DDD (degenerative disc disease), lumbar Lumbar spondylosis Ordered: 02/20/2022 documented as of this encounter Visit Diagnoses Diagnosis DDD (degenerative disc disease), lumbar Degeneration of lumbar or lumbosacral intervertebral disc Lumbar spondylosis Lumbosacral spondylosis without myelopathy documented in this encounter Care Teams Employee Development Specialist Relationship Specialty Start Date End Date Ta Jensen MD [address] [place] [address] PCP - General Family Medicine 07/22/20 documented as of this encounter
--- OUTSIDE RECORDS SUMMARY | 2023-10-28 06:16 | XMS_ITS | Encounter Summary ---
Author Organization [facility] Address [address] [place] [address] Care Team Providers Care Senior Data Mining Analyst Name Role Phone Unavailable Primary Care Provider Unavailabl e Encounter Details Date Type Department Care Team (Late st Contact Info) Description 07/26/2004 12:55 EDT Hospital Encounter [facility] conversion [address] [place] [address] Jl Robledo MD Social History Tobacco Use [...]
--- OUTSIDE RECORDS SUMMARY | 2023-10-28 06:16 | XMS_ITS | Encounter Summary ---
Author Organization [facility] [place] [address] Care Team Providers Care Advertising Teacher Name Role Phone Ta Jensen MD Primary Care Provider [phone] Encounter Details Date Type Department Care Team (Late st Contact Info) Description 11/13/2022 Telephone [facility] [place] [phone] Jennifer Johnston RN Social History Tobacco Use Types Packs/Day [...] on filedocumented in this encounter Care Teams Advertising Teacher Relationship Specialty Start Date End Date Ta Jensen MD [facility] [place] [address] [place] [address] PCP - General Family Medicine 07/22/20 documented as of this encounter
--- OUTSIDE RECORDS SUMMARY | 2023-10-28 06:16 | XMS_ITS | Encounter Summary ---
Author Organization [facility] [place] [address] Care Team Providers Care Print Room Worker Name Role Phone Ta Jensen MD Primary Care Provider [phone] Reason for Visit * Auth/Cert (Routine) Specialty Diagnoses / Procedures Referred By Contac t Referred To Contact Diagnoses lumbar spondylosis Procedures PRO INJECTION PV FACET JOINT LUMBAR/SACRAL SECOND LEVEL PRO INJECTION PV FACET JOINT LUMBAR/SACRAL SINGLE LEVEL INJECTION, FACET JOINT, W\FLUORO, LUMBAR, 2ND LEVEL (WRVU 1) INJECTION, FACET JOINT, W\FLUORO, LUMBAR, SINGLE (WRVU 1.52) Donna Severino MD [facility] [place] [address] [facility] Referral ID Status Reason Start Date Expiration Date Visits Re quested Visits Authorized [id number] 1 1 Encounter Details Date Type Department Care Team (Late st Contact Info) Description 11/14/2022 2:00 PM EDT - 11/14/2022 3:00 PM EDT Surgery [place] [address] Donna Severino MD [facility] [place] [address] INJECTION, FACET JOINT, W\FLUORO, LUMBAR, 2ND LEVEL (WRVU 1) Social History Tobacco Use Types Packs/Day Years Used Date Smoking Tobacco: Former Smokeless Tobacco: Never Comments:Quit Over 25yrs ago Sex and Gender Information Value Date Recorded Sex Assigned at Not on file Gender Identity Not on file Sexual Orientation Not on file documented as of this encounter Last Filed Vital Signs Vital Sign Reading Time Taken Comments Blood Pressure 132/87 11/14/2022 1:48 PM EDT Pulse 58 11/14/2022 1:48 PM EDT Temperature - - Respiratory Rate 12 11/14/2022 1:48 PM EDT Oxygen Saturation 98% 11/14/2022 2:50 PM EDT Inhaled Oxygen Concentration - - Weight 83.9 kg (185 lb) 11/14/2022 1:48 PM EDT Height 165.1 cm (5' 5) 11/14/2022 1:48 PM EDT Body Mass Index 30.79 11/14/2022 1:48 PM EDT documented in this encounter Medications at [...] as of this encounter H&P Notes * Meaghan Moncada DO - 11/13/2022 9:51 PM EDT Patient Name: Nghia Owusu Patient Age: 57 y.o. Birthdate: 1965 Admit date: 11/14/2022 Attending Physician: Donna Severino MD PREPROCEDURE HISTORY AND PHYSICAL Date of Visit: November 14, 2022 Chief Complaint: Low back pain HPI: Subjective Nghia Owusu is a 57 y.o. male who presents today for bilateral lumbar radiofrequency ablation of L3-L4, L4-L5 DR. Please refer to the note by Sana Acevedo APRN on 10/25/22 for medical necessity. The patient denies any recent anticoagulation. The patient denies any allergy to local anesthetics, contrast dye, or steroids. Patient denies any recent antibiotic use. Patient states they are in their usual state of health. Patient reports being NPO since 6:30AM. The history is obtained from the patient, [...] HISTORY: Past Surgical History: Procedure Laterality Date PRO DSTR PARAVERTEBRAL FCT JNT NRVES LUMBAR OR SACRAL ADDL Bilateral 11/06/2021 DESTRUCT BY LYTIC AGENT, FACET JNT NERVE(S), LUMBAR OR SACRAL, EA ADD (WRVU 1.16) performed by Donna Severino MD at [facility] PAIN MGMT MSO PRO DSTR PARAVERTEBRAL FCT JNT NRVES LUMBAR OR SACRAL SINGLE Bilateral 11/06/2021 DESTRUCTI BY LYTIC AGENT, FACET JOINT NERVE(S); LUMBAR OR SACRAL, SNGL (WRVU 3.78) performed by Donna Severino MD at [facility] PAIN [facility] MSO PRO INJ PARAVERTEBRAL FACET JT W/IMAGE GUID, LUMBAR/SACRAL, 3RD OR ADDL LEVEL Bilateral 08/16/2021 INJECTION, FACET JOINT, W\FLUORO, LUMBAR, 3RD LEVEL (WRVU 1) performed by Donna Severino MD at [facility] PAIN MGMT MSO PRO INJECTION PV FACET JOINT LUMBAR/SACRAL SECOND LEVEL Bilateral 08/16/2021 INJECTION, FACET JOINT, W\FLUORO, LUMBAR, 2ND LEVEL (WRVU 1) performed by Donna Severino MD at [facility] PAIN MGMT MSO PRO INJECTION PV FACET JOINT LUMBAR/SACRAL SECOND LEVEL Bilateral 09/20/2021 INJECTION, FACET JOINT, W\FLUORO, LUMBAR, 2ND LEVEL (WRVU 1) performed by Donna Severino MD at [facility] PAIN MGMT MSO PRO INJECTION PV FACET JOINT LUMBAR/SACRAL SINGLE LEVEL Bilateral 08/16/2021 INJECTION, FACET JOINT, W\FLUORO, LUMBAR, SINGLE (WRVU 1.52) performed by Donna Severino MD at [facility] PAIN MGMT MSO PRO INJECTION PV FACET JOINT LUMBAR/SACRAL SINGLE LEVEL Bilateral 09/20/2021 INJECTION, FACET JOINT, W\FLUORO, LUMBAR, SINGLE (WRVU 1.52) performed by Donna Severino MD at [facility] PAIN MGMT MSO ALLERGIES: Venom-yellow jacket and Unknown [unclassified drug] MEDICATIONS: No current facility-administered medications for this encounter. FAMILY HISTORY: No family history on file. SOCIAL HISTORY: Social History Socioeconomic History Marital status: Spouse [...] illness, infection, or rash. PHYSICAL EXAM: BP 132/87 (Patient Position: Sitting) Pulse 58 Resp 12 Ht 165.1 cm (5' 5) Wt 83.9 kg (185 lb) SpO2 100% BMI 30.79 kg/m?? GEN: Patient in no acute distress [...] contraindications to the planned procedure. Proceed with procedure as planned. Meaghan Moncada DO Pain Medicine Fellow, PGY5 Meaghan Moncada DO 11/14/2022 documented in this encounter Miscellaneous Notes * Op Note - Donna Severino MD - 11/14/2022 2:35 PM EDT Pain Management Operative Note Patient Name: Nghia Owusu : [id number] MR#: [id number] Case Date: 11/14/2022 Surgeon: Surgeon(s) and Role: * Donna Severino MD - Primary * Meaghan Moncada DO - Fellow - Assisting Present on Admission: Spondylosis without myelopathy or radiculopathy, lumbar region Postoperative diagnosis: same PROCEDURE NOTE LUMBAR MEDIAL BRANCH DIAGNOSTIC BLOCKS Patient: Nghia Owusu Referring Physician: Unknown None Diagnosis: 1. Lumbar spondylosis Pre-procedure Note History and Exam: Patient demonstrates today moderate to severe non- radicular back pain without neurologic deficit aggravated by hyperextension Yes Back pain greater than leg pain Yes Patient today has tenderness over the suspected joint(s) Yes History of post-traumatic injury No Hypertrophic arthropathy Yes Back pain associated with suspected motion segment instability or Hypermobility or pseudoarthrosis No Pre-testing pain score (VAS): 9 Previous medial branch block testing?: Yes Today's Operative Note Nghia Owusu was greeted by the nurse who verified the patients name and . Patient was then taken to the fluoroscopy suite. Mr. Owusu was interviewed and the medical record was reviewed. There were no medical contraindications to performing the bilateral lumbar medial branch nerve blocks. I first had a talk with the patient and discussed the potential risks, benefits, side effects, and alternatives of this procedure including but not limited to increased pain from the procedure, no pain relief, nerve damage, infection, and bleeding. he comprehended my conversation and accepts the risks and understands the goals of this diagnostic procedure. All questions and concerns from the patient were addressed. After I was comfortable that the patient was fully informed about this procedure, the printed consent form was signed. Standard time-out procedure was performed Mr. Owusu was placed in the prone position on the fluoroscopy table and automated blood pressure cuff and pulse oximeter were applied. The anatomic target points of the segmental medial branches of bilaterally L3, L4, and L5- DRwere identified with fluoroscopy. Following thorough Chlorhexadine preparation of the skin and draping, a 25 gauge 3.5 spinal needle was placed under fluoroscopic guidance down on to the target point for each respective segmental medial branch.Position was confirmed in A/P, oblique and lateral views and 0.25 cc of Omnipaque-240 at each segmental nerve. At each level we injected 0.5ml of Bupivacaine 0.5%. (48 cc of Omnipaque was wasted) Mr. Owusu's vital signs were stable throughout the procedure and were as recorded in the docflowsheet by the nursing staff. Postoperatively, today patient demonstrates the following changes with hyperextension and with tenderness over the suspected joint(s). Provacative testing using the Laboy's facet loading test Right side Left side Directly before the block VAS (0-10) = 9 VAS (0-10) = 9 5 minutes after the block VAS (0-10) = 3 VAS (0-10) = 3 Percentage relief obtained with this diagnostic block 66% 66% Any improved physical functioning directly after the blocks? yes Next, he was asked to recordhis percent pain relief and any changes in provocative maneuvers for the next 4 hours. He will report this information at the next business day to one of our nurses. Based on the medial branches blocked today, if the patient meets insurance criteria for radiofrequency, the treatment should result in the denervation of the bilaterally L4-L5 and L5-S1 facet joint nerves. We would expect to denervate a total of 4 facets during the radiofrequency ablation. Discharge plan:: He will call back with his 0-4 hour post-procedure pain scores. I was the attending physician supervising the fellow in the above care and I was present with the fellow for the entire procedure. Donna Severino MD [facility] [employer] [facility] [address] [address] / [facility] CC: Unknown None documented in this encounter Plan of Treatment Not on file documented as of this encounter Procedures Procedure Name Priority Date/Time Associated Diagnosis Comments Injection Pv Facet Joint Lumbar/Sacral Single Level (41260) 11/14/2022 2:31 PM EDT Lumbar spondylosis Injection Pv Facet Joint Lumbar/Sacral Second Level (61533) 11/14/2022 2:31 PM EDT Lumbar spondylosis INJECTION, FACET JOINT,W\FLUORO, LUMBAR, SINGLE Routine 11/14/2022 1:42 PM EDT Lumbar spondylosis INJECTION, FACET JOINT,W\FLUORO, LUMBAR, 2ND LEVEL Routine 11/14/2022 1:42 PM EDT Lumbar spondylosis documented in this encounter Visit Diagnoses Diagnosis Spondylosis without myelopathy or radiculopathy, lumbar region- Primary Lumbar spondylosis Lumbosacral spondylosis without myelopathy Lumbar spondylosis Lumbosacral spondylosis without myelopathy documented in this encounter Administered Medications Inactive Administered Medications - up to 3 most recent administrations Medication Order MAR Action Action Date Dose Rate Site BUpivacaine (pf) (Marcaine) (5 mg/mL) 0.5% injection PRN, Starting on Lorri 8 at 1455, Until Lorri 11/14/22 at 1751, Intra-Operative (Intra-Procedure), Routine Given 11/14/2022 2:55 PM EDT 3 mLs iohexoL (Omnipaque) (240 mg/mL) solution PRN, Starting on Lorri 8 at 1455, Until Lorri 11/14/22 at 1751, Intra-Operative (Intra-Procedure), Routine Given 11/14/2022 2:55 PM EDT 1 mL documented in this encounter Active and Recently Administered Medications Times are shown in EDT. PRN Medication Order 11/12/2022 11/13/2022 11/14/2022 BUpivacaine (pf) (Marcaine) (5 mg/mL) 0.5% injection (CANCELED) PRN, Starting on Lorri 8 at 1455, Until Lorri 8 at 1751, Intra-Operative (Intra-Procedure), Routine 1455 (Given - Provid er: Meaghan Moncada DO) iohexoL (Omnipaque) (240 mg/mL) solution (CANCELED) PRN, Starting on Lorri 11/14/22 at 1455, Until Lorri 11/14/22 at 1751, Intra-Operative (Intra-Procedure), Routine 1455 (Given - Provid er: Meaghan Moncada DO) documented in this encounter Care Teams Print Room Worker Relationship Specialty Start Date End Date Ta Jensen MD [facility] [place] [address] PCP - General Family Medicine 07/22/20 documented as of this encounter
--- OUTSIDE RECORDS SUMMARY | 2023-10-28 06:16 | XMS_ITS | Encounter Summary ---
Author Organization [facility] [place] [address] Care Team Providers Care Nurse'S Companion Name Role Phone Ta Jensen MD Primary Care Provider [phone] Encounter Details Date Type Department Care Team (Late st Contact Info) Description 11/26/2022 Orders Only [facility] [place] [address] Hillary Beaver RN Lumbar spondylosis (Primary Dx) Social History Tobacco [...] myelopathy documented in this encounter Care Teams Nurse'S Companion Relationship Specialty Start Date End Date Ta Jensen MD [facility] [place] [address] PCP - General Family Medicine 07/22/20 documented as of this encounter
--- OUTSIDE RECORDS SUMMARY | 2023-10-28 06:16 | XMS_ITS | Encounter Summary ---
Author Organization [facility] Address [address] [place] [address] Care Team Providers Care Financial Wellness Coach Name Role Phone Unavailable Primary Care Provider Unavailabl e Encounter Details Date Type Department Care Team (Late st Contact Info) Description 07/29/2000 Results Only [facility] conversion [address] [place] [address] Alonso Hawkins MD [address] [place] [address] Social History Tobacco Use Types Packs/Day Years Used Date Smoking Tobacco: Never Assessed Sex and Gender Information Value Date Recorded Sex Assigned at Not on file Gender Identity Not on file Sexual Orientation Not on file documented as of this encounter Plan of Treatment Not on file documented as of this encounter Procedures Procedure Name Priority Date/Time Associated Diagnosis Comments SURGICAL PATHOLOGY Routine 07/29/2000 0:00 EDT documented in this encounter Results * SURGICAL PATHOLOGY (07/29/2000 0:00 EDT) Pathology Report: SURGICAL PATHOLOGY REPORT Reports generated via electronic interface contain original data; however they are lacking the format of the original report. Caution should be taken when reading/interpreti ng unformatted reports. Name: ? NGHIA OWUSU ? Accession #: ? [id number] ? : ? 1965 (Age: 35) ??M ? Collect Date: ? 07/29/2000 ? Location: ? [facility] ? Receive Date: ? 07/31/2000 ? Provider: ALONSO HAWKINS MD Copy to: BONNIE BIRD MD ? Final Pathologic Diagnosis: A. ?Vas deferens, right, segmental vasectomy: 1. ?Unremarkable vas deferens with full cross-section identified. B. ?Vas deferens, left, segmental vasectomy: 1. ?Unremarkable vas deferens with full cross-section identified. Document reviewed and electronically signed by: SARAH PANG MD Report ??Date: 08/04/2000 15:37 By the signature above, the attending physician certifies that he/she has personally conducted a gross and/or microscopic examination of the described specimens and rendered or confirmed the above diagnosis. Specimen(s) Received: A. ?Right vas deferens B. ?Left vas deferens Clinical History: ? John vasectomy specimen; elective sterilization; clinical diagnosis code: V25.49 Gross Description: ? Received in formalin labelled Francoise and R vas deferens is the product of segmental vasectomy measuring 0.5 cm in length and 0.2 cm in diameter. ??The specimen is bisected and entirely submitted as (A). Received in formalin labelled Francoise and L vas deferens is the product of segmental vasectomy measuring 0.8 cm in length and 0.2 cm in diameter. Two insurance verification representative sections are submitted as (B). ??(Dr. Jefferson)/angelia End of Report [facility] 07/29/2000 07/31/2000 15: 14 EDT Alonso Hawkins MD PATHOLOGY ORDERABLES [facility] [address] [place] [address] documented in this encounter Visit Diagnoses Not on filedocumented in this encounter
--- OUTSIDE RECORDS SUMMARY | 2023-10-28 06:16 | XMS_ITS | Encounter Summary ---
Author Organization [facility] [place] [address] Care Team Providers Care Title Search Manager Name Role Phone Ta Jensen MD Primary Care Provider Encounter Details Date Type Department Care Team (Late st Contact Info) Description 12/27/2022 [place] [address] Donna Severino MD [facility] [place] [address] Spondylosis without myelopathy or radiculopathy, lumbar region Social History Tobacco Use Types Packs/Day Years Used Date Smoking Tobacco: Former Smokeless Tobacco: Never Comments:Quit Over 25yrs ago Sex and Gender Information Value Date Recorded Sex Assigned at Not on file Gender Identity Not on file Sexual Orientation Not on file documented as of this encounter Plan of Treatment Not on file documented as of this encounter Visit Diagnoses Diagnosis Spondylosis without myelopathy or radiculopathy, lumbar region documented in this encounter Care Teams Title Search Manager Relationship Specialty Start Date End Date Ta Jensen MD [address] [place] [address] [place] [address] PCP - General Family Medicine 07/22/20 documented as of this encounter
--- OUTSIDE RECORDS SUMMARY | 2023-10-28 06:16 | XMS_ITS | Encounter Summary ---
Author Organization [facility] [place] [address] Care Team Providers Care Supervisor Benzene Refining Name Role Phone Ta Jensen MD Primary Care Provider [phone] Reason for Visit * Auth/Cert (Routine) Specialty Diagnoses / Procedures Referred By Contac t Referred To Contact Diagnoses lumbar spondylosis Procedures PRO INJECTION PV FACET JOINT LUMBAR/SACRAL SECOND LEVEL PRO INJECTION PV FACET JOINT LUMBAR/SACRAL SINGLE LEVEL INJECTION, FACET JOINT, W\FLUORO, LUMBAR, 2ND LEVEL (WRVU 1) INJECTION, FACET JOINT, W\FLUORO, LUMBAR, SINGLE (WRVU 1.52) Donna Severino MD [facility] [place] [address] [facility] Referral ID Status Reason Start Date Expiration Date Visits Re quested Visits Authorized [id number] 1 1 Encounter Details Date Type Department Care Team (Latest Contact Info) Description 11/14/2022 1:14 PM EDT - 11/14/2022 3:51 PM EDT Hospital [place] [address] Donna Severino MD [facility] [place] [address] Lumbar spondylosis Discharge Disposition: Home Social History [...] 1.16) performed by Donna Severino MD at [facility] MSO PRO DSTR PARAVERTEBRAL FCT JNT NRVES LUMBAR OR SACRAL SINGLE Bilateral 11/06/2021 DESTRUCTI BY LYTIC AGENT, FACET JOINT NERVE(S); LUMBAR OR SACRAL, SNGL (WRVU 3.78) performed by Donna Severino MD at [facility] MSO PRO INJ PARAVERTEBRAL FACET JT W/IMAGE GUID, LUMBAR/SACRAL, 3RD OR ADDL LEVEL Bilateral 08/16/2021 INJECTION, FACET JOINT, W\FLUORO, LUMBAR, 3RD LEVEL (WRVU 1) performed by Donna Severino MD at [facility] MSO PRO INJECTION PV FACET JOINT LUMBAR/SACRAL SECOND LEVEL Bilateral 08/16/2021 INJECTION, FACET JOINT, W\FLUORO, LUMBAR, 2ND LEVEL (WRVU 1) performed by Donna Severino MD at [facility] MSO PRO INJECTION PV FACET JOINT LUMBAR/SACRAL SECOND LEVEL Bilateral 09/20/2021 INJECTION, FACET JOINT, W\FLUORO, LUMBAR, 2ND LEVEL (WRVU 1) performed by Donna Severino MD at [facility] MSO PRO INJECTION PV FACET JOINT LUMBAR/SACRAL SINGLE LEVEL Bilateral 08/16/2021 INJECTION, FACET JOINT, W\FLUORO, LUMBAR, SINGLE (WRVU 1.52) performed by Donna Severino MD at [facility] MSO PRO INJECTION PV FACET JOINT LUMBAR/SACRAL SINGLE LEVEL Bilateral 09/20/2021 INJECTION, FACET JOINT, W\FLUORO, LUMBAR, SINGLE (WRVU 1.52) performed by Donna Severino MD at [facility] MSO ALLERGIES: Venom-yellow jacket [...] Operative Note Patient Name: Nghia Owusu : [id number] MR#: [id number] Case Date: 11/14/2022 Surgeon: Surgeon(s) and Role: [...] procedure. Donna Severino MD [facility] Associate Sales of Anesthesiology [facility] [address] [address] / [email or web address] CC: Unknown None documented in this encounter Plan of Treatment Not on file documented as of this encounter Procedures Procedure Name Priority Date/Time Associated Diagnosis Comments Injection Pv Facet Joint Lumbar/Sacral Single Level (50141) 11/14/2022 2:31 PM EDT Lumbar spondylosis Injection Pv Facet Joint Lumbar/Sacral Second Level (24049) 11/14/2022 2:31 PM EDT Lumbar spondylosis INJECTION, FACET JOINT,W\FLUORO, LUMBAR, SINGLE Routine 11/14/2022 1:42 PM EDT Lumbar spondylosis INJECTION, FACET JOINT,W\FLUORO, LUMBAR, 2ND LEVEL Routine 11/14/2022 1:42 PM EDT Lumbar spondylosis documented in this encounter Visit Diagnoses Diagnosis Spondylosis without myelopathy or radiculopathy, lumbar region- Primary Lumbar spondylosis Lumbosacral spondylosis without myelopathy documented in this encounter Active and Recently Administered Medications Times are shown in EDT. PRN Medication Order 11/12/2022 11/13/2022 11/14/2022 BUpivacaine (pf) (Marcaine) (5 mg/mL) 0.5% injection (CANCELED) PRN, Starting on Lorri 11/14/22 at 1455, Until Lorri 8 at 1751, Intra-Operative (Intra-Procedure), Routine 1455 (Given - Provid er: Meaghan Moncada DO) iohexoL (Omnipaque) (240 mg/mL) solution (CANCELED) PRN, Starting on Lorri 8 at 1455, Until Lorri 8 at 1751, Intra-Operative (Intra-Procedure), Routine 1455 (Given - Provid er: Meaghan Moncada DO) documented in this encounter Care Teams Supervisor Benzene Refining Relationship Specialty Start Date End Date Ta Jensen MD [address] [place] [address] PCP - General Family Medicine 07/22/20 documented as of this encounter
--- OUTSIDE RECORDS SUMMARY | 2023-10-28 06:16 | XMS_ITS | Encounter Summary ---
[facility] [place] [address] Care Team Providers Care Steno Pool Supervisor Name Role Phone Ta Jensen MD Primary Care Provider [phone] Reason for Visit * Auth/Cert Specialty Diagnoses [...] SACRAL, SNGL (WRVU 3.78) Donna Severino MD [facility] [place] [address] [facility] Referral ID Status Reason Start Date Expiration Date Visits Re quested Visits Authorized [id number] 1 1 Encounter Details Date Type Department Care Team (Late st Contact Info) Description 11/06/2021 10:30 AM EDT - 11/06/2021 11:30 AM EDT Surgery [place] [phone] Donna Severino MD [facility] [place] [address] DESTRUCT BY LYTIC AGENT, FACET JNT NERVE(S), [...] Sign Reading Time Taken Comments Blood Pressure 128/86 11/06/2021 11:30 AM EDT Pulse 55 11/06/2021 10:53 AM EDT Temperature - - Respiratory Rate 12 11/06/2021 11:30 AM EDT Oxygen Saturation 97% 11/06/2021 11:30 AM EDT Inhaled Oxygen Concentration - [...] allergic reaction (Throat tight, difficulty breathing). Call 361 as directed. atorvastatin (Lipitor) 10 mg Tablet [...] 1) performed by Donna Severino MD at [facility] MSO ??? PRO INJECTION PV FACET JOINT LUMBAR/SACRAL SECOND LEVEL Bilateral 08/16/2021 INJECTION, FACET JOINT, W\FLUORO, LUMBAR, 2ND LEVEL (WRVU 1) performed by Donna Severino MD at [facility] PA[facility] MSO ??? PRO INJECTION PV FACET JOINT LUMBAR/SACRAL SECOND LEVEL Bilateral 09/20/2021 INJECTION, FACET JOINT, W\FLUORO, LUMBAR, 2ND LEVEL (WRVU 1) performed by Donna Severino MD at [facility] PA[facility] MSO ??? PRO INJECTION PV FACET JOINT LUMBAR/SACRAL SINGLE LEVEL Bilateral 08/16/2021 INJECTION, FACET JOINT, W\FLUORO, LUMBAR, SINGLE (WRVU 1.52) performed by Donna Severino MD at [facility] PA[facility] MSO ??? PRO INJECTION PV FACET JOINT LUMBAR/SACRAL SINGLE LEVEL Bilateral 09/20/2021 INJECTION, FACET JOINT, W\FLUORO, LUMBAR, SINGLE (WRVU 1.52) performed by Donna Severino MD at [facility] MSO ALLERGIES: Venom-yellow jacket [...] Operative Note Patient Name: Nghia Owusu : [id number] MR#: [id number] Case Date: 11/06/2021 Surgeon: Surgeon(s) and Role: * Donna Severino MD - Primary Present on Admission: ??? Spondylosis without myelopathy or radiculopathy, lumbar region Postoperative diagnosis: Same LUMBAR/SACRAL MEDIAL BRANCH RADIOFREQUENCY Patient: Nghia Owusu Provider: MD Nghia Duarteley has been referred to the Pain Management [...] procedure. Donna Severino MD [facility] Electrical Appliance Mechanic of Anesthesiology [facility] [address] [address] / [facility] CC: Sana Acevedo, JESSICA [facility] [place] [address] documented in this encounter Plan of Treatment [...] Diagnosis Lumbar spondylosis Lumbosacral spondylosis without myelopathy Lumbar spondylosis Lumbosacral spondylosis without myelopathy documented in this encounter Administered Medications Inactive Administered Medications - up to 3 most recent administrations Medication Order MAR Action Action Date Dose Rate Site BUpivacaine (pf) (Marcaine) (2.5 mg/mL) 0.25% injection ONCE PRN, Starting on Fri11/06/21 at 1125, Until Fri11/06/21 at 1416, Intra-Operative (Intra-Procedure), Routine Given 11/06/2021 11:25 AM EDT 3 mLs dexAMETHasone (PF) (Decadron) (10 mg/mL) injection ONCE PRN, Starting on Fri11/06/21 at 1150, Until Fri11/06/21 at 1416, Intra-Operative (Intra-Procedure), Routine Given 11/06/2021 11:50 AM EDT 10 mg lidocaine (pf) (Xylocaine) (10 mg/mL) 1% injection ONCE PRN, Starting on Fri11/06/21 at 1126, Until Fri11/06/21 at 1416, Intra-Operative (Intra-Procedure), Routine Given 11/06/2021 11:26 AM EDT 6 mLs lidocaine (pf) (Xylocaine) (20 mg/mL) 2% injection ONCE PRN, Starting on Fri11/06/21 at 1126, Until Fri11/06/21 at 1416, Intra-Operative (Intra-Procedure), Routine Given 11/06/2021 11:26 AM EDT 6 mLs midazolam (pf) (Versed) (1 mg/mL) injection ONCE PRN, Starting on Fri11/06/21 at 1128, Until Fri11/06/21 at 1416, Intra-Operative (Intra-Procedure), Routine Given 11/06/2021 11:28 AM EDT 1 mg documented in this encounter Active and Recently [...] RFA) documented in this encounter Care Teams Steno Pool Supervisor Relationship Specialty Start Date End Date Ta Jensen MD [facility] [place] [address] PCP - General Family Medicine 07/22/20 documented as of this encounter
--- OUTSIDE RECORDS SUMMARY | 2023-10-28 06:16 | XMS_ITS | Encounter Summary ---
Author Organization [facility] Address [address] [place] [address] Care Team Providers Care Biology Department Chair Name Role Phone Unavailable Primary Care Provider Unavailabl e Encounter Details Date Type Department Care Team (Latest Contact Info) Description 07/07/2007 12:[address] [facility] [address] [place] [address] Jl Robledo MD Discharge Disposition: Auto Discharge [...]
--- OUTSIDE RECORDS SUMMARY | 2023-10-28 06:16 | XMS_ITS | Encounter Summary ---
Author Organization [facility] Address [address] [place] [address] Care Team Providers Care Legal Document Specialist Name Role Phone Unavailable Primary Care Provider Unavailabl e Encounter Details Date Type Department Care Team (Late st Contact Info) Description 07/26/2004 Results Only [facility] [address], [place] [address] Jl Robledo MD Social History Tobacco Use Types Packs/Day Years Used Date Smoking Tobacco: Never Assessed Sex and Gender Information Value Date Recorded Sex Assigned at Not on file Gender Identity Not on file Sexual Orientation Not on file documented as of this encounter Plan of Treatment Not on file documented as of this encounter Procedures Procedure Name Priority Date/Time Associated Diagnosis Comments TPMT AND NUDIX HYDROLASE GENOTYPING, BLOOD Routine 07/26/2004 11:28 EDT COMPLETE BLOOD COUNT Routine 07/26/2004 11:28 EDT C REACTIVE PROTEIN Routine 07/26/2004 11 :28 EDT HEPATIC FUNCTION PANEL (ALB,ALK PHOS,ALT,AST,DBIL,T OT AVILA,TOT PROT) Routine 07/26/2004 11:28 EDT documented in this encounter Results * [facility] TPMT GENETICS (07/26/2004 11:28 EDT) [facility] TPMT*1/TPMT*1 See supplementary report Assayed at [facility] [place] [facility] 07/26/2004 11:2 8 EDT 07/26/2004 11:29 EDT Jl Robledo MD CHEMISTRY & BLOOD GA S ORDERABLES Performing Organization Address [facility] Co de Phone Number [facility] [address] [place] [address] * LIVER FUNCTION TESTS (07/26/2004 11:28 EDT) Albumin 4.4 3.4 - 4.9 g/dl [facility] Total Protein 7.4 6.5 - 8.0 g/dl [facility] Total Alkaline Phosphatase 93 38 - 126 U/L [facility] ALT 38 21 - 72 U/L [facility] AST 27 15 - 46 U/L [facility] Unconjugated Bilirubin 0.3 0.1 - 1.1 mg/dl [facility] Conjugated Bilirubin 0.0 0.0 - 0.3 mg/dl [facility] Bilirubin, Total <0.5 0.2 - 1.3 mg/dl [facility] 07/26/2004 11:2 8 EDT 07/26/2004 11:29 EDT Jl Robledo MD CHEMISTRY & BLOOD GA S ORDERABLES Performing Organization Address [facility] Co de Phone Number [facility] [address] [place] [address] * C-REACTIVE PROTEIN (07/26/2004 11:28 EDT) C-Reactive Protein <0.7 <1.0 mg/dl [facility] 07/26/2004 11:2 8 EDT 07/26/2004 11:29 EDT Jl Robledo MD CHEMISTRY & BLOOD GA S ORDERABLES Performing Organization Address City/[facility] Co de Phone Number [facility] [address] [place] [address] * HEMAGRAM (07/26/2004 11:28 EDT) WBC 5.24 4.0 - 10.4 K/cmm [facility] RBC 4.61 4.36 - 5.78 M/cmm [facility] Hemoglobin 14.7 13.8 - 17.3 gm/dl [facility] HCT 42.5 39.5 - 50.2 % [facility] MCV 92 81 - 95 fl [facility] MCH 31.9 27.6 - 33.0 pg [facility] MCHC 34.5 32.8 - 36.4 gm/dl [facility] PLT 237 141 - 320 K/cmm [facility] RDW-CV 12.8 11.8 - 14.1 % [facility] 07/26/2004 11:2 8 EDT 07/26/2004 11:29 EDT Jl Robledo MD HEMATOLOGY & PF4 ORD ERABLES [facility] [address] [place] [address] documented in this encounter Visit Diagnoses Not on filedocumented in this encounter
--- OUTSIDE RECORDS SUMMARY | 2023-10-28 06:16 | XMS_ITS | Encounter Summary ---
Author Organization [facility] [place] [address] Care Team Providers Care Hospital Chief Financial Officer Name Role Phone Ta Jensen MD Primary Care Provider [phone] Encounter Details Date Type Department Care Team (Late st Contact Info) Description 11/14/2022 Telephone [facility] [place] [address] Hillary [place] RN Social History Tobacco Use Types Packs/Day Years Used Date Smoking Tobacco: Former Smokeless Tobacco: Never Comments:Quit Over 25yrs ago Sex and Gender Information Value Date Recorded Sex Assigned at Not on file Gender Identity Not on file Sexual Orientation Not on file documented as of this encounter Miscellaneous Notes * Telephone Encounter - Hillary [place], RN - 11/14/2022 10:08 AM EDT Out going call to tell Nghia that his procedure today will be the [facility]'s diagnostic and then it will next time be the RFA if the criteria is correct to move forward. documented in this encounter Plan of Treatment Not on file documented as of this encounter Visit Diagnoses Not on filedocumented in this encounter Care Teams Hospital Chief Financial Officer Relationship Specialty Start Date End Date Ta Jensen MD [facility] [place] [address] PCP - General Family Medicine 07/22/20 documented as of this encounter
--- OUTSIDE RECORDS SUMMARY | 2023-10-28 06:16 | XMS_ITS | Encounter Summary ---
Author Organization [facility] Address [address] [place] [address] Care Team Providers Care Painter Interior Finish Name Role Phone Ta Jensen MD Primary Care Provider [phone] Encounter Details Date Type Department Care Team (Late st Contact Info) Description 08/21/2022 Lab Requisition [facility] Pathology & Laboratory Medicine - [address] [phone] Outr Resulting Lab, Provider Social History Tobacco [...] Associated Diagnosis Comments VARICELLA IGG ANTIBODY Routine 08/21/2022 12:10 EDT documented in this encounter Results * VARICELLA IGG ANTIBODY (08/21/2022 12:10 EDT) Varicella IgG Ab Positive See Note 08/22/2022 10:06 EDT [facility] Comment:Presence of detectab le Varicella Zoster virus IgG antibodies. Blood VENOUS BLOOD / Unknown 08/21/2022 12:10 EDT 08/21/2022 21:03 EDT Provider Outr Resulting Lab IMMUNOLOGY A ND SEROLOGY ORDERABLES [facility] [address] [place] [address] documented in this encounter Visit Diagnoses Not on filedocumented in this encounter Care Teams Painter Interior Finish Relationship Specialty Start Date End Date Ta Jensen MD [address] [place] [address] PCP - General 06/04/16 documented as of this encounter
--- OUTSIDE RECORDS SUMMARY | 2023-10-28 06:17 | XMS_ITS | Encounter Summary ---
Author Organization [facility] [place] [address] Care Team Providers Care Hyperbaric Technologist Name Role Phone Ta Jensen MD Primary Care Provider [phone] Reason for Visit * Reason Comments Back Pain * Consultation (Routine) - Closed Specialty Diagnoses / Procedures Referred By Contac t Referred To Contact [facility] Sp[facility] Center Diagnoses Degenerative disc disease, lumbar Low back pain s/p fall 03/20/21/ tried PT/MRI 05/2021 @ [facility] Ta Jensen MD [facility] [place] [address] [facility] [place] [address] Referral ID Status Reason Start Date Expiration Date V isits Requested Visits Authorized [id number] Closed Consult, Test & Treat 06/06/2021 06/06/2022 6 6 Encounter Details Date Type Department Care Team (Late st Contact Info) Description 07/26/2021 3:00 PM EDT Office Visit [place] [address] Sana Acevedo APRN [facility] [place] [address] Lumbar spondylosis (Primary Dx) Social [...] Sign Reading Time Taken Comments Blood Pressure 159/81 07/26/2021 2:33 PM EDT Pulse 76 07/26/2021 2:33 PM EDT Temperature - - Respiratory Rate - - Oxygen Saturation 100% 07/26/2021 2:33 PM EDT Inhaled Oxygen Concentration - - Weight 81.6 kg (180 lb) 07/26/2021 2:33 PM EDT Height 167.6 cm (5' 6) 07/26/2021 2:33 PM EDT Body Mass Index 29.05 07/26/2021 2:33 PM EDT documented in this encounter Patient Instructions * Patient Instructions* Sana Acevedo APRN - 07/26/2021 4:03 PM EDT Lmbb 3 levels FU with me after RFA or last injection documented in this encounter Progress Notes * Sana Acevedo APRN - 07/26/2021 3:00 PM EDT Images from the original note were not included. [facility] Date of Consultation: July 24, 2021 Referring Provider: Ta Jensen Reason for request [...] therapy but he is doing this in [place] and the therapist felt the pool therapy would be the most effective form but unfortunately really has not made much difference. He is out of work. 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 His pain is predominantly aggravated by activity. 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 He is currently having difficulties even doing things around his house. PAIN ASSESSMENT: Description: Bilateral back pain throbbing Weakness, numbness, tingling: pins and needles in toes,posterior thighs, occasional groin pain Saddle Anesthesia: One episode of incontinence ,receetly . Takes medication Other associated symptoms: dizzy in am Loss of equilibrium Alleviating factors: nothing Aggravating factors: walking , moving around, twisting and tuurning Pain today:7-8/10 Best in past week:6/10 Worst in past week:10/10 No flowsheet data found. 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 Allergies & Adverse Reactions: Patient has no allergy information on record. Problem List: There is no problem list on file for this patient. Social History: Social History Socioeconomic History ??? Marital status: Spouse name: Not on file ??? Number of children: Not on file ??? Years of education: Not on file ??? Highest education level: Not on file Occupational History ??? Not on file Tobacco Use ??? Smoking status: Not on file ??? Smokeless tobacco: Not on file Substance and Sexual Activity ??? Alcohol use: [...] medical history on file. Past Surgical History: No past surgical history on file. Review of Systems: Denies fever, chills, weight [...] y.o. year-old male who presents to the [facility] and seen for lumbar spine pain after injury when he was injured at work on March 20 when he fell on the ice. He has been doing physical therapy locally but has been not been doing a spine-based PT but pool therapy only and I do think he could benefit from from some spine PT in addition he might benefit from the functional mandaen program ultimately or the active pain group or empowered relief. I talked to him first about lumbar medial branch blocks bilaterally L3 445 and L5-S1 and if he gets good relief to progress to radiofrequency. I will follow-up with him after that he can discuss further options at that point time. He was given materials and an opportunity to ask questions and had his questions answered. Thank you Dr. Jensen for allowing my participation in Nghia Owusu's care. Sana Acevedo, MS, PHOTORADIO OPERATOR-BC, OPERATIONS INTERN Nurse practitioner Pain management [facility] documented in this encounter Plan of Treatment Not on file documented as of this encounter Visit Diagnoses Diagnosis Lumbar spondylosis- Primary Lumbosacral spondylosis without myelopathy documented in this encounter Care Teams Hyperbaric Technologist Relationship Specialty Start Date End Date Ta Jensen MD [address] [place] [address] PCP - General Family Medicine 07/22/20 documented as of this encounter
--- OUTSIDE RECORDS SUMMARY | 2023-10-28 06:17 | XMS_ITS | Encounter Summary ---
Author Organization [facility], Located Within [facility] [place] [address] Care Team Providers Care Lawn Sprinkler Installer Name Role Phone Ta Jensen MD Primary Care Provider [phone] Encounter Details Date Type Department Care Team (Late st Contact Info) Description 08/10/2021 Telephone [place] [phone] Eva Davidson, RN Social History Tobacco Use Types Packs/Day Years Used Date Smoking Tobacco: Former Smokeless Tobacco: Never Comments:Quit Over 25yrs ago Sex and Gender Information Value Date Recorded Sex Assigned at Not on file Gender Identity Not on file Sexual Orientation Not on file documented as of this encounter Miscellaneous Notes * Telephone Encounter - Eva Davidson RN - 08/10/2021 3:17 PM EDT Reached voicemail and left message as identified in contacts Identified myself and provided callback number: [phone] 1. Patient instructed to arrive at 1045 on 08/16/21 with their otr truck driver for their LMBB procedure. Please plan to spend about 2 [...] health condition you need to call the [facility]to hotline to arrange for testing prior to your procedure: fever or chills, cough, shortness of breath or difficulty breathing, fatigue, muscle or body aches, headache, new loss of taste or smell, sore throat, congestion or runny nose, nausea or vomiting, diarrhea. The [facility] number is: [phone] 5. If your pain has resolved or significantly improved such as a rating of 3 out of 10 or less, youmay need to cancel your procedure because it will likely be of little benefit to you and it is likely that your insurance will not cover it. Please call the Pain clinic nurse to discuss. 6. Was patient instructed to stop any medications? No a. If yes, instructions reviewed as follows: b. Name, date of last dose. c. Please call to reschedule your procedure if you did not stop this medication as directed. 7. Is patient having a nerve block: Yes a. If yes, instructed to not take any pain medication for 12 hours before the procedure time. 8. Please continue to take any prescribed medications that you were not told to stop, especially blood pressure medication because your procedure may be cancelled if your blood pressure is too high. 9. You were instructed to follow NPO guidelines: No if yes the following instructions were reviewed: [...] on filedocumented in this encounter Care Teams Lawn Sprinkler Installer Relationship Specialty Start Date End Date Ta Jensen MD [address] [place] [address] PCP - General Family Medicine 07/22/20 documented as of this encounter
--- OUTSIDE RECORDS SUMMARY | 2023-10-28 06:17 | XMS_ITS | Encounter Summary ---
Author [facility] [place] [address] Care Team Providers Care National Sales Associate Name Role Phone Ta Jensen MD Primary Care Provider Encounter Details Date Type Department Care Team (Late st Contact Info) Description 03/20/2021 Ancillary Procedure [place] [phone] Ta Jensen MD [facility] [place] [phone] Social History Tobacco Use Types Packs/Day Years [...] Associated Diagnosis Comments FILM LIBRARY STORAGE ONLY DX SPINE Routine 03/20/2021 12:00 AM EST documented in this encounter Results * Film Library- Storage Only DX Spine (03/20/2021 12:00 AM EST) Narrative RED - 07/24/2021 2:01 PM EDT This exam is auto-finalizing. It's purpose is for storage only. Ta Jensen MD G FILM LIBRARY ORD ERABLES [place], [place] documented in this encounter Visit Diagnoses Not on filedocumented in this encounter Care Teams National Sales Associate Relationship Specialty Start Date End Date Ta Jensen MD [address] [place] [address] PCP - General Family Medicine 07/22/20 documented as of this encounter
--- OUTSIDE RECORDS SUMMARY | 2023-10-28 06:17 | XMS_ITS | Encounter Summary ---
Author Organization [facility] [place] [address] Care Team Providers Care Clinical Partner Name Role Phone Ta Jensen MD Primary Care Provider [phone] Reason for Visit * Auth/Cert Specialty Diagnoses / Procedures Referred By Contac t Referred To Contact Diagnoses spondylosis Procedures PRO INJ PARAVERTEBRAL FACET JT W/IMAGE GUID, LUMBAR/SACRAL, 3RD OR ADDL LEVEL PRO INJECTION PV FACET JOINT LUMBAR/SACRAL SINGLE LEVEL PRO INJECTION PV FACET JOINT LUMBAR/SACRAL SECOND LEVEL INJECTION, FACET JOINT, W\FLUORO, LUMBAR, 3RD LEVEL (WRVU 1) INJECTION, FACET JOINT, W\FLUORO, LUMBAR, SINGLE (WRVU 1.52) INJECTION, FACET JOINT, W\FLUORO, LUMBAR, 2ND LEVEL (WRVU 1) Referral ID Status Reason Start Date Expiration Date Visits Re quested Visits Authorized [id number] 1 1 Encounter Details Date Type Department Care Team (Late st Contact Info) Description 08/16/2021 11:15 AM EDT - 08/16/2021 12:00 PM EDT Surgery [place] [address] Donna Severino MD [facility] [place] [address] INJECTION, FACET JOINT, W\FLUORO, LUMBAR, 3RD LEVEL (WRVU 1) Social History Tobacco Use Types Packs/Day Years Used Date Smoking Tobacco: Former Smokeless Tobacco: Never Comments:Quit Over 25yrs ago Sex and Gender Information Value Date Recorded Sex Assigned at Not on file Gender Identity Not on file Sexual Orientation Not on file documented as of this encounter Last Filed Vital Signs Vital Sign Reading Time Taken Comments Blood Pressure 150/84 08/16/2021 11:03 AM EDT Pulse 69 08/16/2021 11:50 AM EDT Temperature - - Respiratory Rate - - Oxygen Saturation 99% 08/16/2021 11:50 AM EDT Inhaled Oxygen Concentration - - Weight 86.6 kg (191 lb) 08/16/2021 11:03 AM EDT Height 167.6 cm (5' 6) 08/16/2021 11:03 AM EDT Body Mass Index 30.83 08/16/2021 11:03 AM EDT documented in this encounter Discharge Instructions * Discharge Instructions* Haim Derasil H - 08/16/2021 11:35 AM EDT You were seen today by Surgeon(s): Donna Severino MD Krause, Jeffrey A, MD The following was performed: Procedure(s) (LRB): INJECTION, FACET JOINT, W\FLUORO, LUMBAR, 3RD LEVEL (WRVU 1) (Bilateral) INJECTION, FACET JOINT, W\FLUORO, LUMBAR, SINGLE (WRVU 1.52) (Bilateral) INJECTION, FACET JOINT, W\FLUORO, LUMBAR, 2ND LEVEL (WRVU 1) (Bilateral) It is normal that the injection site will be sore for up to 48 hours. [x] You may also experience mild stiffness in the joint near the injection site. You may resume your normal activities: today. You may shower today. DO NOT tub [...] 20 minutes. Do not apply heat today. Attempt to empty your bladder 4-6 hours after your procedure. [ ] If you have diabetes, monitor your blood sugars frequently. If your blood sugar increases and is of concern, contact your Primary Care Provider. You received the following medications: Medications Given During Procedure Date/Time Order Dose Route Action 08/16/2021 1144 BUpivacaine (pf) (Marcaine) (5 mg/mL) 0.5% injection 3 mL Intra- articular Given 08/16/2021 1144 iohexoL (Omnipaque) (240 mg/mL) solution 2 mL Intra-articular Given During regular business hours, please phone [...] or proceed to your local emergency department. ARLINE DERAS Special instructions Pain Management Center Post -Procedure Pain Log Patient: Nghia Owusu [id number] It is important for you to keep track of your pain after your procedure that took place 08/16/21 Thisinformation will help your Provider to determine how to help reduce your pain. Today you had a procedure for pain in your back Your pain level before the procedure in this area was 10/10. Your pain level immediately after your procedure was 4 /10. Time 1200 Pain Score # Comments % pain relief 1 hour 1:00 2 hours 2:00 3 hours 3:00 4 hours 4:00 Please call the nurse in the Pain Management Center a day or two after your procedure and report the information above. She will assess your response to the procedure, and will recommend appropriate follow-up. documented in this encounter Medications at Time of Discharge Medication Sig Dispensed Refills Start Date End Date EPINEPHrine 0.3 mg/0.3 mL Auto-Injector Inject 1 kit into the muscle once as needed. Inject 0.3 mL IM once as needed for allergic reaction (Throat tight, difficulty breathing). Call [phone] as directed. atorvastatin (Lipitor) 10 mg Tablet [...] as of this encounter H&P Notes * Dru Reeder MD - 08/15/2021 10:26 PM EDT Patient Name: Nghia Owusu Patient Age: 56 y.o. Birthdate: 1965 Admit date: 08/16/2021 Attending Physician: Donna Severino MD PREPROCEDURE HISTORY AND PHYSICAL Date of Visit: August 16, 2021 Chief Complaint: Back pain HPI: Nghia Owusu is a 56 y.o. male with a diagnosis of Lumbar spondylosis who presents today for: Procedure: Bilateral L3,4,5 MBB The patient denies any recent NSAID or anticoagulation. The patient denies history of diabetes mellitus. The patient denies any allergy to local anesthetics, contrast dye, or steroids. No recent or planned vaccinations. Patient denies any recent antibiotic use. Patient states they are in their usual state of health. The history is obtained from the patient, and I have reviewed medical records provided by the referring physician and located in the electronic medical record to fill in gaps in the patient's recollection of events, treatments and outcomes. LOCATION: across the lower back. PAIN LEVEL [place] 10/10 AT REST 8/10 PAST MEDICAL HISTORY: No past medical history on file. There are no medical history contraindications to this procedure. PAST SURGICAL HISTORY: No past surgical history on file. There are no past surgical contraindications to this procedure ALLERGIES: Venom-yellow jacket and Unknown [unclassified drug] There are no allergic contraindications to this procedure. MEDICATIONS: No current facility-administered medications for this encounter. There are no medication contraindications to this procedure. FAMILY HISTORY: No family history on file. [...] on file Housing Stability: Not on file There are no social history contraindications to this procedure. ROS: Review of Systems Constitutional: Negative for fever, chills, or recent infection. Respiratory: Negative for shortness of breath. Cardiovascular: Negative for chest pain. Musculoskeletal: Positive for low back pain. Psychiatric/Behavioral: Negative for agitation and behavioral problems. PHYSICAL EXAM: BP 150/84 Pulse 69 Ht 167.6 cm (5' 6) Wt 86.6 kg (191 lb) SpO2 99% BMI 30.83 kg/m?? Physical Exam Constitutional: He appears well-developed and well-nourished. No distress. Cardiovascular: Normal heart rate. Pulmonary/Chest: Effort normal and breath sounds normal. Skin: He is not diaphoretic. This is no rash, apparent infection, or other abnormality to the area of the proposed injection. No LMP for male patient. There are no physical examination findings which would preclude this procedure. LABS: No results for input(s): WBC, RBC, HGB, HCT, MCV, MCH, MCHC, PLATELET, RDWCV in the last 168 hours. No results for input(s): PT, PTT, INR in the last 168 hours. ASSESSMENT: Lumbar spondylosis PLAN: Proceed with procedure as planned. Thank you for the opportunity to participate in Nghia Owusu's care. Please feel free to contactme with any questions. Sincerely, Dru Reeder MD Pain Medicine Fellow [address] [address] / [facility] CC: [place] [address] [place] [address] documented in this encounter Miscellaneous Notes * Op Note - Donna Severino MD - 08/16/2021 11:44 AM EDT Pain Management Operative Note Patient Name: Nghia Owusu : [id number] MR#: [id number] Case Date: 08/16/2021 Surgeon: Surgeon(s) and Role: * Donna Severino MD - Primary * Dru Reeder MD - Fellow Present on Admission: ??? Lumbar spondylosis ??? Spondylosis without myelopathy or radiculopathy, lumbar region Postoperative diagnosis: same PROCEDURE NOTE LUMBAR MEDIAL BRANCH DIAGNOSTIC BLOCKS Patient: Nghia Owusu Referring Physician: Ta Jensen Md [address] [place] [address] Diagnosis: 1. Lumbar spondylosis Pre-procedure Note History [...] or pseudoarthrosis No Pre-testing pain score (VAS): 10 Previous medial branch block testing?: No Today's Operative Note Nghia Owusu was greeted [...] medial branches of bilaterally L3, L4 and L5- DRwere identified with fluoroscopy. Following thorough Chlorhexadine preparation of the skin and draping, a 25 gauge 3.5 spinal needle was placed under fluoroscopic guidancedown on to the target point for each respective segmental medial branch.Position was confirmed in A/P, oblique and lateral views and 0.25 cc of Omnipaque-240 at each segmental nerve. At each level weinjected 0.5ml of Bupivacaine 0.5%. (48 cc of [...] Directly before the block VAS (0-10) = 10 VAS (0-10) = 10 5 minutes after the block VAS (0-10) = 4 VAS (0-10) = 4 Percentage relief obtained with this diagnostic block 60% 60% Any improved physical functioning directly after the [...] procedure. Donna Severino MD Pain Management Center Animal Care Supervisor of Anesthesiology [facility] [employer] [facility] [address] [address] / [facility] CC: [place] [address] documented in this encounter Plan of Treatment Not on file documented as of this encounter Procedures Procedure Name Priority Date/Time Associated Diagnosis Comments Injection Pv Facet Joint Lumbar/Sacral Second Level (56462) 08/16/2021 11:38 AM EDT Lumbar spondylosis Injection Pv Facet Joint Lumbar/Sacral Single Level (75619) 08/16/2021 11:38 AM EDT Lumbar spondylosis Inj//Paravertebral Facet Jt W/Image Guid, Lumbar/Sacral, 3Rd Or Addl Level (80832) 08/16/2021 11:38 AM EDT Lumbar spondylosis INJECTION, FACET JOINT,W\FLUORO, LUMBAR, SINGLE Routine 08/16/2021 11:03 AM EDT Lumbar spondylosis INJECTION, FACET JOINT,W\FLUORO, LUMBAR, 3RD LEVEL Routine 08/16/2021 11:03 AM EDT Lumbar spondylosis INJECTION, FACET JOINT,W\FLUORO, LUMBAR, 2ND LEVEL Routine 08/16/2021 11:03 AM EDT Lumbar spondylosis documented in this encounter Visit Diagnoses Diagnosis Spondylosis without myelopathy or radiculopathy, lumbar region- Primary Lumbar spondylosis Lumbosacral spondylosis without myelopathy Lumbar spondylosis Lumbosacral spondylosis without myelopathy documented in this encounter Administered Medications Inactive Administered Medications - up to 3 most recent administrations Medication Order MAR Action Action Date Dose Rate Site BUpivacaine (pf) (Marcaine) (5 mg/mL) 0.5% injection ONCE PRN, Starting on Lorri 08/16/21 at 1144, Until Lorri 08/16/21 at 1406, Intra-Operative (Intra-Procedure), Routine Given 08/16/2021 11:44 AM EDT 3 mLs iohexoL (Omnipaque) (240 mg/mL) solution ONCE PRN, Starting on Lorri 08/16/21 at 1144, Until Lorri 08/16/21 at 1406, Intra-Operative (Intra-Procedure), Routine Given 08/16/2021 11:44 AM EDT 2 mLs documented in this encounter Active and Recently Administered Medications Times are shown in EDT. PRN Medication Order 08/14/2021 08/15/2021 08/16/2021 BUpivacaine (pf) (Marcaine) (5 mg/mL) 0.5% injection (CANCELED) ONCE PRN, Starting on Lorri 08/16/21 at 1144, Until Lorri 08/16/21 at 1406, Intra-Operative (Intra-Procedure), Routine 1144 (Given - Provid er: Dru Reeder MD) iohexoL (Omnipaque) (240 mg/mL) solution (CANCELED) ONCE PRN, Starting on Lorri 08/16/21 at 1144, Until Lorri 08/16/21 at 1406, Intra-Operative (Intra-Procedure), Routine 1144 (Given - Provid er: Dru Reeder MD) documented in this encounter Care Teams Clinical Partner Relationship Specialty Start Date End Date Ta Jensen MD [address] [place] [address] PCP - General Family Medicine 07/22/20 documented as of this encounter
--- OUTSIDE RECORDS SUMMARY | 2023-10-28 06:17 | XMS_ITS | Encounter Summary ---
[place] [address] Care Team Providers Care Datastage Architect Name Role Phone Ta Jensen MD Primary Care Provider [phone] Encounter Details Date Type Department Care Team (Late st Contact Info) Description 03/20/2021 12:05 AM EST Ancillary Procedure [place] [phone] Ta Jensen MD [facility] [place] [phone] Social History Tobacco Use Types Packs/Day Years [...] Diagnosis Comments FILM LIBRARY STORAGE ONLY DX WRIST Routine 03/20/2021 12:05 AM EST documented in this encounter Results * Film Library- Storage Only DX Wrist (03/20/2021 12:05 AM EST) Narrative [facility] - 09/05/2021 10:04 AM EDT This exam is auto-finalizing. It's purpose is for storage only. Ta Jensen MD [facility] FILM LIBRARY ORD ERABLES [place], [place] documented in this encounter Visit Diagnoses Not on filedocumented in this encounter Care Teams Datastage Architect Relationship Specialty Start Date End Date Ta Jensen MD [address] [place] [address] PCP - General Family Medicine 07/22/20 documented as of this encounter
--- OUTSIDE RECORDS SUMMARY | 2023-10-28 06:17 | XMS_ITS | Encounter Summary ---
Author Organization [facility] [place] [address] Care Team Providers Care Elevator Serviceman Name Role Phone Ta Jensen MD Primary Care Provider [phone] Reason for Visit * Auth/Cert Specialty Diagnoses [...] Expiration Date Visits Re quested Visits Authorized [id number] 1 1 Encounter Details Date Type Department Care Team (Late st Contact Info) Description 09/20/2021 9:00 AM EDT - 09/20/2021 9:45 AM EDT [place] [phone] Donna Severino MD [facility] [place] [address] INJECTION, FACET JOINT, W\FLUORO, LUMBAR, 2ND LEVEL [...] Sign Reading Time Taken Comments Blood Pressure 133/73 09/20/2021 8:43 AM EDT Pulse 58 09/20/2021 9:30 AM EDT Temperature - - Respiratory Rate - - Oxygen Saturation 100% 09/20/2021 9:30 AM EDT Inhaled Oxygen Concentration - - Weight 86.2 kg (190 lb) 09/20/2021 8:43 AM EDT Height 170.2 cm (5' 7) 09/20/2021 8:43 AM EDT Body Mass Index 29.76 09/20/2021 8:43 AM EDT documented in this encounter Discharge Instructions * Discharge Instructions* Arline Deras - 09/20/2021 9:19 AM EDT Pain Management Center Discharge Instructions: You were seen today by Surgeon(s): Donna Severino MD Carter, Zachary J, MD The following was performed: Procedure(s) (LRB): INJECTION, FACET JOINT, W\FLUORO, LUMBAR, 2ND LEVEL (WRVU 1) (Bilateral) INJECTION, FACET JOINT, W\FLUORO, LUMBAR, SINGLE (WRVU 1.52) (Bilateral) It is normal that the injection [...] your bladder 4-6 hours after your procedure. You received the following medications: Medications Given During Procedure Date/Time Order Dose Route Action 09/20/2021 0930 lidocaine (Xylocaine) (20 mg/mL) 2% injection 3 mL Subcutaneous Given During regular business hours, please phone [...] Post -Procedure Pain Log Patient: Nghia Owusu [id number] It is important for you to keep track of your pain after your procedure that took place 09/20/21. This information will help your Provider determine the next steps for how to help reduce your pain. Today you had a procedure for pain in your back Your pain level before the procedure in this area was 8/10. Your pain level immediately after your procedure was 0 /10. Time 9:45 Pain Score # Comments: % pain relief 1 hour 10:45 2 hours 11:45 3 hours 12:45 4 hours 1:45 [facility] Corn Lab Technician Nurse will call you within a week of your procedure to ask about your response to the procedure and help with the next steps. If you need to reach the Corn Lab Technician you can call: [phone]. documented in this encounter Medications at Time of Discharge Medication Sig Dispensed Refills Start Date End Date EPINEPHrine 0.3 mg/0.3 mL Auto-Injector Inject 1 kit into the muscle once as needed. Inject 0.3 mL IM once as needed for allergic reaction (Throat tight, difficulty breathing). Call [phone] as directed. atorvastatin (Lipitor) 10 mg Tablet [...] H&P Notes * Donna Severino MD - 09/19/2021 4:10 PM EDT Patient Name: Nghia Owusu Patient Age: 56 y.o. Birthdate: 1965 Admit date: 09/20/2021 Attending Physician: Donna Severino MD PREPROCEDURE HISTORY AND PHYSICAL Date of Visit: September 20, 2021 Chief Complaint: Low Back Pain HPI: Subjective Nghia Owusu is a 56 y.o. male who presents today for Procedure: Bilateral Lumbar Medial Branch Block L3,4,5 The patient denies any recent NSAID or anticoagulation. The patient denies any allergy to [...] recollection of events, treatments and outcomes. LOCATION: Low Back Pain PAIN LEVEL AT REST 8/10 PAST MEDICAL HISTORY: No past medical history on file. PAST SURGICAL HISTORY: Past Surgical History: Procedure Laterality Date ??? PRO INJ PARAVERTEBRAL FACET JT W/IMAGE GUID, LUMBAR/SACRAL, 3RD OR ADDL LEVEL Bilateral 08/16/2021 INJECTION, FACET JOINT, W\FLUORO, LUMBAR, 3RD LEVEL (WRVU 1) performed by Donna Severino MD at [facility] PAIN MGMT MSO ??? PRO INJECTION PV FACET JOINT LUMBAR/SACRAL SECOND LEVEL Bilateral 08/16/2021 INJECTION, FACET JOINT, W\FLUORO, LUMBAR, 2ND LEVEL (WRVU 1) performed by Donna Severino MD at [facility] PAIN MGMT MSO ??? PRO INJECTION PV FACET JOINT LUMBAR/SACRAL SINGLE LEVEL Bilateral 08/16/2021 INJECTION, FACET JOINT, W\FLUORO, LUMBAR, SINGLE (WRVU 1.52) performed by Donna Severino MD at [facility] PAIN MGMT MSO ALLERGIES: Venom-yellow jacket and Unknown [unclassified drug] MEDICATIONS: No current facility-administered medications on file prior to encounter. Current Outpatient Medications on File Prior to Encounter Medication Sig Dispense Refill ??? atorvastatin (Lipitor) 10 mg Tablet Take 10 mg by mouth nightly. ??? cyclobenzaprine (Flexeril) 10 mg Tablet 10 mg nightly. ??? DULoxetine DR (Cymbalta) 30 mg Capsule, Delayed Release(E.C.) 30 mg daily. ??? lisinopriL-hydrochlorothiazide (Zestoretic) 10-12.5 mg Tablet Take 1 tablet by mouth daily. FORBLOOD PRESSURE ??? loratadine (Claritin) 10 mg Tablet Take 10 mg by mouth daily. ??? terazosin (Hytrin) 5 mg Capsule 5 mg daily. ??? EPINEPHrine 0.3 mg/0.3 mL Auto-Injector Inject 1 kit into the muscle once as needed. Inject 0.3mL IM once as needed for allergic reaction (Throat tight, difficulty breathing). Call 911 as directed. FAMILY HISTORY: No family history on file. [...] file Housing Stability: Not on file ROS: Pt denies recent fever, chills, infection, wounds, hospitalizations, ED visits, use of antibiotics.Otherwise, as described above. PHYSICAL EXAM: BP 133/73 (Patient Position: Sitting) Pulse 60 Ht 170.2 cm (5' 7) Wt 86.2 kg (190 lb) [id number]% BMI 29.76 kg/m?? Physical Exam Constitutional: Pt oriented to person, place, and time. Appears well-developed and well-nourished. No distress. HENT: Normocephalic and atraumatic. Pulmonary/Chest: Effort normal. Neurological: Alert and oriented to person, place, and time. No cranial nerve deficit. Moves all extremities at least antigravity Skin: Skin is warm and dry. No rash noted. Not diaphoretic. Psychiatric: Normal mood and affect. RADIOLOGIC DATA: Relevant imaging reviewed LABS/DX RESULTS: Last 3 wbc, hgb, hct plt No results for input(s): WBC, HGB, HCT, PLATELET in the last 7068 hours. Last 3 Lytes No results for input(s): NA, K, CL, CO2, BUN, CREATININE in the last 7068 hours. Last 3 LFTs No results for input(s): AST, ALT, ALKPHOS, BILITOT, BILIDIR in the last 7068 hours. Last 3 Coags No results for input(s): PT, INR, PTT in the last 168 hours. Last 3 HgbA1C No results for input(s): HA1C in the last 7068 hours. ASSESSMENT: Assessment Spondylosis without myelopathy or radiculopathy, lumbar region PLAN: Proceed with planned procedure. Addressed all questions and concerns. Risks and benefits discussed with patient. No contraindications to the procedure at this time, will proceed. Donna Severino MD [facility] Quality Head of Anesthesiology [facility] [employer] [facility] [place] [phone] / [facility] documented in this encounter Miscellaneous Notes * Op Note - Donna Severino MD - 09/20/2021 9:00 AM EDT Pain Management Operative Note Patient Name: Nghia Owusu : [id number] MR#: [id number] Case Date: 09/20/2021 Surgeon: Surgeon(s) and Role: * Donna Severino MD - Primary * Tobin Llanos MD - Fellow Present on Admission: ??? Spondylosis without myelopathy or radiculopathy, lumbar region Postoperative diagnosis: same PROCEDURE NOTE LUMBAR MEDIAL BRANCH DIAGNOSTIC BLOCKS Patient: Nghia Owusu Referring Physician: [place] [address] Diagnosis: 1. Lumbar spondylosis Pre-procedure Note History [...] or pseudoarthrosis No Pre-testing pain score (VAS): 8 Previous medial branch block testing?: Yes Today's [...] preparation of the skin and draping, a 22 gauge 3.5 spinal needle was placed under fluoroscopic guidancedown on to the target point for each respective segmental medial branch.Position was confirmed in A/P, oblique and lateral views. At each level we injected 0.5ml of Lidocaine 2%. Mr. Elliss vital signs were stable throughout the procedure and were as recorded in the docflowsheet by the nursing staff. Postoperatively, today patient demonstrates the following changes with hyperextension and with tenderness over the suspected joint(s). Provacative testing using the Laboy's facet loading test Right side Left side Directly before the block VAS (0-10) = 8 VAS (0-10) = 8 5 minutes after the block VAS (0-10) = 0 VAS (0-10) = 0 Percentage relief obtained with this diagnostic block 100% 100% Any improved physical functioning directly after the [...] procedure. Donna Severino MD [facility] Quality Head of Anesthesiology [facility] [employer] [facility] [address] [address] / [facility] CC: Ta Jensen MD [address] [place] [address] Dr [address] [facility] [place] [address] documented in this encounter Plan of Treatment Not on file documented as of this encounter Procedures Procedure Name Priority Date/Time Associated Diagnosis Comments Injection Pv Facet Joint Lumbar/Sacral Single Level (84300) 09/20/2021 9:21 AM EDT Lumbar spondylosis Injection Pv Facet Joint Lumbar/Sacral Second Level (81113) 09/20/2021 9:21 AM EDT Lumbar spondylosis INJECTION, FACET JOINT,W\FLUORO, LUMBAR, SINGLE Routine 09/20/2021 8:40 AM EDT Lumbar spondylosis INJECTION, FACET JOINT,W\FLUORO, LUMBAR, 2ND LEVEL Routine 09/20/2021 8:40 AM EDT Lumbar spondylosis documented in this encounter Visit Diagnoses Diagnosis Spondylosis without myelopathy or radiculopathy, lumbar region- Primary Lumbar spondylosis Lumbosacral spondylosis without myelopathy Lumbar spondylosis Lumbosacral spondylosis without myelopathy documented in this encounter Administered Medications Inactive Administered Medications - up to 3 most recent administrations Medication Order MAR Action Action Date Dose Rate Site lidocaine (Xylocaine) (20 mg/mL) 2% injection ONCE PRN, Starting on Lorri 09/20/21 at 0930, Until Lorri 09/20/21 at 1146, Intra-Operative (Intra-Procedure), Routine Given 09/20/2021 9:30 AM EDT 3 mLs documented in this encounter Active and Recently Administered Medications Times are shown in EDT. PRN Medication Order 09/18/2021 09/19/2021 09/20/2021 lidocaine (Xylocaine) (20 mg/mL) 2% injection (CANCELED) ONCE PRN, Starting on Lorri 09/20/21 at 0930, Until Lorri 09/20/21 at 1146, Intra-Operative (Intra-Procedure), Routine 0930 (Given - Provid er: Tobin Llanos MD) documented in this encounter Care Teams Elevator Serviceman Relationship Specialty Start Date End Date Ta Jensen MD [address] [place] [address] PCP - General Family Medicine 07/22/20 documented as of this encounter
--- OUTSIDE RECORDS SUMMARY | 2023-10-28 06:17 | XMS_ITS | Encounter Summary ---
[place] [address] Care Team Providers Care Commercial Announcer Name Role Phone Ta Jensen MD Primary Care Provider [phone] Encounter Details Date Type Department Care Team (Late st Contact Info) Description 05/29/2021 12:05 AM EST Ancillary Procedure [place] [phone] Ta Jensen MD [facility] [place] [address] Social History Tobacco Use Types Packs/Day Years [...] FILM LIBRARY STORAGE ONLY DX WRIST Routine 05/29/2021 12:05 AM EST documented in this encounter Results * Film Library- Storage Only DX Wrist (05/29/2021 12:05 AM EST) Narrative [facility] - 09/05/2021 10:06 AM EDT This exam is auto-finalizing. It's purpose is for storage only. Ta Jensen MD [facility] FILM LIBRARY ORD ERABLES [place], [place] documented in this encounter Visit Diagnoses Not on filedocumented in this encounter Care Teams Commercial Announcer Relationship Specialty Start Date End Date Ta Jensen MD [address] [place] [address] PCP - General Family Medicine 07/22/20 documented as of this encounter
--- OUTSIDE RECORDS SUMMARY | 2023-10-28 06:17 | XMS_ITS | Encounter Summary ---
[place] [address] Care Team Providers Care Debate Director Name Role Phone Ta Jensen MD Primary Care Provider Encounter Details Date Type Department Care Team (Late st Contact Info) Description 08/31/2021 Ancillary Procedure [place] [address] Ta Jensen MD [facility] [place] [address] Social History Tobacco Use Types Packs/Day Years [...] Associated Diagnosis Comments FILM LIBRARY STORAGE ONLY MR WRIST Routine 08/31/2021 12:00 AM EDT documented in this encounter Results * Film Library- Storage Only MR Wrist (08/31/2021 12:00 AM EDT) Narrative [facility] - 09/05/2021 10:09 AM EDT This exam is auto-finalizing. It's purpose is for storage only. Ta Jensen MD G FILM LIBRARY ORD ERABLES [place], [place] documented in this encounter Visit Diagnoses Not on filedocumented in this encounter Care Teams Debate Director Relationship Specialty Start Date End Date Ta Jensen MD [facility] [place] [address] PCP - General Family Medicine 07/22/20 documented as of this encounter
--- OUTSIDE RECORDS SUMMARY | 2023-10-28 06:17 | XMS_ITS | Encounter Summary ---
[place] [address] Care Team Providers Care Service Line Layer Name Role Phone Ta Jensen MD Primary Care Provider [phone] Reason for Referral * Consultation (Routine) - Closed Specialty Diagnoses / Procedures Referred By Contac t Referred To Contact Pain and Spine Center Diagnoses Degenerative disc disease, lumbar Low back pain s/p fall 03/20// tried PT/MRI 05/2021 @ [facility] Ta Jensen MD [address] [place] [address] [facility] [place] [address] Referral ID Status Reason Start Date Expiration Date V isits Requested Visits Authorized [id number] Closed Consult, Test & Treat 06/06/2021 06/06/2022 6 6 Encounter Details Date Type Department Care Team (Latest Contact Info) Description 06/06/2021 Transcribe [place] [address] Ta Jensen MD [address] [place] [address] Degenerative disc disease, lumbar Social History Tobacco Use Types Packs/Day Years Used Date Smoking Tobacco: Never Assessed Sex and Gender Information Value Date Recorded Sex Assigned at Not on file Gender Identity Not on file Sexual Orientation Not on file documented as of this encounter Plan of Treatment Scheduled Referrals Name Type Priority Associated Diagnoses Orde r Schedule Referral to Spine Center Outpatient Referral Routine Degenerative disc disease, lumbar Ordered: 06/06/2021 documented as of this encounter Visit Diagnoses Diagnosis Degenerative disc disease, lumbar Degeneration of lumbar or lumbosacral intervertebral disc documented in this encounter Care Teams Service Line Layer Relationship Specialty Start Date End Date Ta Jensen MD [address] [place] [address] PCP - General Family Medicine 07/22/20 documented as of this encounter
--- OUTSIDE RECORDS SUMMARY | 2023-10-28 06:17 | XMS_ITS | Encounter Summary ---
Author Organization [facility] [place] [address] Care Team Providers Care Non Destructive Tester Name Role Phone Ta Jensen MD Primary Care Provider [phone] Encounter Details Date Type Department Care Team (Late st Contact Info) Description 05/29/2021 Ancillary Procedure [place] [phone] Ta Jensen MD [facility] [place] [address] Social History Tobacco Use Types Packs/Day Years [...] Diagnosis Comments FILM LIBRARY STORAGE ONLY MR SPINE Routine 05/29/2021 12:00 AM EST documented in this encounter Results * Film Library- Storage Only MR Spine (05/29/2021 12:00 AM EST) Narrative [facility] - 07/24/2021 2:02 PM EDT This exam is auto-finalizing. It's purpose is for storage only. Ta Jensen MD G FILM LIBRARY ORD ERABLES [place], [place] documented in this encounter Visit Diagnoses Not on filedocumented in this encounter Care Teams Non Destructive Tester Relationship Specialty Start Date End Date Ta Jensen MD [address] [place] [address] PCP - General Family Medicine 07/22/20 documented as of this encounter
--- OUTSIDE RECORDS SUMMARY | 2023-10-28 06:17 | XMS_ITS | Encounter Summary ---
Author Organization [facility] [place] [address] Care Team Providers Care Detasseler Name Role Phone Ta Jensen MD Primary Care Provider [phone] Reason for Visit * Auth/Cert Specialty Diagnoses [...] Expiration Date Visits Re quested Visits Authorized [id number] 1 1 Encounter Details Date Type Department Care Team (Latest Contact Info) Description 09/20/2021 8:27 AM EDT - 09/20/2021 9:46 AM EDT Hospital Encounter [place] [address] Donna Severino MD [facility] [place] [address] Lumbar spondylosis Discharge Disposition: Home Social History [...] Post -Procedure Pain Log Patient: Nghia Owusu [id number] It is important for you to keep [...] 12:45 4 hours 1:45 [facility] Jockey Valet Nurse will call you within a week of your procedure to ask about your response to the procedure and help with the next steps. If you need to reach the Jockey Valet you can call: [phone]. documented in this encounter Medications at Time of Discharge Medication Sig Dispensed Refills Start Date End Date EPINEPHrine 0.3 mg/0.3 mL Auto-Injector Inject 1 kit into the muscle once as needed. Inject 0.3 mL IM once as needed for allergic reaction (Throat tight, difficulty breathing). Call [phone] as directed. atorvastatin (Lipitor) 10 mg Tablet [...] Low Back Pain PAIN LEVEL AT REST 810 PAST MEDICAL HISTORY: No past medical history on file. PAST SURGICAL HISTORY: Past Surgical History: Procedure Laterality Date ??? PRO INJ PARAVERTEBRAL FACET JT W/IMAGE GUID, LUMBAR/SACRAL, 3RD OR ADDL LEVEL Bilateral 08/16/2021 INJECTION, FACET JOINT, W\FLUORO, LUMBAR, 3RD LEVEL (WRVU 1) performed by Donna Severino MD at [facility] PAIN MGMT [facility] ??? PRO INJECTION PV FACET JOINT LUMBAR/SACRAL SECOND LEVEL Bilateral 08/16/2021 INJECTION, FACET JOINT, W\FLUORO, LUMBAR, 2ND LEVEL (WRVU 1) performed by Donna Severino MD at [facility] PAIN MGMT [facility] ??? PRO INJECTION PV FACET JOINT LUMBAR/SACRAL SINGLE LEVEL Bilateral 08/16/2021 INJECTION, FACET JOINT, W\FLUORO, LUMBAR, SINGLE (WRVU 1.52) performed by Donna Severino MD at [facility] PAIN [facility] ALLERGIES: Venom-yellow jacket and Unknown [unclassified [...] (5' 7) Wt 86.2 kg (190 lb) [id number]% BMI 29.76 kg/m?? Physical Exam Constitutional: Pt [...] proceed. Donna Severino MD Pain Management Center Reducer of Anesthesiology [facility] [address] [address] / [facility] documented in this encounter Miscellaneous Notes * Op Note - Donna Severino MD - 09/20/2021 9:00 AM EDT Pain Management Operative Note Patient Name: Nghia Owusu : [id number] MR#: [id number] Case Date: 09/20/2021 Surgeon: Surgeon(s) and Role: * Donna Severino MD - Primary * Tobin Llanos MD - Fellow Present on Admission: ??? Spondylosis without myelopathy or radiculopathy, lumbar region Postoperative diagnosis: same PROCEDURE NOTE LUMBAR MEDIAL BRANCH DIAGNOSTIC BLOCKS Patient: Nghia Owusu Referring Physician: [place] [address] [address] Diagnosis: 1. Lumbar spondylosis Pre-procedure Note History [...] procedure. Donna Severino MD [facility] Management Center Reducer of Anesthesiology [facility] [address] [address] / [facility] CC: MD [place] [address] documented in this encounter Plan of Treatment Not on file documented as of this encounter Procedures Procedure Name Priority Date/Time Associated Diagnosis Comments Injection Pv Facet Joint Lumbar/Sacral Single Level (03042) 09/20/2021 9:21 AM EDT Lumbar spondylosis Injection Pv Facet Joint Lumbar/Sacral Second Level (55352) 09/20/2021 9:21 AM EDT Lumbar spondylosis INJECTION, [...] MD) documented in this encounter Care Teams Detasseler Relationship Specialty Start Date End Date Ta Jensen MD [address] [place] [address] PCP - General Family Medicine 07/22/20 documented as of this encounter
--- OUTSIDE RECORDS SUMMARY | 2023-10-28 06:17 | XMS_ITS | Encounter Summary ---
Author Organization [facility] [place] [address] Care Team Providers Care Emergency Vehicle Operator Name Role Phone Ta Jensen MD Primary Care Provider [phone] Encounter Details Date Type Department Care Team (Late st Contact Info) Description 07/27/2021 Telephone [facility] Sp[facility] at [facility] [place] [phone] Esha Rhoades RN Social History Tobacco Use Types Packs/Day Years Used Date Smoking Tobacco: Former Smokeless Tobacco: Never Comments:Quit Over 25yrs ago Sex and Gender Information Value Date Recorded Sex Assigned at Not on file Gender Identity Not on file Sexual Orientation Not on file documented as of this encounter Miscellaneous Notes * Telephone Encounter - Esha Rhoades RN - 07/27/2021 2:00 PM EDT Incoming call from Rylie at patients PCP office, [facility] reporting they had received call from Nghia this morning stating that when he met with Ms. Acevedo JESSICA she told him to contact their office and have them order an MRI of his hip. Rylie was calling to confirm that information as there is no mention of an MRI in Ms. Acevedo's COMMISSIONING MANAGER,note. I reviewed Ms. Acevedo's office visit note with Nghia on 07/26/21 did not see any mention of an MRI. I let rylie know I would reach out to Ms. AcevedoJESSICA and find out if she indeed want an MRI and get back to the office once I knew. Rylie thanked me for the assistance. TONY Hernandez documented in this encounter Plan of Treatment Not on file documented as of this encounter Visit Diagnoses Not on filedocumented in this encounter Care Teams Emergency Vehicle Operator Relationship Specialty Start Date End Date Ta Jensen MD [address] [place] [address] PCP - General Family Medicine 07/22/20 documented as of this encounter
--- OUTSIDE RECORDS SUMMARY | 2023-10-28 06:17 | XMS_ITS | Encounter Summary ---
Author Organization [facility] [place] [address] Care Team Providers Care Digital Advertising Specialist Name Role Phone Ta Jensen MD Primary Care Provider Encounter Details Date Type Department Care Team (Late st Contact Info) Description 08/20/2021 Orders Only [place] [address] Donna Severino MD [facility] [place] [address] Lumbar spondylosis (Primary Dx) Social History Tobacco [...] myelopathy documented in this encounter Care Teams Digital Advertising Specialist Relationship Specialty Start Date End Date Ta Jensen MD [address] [place] [address] [place] [address] PCP - General Family Medicine 07/22/20 documented as of this encounter
--- OUTSIDE RECORDS SUMMARY | 2023-10-28 06:17 | XMS_ITS | Encounter Summary ---
Author Organization Formerly [facility] [place] [address] Care Team Providers Care Ship Rigger Apprentice Name Role Phone Ta Jensen MD Primary Care Provider [phone] Encounter Details Date Type Department Care Team (Late st Contact Info) Description 08/20/2021 Telephone [place] [address] Hillary Beaver RN Social History Tobacco Use Types Packs/Day Years Used Date Smoking Tobacco: Former Smokeless Tobacco: Never Comments:Quit Over 25yrs ago Sex and Gender Information Value Date Recorded Sex Assigned at Not on file Gender Identity Not on file Sexual Orientation Not on file documented as of this encounter Miscellaneous Notes * Telephone Encounter - Hillary Beaver RN - 08/20/2021 3:37 PM EDT Post-procedure phone call from patient to report their response to the lumbar medial branch block procedure performed on 08/16/21 in the [facility] by Donna Severino MD. This is patient's: first medial branch block Patient reports that after the procedure they experienced: _x_ Patient reported post-block numeric pain scale: 2 /10 (average pain since procedure) _x_ Post-procedure pain has been reduced by 80%. (> 80% Medicare/MVP/Medicaid) _x_ If relief > 80% with ability to perform painful maneuvers; schedule 2nd MBB: yes _x_ Post-procedure pain has been reduced by 80%. (> 50% all other insurers) _x_ Pain relief: moderate If pain is reduced, it lasted: Yes less than 4 hours What is current pain score on a scale of 0-10? 8 Does patient's pain make activities of daily living difficult? If yes, please describe what activity and level of difficulty. Interferes with sleeping. Can't go for walks or fishing . Hard to do any house work Pertinent recent trauma or surgery? no If [...] anticoagulant? None Is patient taking any NSAIDS/supplements? None Is patient taking aspirin? no If yes, is it prescribed? no If yes, what reason is it prescribed? Is patient taking Antibiotics? No Has patient been on greater than 40mg of steroid 14 days or longer? No Has patient had any steroid injections anywhere in his/her body within the last two weeks? No Does patient request sedation? no Does patient need NPO guidelines? no Does patient have allergies to contrast/local anesthetic/steroid? No Any changes? no Based on the information provided above and after discussion with the patient, the following actions will be taken: _x_ Patient meets criteria to proceed to second Bilateral at L3, L4 and L5-DR lumbar medial branch block, order will be pended to Dr. Severino. Patient denies further questions at this time and expressed understanding of plan. Encouraged patient to call pain clinic RN for future questions or concerns. documented in this encounter Plan of Treatment Not on file documented as of this encounter Visit Diagnoses Not on filedocumented in this encounter Care Teams Ship Rigger Apprentice Relationship Specialty Start Date End Date Ta Jensen MD [address] [place] [address] PCP - General Family Medicine 07/22/20 documented as of this encounter
--- OUTSIDE RECORDS SUMMARY | 2023-10-28 06:17 | XMS_ITS | Encounter Summary ---
Author Organization [facility] [place] [address] Care Team Providers Care Seismic Interpreter Name Role Phone Ta Jensen MD Primary Care Provider [phone] Encounter Details Date Type Department Care Team (Late st Contact Info) Description 09/17/2021 Telephone [place] [address] Dania Carr, RN Social History Tobacco Use Types Packs/Day Years Used Date Smoking Tobacco: Former Smokeless Tobacco: Never Comments:Quit Over 25yrs ago Sex and Gender Information Value Date Recorded Sex Assigned at Not on file Gender Identity Not on file Sexual Orientation Not on file documented as of this encounter Miscellaneous Notes * Telephone Encounter - Dania Carr, RN - 09/17/2021 1:35 PM EDT Contact made with patient or car sales representative as identified in contacts 1. Patient instructed to arrive at 08:30 on 09/20/21 with their owner operator tanker truck driver for their LMBB procedure. Please plan to spend about 2 hours at the center. (3 hours for RFA) 2. Has pt started any new medications or supplements in the past two weeks? No 3. Have any of the following occurred within the two weeks before the procedure date? a. Patient is having a Covid vaccine or other vaccine No b. Patient has been exposed to anybody with a contagious illness such as Covid, flu, No c. Patient is taking antibiotics to treat an infection No d. Patient has any skin rashes, breakdown, blisters or open wounds No e. Patient has had any hospitalizations, ED visits, surgery, other procedure, dental procedure No f. Patient has taken oral steroids or had a steroid injection No g. Does patient have any of the following symptoms that are NEW and NOT explained by another healthcondition: fever or chills, cough, shortness of breath or difficulty breathing, fatigue, muscle or body aches, headache, new loss of taste or smell, sore throat, congestion or runny nose, nausea or vo miting, diarrhea. No If yes, the patient has been directed to the [employer] hotline for testing prior to their procedure. (route telephone note to: [facility] covid 19 nurse triage with routing comment stating pt needs covid test prior to procedure and give date of procedure, add name and MRN to tracking tool). h. Has the patient's pain resolved or significantly improved such as a rating of 3/10 or less? No 4. Was patient instructed to stop any medications? No if yes: a. Name of medication(s): b. Confirm date of last dose: 5. Is patient having a nerve block: Yes a. If yes instructed to not take any pain medication for 12 hours before your procedure. 6. Patient instructed to take any prescribed medications that they were not told to stop, especially blood pressure medication, because their procedure may be cancelled if their blood pressure is toohigh. 7. Was patient instructed to follow NPO guidelines: No if yes, the following instructions were reviewed: a. You may eat up to 6 hours before your procedure b. You may have clear liquids only up to 2 hours before your procedure: water, apple juice, richard maggi, sprite, popsicles, broth, tea or coffee plain or with sweetener, absolutely no dairy products, no milk including soy, oat, almond. 8. IF RFA: Does patient have a pacemaker? No a. If yes, document that cardiology was called and notified. 9. Additional notes if applicable: Patient expressed understanding and agreement with instructions Yes Patient denies further questions Yes documented in this encounter Plan of Treatment Not on file documented as of this encounter Visit Diagnoses Not on filedocumented in this encounter Care Teams Seismic Interpreter Relationship Specialty Start Date End Date Ta Jensen MD [facility] [place] [address] PCP - General Family Medicine 07/22/20 documented as of this encounter
--- OUTSIDE RECORDS SUMMARY | 2023-10-28 06:17 | XMS_ITS | Encounter Summary ---
Author Organization [facility] [place] [address] Care Team Providers Care Financial Services Intern Name Role Phone Ta Jensen MD Primary Care Provider Encounter Details Date Type Department Care Team (Late st Contact Info) Description 07/30/2021 Telephone [facility] [place] [address] Esha Rhoades RN Social History Tobacco Use Types Packs/Day Years Used Date Smoking Tobacco: Former Smokeless Tobacco: Never Comments:Quit Over 25yrs ago Sex and Gender Information Value Date Recorded Sex Assigned at Not on file Gender Identity Not on file Sexual Orientation Not on file documented as of this encounter Miscellaneous Notes * Telephone Encounter - Esha Rhoades RN - 07/30/2021 3:08 PM EDT Outgoing call to Jesika at Dr. Jensen's office regarding her incoming call on Friday07/27/21. I let Rylie know that Ms. Kristina APRN wanted to order a hip Xray on Mr. Owusu not an MRI. Mr. Owusu did not want to stay and have them done the day he was here for his appointment. Rylie said she will get the message to Dr. Jensen, his PCP and ask him to order it. I let Rylie knowthat if he is not comfortable ordering the X-ray, to call and let me know and I can get the X-ray ordered and sent up there. Rylie thanked me for the call back. TONY Hernandez documented in this encounter Plan of Treatment Not on file documented as of this encounter Visit Diagnoses Not on filedocumented in this encounter Care Teams Financial Services Intern Relationship Specialty Start Date End Date Ta Jensen MD [address] [place] [address] PCP - General Family Medicine 07/22/20 documented as of this encounter
--- OUTSIDE RECORDS SUMMARY | 2023-10-28 06:17 | XMS_ITS | Encounter Summary ---
Author Organization [facility] [place] [address] Care Team Providers Care Powdered Sugar Pulverizer Operator Name Role Phone Ta Jensen MD Primary Care Provider [phone] Reason for Visit * Auth/Cert Specialty Diagnoses [...] Expiration Date Visits Re quested Visits Authorized [id number] 1 1 Encounter Details Date Type Department Care Team (Late st Contact Info) Description 08/16/2021 11:15 AM EDT Ancillary [place] [address] Donna Severino MD [facility] [place] [address] Social History Tobacco Use Types Packs/Day Years [...] STORAGE ONLY PAIN CLINIC C ARM Routine 08/16/2021 4:28 PM EDT documented in this encounter Results * Film Library- Storage Only pain Clinic C-Arm (08/16/2021 4:28 PM EDT) Narrative [facility] - 08/16/2021 4:28 PM EDT See PACS for result report. Donna Severino MD G FILM LIBRARY ORD ERABLES [place], [place] documented in this encounter Visit Diagnoses Not on filedocumented in this encounter Care Teams Powdered Sugar Pulverizer Operator Relationship Specialty Start Date End Date Ta Jensen MD [address] [place] [address] PCP - General Family Medicine 07/22/20 documented as of this encounter
--- OUTSIDE RECORDS SUMMARY | 2023-10-28 06:17 | XMS_ITS | Encounter Summary ---
Author Organization [facility] [place] [address] Care Team Providers Care Pallet Stone Positioner Name Role Phone Ta Jensen MD Primary Care Provider [phone] Reason for Visit * Auth/Cert Specialty Diagnoses [...] Expiration Date Visits Re quested Visits Authorized [id number] 1 1 Encounter Details Date Type Department Care Team (Latest Contact Info) Description 08/16/2021 10:40 AM EDT - 08/16/2021 12:05 PM EDT Hospital En[place] [address] Donna Severino MD [facility] [place] [address] Lumbar spondylosis Discharge Disposition: Home Social History [...] Discharge Instructions * Discharge Instructions* Arline Deras H - 08/16/2021 11:35 AM EDT You [...] Post -Procedure Pain Log Patient: Nghia Owusu [id number] It is important for you to keep [...] allergic reaction (Throat tight, difficulty breathing). Call [phone] as directed. atorvastatin (Lipitor) 10 mg Tablet [...] Sincerely, Dru Reeder MD Pain Medicine Fellow [address] [address] / [facility] CC: [place] [address] [address] [address] documented in this encounter Miscellaneous Notes * Op Note - Donna Severino MD - 08/16/2021 11:44 AM EDT Pain Management Operative Note Patient Name: Nghia Owusu : [id number] MR#: [id number] Case Date: 08/16/2021 Surgeon: Surgeon(s) and Role: * Donna Severino MD - Primary * Dru Reeder MD - Fellow Present on Admission: ??? Lumbar spondylosis ??? Spondylosis without myelopathy or radiculopathy, lumbar region Postoperative diagnosis: same PROCEDURE NOTE LUMBAR MEDIAL BRANCH DIAGNOSTIC BLOCKS Patient: Nghia Owusu Referring Physician: Ta Jensen Md [address] [place] [address] Diagnosis: 1. Lumbar spondylosis Pre-procedure Note History [...] procedure. Donna Severino MD [facility] [facility] [address] [address] / [facility] CC: [place] [address] [place] [address] documented in this encounter Plan of Treatment Not on file documented as of this encounter Procedures Procedure Name Priority Date/Time Associated Diagnosis Comments Injection Pv Facet Joint Lumbar/Sacral Second Level (69734) 08/16/2021 11:38 AM EDT Lumbar spondylosis Injection Pv Facet Joint Lumbar/Sacral Single Level (06760) 08/16/2021 11:38 AM EDT Lumbar spondylosis Inj//Paravertebral Facet Jt W/Image Guid, Lumbar/Sacral, 3Rd Or Addl Level (77467) 08/16/2021 11:38 AM EDT Lumbar spondylosis INJECTION, [...] MD) documented in this encounter Care Teams Pallet Stone Positioner Relationship Specialty Start Date End Date Ta Jensen MD [address] [place] [address] PCP - General Family Medicine 07/22/20 documented as of this encounter
--- OUTSIDE RECORDS SUMMARY | 2023-10-28 06:17 | XMS_ITS | Encounter Summary ---
[place] [address] Care Team Providers Care Data Processing Manager Name Role Phone Ta Jensen MD Primary Care Provider [phone] Reason for Referral * Consultation (Routine) - Closed Specialty Diagnoses / Procedures Referred By Contac t Referred To Contact Orthopaedics Diagnoses Pain in left wrist PAIN IN LEFT WRIST Lamin Bess MD [address] [place] [address] [facility] [address] [place] [phone] Referral ID Status Reason Start Date Expiration Date V isits Requested Visits Authorized [id number] Closed Consult, Test & Treat PCP Updated and/or Approved 09/14/2021 09/14/2022 6 6 Encounter Details Date Type Department Care Team (Late st Contact Info) Description 09/14/2021 Transcribe Orders eDH Incoming Referrals [phone] Lamin Bess MD [address] [place] [address] Pain in left wrist Social History Tobacco [...] Priority Associated Diagnoses Order Schedule Referral to Orthopaedics Outpatient Referral Routine Pain in left wrist Ordered: 09/14/2021 documented as of this encounter Visit Diagnoses Diagnosis Pain in left wrist Pain in joint, forearm documented in this encounter Care Teams Data Processing Manager Relationship Specialty Start Date End Date Ta Jensen MD [address] [place] [address] PCP - General Family Medicine 07/22/20 documented as of this encounter
--- NOTE | 2023-10-28 06:27 | W.ANESPRE ---
General Info Date of Service Date Performed: 10/28/23 Height: 5 ft 5 in Weight: 88.451 kg Body Mass Index (BMI): 32.4 Surgical Procedure: Operation Date: 10/28/23 07:40 Proposed Procedure Side Surgeon p Wrist Dequervains Release Left Vitaly Javier MD Meds Allergies and Home Medications Allergies Allergy/AdvReac Type Severity Reaction Status Date / Time bee stings Allergy Severe Anaphylaxsi Uncoded 10/27/23 14:17 s strong fragrants Allergy Severe Anaphylaxis Uncoded 10/27/23 14:17 Yellow jackets Allergy Severe Anaphylaxis Uncoded 10/27/23 14:17 Home Medication ?Medication ?Instructions ?Recorded epinephrine 0.3 mg/0.3 mL 0.3 mg IM Q5-15M PRN 05/25/20 injection, auto-injector (EpiPen 2-Kryee) loratadine 10 mg disintegrating 10 mg PO DAILY 05/25/20 tablet (Allergy Relief (loratadine)) atorvastatin 10 mg tablet 10 mg PO QHS 04/24/21 cyclobenzaprine 5 mg tablet 5 mg PO QHS PRN 02/20/22 duloxetine 60 mg capsule,delayed 60 mg PO DAILY 02/20/22 release coenzyme Q10 75 mg capsule (Ultra 75 mg PO DAILY 06/18/23 CoQ10) lisinopril 40 mg tablet 40 mg PO DAILY 06/18/23 sildenafil 100 mg tablet (Viagra) 100 mg PO DAILY PRN 06/18/23 amlodipine 5 mg tablet 5 mg PO DAILY 09/12/23 potassium chloride 20 mEq 20 meq PO DAILY 09/12/23 tablet,extended release tamsulosin 0.4 mg capsule 0.4 mg PO QHS 09/12/23 acetaminophen 500 mg tablet 500 mg PO Q6H PRN PRN pain #40 tabs 10/28/23 hydrocodone 5 mg-acetaminophen 325 1 tab PO Q6H PRN pain #5 tabs 10/28/23 mg tablet ibuprofen 600 mg tablet 600 mg PO TID PRN pain #30 tabs 10/28/23 Current Visit Medications: Current Medications Generic Name Dose Route Start Last Admin Trade Name Freq PRN Reason Stop Dose Admin Ringer's Solution 1,000 mls @ 80 mls/hr 10/28/23 06:00 IV 11/26/23 23:59 INFUSION EVAN Cefazolin Sodium/Dextrose 2 gm in 50 mls @ 100 mls/hr 10/28/23 06:00 Ancef Duplex IVPB 11/26/23 23:59 PREOP EVAN IV Miscellaneous Supplies 1 each 10/28/23 06:00 Iv Access IV 11/26/23 23:59 DIRECTED EVAN Sodium Chloride 0 ml 10/28/23 06:00 Normal Saline Flush 10 Ml Syr IV 11/26/23 23:59 PRN PRN Sodium Chloride 0 ml 10/28/23 06:00 Normal Saline 10 Ml Vial IJ 11/26/23 23:59 DIRECTED PRN Sterile Water 0 ml 10/28/23 06:00 Water,Injection,Sterile 10 Ml Vial IJ 11/26/23 23:59 DIRECTED PRN PFSH Active Problems Active Problems: Problem Status Onset Code Tingling of left arm and left side of face Acute R20.2 Syncope Chronic R55 Other injury of unspecified muscle, fascia and tendon at wrist and hand level, left hand, subsequent encounter Acute S66.992D Fracture of left distal radius Acute S52.502A De Quervain's tenosynovitis, left Acute M65.4 Right foot sprain Acute S93.601A Right ankle sprain Acute S93.401A Contusion of right hand Acute S60.221A Back pain Acute M54.9 Acute wrist pain Acute M25.539 Fall Acute W19.XXXA Tubular adenoma Acute ~06/2020 D36.9 Adenomatous polyps Acute D36.9 History of Crohn's disease Acute Z87.19 Medical History Medical History Inflammatory bowel disease Lower urinary tract symptoms Tinea corporis ED (erectile dysfunction) Skin tag Left wrist pain Degenerative joint disease (DJD) of lumbar spine Tubular adenoma of colon (05/31/16) Bee sting allergy GERD (gastroesophageal reflux disease) Hyperlipidemia Hypertension Renal insufficiency, mild History of colon polyps Surgical History Surgical History History of colonoscopy (~06/30/20) Colonoscopy - IV Sedation (05/31/16) Tobacco Smoking/Tobacco Use Status: Former Tobacco Use Alcohol Alcohol Intake: current Alcohol intake frequency: holidays/special occasions only Substance Use Substance use: Socially Substance use type: marijuana Vital Signs and Lab Results Vital Signs Most Recent Vital Signs in EMR: Temp Pulse Resp BP Pulse Ox 36.7 C 57 L 16 121/70 97 10/28/23 06:36 10/28/23 06:36 10/28/23 06:36 10/28/23 06:36 10/28/23 06:36 Lab Results Blood Type / Crossmatch: No Data to Display Complete Blood Count: No Data to Display Complete Metabolic Panel: Sodium 143 mmol/L (136-145) 10/07/23 14:35 Potassium 3.8 mmol/L (3.5-5.1) 10/07/23 14:35 Chloride 105 mmol/L (98-107) 10/07/23 14:35 Carbon Dioxide 26.3 mmol/L (21.0-32.0) 10/07/23 14:35 BUN 15 mg/dL (7-18) 10/07/23 14:35 Creatinine 1.2 mg/dL (0.70-1.30) 10/07/23 14:35 Est GFR (CKD-EPI 2020) 69.23 (mL/min/1.73m2) 10/07/23 14:35 Calcium 8.9 mg/dL (8.5-10.1) 10/07/23 14:35 Glucose 97 mg/dL (74-106) 10/07/23 14:35 Liver Function Panel: No Data to Display Coagulation Panel: No Data to Display Cardiac Panel: No Data to Display Arterial Blood Gas: No Data to Display Venous Blood Gas: No Data to Display Pancreas Panel: No Data to Display Thyroid Panel: No Data to Display Infectious Disease: No Data to Display Blood Cultures: No Data to Display Toxicology Panel: No Data to Display Imaging and Studies Imaging and Studies Study information below may be from another EMR and interpreted by another provider. Please see original notes in EMR for more complete details. Stress Test Summary: 01/25: negative for ischemia. Echocardiogram Summary: 08/05: LVEF 58%. no sig valve dz. Anesthesia Assessment and Plan Anesthesia History Personal History: No History of Anesthesia Complications Family History: No Family History of Anesthesia Complications Exercise Tolerance Exercise Tolerance: Metabolic Equivalents>4 Cardiac & Pulmonary Exam Cardiac Exam: Normal S1/S2 Heart Sounds Pulmonary Exam: Clear Bilateral Breath Sounds Implantable Cardiac Device Does patient have a Pacemaker or an ICD?: No Airway Exam Known Difficult Airway: No Mallampati Class: 3 Mouth Opening: Normal (> 3cm) Thyromental Distance: Greater than 3 cm Neck Range of Motion: Full ROM Neck Circumference: Normal Teeth Condition: Normal Dentition ASA Classification ASA Score: ASA 2 Emergency Case?: No NPO Status NPO Status: NPO Clears >2 hours, Solids >8 hours Anesthesia Plan Resuscitation Status: Full Code Anesthesia Technique: General Anesthesia Airway Planned: Natural Airway Monitors Used: Standard Monitors Preoperative Comments:: 58 yo male for dequervains. Sig PMHx: HTN (amlodipine, lisinopril. well controlled), GERD (diet related), DJD, renal insufficiency, former smoker, occ EtOH/cannabis. Previous Anes: - colo, prop, natural airway, no issues.
[2023-10-28 06:36] VITALS: BP 121/70; PULSE 57; RESP 16; TEMP 36.7; O2SAT 97
[2023-10-28] MEDS: Lactated Ringers 1,000 ML 80 ML IV (06:50)
[2023-10-28 06:51] VITALS: BMI 32.4
--- NOTE | 2023-10-28 07:04 | PDOC.DSDIS_ITS ---
Date of service: 10/28/23 Time of Service: 07:04 Discharge Plan Disposition Patient Disposition: Home Condition: Good Discharge Details Reason For Visit: Left DeBarbertheacesar's Tenosynovitis Attending Provider: Vitaly Javier Primary Care Provider: Gomez Smith Home Meds and New Rx's Prescriptions: New hydrocodone-acetaminophen 5-325 mg tablet 1 tab PO Q6H PRN (Reason: pain) Qty: 5 0RF acetaminophen 500 mg tablet 500 mg PO Q6H PRN PRN (Reason: pain) Qty: 40 3RF ibuprofen 600 mg tablet 600 mg PO TID PRN (Reason: pain) Qty: 30 3RF Continued amlodipine 5 mg tablet 5 mg PO DAILY potassium chloride 20 mEq tablet extended release 20 meq PO DAILY tamsulosin 0.4 mg capsule 0.4 mg PO QHS loratadine [Allergy Relief (loratadine)] 10 mg tablet,disintegrating 10 mg PO DAILY epinephrine [EpiPen 2-Kyree] 0.3 mg/0.3 mL auto-injector 0.3 mg IM Q5-15M PRN Rx Instructions: do not exceed 3 doses per episode atorvastatin 10 mg tablet 10 mg PO QHS duloxetine 60 mg capsule,delayed release(DR/EC) 60 mg PO DAILY cyclobenzaprine 5 mg tablet 5 mg PO QHS PRN Ultra CoQ10 75 mg capsule 75 mg PO DAILY lisinopril 40 mg tablet 40 mg PO DAILY sildenafil [Viagra] 100 mg tablet 100 mg PO DAILY PRN Rx Instructions: administer 30 minutes to 4 hours before activity Discharge Instructions Additional Instructions: Brisa'sherry Discharge Instructions Activity: You should keep the hand elevated as much as possible for the first few days. You may use the other fingers as tolerated but avoid trying to do too much too soon. You may perform light activities with the splint in place. Dressing/Cast: Your dressing should stay in place at all times. Do NOT get it wet. You may loosen the RAVI wrap if you feel it is too tight and then rewrap more loosely. Medications: - You should take Tylenol and Ibuprofen for baseline pain control. - You have Hydrocodone for breakthrough pain. - You may apply ice over the thumb. Follow-up: 7-10 days Referrals: Vitaly Javier MD [ [facility] STAFF PHYSICIAN] - Activity:: Elevate Remove Dressings/Wound Care:: Do Not Remove Shower/Bathe:: Cover Diet:: As Tolerated Discharge Orders Discharge Orders: Discharge Order (Routine); Ordered 10/28/23 Ordered By: Vitaly Javier DS: Diagnosis Discharge Diagnosis (1) De Quervain's tenosynovitis, left: Status: Acute
--- NOTE | 2023-10-28 07:04 | W.PREOPHP ---
Assessment and Plan Assessment and plan (1) De Quervain's tenosynovitis, left: Status: Acute Assessment and plan: Brayan is a 58-year-old male who has de Quervain's tenosynovitis about the left side. He is failed injections and other conservative options. Therefore, he is here today for first extensor compartment release. I reviewed Senecal features of the case with him. I discussed the risk to include bleeding, infection, pain, stiffness, damage to nerves and vessels, incomplete release, recurrence, tendon subluxation. Despite these risks, he elects to proceed. History of Present Illness History of Present Illness Chief Complaint: Left DeQuervain's Tenosynovitis Narrative: Brayan is a 58-year-old male who has known de Quervain's tenosynovitis of the left hand. Please see the previous office note for complete detailed history. He is here today for first sensor compartment release. He denies any changes to his health. No new chest pain or shortness of breath. No new symptoms. Review of Systems All systems reviewed & are unremarkable except as noted in HPI and below PFSH All Active Problems Tingling of left arm and left side of face (Acute) Syncope (Chronic) Other injury of unspecified muscle, fascia and tendon at wrist and hand level, left hand, subsequent encounter (Acute) Fracture of left distal radius (Acute) De Quervain's tenosynovitis, left (Acute) Injection: 03/26/2022 Right foot sprain (Acute) Right ankle sprain (Acute) Contusion of right hand (Acute) Back pain (Acute) Acute wrist pain (Acute) Fall (Acute) Tubular adenoma (Acute ~06/2020) Adenomatous polyps (Acute) History of Crohn's disease (Acute) Medical History Inflammatory bowel disease Lower urinary tract symptoms Tinea corporis ED (erectile dysfunction) Skin tag Left wrist pain Degenerative joint disease (DJD) of lumbar spine Tubular adenoma of colon (05/31/16) Bee sting allergy GERD (gastroesophageal reflux disease) Hyperlipidemia Hypertension Renal insufficiency, mild History of colon polyps Surgical History History of colonoscopy (~06/30/20) Colonoscopy - IV Sedation (05/31/16) Social History Smoking/Tobacco Use Status: Former Tobacco Use Quit Date: 04/14/99 Smoking risk assessment performed?: Yes Alcohol Intake: current Alcohol Intake frequency: holidays/special occasions only Drug use: Socially Substance use type: marijuana Housing: house Current gender identity: male Do you feel safe at home: Yes Do you feel safe in your relationship?: Yes Additional Social history: UTAP Meds Allergies and Home Medications Allergies Allergy/AdvReac Type Severity Reaction Status Date / Time bee stings Allergy Severe Anaphylaxsi Uncoded 10/27/23 14:17 s strong fragrants Allergy Severe Anaphylaxis Uncoded 10/27/23 14:17 Yellow jackets Allergy Severe Anaphylaxis Uncoded 10/27/23 14:17 Home Medications ?Medication ?Instructions ?Recorded ?Confirmed ?Type epinephrine 0.3 mg/0.3 mL 0.3 mg IM Q5-15M PRN 05/25/20 10/27/23 History injection, auto-injector (EpiPen 2-Kyree) loratadine 10 mg disintegrating 10 mg PO DAILY 05/25/20 10/28/23 History tablet (Allergy Relief (loratadine)) atorvastatin 10 mg tablet 10 mg PO QHS 04/24/21 10/28/23 History cyclobenzaprine 5 mg tablet 5 mg PO QHS PRN 02/20/22 10/28/23 History duloxetine 60 mg capsule,delayed 60 mg PO DAILY 02/20/22 10/28/23 History release coenzyme Q10 75 mg capsule (Ultra 75 mg PO DAILY 06/18/23 10/28/23 History CoQ10) lisinopril 40 mg tablet 40 mg PO DAILY 06/18/23 10/28/23 History sildenafil 100 mg tablet (Viagra) 100 mg PO DAILY PRN 06/18/23 10/28/23 History amlodipine 5 mg tablet 5 mg PO DAILY 09/12/23 10/28/23 History potassium chloride 20 mEq 20 meq PO DAILY 09/12/23 10/28/23 History tablet,extended release tamsulosin 0.4 mg capsule 0.4 mg PO QHS 09/12/23 10/28/23 History Exam Resp Effort & Inspection: normal respiratory effort Auscultation: clear to auscultation bilaterally Cardio Rate: regular rate Rhythm: regular rhythm Results Last Vital Signs Temp 36.7 C 10/28/23 06:36 Pulse 57 L 10/28/23 06:36 Resp 16 10/28/23 06:36 BP 121/70 10/28/23 06:36 Pulse Ox 97 10/28/23 06:36
[2023-10-28] MEDS: ceFAZolin 2 GM/50 ML BAG IVPB (07:31)
[2023-10-28] MEDS: Sodium Bicarbonate 50 MEQ/50 ML VIAL (07:40)
[2023-10-28] MEDS: Lidocaine 1% Pres-Free 30 ML VIAL (07:40)
[2023-10-28 08:02] VITALS: BP 101/71; PULSE 76; RESP 16; TEMP 36.2; O2SAT 94
--- NOTE | 2023-10-28 08:12 | ROE_ITS ---
Date of service: 10/28/23 Time of Service: 07:45 Operative Note Operative Note DATE OF PROCEDURE: 10/28/23 PRE-OP DIAGNOSIS: Left Dequervain's Tenosynovitis POST-OP DIAGNOSIS: same PROCEDURE: Left First Extensor Compartment Release SURGEON: Vitaly Javier ANESTHESIA TYPE: General:No Airway Refer to Anesthesia Record ESTIMATED BLOOD LOSS: 5 PATHOLOGY: none sent TOURNIQUET TIME: 0 COMPLICATIONS: None Patient was transported to: same day Patient's condition: stable Indications: Nghia is a 58 year old male who has had symptoms of Dequervain's tenosynovitis. Nonoperative treatment options had been trialed. Given their failure, I offered operative intervention. I reviewed the technical details of a first extensor compartment release. I reviewed the risk of the procedure to include bleeding, infection, pain, stiffness, tendon instability, damage to the superficial radial nerve, and complete release. Despite these risks, the patient elected to proceed. Findings: There was a tightened first excessive compartment. No subcompartments were seen encasing the EPB tendon. Procedure Description: Nghia was greeted in the preoperative holding area. Name and surgical site were confirmed. The history and physical was completed. The consent was reviewed the patient and signed. He was taken back to the operating room. The patient was placed in the supine position and monitored anesthesia care was initiated. The left was then prepped with ChloraPrep and draped in a standard fashion after a nonsterile tourniquet was placed high up onto the arm although not used. Prophylactic antibiotics in the form of cefazolin were administered. A timeout was performed for safe surgery. The surgical site was drawn on the skin. The planned surgical field was anesthetized with 0.25% bupivacaine with epinephrine. A 2 cm incision was made longitudinally over the radial styloid. The skin was incised only. The deep tissue subcutaneous fat was dissected with a tenotomy scissors trying to protect bridge of the superficial radial nerve. Any branches that were identified were retracted out of the way. The first compartment extensor tendons were then identified. The distal aspect of the first compartment was noted and were released. This release was performed more on the dorsal side to prevent tendon subluxation. The entirety of the first extensor compartment was then released. The slips of the abductor pollicis longus tendon were inspected. They removed to confirm the appropriate motion of the thumb. The extensor pollicis brevis tendon was then identified. There were no subcompartments. Traction on the tendon was also used to confirm appropriate extension of the thumb confirming the release of the appropriate tendon. The dorsal radial surface of the radius was once again inspected to make sure there is no other sub-compartments or other restrictions to tendon motion. The wound was then thoroughly irrigated. The deep tissue was closed with a 3-0 Vicryl. The skin was closed with a ru nning subjective 4-0 Monocryl. Skin glue was applied. The hand was dressed with 4 x 4's, Kerlex and RAVI wrap into a soft thumb spica splint. All counts were correct. Patient was transferred back to same day surgery area in stable condition.
[2023-10-28 08:28] VITALS: BP 108/71; PULSE 78; RESP 16; TEMP 36.3; O2SAT 98
--- NOTE | 2023-10-28 09:38 | W.ANESPOSTOP ---
Postoperative Evaluation Date, Time and Location Date Performed: 10/28/23 Time Performed: 08:30 Patient Location: Day Surgery Unit Vital Signs Most Recent Imported Vital Signs: Most Recent Vital Signs Temp Pulse Resp BP Pulse Ox 36.3 C L 78 16 108/71 98 10/28/23 08:28 10/28/23 08:28 10/28/23 08:28 10/28/23 08:28 10/28/23 08:28 Pain Score Most Recent Pain Score: Most Recent Pain Score Pain Level 0 10/28/23 08:28 Assessment Mental Status: Awake (Alert & Oriented to Patient Baseline) Airway and Respiratory Function: Patent airway with normal (patient baseline) respiratory exam Cardiovascular Function: Hemodynamically Stable Hydration Status: Adequately Hydrated Nausea & Vomiting: No Nausea or Vomiting Pain: Pt. Denies Any Pain Peripheral Nerve Block: Patient did not receive a nerve block
== END 2023-10-28 08:59 | disposition home or self-care (01) ==
PROVIDERS: PCP Student in an Organized Health Care Education/Training Program; Visit Provider Student in an Organized Health Care Education/Training Program
PROC: (CPT 25000; principal; 2023-10-28 07:30)
DX: M65.4 Radial styloid tenosynovitis [de Quervain] (principal); I10 Essential (primary) hypertension; N28.9 Disorder of kidney and ureter, unspecified
CPT/HCPCS: 25000; J0690; J1885; J2250; J2704

== ENCOUNTER 2023-11-10 15:25 | Outpatient (REF) | payer MEDICAID, SELFPAY ==
--- OUTSIDE RECORDS SUMMARY | 2023-11-10 15:26 | XMS_ITS | Encounter Summary ---
Author Organization [facility] Address [address] [place] [address] Care Team Providers Care Mucking Machine Operator Name Role Phone Unavailable Primary Care Provider Unavailabl e Encounter Details Date Type Department Care Team (Late st Contact Info) Description 07/26/2004 12:55 EDT Hospital Encounter [facility] conversion [address] [place] [address] Jl Robledo MD Social History Tobacco Use [...]
--- OUTSIDE RECORDS SUMMARY | 2023-11-10 15:26 | XMS_ITS | Clinical Summary ---
Author Organization [facility] Address [address] [place] [address] Care Team Providers Care Direct Chill Casting Operator Name Role Phone Ta Jensen MD Primary Care Provider [phone] Social History Tobacco Use Types Packs/Day Years [...] - 1-dose 60+ series) 2023 Care Teams Direct Chill Casting Operator Relationship Specialty Start Date End Date Ta Jensen MD [facility] [place] [address] PCP - General 06/04/16
--- OUTSIDE RECORDS SUMMARY | 2023-11-10 15:26 | XMS_ITS | Encounter Summary ---
[place] [address] Care Team Providers Care Heart Doctor Name Role Phone Ta Jensen MD Primary Care Provider [phone] Reason for Referral * Consultation (Routine) - Authorized Specialty Diagnoses / Procedures Referred By Contac t Referred To Contact [facility] Center Diagnoses Chronic pain syndrome Cherrie Jean-Baptiste APRN [address] [place] [address] [facility] [place] [address] Referral ID Status Reason Start Date Expiration Date Visits Requested Visits Authorized [id number] Authorized Consult, Test & Treat PCP Updated and/or Approved 10/28/2023 10/27/2024 6 6 Encounter Details Date Type Department Care Team (Late st Contact Info) Description 11/06/2023 Transcribe Orders eDH Incoming Referrals [phone] Cherire Jean-Baptiste APRN [address] [place], [place] [id number] Chronic pain syndrome Social History Tobacco Use Types Packs/Day Years Used Date Smoking Tobacco: Former Smokeless Tobacco: Never Comments:Quit Over 25yrs ago Sex and Gender Information Value Date Recorded Sex Assigned at Not on file Gender Identity Not on file Sexual Orientation Not on file documented as of this encounter Plan of Treatment Scheduled Referrals Name Type Priority Associated Diagnoses Order Schedule Referral to Pain Management Outpatient Referral Routine Chronic pain syndrome Ordered: 11/06/2023 documented as of this encounter Visit Diagnoses Diagnosis Chronic pain syndrome documented in this encounter Care Teams Heart Doctor Relationship Specialty Start Date End Date Ta Jensen MD [address] [place] [address] PCP - General Family Medicine 07/22/20 documented as of this encounter
--- OUTSIDE RECORDS SUMMARY | 2023-11-10 15:26 | XMS_ITS | Encounter Summary ---
Author Organization [facility] [place] [address] Care Team Providers Care Delicatessen Manager Name Role Phone Ta Jensen MD Primary Care Provider Reason for Visit * Auth/Cert (Routine) Specialty Diagnoses / Procedures Referred By Contac t Referred To Contact Diagnoses lumbar spondylosis without myelopathy Procedures PRO INJECTION PV FACET JOINT LUMBAR/SACRAL SECOND LEVEL PRO INJECTION PV FACET JOINT LUMBAR/SACRAL SINGLE LEVEL INJECTION, FACET JOINT, W\FLUORO, LUMBAR, 2ND LEVEL (WRVU 1) INJECTION, FACET JOINT, W\FLUORO, LUMBAR, SINGLE (WRVU 1.52) Donna Severino MD [facility] [place] [address] [facility] Referral ID Status Reason Start Date Expiration Date Visits Re quested Visits Authorized [id number] 1 1 Encounter Details Date Type Department Care Team (Late st Contact Info) Description 12/30/2022 10:00 AM EDT - 12/30/2022 11:00 AM [place] [address] Donna Severino MD [facility] [place] [address] DESTRUCT BY LYTIC AGENT, FACET JNT NERVE(S), [...] date: 12/30/2022 Attending Physician: Donna Severino MD [facility] PREPROCEDURE HISTORY AND [...] Duque MD [facility] [place] [address] / documented in this encounter Miscellaneous Notes * Op Note - Donna Severino MD - 12/30/2022 10:25 AM EDT Pain Management Operative Note Patient Name: Nghia Owusu : [id number] MR#: [id number] Case Date: 12/30/2022 Surgeon: Surgeon(s) and Role: [...] remainder. Donna Severino MD [facility] Management Center Direct Chill Caster of Anesthesiology [facility] [address] [address] / [facility] CC: No referring provider defined for [...] LRFA) documented in this encounter Care Teams Delicatessen Manager Relationship Specialty Start Date End Date Ta Jensen MD [facility] [place] [address] PCP - General Family Medicine 07/22/20 documented as of this encounter
--- OUTSIDE RECORDS SUMMARY | 2023-11-10 15:26 | XMS_ITS | Clinical Summary ---
Author Organization [facility] Address [facility] [place] [address] Care Team Providers Care Piping Designer Name Role Phone Ta Jensen MD Primary Care Provider [phone] Allergies Active Allergy Reactions Criticality Noted Date [...] Encounters Date Type Department Care Team Description 11/06/2023 Transcribe Orders eDH Incoming Referrals [phone] Cherrie Jean-Baptiste APRN Chronic pain syndrome 08/22/2023 Telephone [facility] [place] [address] Leeann Ramos from Last 3 Months Social History Tobacco [...] - Influenza standard series) 12/14/2023 Care Teams Piping Designer Relationship Specialty Start Date End Date Ta Jensen MD [address] [place] [address] [place] [address] PCP - General Family Medicine 07/22/20
--- OUTSIDE RECORDS SUMMARY | 2023-11-10 15:26 | XMS_ITS | Encounter Summary ---
[place] [address] Care Team Providers Care Financial Services Director Name Role Phone Ta Jensen MD Primary Care Provider [phone] Reason for Visit * Reason Onset Date Comments Post Procedure Call 11/26/2022 Post bilater al L3, L4, L5-Dr [facility] Encounter Details Date Type Department Care Team (Late st Contact Info) Description 11/26/2022 Telephone [facility] [place] [phone] Hillary Beaver RN Post Procedure Call (Post [...] Is patient taking any NSAIDS/supplements? Fish Oil ([place] 3s) , Ibuprofen (Advil, Motrin, Midol) , [...] in this encounter Care Teams Financial Services Director Relationship Specialty Start Date End Date [place] [address] PCP - General Family Medicine 07/22/20 documented as of this encounter
--- OUTSIDE RECORDS SUMMARY | 2023-11-10 15:26 | XMS_ITS | Referral Summary ---
Author Organization [facility] Address [address] [place] [address] Care Team Providers Care Finance Manager Name Role Phone Ta Jensen MD Primary Care Provider [phone] Social History Tobacco Use Types Packs/Day Years Used Date Smoking Tobacco: Never Assessed Interpersonal Safety Answer Date Record ed Physically Hurt Never 11/14/2019 Verbally Threaten Not on file 11/14/2019 Sex and Gender Information Value Date Recorded Sex Assigned at Not on file Gender Identity Not on file Sexual Orientation Not on file Plan of Treatment Not on file Care Teams Finance Manager Relationship Specialty Start Date End Date Ta Jensen MD [facility] [place] [address] PCP - General 06/04/16
--- OUTSIDE RECORDS SUMMARY | 2023-11-10 15:26 | XMS_ITS | Encounter Summary ---
Author Organization [facility] [place] [address] Care Team Providers Care Bag Machine Helper Name Role Phone Ta Jensen MD Primary Care Provider [phone] Encounter Details Date Type Department Care Team (Late st Contact Info) Description 11/14/2022 Telephone [facility] [place] [address] Hillary Beaver RN Social History [...] on filedocumented in this encounter Care Teams Bag Machine Helper Relationship Specialty Start Date End Date Ta Jensen MD [facility] [place] [address] PCP - General Family Medicine 07/22/20 documented as of this encounter
--- OUTSIDE RECORDS SUMMARY | 2023-11-10 15:26 | XMS_ITS | Encounter Summary ---
Author Organization [facility] [place] [address] Care Team Providers Care Computer Network Specialist Name Role Phone Ta Jensen MD Primary Care Provider [phone] Encounter Details Date Type Department Care Team (Late st Contact Info) Description 01/27/2023 Telephone [facility] [place] [phone] Amalia Fernando Social History Tobacco Use Types [...] appointment with Sana Acevedo from 01/27/23. Call [phone]. documented in this encounter Plan of Treatment Not on file documented as of this encounter Visit Diagnoses Not on filedocumented in this encounter Care Teams Computer Network Specialist Relationship Specialty Start Date End Date Ta Jensen MD [address] [place], [place] [address] [address] PCP - General Family Medicine 07/22/20 documented as of this encounter
--- OUTSIDE RECORDS SUMMARY | 2023-11-10 15:26 | XMS_ITS | Encounter Summary ---
Author Organization [facility] Address [address] [place] [address] Care Team Providers Care Economics Teacher Name Role Phone Unavailable Primary Care Provider Unavailabl e Encounter Details Date Type Department Care Team (Late st Contact Info) Description 06/25/2007 Results Only [facility] Gastroenterology - [facility] [address] [place], [place] [address] Jl Robledo MD Social History Tobacco Use [...] separately. ? Proprietary and patented technology by [employer] [facility] ??The therapeutic range and toxic ? thresholds were established in ??an IBD patient population ? receiving azathioprine or 6-mercaptopurine. ??Metabolite ? testing should not replace laboratory monitoring for ? toxicity. ? References: ? Earlene Bueno et al. Pharmacogenomics and metabolite ? measurement for 6-mercaptopurine therapy in patients with ? inflammatory bowel disease. ??Gastroenterology. ??2000;118: ? 385-891. ? Frances MCKEON. Recent Advances in the [...] Clin Gastroenterol 2003;17(1):37-46. ? TEST PERFORMED BY [employer] [facility] ?[address] ?[place], [place] ??[address] ? [facility] 06/25/2007 13:2 6 EDT 06/25/2007 13:27 EDT Jl Robledo MD CHEMISTRY & BLOOD GA S ORDERABLES Performing Organization Address [facility] de Phone Number [facility] [address] [place] [address] * LIVER FUNCTION TESTS (06/25/2007 13:26 EDT) Albumin 4.5 3.4 - 4.9 g/dl [facility] Total Protein 7.2 6.5 - 8.3 g/dl [facility] Total Alkaline Phosphatase 94 38 - 126 U/L [facility] ALT 29 21 - 72 U/L [facility] AST 28 15 - 46 U/L [facility] Unconjugated Bilirubin 0.4 0.1 - 1.1 mg/dl [facility] Conjugated Bilirubin 0.0 0.0 - 0.3 mg/dl [facility] Bilirubin, Total <0.5 0.2 - 1.3 mg/dl [facility] 06/25/2007 13:2 6 EDT 06/25/2007 13:27 EDT Jl Robledo MD CHEMISTRY & BLOOD GA S ORDERABLES Performing Organization Address [facility] de Phone Number [facility] [address] [place] [address] * C-REACTIVE PROTEIN (06/25/2007 13:26 EDT) C-Reactive Protein 0.8 <1.0 mg/dl [facility] 06/25/2007 13:2 6 EDT 06/25/2007 13:27 EDT Jl Robledo MD CHEMISTRY & BLOOD GA S ORDERABLES [facility] [address] [place] [address] * HEMAGRAM (06/25/2007 13:26 EDT) WBC 6.02 4.0 - 10.4 K/cmm [facility] RBC 4.40 4.36 - 5.78 [...] PF4 ORD ERABLES [facility] [address] [place] [address] documented in this encounter Visit Diagnoses Not on filedocumented in this encounter
--- OUTSIDE RECORDS SUMMARY | 2023-11-10 15:26 | XMS_ITS | Encounter Summary ---
Author Organization [facility] [place] [address] Care Team Providers Care Social Sciences Professor Name Role Phone Ta Jensen MD Primary Care Provider [phone] Encounter Details Date Type Department Care Team (Late st Contact Info) Description 08/07/2023 Telephone [place] [phone] Amalia Fernando Social History Tobacco Use Types Packs/Day Years Used Date Smoking Tobacco: Former Smokeless Tobacco: Never Comments:Quit Over 25yrs ago Sex and Gender Information Value Date Recorded Sex Assigned at Not on file Gender Identity Not on file Sexual Orientation Not on file documented as of this encounter Miscellaneous Notes * Telephone Encounter - Amalia Fernando - 08/07/2023 8:03 AM EDT [facility] 08/07/23 in regards to scheduling a follow up with Sana Acevedo APRN. Please call [phone]. Note: Follow up to Low back pain/ S/p RFA 12/30/22/ Discuss next steps documented in this encounter Plan of Treatment Not on file documented as of this encounter Visit Diagnoses Not on filedocumented in this encounter Care Teams Social Sciences Professor Relationship Specialty Start Date End Date Ta Jensen MD [address] [place] [address] [place] [address] PCP - General Family Medicine 07/22/20 documented as of this encounter
--- OUTSIDE RECORDS SUMMARY | 2023-11-10 15:26 | XMS_ITS | Encounter Summary ---
Author Organization [facility] [place] [address] Care Team Providers Care Liner Roll Changer Name Role Phone Ta Jensen MD Primary Care Provider Encounter Details Date Type Department Care Team (Late st Contact Info) Description 11/22/2022 Telephone [facility] [place] [address] Hillary Beaver RN Social History [...] on filedocumented in this encounter Care Teams Liner Roll Changer Relationship Specialty Start Date End Date [place] [address] PCP - General Family Medicine 07/22/20 documented as of this encounter
--- OUTSIDE RECORDS SUMMARY | 2023-11-10 15:26 | XMS_ITS | Encounter Summary ---
Author Organization [facility] Address [address] [place] [address] Care Team Providers Care Taping Foreman Name Role Phone Ta Jensen MD Primary Care Provider [phone] Encounter Details Date Type Department Care Team (Late st Contact Info) Description 10/02/2022 Lab Requisition [facility] Pathology & Laboratory Medicine - [address] [address] Outr Resulting Lab, Provider Social History Tobacco [...] Ab Positive See Note 10/03/2022 10:05 EDT [facility] Comment:Presence of detectab le Varicella Zoster virus IgG antibodies. Blood VENOUS BLOOD / Unknown 10/01/2022 13:15 EDT 10/02/2022 16:58 EDT Provider Outr Resulting Lab IMMUNOLOGY A ND SEROLOGY ORDERABLES [facility] [address] [place] [address] documented in this encounter Visit Diagnoses Not on filedocumented in this encounter Care Teams Taping Foreman Relationship Specialty Start Date End Date Ta Jensen MD [address] [place] [address] PCP - General 06/04/16 documented as of this encounter
--- OUTSIDE RECORDS SUMMARY | 2023-11-10 15:26 | XMS_ITS | Encounter Summary ---
Author Organization [facility] Address [address] [place] [address] Care Team Providers Care Retail Chain Store Area Supervisor Name Role Phone Ta Jensen MD Primary Care Provider Encounter Details Date Type Department Care Team (Late st Contact Info) Description 06/30/2020 Lab Requisition [facility] Pathology & Laboratory Medicine - [facility] [address] [place] [address] Jazmin Cole, DO [address] [place] [address] Encounter for other general examination [...] with no significant diagnostic abnormalities. 07/04/2020 13:40 [facility] Attestation By the signature below, the attending physician certifies that they have 1) personally conducted a gross and/or microscopic examination of the described specimen(s), and/or personally interpreted the results of laboratory testing of the described specimen(s), and 2) personally rendered or confirmed the above diagnosis. 07/04/2020 13:40 [facility] at 1340 Clinical History Crohn's disease 07/04/2020 13:40 [facility] Gross Description A. Received in [...] KONG VERA(ASCP) 07/03/2020 9:44 07/04/2020 13:40 EDT [facility] Performing Lab [facility] 07/04/2020 13:40 EDT [facility] Scanned Images 07/04/2020 13:40 EDT [facility] Tissue SPECIMEN FROM [...] 22:46 EDT Jazmin Cole DO PATHOLOGY ORDERABLES [facility] [address] [place] [address] documented in this encounter Visit Diagnoses Diagnosis Encounter for other general examination documented in this encounter Care Teams Retail Chain Store Area Supervisor Relationship Specialty Start Date End Date Ta Jensen MD [address] [place] [address] PCP - General 06/04/16 documented as of this encounter
--- OUTSIDE RECORDS SUMMARY | 2023-11-10 15:26 | XMS_ITS | Encounter Summary ---
Author Organization [facility] Address [address] [place] [address] Care Team Providers Care Rn Coronary Care Unit Name Role Phone Ta Taylor MD Primary Care Provider [phone] Encounter Details Date Type Department Care Team (Latest Contact Info) Description 05/31/2016 10:05 EST - 05/31/2016 23:59 EST Hospital Encounter [facility] [address] [place] [address] Unknown, Provider, Discharge Disposition: Home or Self Care Social History Tobacco Use Types Packs/Day Years Used Date Smoking Tobacco: Never Assessed Sex and Gender Information Value Date Recorded Sex Assigned at Not on file Gender Identity Not on file Sexual Orientation Not on file documented as of this encounter Discharge Disposition Disposition Code Departure Means Destination Home or Self Fdc documented in this encounter Plan of Treatment Not on file documented as of this encounter Visit Diagnoses Not on filedocumented in this encounter Care Teams Rn Coronary Care Unit Relationship Specialty Start Date End Date Ta Taylor MD [address] [place] [address] PCP - General 05/15/11 06/03/16 documented as of this encounter
--- OUTSIDE RECORDS SUMMARY | 2023-11-10 15:26 | XMS_ITS | Encounter Summary ---
Author Organization [facility] Address [address] [place] [address] Care Team Providers Care Chauffeur Airport Limousine Name Role Phone Ta Jenesn MD Primary Care Provider [phone] Encounter Details Date Type Department Care Team (Late st Contact Info) Description 08/21/2022 Lab Requisition [facility] Pathology & Laboratory Medicine - [address] [id number] Outr Resulting Lab, Provider Social History Tobacco [...] Ab Positive See Note 08/22/2022 10:06 EDT [facility] Comment:Presence of detectab le Varicella Zoster virus IgG antibodies. Blood VENOUS BLOOD / Unknown 08/21/2022 12:10 EDT 08/21/2022 21:03 EDT Provider Outr Resulting Lab IMMUNOLOGY A ND SEROLOGY ORDERABLES [facility] [address] [place] [address] documented in this encounter Visit Diagnoses Not on filedocumented in this encounter Care Teams Chauffeur Airport Limousine Relationship Specialty Start Date End Date Ta Jensen MD [address] [place] [address] PCP - General 06/04/16 documented as of this encounter
--- OUTSIDE RECORDS SUMMARY | 2023-11-10 15:26 | XMS_ITS | Encounter Summary ---
Author Organization [facility] [place] [address] Care Team Providers Care Restaurant Shift Leader Name Role Phone Ta Jensen MD Primary Care Provider [phone] Encounter Details Date Type Department Care Team (Late st Contact Info) Description 11/26/2022 Orders Only [facility] [place] [address] Hillary Beaver RN Lumbar spondylosis (Primary Dx) [...] myelopathy documented in this encounter Care Teams Restaurant Shift Leader Relationship Specialty Start Date End Date Ta Jensen MD [facility] [place] [address] PCP - General Family Medicine 07/22/20 documented as of this encounter
--- OUTSIDE RECORDS SUMMARY | 2023-11-10 15:26 | XMS_ITS | Encounter Summary ---
Author Organization [facility] Address [address] [place] [address] Care Team Providers Care Process Control Programmer Name Role Phone Unavailable Primary Care Provider Unavailabl e Encounter Details Date Type Department Care Team (Late st Contact Info) Description 06/21/2003 Results Only [facility] conversion [address] [place] [address] Nickolas Montano, DO [address] [facility] [address] [place], [place] [id number] Social History Tobacco Use Types Packs/Day Years [...] ? NGHIA OWUSU ? Accession #: ? [id number] ? : ? 1965 (Age: 38) ??M ? Collect Date: ? 06/21/2003 ? Location: ? [facility] ? Receive Date: ? 06/21/2003 ? Provider: NICKOLAS MONTANO DO Copy to: ALONSO HAWKINS MD ? Final Pathologic Diagnosis: ? Stomach, antrum, biopsy: - Chronic gastritis. ??See comment. Comment: ? A Emerald stain is performed and is negative for Helicobacter pylori-like microorganisms. ??(Dr. Park)/[facility] Document reviewed and electronically signed by: [...] PATHOLOGY ORDER K[facility] [address] [place] [address] documented in this encounter Visit Diagnoses Not on filedocumented in this encounter
--- OUTSIDE RECORDS SUMMARY | 2023-11-10 15:26 | XMS_ITS | Encounter Summary ---
Author Organization [facility] Address [address] [place] [address] Care Team Providers Care Glass Toughening Operator Name Role Phone Unavailable Primary Care Provider Unavailabl e Encounter Details Date Type Department Care Team (Late st Contact Info) Description 05/13/2011 Results Only [facility] Laboratory Services - [facility] ([facility] [address] [place], [place] [phone] Mike Yu MD [address] [place] [address] [place] [address] Social History Tobacco Use Types [...] ? NGHIA OWUSU ? Accession #: ? [id number] ? : ? 1965 (Age: 46) ??M [...] are recommended should the mass persist/recur clinically. ??Fixed Wing Pilot sections of this case have been reviewed [...] reagents' ??performance characteristics have been determined by [facility]. ??This laboratory is certified under the Clinical Laboratory Improvement Amendments of 1988 (CLIA-88) as qualified to perform high complexity clinical laboratory testing. ?(Dr. Ramos)/[facility] Document reviewed and electronically signed by: [...] Mike Yu MD PATHOLOGY ORDERABLES [facility] [address] [place] [address] documented in this encounter Visit Diagnoses Not on filedocumented in this encounter
--- OUTSIDE RECORDS SUMMARY | 2023-11-10 15:26 | XMS_ITS | Encounter Summary ---
Author Organization [facility] Address [address] [place] [address] Care Team Providers Care Dye Feeder Name Role Phone Alonso Taylor MD Primary Care Provider [phone] Encounter Details Date Type Department Care Team (Late st Contact Info) Description 05/31/2016 Results Only [facility] [phone] Lisette Damico, DO [address] [place] [address] Social History Tobacco Use Types [...] ? NGHIA OWUSU ? Accession #: ? [id number] ? : ? 1965 (Age: 51) ??M [...] (ASCP) 06/03/2016 1:20 PM End of Report [facility] 05/31/2016 12:0 4 EST 06/03/2016 12:04 EST Lisette Damico DO PATHOLOGY ORDERABLES [facility] [address] [place] [address] documented in this encounter Visit Diagnoses Not on filedocumented in this encounter Care Teams Dye Feeder Relationship Specialty Start Date End Date Alonso Taylor MD [address] [place] [address] PCP - General 05/15/11 06/03/16 documented as of this encounter
--- OUTSIDE RECORDS SUMMARY | 2023-11-10 15:26 | XMS_ITS | Encounter Summary ---
Author Organization [facility] Address [address] [place] [address] Care Team Providers Care Finance Manager Name Role Phone Ta Jensen MD Primary Care Provider [phone] Encounter Details Date Type Department Care Team (Late st Contact Info) Description 08/21/2022 Lab Requisition [facility] Pathology & Laboratory Medicine - [facility] [address] [place], [place] [phone] Outr Resulting Lab, Provider Social History Tobacco [...] 4th Generation Negative Negative 08/22/2022 10:00 EDT [facility] Comment:If acute HIV-1 infec tion is suspected in a high risk patient, submit plasma specimen for HIV-1 RNA quantitation test. Blood VENOUS BLOOD / Unknown 08/21/2022 12:10 EDT 08/21/2022 21:03 EDT Narrative [facility] - 08/22/2022 10:00 EDT Fourth Generation assay performed on the Siemens Centaur XPT. Provider Outr Resulting Lab IMMUNOLOGY A ND SEROLOGY ORDERABLES [facility] [address] [place] [address] documented in this encounter Visit Diagnoses Not on filedocumented in this encounter Care Teams Finance Manager Relationship Specialty Start Date End Date Ta Jensen MD [address] [place] [address] PCP - General 06/04/16 documented as of this encounter
--- OUTSIDE RECORDS SUMMARY | 2023-11-10 15:26 | XMS_ITS | Encounter Summary ---
Author Organization [facility] Address [address] [place] [address] Care Team Providers Care Vp Treasurer Name Role Phone Unavailable Primary Care Provider Unavailabl e Encounter Details Date Type Department Care Team (Latest Contact Info) Description 06/25/2007 10:23 EDT - 06/25/2007 11:59 EDT Hospital Encounter [facility] [address] [place] [address] Jl Robledo MD Discharge Disposition: Auto Discharge [...]
--- OUTSIDE RECORDS SUMMARY | 2023-11-10 15:26 | XMS_ITS | Encounter Summary ---
Author Organization [facility] Address [address] [place] [address] Care Team Providers Care Grain Oilseed Or Pasture Farm Manager Name Role Phone Unavailable Primary Care Provider Unavailabl e Encounter Details Date Type Department Care Team (Late st Contact Info) Description 07/26/2004 Results Only [facility] [address] [place], [place] [address] Jl Robledo MD Social History Tobacco Use [...] EDT documented in this encounter Results * [employer] TPMT GENETICS (07/26/2004 11:28 EDT) [employer] TPMT Genetics TPMT*1/TPMT*1 See supplementary report Assayed at [employer], [place] [facility] 07/26/2004 11:2 8 EDT 07/26/2004 11:29 EDT Jl Robledo MD CHEMISTRY & BLOOD GA S ORDERABLES Performing Organization Address [facility] Co de Phone Number [facility] [address] [place] [address] * LIVER FUNCTION TESTS (07/26/2004 11:28 EDT) [...] BLOOD GA S ORDERABLES Performing Organization Address [facility] Co de Phone Number [facility] [address] [place] [address] * C-REACTIVE PROTEIN (07/26/2004 11:28 EDT) C-Reactive Protein <0.7 <1.0 mg/dl [facility] 07/26/2004 11:2 8 EDT 07/26/2004 11:29 EDT Jl Robledo MD CHEMISTRY & BLOOD GA S ORDERABLES Performing Organization Address City/[facility] Co de Phone Number [facility] [address] [place] [address] * HEMAGRAM (07/26/2004 11:28 EDT) WBC 5.24 [...] LAB MCHC 34.5 32.8 - 36.4 gm/dl [facility] PLT 237 141 - 320 K/cmm [facility] RDW-CV 12.8 11.8 - 14.1 % [facility] 07/26/2004 11:2 8 EDT 07/26/2004 11:29 EDT Jl Robledo MD HEMATOLOGY & PF4 ORD ERABLES [facility] [address] [place] [address] documented in this encounter Visit Diagnoses Not on filedocumented in this encounter
--- OUTSIDE RECORDS SUMMARY | 2023-11-10 15:26 | XMS_ITS | Encounter Summary ---
Author Organization [facility] [place] [address] Care Team Providers Care Lard Maker Name Role Phone Ta Jensen MD Primary Care Provider [phone] Reason for Visit * Auth/Cert (Routine) Specialty Diagnoses / Procedures Referred By Contac t Referred To Contact Diagnoses lumbar spondylosis without myelopathy Procedures PRO INJECTION PV FACET JOINT LUMBAR/SACRAL SECOND LEVEL PRO INJECTION PV FACET JOINT LUMBAR/SACRAL SINGLE LEVEL INJECTION, FACET JOINT, W\FLUORO, LUMBAR, 2ND LEVEL (WRVU 1) INJECTION, FACET JOINT, W\FLUORO, LUMBAR, SINGLE (WRVU 1.52) Donna Severino MD [facility] [place] [address] [facility] Referral ID Status Reason Start Date Expiration Date Visits Re quested Visits Authorized [id number] 1 1 Encounter Details Date Type Department Care Team (Late st Contact Info) Description 12/30/2022 10:00 AM EDT Ancillary [place] [address] Donna Severino MD [facility] [place] [address] Social History Tobacco Use Types Packs/Day Years [...] Clinic C-Arm (12/30/2022 1:58 PM EDT) Narrative [facility] - 12/30/2022 1:58 PM EDT See PACS for result report. Donna Severino MD G FILM LIBRARY ORD ERABLES [place], [place] documented in this encounter Visit Diagnoses Not on filedocumented in this encounter Care Teams Lard Maker Relationship Specialty Start Date End Date Ta Jensen MD [address] [place] [address] PCP - General Family Medicine 07/22/20 documented as of this encounter
--- OUTSIDE RECORDS SUMMARY | 2023-11-10 15:26 | XMS_ITS | Encounter Summary ---
Author Organization [facility] [place] [address] Care Team Providers Care Wire Drawing Machine Tender Name Role Phone Ta Jensen MD Primary Care Provider Encounter Details Date Type Department Care Team (Late st Contact Info) Description 12/27/2022 Orders [place] [address] Donna Severino MD [facility] [place] [address] Spondylosis without myelopathy or radiculopathy, lumbar region [...] region documented in this encounter Care Teams Wire Drawing Machine Tender Relationship Specialty Start Date End Date Ta Jensen MD [address] [place] [address] [place] [address] PCP - General Family Medicine 07/22/20 documented as of this encounter
--- OUTSIDE RECORDS SUMMARY | 2023-11-10 15:26 | XMS_ITS | Encounter Summary ---
Author Organization [facility] Address [address] [place] [address] Care Team Providers Care Pulverizer Name Role Phone Unavailable Primary Care Provider Unavailabl e Encounter Details Date Type Department Care Team (Late st Contact Info) Description 06/25/2007 Before PRISM Converted Visit ([facility]) [facility] conversion [address] [place] [address] Jl Priest MD Social History Tobacco Use [...] July 14, 2007 MR. NGHIA OWUSU [address] [place] [address] Dear Mr. Owusu: The small polyp we [...] MD, FACG 07/21/2007 13:07 Yvonne Priest MD, [id number] L Moses, MD, FACGPmohinder Priest MD, [id number] - Jl Priest MD, FACG - CAROLE Job ID: [id number] Doc ID: [id number] cc: MD Janice Acuña NP *Patient * Jl Priest MD - 01/09/2009 1150 EDT DIVISION OF GASTROENTEROLOGY July 10, 2007 MR. NGHIA OWUSU [address] [place] [address] Dear Nghia: As I suspected your 6 [...] all. Sincerely, Signed by Jl Priest MD, [facility] 07/13/2007 08:18 Yvonne Priest MD, [id number] L Moses, MD, FAC - Jl Priest MD, FACG - Job ID: [id number] Doc ID: [id number] cc: Janice Salazar NP *Patient documented in this encounter Procedure Notes * Jl Priest MD - 01/12/2009 2221 EDT [facility] Colonoscopy Procedure Report Attending Physician: JL PRIEST [...] ileum, confirmed by appendiceal orifice, cecal strap (shungnak's foot), and ileocecal valve. The scope was [...] MD, MD, FACG on 07/07/2007 at 15:06 [facility] Document ID: [id number] documented in this encounter Consult Notes * Jl Priest MD - 01/05/2009 0059 EDT DIVISION OF GASTROENTEROLOGY CONSULTATION - 06/25/2007 Janice Salazar NP [facility] [address] [place] [address] Dear Janice: I saw Nghia Owusu in [...] FACG 06/30/2007 16:45 Jl Priest MD, FACG [phone] D: - Jl Priest MD, FACG - NICHOL Job ID: [id number] Doc ID: [id number] cc: Janice Salazar NP documented in this encounter Plan of Treatment Not on file documented as of this encounter Visit Diagnoses Not on filedocumented in this encounter
--- OUTSIDE RECORDS SUMMARY | 2023-11-10 15:26 | XMS_ITS | Encounter Summary ---
Author Organization [facility] Address [address] [place] [address] Care Team Providers Care Glove Turner Name Role Phone Unavailable Primary Care Provider Unavailabl e Encounter Details Date Type Department Care Team (Late st Contact Info) Description 06/25/2004 Results Only [facility] conversion [address] [place] [address] Fransisco Montano MD [address] [place] [address] Social History Tobacco Use Types Packs/Day Years [...] ? NGHIA OWUSU ? Accession #: ? [id number] ? : ? 1965 (Age: 39) ??M [...] entirely submitted as (E1) and (E2). ??(Willian Tavera)/[facility] End of Report [facility] 06/25/2004 06/25/2004 14: 55 EST Fransisco Montano MD PATHOLOGY ORDERABLE S Performing Organization Address City/State/[facility] Co de Phone Number [facility] [address] [address] documented in this encounter Visit Diagnoses Not on filedocumented in this encounter
--- OUTSIDE RECORDS SUMMARY | 2023-11-10 15:26 | XMS_ITS | Encounter Summary ---
Author Organization [facility] Address [address] [place] [address] Care Team Providers Care Centrifugal Supervisor Name Role Phone Unavailable Primary Care Provider Unavailabl e Encounter Details Date Type Department Care Team (Late st Contact Info) Description 07/29/2000 Results Only [facility] conversion [address] [place] [address] Alonso Hawkins MD [address] [place] [address] Social History Tobacco Use Types [...] ? NGHIA OWUSU ? Accession #: ? [id number] ? : ? 1965 (Age: 35) ??M [...] length and 0.2 cm in diameter. Two small business representative sections are submitted as (B). ??(Dr. Jefferson)/angelia End of Report [facility] 07/29/2000 07/31/2000 15: 14 EDT Alonso Hawkins MD PATHOLOGY ORDERABLES [facility] [address] [place] [address] documented in this encounter Visit Diagnoses Not on filedocumented in this encounter
--- OUTSIDE RECORDS SUMMARY | 2023-11-10 15:26 | XMS_ITS | Encounter Summary ---
Author Organization [facility] Address [address] [place] [address] Care Team Providers Care Supervisor Cell Maintenance Name Role Phone Unavailable Primary Care Provider Unavailabl e Encounter Details Date Type Department Care Team (Latest Contact Info) Description 12/05/2005 12:32 EDT Hospital Encounter [facility] [address] [place] [address] Jl Robledo MD Discharge Disposition: Auto Discharge [...]
--- OUTSIDE RECORDS SUMMARY | 2023-11-10 15:26 | XMS_ITS | Encounter Summary ---
Author Organization [facility] Address [address] [place] [address] Care Team Providers Care Feather Drying Machine Operator Name Role Phone Unavailable Primary Care Provider Unavailabl e Encounter Details Date Type Department Care Team (Latest Contact Info) Description 07/07/2007 12:47 EDT Hospital Encounter [facility] [address] [place] [address] Jl Robledo MD Discharge Disposition: Auto Discharge [...]
--- OUTSIDE RECORDS SUMMARY | 2023-11-10 15:26 | XMS_ITS | Encounter Summary ---
Author Organization [facility] Address [address] [place] [address] Care Team Providers Care Hand Wrapper Operator Name Role Phone Unavailable Primary Care Provider Unavailabl e Encounter Details Date Type Department Care Team (Late st Contact Info) Description 12/05/2005 Before [facility] Converted Visit (Maple) [facility] conversion [address] [place] [address] Jl Robledo MD Social History Tobacco Use [...] MD, FACG 12/09/2005 11:37 Yvonne Robledo MD, [id number] L Moses, MD, FACG Jl Robledo MD, [facility] [phone] - Jl Robledo MD, FACG A - abbie Job ID: [id number] Document ID: [id number] cc: Janice Salazar NP documented in this encounter Plan of Treatment Not on file documented as of this encounter Visit Diagnoses Not on filedocumented in this encounter
--- OUTSIDE RECORDS SUMMARY | 2023-11-10 15:26 | XMS_ITS | Encounter Summary ---
Author Organization [facility] [place] [address] Care Team Providers Care Wood Boring Machine Operator Name Role Phone Ta Jensen MD Primary Care Provider [phone] Reason for Visit * Auth/Cert (Routine) Specialty Diagnoses / Procedures Referred By Contac t Referred To Contact Diagnoses lumbar spondylosis without myelopathy Procedures PRO INJECTION PV FACET JOINT LUMBAR/SACRAL SECOND LEVEL PRO INJECTION PV FACET JOINT LUMBAR/SACRAL SINGLE LEVEL INJECTION, FACET JOINT, W\FLUORO, LUMBAR, 2ND LEVEL (WRVU 1) INJECTION, FACET JOINT, W\FLUORO, LUMBAR, SINGLE (WRVU 1.52) Donna Severino MD [facility] [place] [address] [facility] Referral ID Status Reason Start Date Expiration Date Visits Re quested Visits Authorized [id number] 1 1 Encounter Details Date Type Department Care Team (Latest Contact Info) Description 12/30/2022 9:26 AM EDT - 12/30/2022 11:42 AM EDT Hospital [place] [address] Donna Severino MD [facility] [place] [address] Spondylosis without myelopathy or radiculopathy, lumbar region [...] 12/30/2022 Attending Physician: Donna Severino MD [facility] PREPROCEDURE HISTORY [...] Duque MD [facility] [place] [address] / documented in this encounter Miscellaneous Notes * Op Note - Donna Severino MD - 12/30/2022 10:25 AM EDT Pain Management Operative Note Patient Name: Nghia Owusu : [id number] MR#: [id number] Case Date: 12/30/2022 Surgeon: Surgeon(s) and Role: [...] anesthetic medial branch blocks resulted in Mr. wOusu reporting a significant reduction of the usual [...] remainder. Donna Severino MD Pain Management Center Team Supervisor of Anesthesiology [facility] [address] [address] / [facility] CC: No referring provider defined for this [...] LRFA) documented in this encounter Care Teams Wood Boring Machine Operator Relationship Specialty Start Date End Date Ta Jensen MD [address] [place] [address] PCP - General Family Medicine 07/22/20 documented as of this encounter
--- OUTSIDE RECORDS SUMMARY | 2023-11-10 15:26 | XMS_ITS | Encounter Summary ---
Author Organization [facility] [place] [address] Care Team Providers Care Program Director Scouting Name Role Phone Ta Jensen MD Primary Care Provider [phone] Encounter Details Date Type Department Care Team (Late st Contact Info) Description 08/22/2023 Telephone Pain and Spine Center at [facility] [place] [phone] Leeann Ramos Social History Tobacco Use Types [...] on filedocumented in this encounter Care Teams Program Director Scouting Relationship Specialty Start Date End Date Ta Jensen MD [facility] [place] [address] PCP - General Family Medicine 07/22/20 documented as of this encounter
--- OUTSIDE RECORDS SUMMARY | 2023-11-10 15:26 | XMS_ITS | Encounter Summary ---
Author Organization [facility] Address [address] [place] [address] Care Team Providers Care Sandstone Inspector Repairer Name Role Phone Unavailable Primary Care Provider Unavailabl e Encounter Details Date Type Department Care Team (Late st Contact Info) Description 07/07/2007 Results Only [facility] Gastroenterology - [facility] [address] [place] [address] Jl Priest MD Social History Tobacco Use [...] ? NGHIA OWUSU ? Accession #: ? [id number] ? : ? 1965 (Age: 42) ??M [...] biopsies were compared to the previous biopsies ([id number]), and the current specimen does not demonstrate [...] Priest MD PATHOLOGY ORDERABLES Performing Organization Address City/State/[facility] Co de Phone Number [facility] [address] [place] [address] documented in this encounter Visit Diagnoses Not on filedocumented in this encounter
--- OUTSIDE RECORDS SUMMARY | 2023-11-10 15:27 | XMS_ITS | Encounter Summary ---
Author Organization [facility] [place] [address] Care Team Providers Care Director Of Veterans Affairs Name Role Phone Ta Jensen MD Primary Care Provider [phone] Encounter Details Date Type Department Care Team [...] on filedocumented in this encounter Care Teams Director Of Veterans Affairs Relationship Specialty Start Date End Date Ta Jensen MD [address] [place] [address] PCP - General Family Medicine 07/22/20 documented as of this encounter
--- OUTSIDE RECORDS SUMMARY | 2023-11-10 15:27 | XMS_ITS | Encounter Summary ---
Author Organization [facility] [place] [address] Care Team Providers Care Pet Resort Concierge Name Role Phone Ta Jensen MD Primary Care Provider [phone] Reason for Visit * Auth/Cert (Routine) Specialty Diagnoses / Procedures Referred By Contac t Referred To Contact Diagnoses lumbar spondylosis Procedures PRO INJECTION PV FACET JOINT LUMBAR/SACRAL SECOND LEVEL PRO INJECTION PV FACET JOINT LUMBAR/SACRAL SINGLE LEVEL INJECTION, FACET JOINT, W\FLUORO, LUMBAR, 2ND LEVEL (WRVU 1) INJECTION, FACET JOINT, W\FLUORO, LUMBAR, SINGLE (WRVU 1.52) Donna Severino MD [facility] [place] [address] [facility] Referral ID Status Reason Start Date Expiration Date Visits Re quested Visits Authorized [id number] 1 1 Encounter Details Date Type Department Care Team (Latest Contact Info) Description 11/14/2022 1:14 PM EDT - 11/14/2022 3:51 PM EDT Hospital [place] [address] Donna Severino MD [facility] [place] [address] Lumbar spondylosis Discharge Disposition: Home Social History [...] 1.16) performed by Donna Severino MD at [facility] MSO PRO DSTR PARAVERTEBRAL FCT JNT NRVES LUMBAR OR SACRAL SINGLE Bilateral 11/06/2021 DESTRUCTI BY LYTIC AGENT, FACET JOINT NERVE(S); LUMBAR OR SACRAL, SNGL (WRVU 3.78) performed by Donna Seveirno MD at [facility] MSO PRO INJ PARAVERTEBRAL FACET JT W/IMAGE GUID, LUMBAR/SACRAL, 3RD OR ADDL LEVEL Bilateral 08/16/2021 INJECTION, FACET JOINT, W\FLUORO, LUMBAR, 3RD LEVEL (WRVU 1) performed by Donna Severino MD at [facility] MSO PRO INJECTION PV FACET JOINT LUMBAR/SACRAL SECOND LEVEL Bilateral 08/16/2021 INJECTION, FACET JOINT, W\FLUORO, LUMBAR, 2ND LEVEL (WRVU 1) performed by Donna Severino MD at [facility] MSO PRO INJECTION PV FACET JOINT LUMBAR/SACRAL SECOND LEVEL Bilateral 09/20/2021 INJECTION, FACET JOINT, W\FLUORO, LUMBAR, 2ND LEVEL (WRVU 1) performed by Donna Severino MD at [facility] MSO PRO INJECTION PV FACET JOINT LUMBAR/SACRAL SINGLE LEVEL Bilateral 08/16/2021 INJECTION, FACET JOINT, W\FLUORO, LUMBAR, SINGLE (WRVU 1.52) performed by Donna Severino MD at [facility] MSO PRO INJECTION PV FACET JOINT LUMBAR/SACRAL SINGLE LEVEL Bilateral 09/20/2021 INJECTION, FACET JOINT, W\FLUORO, LUMBAR, SINGLE (WRVU 1.52) performed by Donna Severino MD at [facility] MSO ALLERGIES: Venom-yellow jacket [...] Operative Note Patient Name: Nghia Owusu : [id number] MR#: [id number] Case Date: 11/14/2022 Surgeon: Surgeon(s) and Role: [...] block testing?: Yes Today's Operative Note Nghia wOusu was greeted by the nurse who verified [...] procedure. Donna Severino MD Pain Management Center Grocery Clerk Selling of Anesthesiology [facility] [address] [address] / [facility] CC: Unknown None documented in this encounter Plan of Treatment Not on file documented as of this encounter Procedures Procedure Name Priority Date/Time Associated Diagnosis Comments Injection Pv Facet Joint Lumbar/Sacral Single Level (34275) 11/14/2022 2:31 PM EDT Lumbar spondylosis Injection Pv Facet Joint Lumbar/Sacral Second Level (70950) 11/14/2022 2:31 PM EDT Lumbar spondylosis INJECTION, [...] DO) documented in this encounter Care Teams Pet Resort Concierge Relationship Specialty Start Date End Date Ta Jensen MD [address] [place] [address] PCP - General Family Medicine 07/22/20 documented as of this encounter
--- OUTSIDE RECORDS SUMMARY | 2023-11-10 15:27 | XMS_ITS | Encounter Summary ---
Author Organization [facility] [place] [address] Care Team Providers Care Inspector Heating And Refrigeration Name Role Phone Ta Jensen MD Primary Care Provider [phone] Reason for Visit * Auth/Cert Specialty Diagnoses [...] Expiration Date Visits Re quested Visits Authorized [id number] 1 1 Encounter Details Date Type Department Care Team (Latest Contact Info) Description 09/20/2021 8:27 AM EDT - 09/20/2021 9:46 AM EDT Hospital [place] [address] Donna Severino MD [facility] [place] [address] Lumbar spondylosis Discharge Disposition: Home Social History [...] Post -Procedure Pain Log Patient: Nghia Owusu [id number] It is important for you to keep [...] 12:45 4 hours 1:45 The Pain [facility] Ditch Inspector Nurse will call you within a week of your procedure to ask about your response to the procedure and help with the next steps. If you need to reach the Ditch Inspector you can call: [phone]. documented in this encounter Medications at Time of Discharge Medication Sig Dispensed Refills Start Date End Date EPINEPHrine 0.3 mg/0.3 mL Auto-Injector Inject 1 kit into the muscle once as needed. Inject 0.3 mL IM once as needed for allergic reaction (Throat tight, difficulty breathing). Call [phone] as directed. atorvastatin (Lipitor) 10 mg Tablet [...] 1) performed by Donna Severino MD at [facility] MS[facility] ??? PRO INJECTION PV FACET JOINT LUMBAR/SACRAL SECOND LEVEL Bilateral 08/16/2021 INJECTION, FACET JOINT, W\FLUORO, LUMBAR, 2ND LEVEL (WRVU 1) performed by Donna Severino MD at [facility] MSO ??? PRO INJECTION PV FACET JOINT LUMBAR/SACRAL SINGLE LEVEL Bilateral 08/16/2021 INJECTION, FACET JOINT, W\FLUORO, LUMBAR, SINGLE (WRVU 1.52) performed by Donna Severino MD at [facility] ALLERGIES: Venom-yellow jacket and Unknown [unclassified [...] (5' 7) Wt 86.2 kg (190 lb) ReI0065% BMI 29.76 kg/m?? Physical Exam Constitutional: Pt [...] proceed. Donna Severino MD Pain Management Center Order Entry Administrator of Anesthesiology [facility] [address] [address] / [facility] [place] documented in this encounter Miscellaneous Notes * Op Note - oDnna Severino MD - 09/20/2021 9:00 AM EDT Pain Management Operative Note Patient Name: Nghia Owusu : [id number] MR#: [id number] Case Date: 09/20/2021 Surgeon: Surgeon(s) and Role: * Donna Severino MD - Primary * Tobin Llanos MD - Fellow Present on Admission: ??? Spondylosis without myelopathy or radiculopathy, lumbar region Postoperative diagnosis: same PROCEDURE NOTE LUMBAR MEDIAL BRANCH DIAGNOSTIC BLOCKS Patient: Nghia Owusu Referring Physician: [place] [address] [address] Diagnosis: 1. Lumbar spondylosis Pre-procedure Note History [...] procedure. Donna Severino MD Pain Management Center Order Entry Administrator of Anesthesiology [facility] [address] [address] / [facility] [place] CC: [place] [address] documented in this encounter Plan of Treatment Not on file documented as of this encounter Procedures Procedure Name Priority Date/Time Associated Diagnosis Comments Injection Pv Facet Joint Lumbar/Sacral Single Level (63339) 09/20/2021 9:21 AM EDT Lumbar spondylosis Injection Pv Facet Joint Lumbar/Sacral Second Level (37507) 09/20/2021 9:21 AM EDT Lumbar spondylosis INJECTION, [...] MD) documented in this encounter Care Teams Inspector Heating And Refrigeration Relationship Specialty Start Date End Date Ta Jensen MD [address] [place] [address] PCP - General Family Medicine 07/22/20 documented as of this encounter
--- OUTSIDE RECORDS SUMMARY | 2023-11-10 15:27 | XMS_ITS | Encounter Summary ---
Author Organization [facility] [address] Care Team Providers Care Rubber Factory Worker Name Role Phone Ta Jensen MD Primary Care Provider [phone] Reason for Visit * Auth/Cert Specialty Diagnoses [...] SACRAL, SNGL (WRVU 3.78) Donna Severino MD [facility] [place] [address] [facility] Referral ID Status Reason Start Date Expiration Date Visits Re quested Visits Authorized [id number] 1 1 Encounter Details Date Type Department Care Team (Latest Contact Info) Description 11/06/2021 10:48 AM EDT - 11/06/2021 12:15 PM EDT Hospital Encounter Pain Management [facility] [place] [address] Donna Severino MD [facility] [place] [address] Lumbar spondylosis Discharge Disposition: Home Social History [...] allergic reaction (Throat tight, difficulty breathing). Call [phone] as directed. atorvastatin (Lipitor) 10 mg Tablet [...] 1) performed by Donna Severino MD at [facility] MSO ??? PRO INJECTION PV FACET JOINT LUMBAR/SACRAL SECOND LEVEL Bilateral 08/16/2021 INJECTION, FACET JOINT, W\FLUORO, LUMBAR, 2ND LEVEL (WRVU 1) performed by Donna Severino MD at [facility] PA[facility] MSO ??? PRO INJECTION PV FACET JOINT LUMBAR/SACRAL SECOND LEVEL Bilateral 09/20/2021 INJECTION, FACET JOINT, W\FLUORO, LUMBAR, 2ND LEVEL (WRVU 1) performed by Donna Severino MD at [facility] MSO ??? PRO INJECTION PV FACET JOINT LUMBAR/SACRAL SINGLE LEVEL Bilateral 08/16/2021 INJECTION, FACET JOINT, W\FLUORO, LUMBAR, SINGLE (WRVU 1.52) performed by Donna Severino MD at [facility] MSO ??? PRO INJECTION PV FACET JOINT LUMBAR/SACRAL SINGLE LEVEL Bilateral 09/20/2021 INJECTION, FACET JOINT, W\FLUORO, LUMBAR, SINGLE (WRVU 1.52) performed by Donna Severino MD at [facility] MSO ALLERGIES: Venom-yellow jacket [...] Operative Note Patient Name: Nghia Owusu : [id number] MR#: [id number] Case Date: 11/06/2021 Surgeon: Surgeon(s) and Role: [...] procedure. Donna Severino MD Pain Management Center Watch Inspector Final Movement of Anesthesiology [facility] [address] [address] / [facility] CC: Sana Acevedo, JESSICA [facility] [place] [address] documented in this encounter Plan of Treatment [...] RFA) documented in this encounter Care Teams Rubber Factory Worker Relationship Specialty Start Date End Date Ta Jensen MD [address] [place] [address] PCP - General Family Medicine 07/22/20 documented as of this encounter
--- OUTSIDE RECORDS SUMMARY | 2023-11-10 15:27 | XMS_ITS | Encounter Summary ---
Author Organization [facility] [place] [address] Care Team Providers Care Escrow Clerk Name Role Phone Ta Jensen MD Primary Care Provider [phone] Reason for Referral * Consultation (Routine) - Closed Specialty Diagnoses / Procedures Referred By Contac t Referred To Contact Pain and Spine Center Diagnoses Lumbar spondylosis Sana Acevedo APRN [facility] [place] [address] [facility] [place] [address] Referral ID Status Reason Start Date Expiration Date V isits Requested Visits Authorized [id number] Closed Consult, Test & Treat 12/14/2021 12/14/2022 1 1 Reason for Visit * Reason Comments Follow-up Encounter Details Date Type Department Care Team (Late st Contact Info) Description 12/14/2021 1:30 PM EDT Office Visit [facility] [place] [address] Sana Acevedo APRN [facility] [place] [address] Lumbar spondylosis (Primary Dx) Social History Tobacco [...] this encounter Progress Notes * Sana Acevedo, PLATE FURNACE OPERATOR - 12/14/2021 1:30 PM EDT Images from the original note were not included. [facility] Date of [...] therapy but he is doing this in [place] and the therapist felt the pool therapy would be the most effective form but unfortunately really has not made much difference. He is out of work. 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 His pain is predominantly aggravated by activity. 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 He is currently having difficulties even doing [...] Score Incomplete PAST THERAPIES: cyclobenzeprine PT at [place], pool therapy duloxetine Functional Status Work-- [employer], job to return to if improves, not sure wants to return ADL's---difficulty with ADLs - Some cooking, drops things, cannot carry more than 5-10 pounds Lives at home with and dog, bug, son lives with him Current Medications: No outpatient medications have been marked as taking for the 12/14/21 encounter (Appointment) with Sana Acevedo APRN. Allergies & Adverse Reactions: Venom-yellow jacket [...] 1.16) performed by Donna Severino MD at [facility] PA[facility] MGMT MSO ??? PRO DSTR PARAVERTEBRAL FCT JNT NRVES LUMBAR OR SACRAL SINGLE Bilateral 11/06/2021 DESTRUCTI BY LYTIC AGENT, FACET JOINT NERVE(S); LUMBAR OR SACRAL, SNGL (WRVU 3.78) performed by Donna Severino MD at [facility] PA[facility] MSO ??? PRO INJ PARAVERTEBRAL FACET JT W/IMAGE GUID, LUMBAR/SACRAL, 3RD OR ADDL LEVEL Bilateral 08/16/2021 INJECTION, FACET JOINT, W\FLUORO, LUMBAR, 3RD LEVEL (WRVU 1) performed by Donna Severino MD at [facility] PAIN MGMT MSO ??? PRO INJECTION PV FACET JOINT LUMBAR/SACRAL SECOND LEVEL Bilateral 08/16/2021 INJECTION, FACET JOINT, W\FLUORO, LUMBAR, 2ND LEVEL (WRVU 1) performed by Donna Severino MD at [facility] PA[facility] MGMT MSO ??? PRO INJECTION PV FACET JOINT LUMBAR/SACRAL SECOND LEVEL Bilateral 09/20/2021 INJECTION, FACET JOINT, W\FLUORO, LUMBAR, 2ND LEVEL (WRVU 1) performed by Donna Severino MD at [facility] PA[facility]MT MSO ??? PRO INJECTION PV FACET JOINT LUMBAR/SACRAL SINGLE LEVEL Bilateral 08/16/2021 INJECTION, FACET JOINT, W\FLUORO, LUMBAR, SINGLE (WRVU 1.52) performed by Donna Severino MD at [facility] PA[facility] MG[facility] MSO ??? PRO INJECTION PV FACET JOINT LUMBAR/SACRAL SINGLE LEVEL Bilateral 09/20/2021 INJECTION, FACET JOINT, W\FLUORO, LUMBAR, SINGLE (WRVU 1.52) performed by Donna Severino MD at [facility] PAIN [facility] MSO Review of Systems: [...] y.o. year-old male who presents to the [facility] he is here for follow-up and did very well after his lumbar radiofrequency. We discussedthe active pain service welcome group and he is going to participate in that. He is also very interested in the functional muslim program but for the future. He feels [...] in Nghia Owusu's care. Sana Acevedo, MS, CORK INSULATOR-BC, PLATE FURNACE OPERATOR Nurse practitioner Pain management [facility] documented in this encounter Plan of Treatment Scheduled Referrals Name Type Priority Associated Diagnoses Orde r Schedule Amb Referral to Active Pain Care Services Outpatient Referral Routine Lumbar spondylosis Ordered: 12/14/2021 documented as of this encounter Visit Diagnoses Diagnosis Lumbar spondylosis- Primary Lumbosacral spondylosis without myelopathy documented in this encounter Care Teams Escrow Clerk Relationship Specialty Start Date End Date [place] [address] PCP - General Family Medicine 07/22/20 documented as of this encounter
--- OUTSIDE RECORDS SUMMARY | 2023-11-10 15:27 | XMS_ITS | Encounter Summary ---
Author Organization [facility] [place] [address] Care Team Providers Care Chemotherapist Name Role Phone Ta Jensen MD Primary Care Provider Encounter Details Date Type Department Care Team (Late st Contact Info) Description 07/30/2021 Telephone [facility] [place] [address] Esha Rhoades RN Social History [...] on filedocumented in this encounter Care Teams Chemotherapist Relationship Specialty Start Date End Date Ta Jnesen MD [address] [place] [address] PCP - General Family Medicine 07/22/20 documented as of this encounter
--- OUTSIDE RECORDS SUMMARY | 2023-11-10 15:27 | XMS_ITS | Encounter Summary ---
Author Organization [facility] [place] [address] Care Team Providers Care Stem Crusher Name Role Phone Ta Jensen MD Primary Care Provider Encounter Details Date Type Department Care Team (Late st Contact Info) Description 08/20/2021 Orders Only [facility] [place] [address] [facility] [place] [address] Lumbar spondylosis (Primary Dx) Social History Tobacco [...] myelopathy documented in this encounter Care Teams Stem Crusher Relationship Specialty Start Date End Date Ta Jensen MD [address] [place] [address] [place] [address] PCP - General Family Medicine 07/22/20 documented as of this encounter
--- OUTSIDE RECORDS SUMMARY | 2023-11-10 15:27 | XMS_ITS | Encounter Summary ---
Author Organization [facility] [place] [address] Care Team Providers Care Laborer Gold Leaf Name Role Phone Ta Jensen MD Primary Care Provider [phone] Reason for Visit * Reason Comments Follow-up Back Pain Buttock Pain W/C - DOI * Consultation (Routine) - Closed Specialty Diagnoses / Procedures Referred By Contac t Referred To Contact Pain and Spine Center Diagnoses Disc degeneration, lumbar Lumbar spondylosis F/U to back pain/no new imaging/? repeat injections FUV LINING MAKER HAND last seen 12/2021 Ta Jensen MD [address] [place] [address] [place] [address] [facility] [place] [address] Referral ID Status Reason Start Date Expiration Date V isits Requested Visits Authorized [id number] Closed Consult, Test & Treat PCP Updated and/or Approved 06/04/2022 06/04/2023 1 1 Encounter Details Date Type Department Care Team (Late st Contact Info) Description 10/25/2022 10:15 AM EDT Office Visit [place] [address] Sana Acevedo APRN [facility] [place] [address] Lumbar spondylosis (Primary Dx) Social History Tobacco [...] this encounter Progress Notes * Sana Acevedo, BOW MAKER PRODUCTION - 10/25/2022 10:15 AM EDT Images from the original note were not included. [facility] FOLLOW UP [...] therapy but he is doing this in [place] and the therapist felt the pool therapy would be the most effective form but unfortunately really has not made much difference. He is out of work. 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 His pain is predominantly aggravated by activity. 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 He is currently having difficulties even doing [...] school with an eye to becoming an BARK SKINNER and ultimately an RN. He begins his clinicals upcoming. He is to [employer]. He has a little bit of pain [...] (Low risk) PAST THERAPIES: cyclobenzeprine PT at [place], every 2 weeks pool therapy Duloxetine Cyclobenzaprine sporadically Functional Status Work-- [employer], job to return to if improves, not sure wants to return started nursing school BARK SKINNER ADL's---difficulty with ADLs - Some cooking, drops [...] 1.16) performed by Donna Severino MD at [facility] PAIN MGMT MSO PRO DSTR PARAVERTEBRAL FCT JNT NRVES LUMBAR OR SACRAL SINGLE Bilateral 11/06/2021 DESTRUCTI BY LYTIC AGENT, FACET JOINT NERVE(S); LUMBAR OR SACRAL, SNGL (WRVU 3.78) performed by Donna Severino MD at [facility] MGMT MSO PRO INJ PARAVERTEBRAL FACET JT W/IMAGE GUID, LUMBAR/SACRAL, 3RD OR ADDL LEVEL Bilateral 08/16/2021 INJECTION, FACET JOINT, W\FLUORO, LUMBAR, 3RD LEVEL (WRVU 1) performed by Donna Severino MD at [facility] PAIN MGMT MSO PRO INJECTION PV FACET JOINT LUMBAR/SACRAL SECOND LEVEL Bilateral 08/16/2021 INJECTION, FACET JOINT, W\FLUORO, LUMBAR, 2ND LEVEL (WRVU 1) performed by Donna Severino MD at [facility] PAIN MGMT MSO PRO INJECTION PV FACET JOINT LUMBAR/SACRAL SECOND LEVEL Bilateral 09/20/2021 INJECTION, FACET JOINT, W\FLUORO, LUMBAR, 2ND LEVEL (WRVU 1) performed by Donna Severino MD at [facility] PAIN MGMT MSO PRO INJECTION PV FACET JOINT LUMBAR/SACRAL SINGLE LEVEL Bilateral 08/16/2021 INJECTION, FACET JOINT, W\FLUORO, LUMBAR, SINGLE (WRVU 1.52) performed by Donna Severino MD at [facility] PAIN MGMT MSO PRO INJECTION PV FACET JOINT LUMBAR/SACRAL SINGLE LEVEL Bilateral 09/20/2021 INJECTION, FACET JOINT, W\FLUORO, LUMBAR, SINGLE (WRVU 1.52) performed by Donna Severino MD at [facility] PAIN MGMT MSO Review of Systems: Denies [...] y.o. year-old male who presents to the [facility] clinic he [...] MS, JON, JESSICA Nurse practitioner Pain management [facility] CC: Ta Jensen MD Referring Provider: Ta Acevedo MS, JESSICA WEBB Nurse practitioner Center [facility] documented in this encounter Plan of Treatment Not on file documented as of this encounter Visit Diagnoses Diagnosis Lumbar spondylosis- Primary Lumbosacral spondylosis without myelopathy documented in this encounter Care Teams Laborer Gold Leaf Relationship Specialty Start Date End Date Ta Jensen MD [address] [place] [address] PCP - General Family Medicine 07/22/20 documented as of this encounter
--- OUTSIDE RECORDS SUMMARY | 2023-11-10 15:27 | XMS_ITS | Encounter Summary ---
Author Organization [facility] [place] [address] Care Team Providers Care Computer Systems Engineer Name Role Phone Ta Jensen MD Primary Care Provider [phone] Reason for Visit * Auth/Cert Specialty Diagnoses [...] SACRAL, SNGL (WRVU 3.78) Donna Severino MD [facility] [place] [address] [facility] Referral ID Status Reason Start Date Expiration Date Visits Re quested Visits Authorized [id number] 1 1 Encounter Details Date Type Department Care Team (Late st Contact Info) Description 11/06/2021 10:30 AM EDT Ancillary [place] [address] Donna Severino MD [facility] [place] [address] Social History Tobacco Use Types Packs/Day Years [...] Clinic C-Arm (11/06/2021 4:56 PM EDT) Narrative [facility] - 11/06/2021 4:56 PM EDT See PACS for result report. Donna Severino MD IMG FILM LIBRARY ORD ERABLES Performing Organization Address City/State/[facility] Co de Phone Number [place], [place] documented in this encounter Visit Diagnoses Not on filedocumented in this encounter Care Teams Computer Systems Engineer Relationship Specialty Start Date End Date Ta Jensen [place] [address] PCP - General Family Medicine 07/22/20 documented as of this encounter
--- OUTSIDE RECORDS SUMMARY | 2023-11-10 15:27 | XMS_ITS | Encounter Summary ---
[place] [address] Care Team Providers Care Slip Caster Name Role Phone Ta Jensen MD Primary Care Provider [phone] Encounter Details Date Type Department Care Team (Late st Contact Info) Description 03/20/2021 12:05 AM EST Ancillary Procedure [place] [phone] Ta Jensen MD [facility] [place] [address] Social History Tobacco Use Types Packs/Day Years [...] DX Wrist (03/20/2021 12:05 AM EST) Narrative [facility] - 09/05/2021 10:04 AM EDT This exam is auto-finalizing. It's purpose is for storage only. Ta Jensen MD [facility] FILM LIBRARY ORD ERABLES [place], [place] documented in this encounter Visit Diagnoses Not on filedocumented in this encounter Care Teams Slip Caster Relationship Specialty Start Date End Date Ta Jensen MD [address] [place] [address] PCP - General Family Medicine 07/22/20 documented as of this encounter
--- OUTSIDE RECORDS SUMMARY | 2023-11-10 15:27 | XMS_ITS | Encounter Summary ---
Author Organization [facility] [place] [address] Care Team Providers Care Auto Clutch Specialist Name Role Phone Ta Jensen MD Primary Care Provider [phone] Encounter Details Date Type Department Care Team (Late st Contact Info) Description 07/27/2021 Telephone [facility] at [facility] [place] [phone] Esha Rhoades RN Social History Tobacco Use [...] call from Rylie at patients PCP office, [facility] reporting they had received call from Nghia this morning stating that when he met with Ms. Acevedo JESSICA she told him to contact their office and have them order an MRI of his hip. Rylie was calling to confirm that information as there is no mention of an MRI in Ms. Acevedo's HOME DESIGNER,note. I reviewed Ms. Acevedo's office visit note [...] on filedocumented in this encounter Care Teams Auto Clutch Specialist Relationship Specialty Start Date End Date Ta Jensen MD [address] [place] [address] PCP - General Family Medicine 07/22/20 documented as of this encounter
--- OUTSIDE RECORDS SUMMARY | 2023-11-10 15:27 | XMS_ITS | Encounter Summary ---
[facility] [place] [address] Care Team Providers Care Relief Manager Name Role Phone Ta Jensen MD Primary Care Provider [phone] Encounter Details Date Type Department Care Team (Late st Contact Info) Description 11/13/2022 Telephone [facility] [place] [phone] Jennifer Johnston RN Social History Tobacco Use [...] on filedocumented in this encounter Care Teams Relief Manager Relationship Specialty Start Date End Date Ta Jensen MD [facility] [place] [address] PCP - General Family Medicine 07/22/20 documented as of this encounter
--- OUTSIDE RECORDS SUMMARY | 2023-11-10 15:27 | XMS_ITS | Encounter Summary ---
Author Organization [facility] [place] [address] Care Team Providers Care Smoke Room Operator Name Role Phone Ta Jensen MD Primary Care Provider [phone] Encounter Details Date Type Department Care Team (Late st Contact Info) Description 11/01/2021 Telephone [place] [phone] Chelly Sousa, RN Social History Tobacco Use [...] contacts Identified myself and provided callback number: [phone] 1. 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 Please plan to [...] health condition you need to call the [employer] hotline to arrange for testing prior to your procedure: fever or chills, cough, shortness of breath or difficulty breathing, fatigue, muscle or body aches, headache, new loss of taste or smell, sore throat, congestion or runny nose, nausea or vomiting, diarrhea. The [employer] hotline number is: 391-032-0351 5. If your pain has resolved or [...] on filedocumented in this encounter Care Teams Smoke Room Operator Relationship Specialty Start Date End Date Ta Jensen MD [address] [place] [address] PCP - General Family Medicine 07/22/20 documented as of this encounter
--- OUTSIDE RECORDS SUMMARY | 2023-11-10 15:27 | XMS_ITS | Encounter Summary ---
[place] [address] Care Team Providers Care Bread Supervisor Name Role Phone Ta Jensen MD Primary Care Provider Reason for Referral * Consultation (Routine) - Closed Specialty Diagnoses / Procedures Referred By Contac t Referred To Contact Pain and Spine Center Diagnoses Degenerative disc disease, lumbar Low back pain s/p fall 03/20// tried PT/MRI 05/2021 @ [facility] Ta Jensen MD [address] [place] [address] [facility] [place] [address] Referral ID Status Reason Start Date Expiration Date V isits Requested Visits Authorized [id number] Closed Consult, Test & Treat 06/06/2021 06/06/2022 6 6 Encounter Details Date Type Department Care Team (Latest Contact Info) Description 06/06/2021 Transcribe [place] [address] Ta Jensen MD [address] [place] [address] Degenerative disc disease, lumbar Social History [...] disc documented in this encounter Care Teams Bread Supervisor Relationship Specialty Start Date End Date Ta Jensen MD [address] [place] [address] PCP - General Family Medicine 07/22/20 documented as of this encounter
--- OUTSIDE RECORDS SUMMARY | 2023-11-10 15:27 | XMS_ITS | Encounter Summary ---
Author [facility] [place] [address] Care Team Providers Care Ballpoint Pen Cartridge Tester Name Role Phone Ta Jensen MD Primary Care Provider [phone] Reason for Visit * Auth/Cert Specialty Diagnoses [...] Expiration Date Visits Re quested Visits Authorized [id number] 1 1 Encounter Details Date Type Department Care Team (Late st Contact Info) Description 09/20/2021 9:00 AM EDT - 09/20/2021 9:45 AM EDT Surgery [place] [address] Donna Severino MD [facility] [place] [address] INJECTION, FACET JOINT, W\FLUORO, LUMBAR, 2ND LEVEL [...] Post -Procedure Pain Log Patient: Nghia Owusu [id number] It is important for you to keep [...] 12:45 4 hours 1:45 [facility] Neuroscience Director Na Nurse will call you within a week of your procedure to ask about your response to the procedure and help with the next steps. If you need to reach the Neuroscience Director Na you can call: [phone]. documented in this encounter Medications at Time of Discharge Medication Sig Dispensed Refills Start Date End Date EPINEPHrine 0.3 mg/0.3 mL Auto-Injector Inject 1 kit into the muscle once as needed. Inject 0.3 mL IM once as needed for allergic reaction (Throat tight, difficulty breathing). Call [phone] as directed. atorvastatin (Lipitor) 10 mg Tablet [...] 1) performed by Donna Severino MD at [facility] PAIN MGMT MSO ??? PRO INJECTION PV FACET JOINT LUMBAR/SACRAL SECOND LEVEL Bilateral 08/16/2021 INJECTION, FACET JOINT, W\FLUORO, LUMBAR, 2ND LEVEL (WRVU 1) performed by Donna Severino MD at [facility] PAIN MGMT MSO ??? PRO INJECTION PV FACET JOINT LUMBAR/SACRAL SINGLE LEVEL Bilateral 08/16/2021 INJECTION, FACET JOINT, W\FLUORO, LUMBAR, SINGLE (WRVU 1.52) performed by Donna Severino MD at [facility] PAIN MGMT MSO ALLERGIES: Venom-yellow jacket and [...] (5' 7) Wt 86.2 kg (190 lb) [id number]% BMI 29.76 kg/m?? Physical Exam Constitutional: Pt [...] proceed. Donna Severino MD Pain Management Center Structural Layout Worker of Anesthesiology [facility] [place] [phone] / [facility] documented in this encounter Miscellaneous Notes * Op Note - Donna Severino MD - 09/20/2021 9:00 AM EDT Pain Management Operative Note Patient Name: Nghia Owusu : [id number] MR#: [id number] Case Date: 09/20/2021 Surgeon: Surgeon(s) and Role: * Donna Severino MD - Primary * Tobin Llanos MD - Fellow Present on Admission: ??? Spondylosis without myelopathy or radiculopathy, lumbar region Postoperative diagnosis: same PROCEDURE NOTE LUMBAR MEDIAL BRANCH DIAGNOSTIC BLOCKS Patient: Nghia Owusu Referring Physician: [place] [address] Diagnosis: 1. Lumbar spondylosis Pre-procedure Note History [...] procedure. Donna Severino MD Pain Management Center Structural Layout Worker of Anesthesiology [facility] [address] [address] / [facility] CC: Ta Jensen MD [address] [place] [address] [place] [facility] [place] [address] documented in this encounter Plan of Treatment Not on file documented as of this encounter Procedures Procedure Name Priority Date/Time Associated Diagnosis Comments Injection Pv Facet Joint Lumbar/Sacral Single Level (47906) 09/20/2021 9:21 AM EDT Lumbar spondylosis Injection Pv Facet Joint Lumbar/Sacral Second Level (97831) 09/20/2021 9:21 AM EDT Lumbar spondylosis INJECTION, [...] MD) documented in this encounter Care Teams Ballpoint Pen Cartridge Tester Relationship Specialty Start Date End Date Ta Jensen MD [address] [place] [address] PCP - General Family Medicine 07/22/20 documented as of this encounter
--- OUTSIDE RECORDS SUMMARY | 2023-11-10 15:27 | XMS_ITS | Encounter Summary ---
Author Organization [facility] [place] [address] Care Team Providers Care Internal Audit Consultant Name Role Phone Ta Jensen MD Primary Care Provider [phone] Reason for Visit * Auth/Cert (Routine) Specialty Diagnoses / Procedures Referred By Contac t Referred To Contact Diagnoses lumbar spondylosis Procedures PRO INJECTION PV FACET JOINT LUMBAR/SACRAL SECOND LEVEL PRO INJECTION PV FACET JOINT LUMBAR/SACRAL SINGLE LEVEL INJECTION, FACET JOINT, W\FLUORO, LUMBAR, 2ND LEVEL (WRVU 1) INJECTION, FACET JOINT, W\FLUORO, LUMBAR, SINGLE (WRVU 1.52) Donna Severino MD [facility] [place] [address] [facility] Referral ID Status Reason Start Date Expiration Date Visits Re quested Visits Authorized [id number] 1 1 Encounter Details Date Type Department Care Team (Late st Contact Info) Description 11/14/2022 2:00 PM EDT Ancillary [place] [address] Donna Severino MD [facility] [place] [address] Social History Tobacco Use Types Packs/Day Years [...] Clinic C-Arm (11/14/2022 3:44 PM EDT) Narrative [facility] - 11/14/2022 3:44 PM EDT See PACS for result report. Donna Severino MD [facility] FILM LIBRARY ORD ERABLES [place], [place] documented in this encounter Visit Diagnoses Not on filedocumented in this encounter Care Teams Internal Audit Consultant Relationship Specialty Start Date End Date Ta Jensen MD [address] [place] [address] PCP - General Family Medicine 07/22/20 documented as of this encounter
--- OUTSIDE RECORDS SUMMARY | 2023-11-10 15:27 | XMS_ITS | Encounter Summary ---
Author Organization [facility] [place] [address] Care Team Providers Care Land Economist Name Role Phone Ta Jensen MD Primary Care Provider [phone] Reason for Visit * Auth/Cert Specialty Diagnoses [...] SACRAL, SNGL (WRVU 3.78) Donna Severino MD [facility] [place] [address] [facility] Referral ID Status Reason Start Date Expiration Date Visits Re quested Visits Authorized [id number] 1 1 Encounter Details Date Type Department Care Team (Late st Contact Info) Description 11/06/2021 10:30 AM EDT - 11/06/2021 11:30 AM EDT [place] [phone] Donna Severino MD [facility] [address] DESTRUCT BY LYTIC AGENT, FACET JNT NERVE(S), [...] allergic reaction (Throat tight, difficulty breathing). Call [phone] as directed. atorvastatin (Lipitor) 10 mg Tablet [...] 1) performed by Donna Severino MD at [facility] PAIN MGMT MSO ??? PRO INJECTION PV FACET JOINT LUMBAR/SACRAL SECOND LEVEL Bilateral 08/16/2021 INJECTION, FACET JOINT, W\FLUORO, LUMBAR, 2ND LEVEL (WRVU 1) performed by Donna Severino MD at [facility] PAIN MGMT MSO ??? PRO INJECTION PV FACET JOINT LUMBAR/SACRAL SECOND LEVEL Bilateral 09/20/2021 INJECTION, FACET JOINT, W\FLUORO, LUMBAR, 2ND LEVEL (WRVU 1) performed by Donna Severino MD at [facility] PAIN MGMT MSO ??? PRO INJECTION PV FACET JOINT LUMBAR/SACRAL SINGLE LEVEL Bilateral 08/16/2021 INJECTION, FACET JOINT, W\FLUORO, LUMBAR, SINGLE (WRVU 1.52) performed by Donna Severino MD at [facility] PAIN MGMT MSO ??? PRO INJECTION PV FACET JOINT LUMBAR/SACRAL SINGLE LEVEL Bilateral 09/20/2021 INJECTION, FACET JOINT, W\FLUORO, LUMBAR, SINGLE (WRVU 1.52) performed by Donna Severino MD at [facility] PAIN MGMT MSO ALLERGIES: Venom-yellow jacket and [...] Operative Note Patient Name: Nghia Owusu : [id number] MR#: [id number] Case Date: 11/06/2021 Surgeon: Surgeon(s) and Role: [...] procedure. Donna Severino MD Pain Management Center Senior Oracle Database Administrator of Anesthesiology [facility] [address] [address] / [facility] CC: Sana Acevedo, JESSICA [facility] [place] [address] documented in this encounter Plan of Treatment [...] RFA) documented in this encounter Care Teams Land Economist Relationship Specialty Start Date End Date Ta Jensen MD [facility] [place] [address] PCP - General Family Medicine 07/22/20 documented as of this encounter
--- OUTSIDE RECORDS SUMMARY | 2023-11-10 15:27 | XMS_ITS | Encounter Summary ---
Author Organization [facility] [place] [address] Care Team Providers Care Web Marketing Manager Name Role Phone Ta Jensen MD Primary Care Provider [phone] Reason for Visit * Auth/Cert (Routine) Specialty Diagnoses / Procedures Referred By Contac t Referred To Contact Diagnoses lumbar spondylosis Procedures PRO INJECTION PV FACET JOINT LUMBAR/SACRAL SECOND LEVEL PRO INJECTION PV FACET JOINT LUMBAR/SACRAL SINGLE LEVEL INJECTION, FACET JOINT, W\FLUORO, LUMBAR, 2ND LEVEL (WRVU 1) INJECTION, FACET JOINT, W\FLUORO, LUMBAR, SINGLE (WRVU 1.52) Donna Severino MD [facility] [place] [address] [facility] Referral ID Status Reason Start Date Expiration Date Visits Re quested Visits Authorized [id number] 1 1 Encounter Details Date Type Department Care Team (Late st Contact Info) Description 11/14/2022 2:00 PM EDT - 11/14/2022 3:00 PM EDT [place] [address] Donna Severino MD [facility] [place] [address] INJECTION, FACET JOINT, W\FLUORO, LUMBAR, 2ND LEVEL [...] 1.16) performed by Donna Severino MD at [facility] PAIN MGMT MSO PRO DSTR PARAVERTEBRAL FCT JNT NRVES LUMBAR OR SACRAL SINGLE Bilateral 11/06/2021 DESTRUCTI BY LYTIC AGENT, FACET JOINT NERVE(S); LUMBAR OR SACRAL, SNGL (WRVU 3.78) performed by Donna Severino MD at [facility] PAIN MGMT MSO PRO INJ PARAVERTEBRAL FACET JT W/IMAGE GUID, LUMBAR/SACRAL, 3RD OR ADDL LEVEL Bilateral 08/16/2021 INJECTION, FACET JOINT, W\FLUORO, LUMBAR, 3RD LEVEL (WRVU 1) performed by Donna Severino MD at [facility] PAIN MGMT MSO PRO INJECTION PV FACET JOINT LUMBAR/SACRAL SECOND LEVEL Bilateral 08/16/2021 INJECTION, FACET JOINT, W\FLUORO, LUMBAR, 2ND LEVEL (WRVU 1) performed by Donna Severino MD at [facility] PAIN MGMT MSO PRO INJECTION PV FACET JOINT LUMBAR/SACRAL SECOND LEVEL Bilateral 09/20/2021 INJECTION, FACET JOINT, W\FLUORO, LUMBAR, 2ND LEVEL (WRVU 1) performed by Donna Severino MD at [facility] PAIN MGMT MSO PRO INJECTION PV FACET JOINT LUMBAR/SACRAL SINGLE LEVEL Bilateral 08/16/2021 INJECTION, FACET JOINT, W\FLUORO, LUMBAR, SINGLE (WRVU 1.52) performed by Donna Severino MD at [facility] PAIN MGMT MSO PRO INJECTION PV FACET JOINT LUMBAR/SACRAL SINGLE LEVEL Bilateral 09/20/2021 INJECTION, FACET JOINT, W\FLUORO, LUMBAR, SINGLE (WRVU 1.52) performed by Donna Severino MD at [facility] PAIN MGMT MSO ALLERGIES: Venom-yellow jacket and [...] Operative Note Patient Name: Nghia Owusu : [id number] MR#: [id number] Case Date: 11/14/2022 Surgeon: Surgeon(s) and Role: [...] procedure. Donna Severino MD Pain Management Center Consultant Dietitian of Anesthesiology [facility] [address] [address] / [facility] CC: Unknown None documented in this encounter Plan of Treatment Not on file documented as of this encounter Procedures Procedure Name Priority Date/Time Associated Diagnosis Comments Injection Pv Facet Joint Lumbar/Sacral Single Level (10673) 11/14/2022 2:31 PM EDT Lumbar spondylosis Injection Pv Facet Joint Lumbar/Sacral Second Level (92853) 11/14/2022 2:31 PM EDT Lumbar spondylosis INJECTION, [...] DO) documented in this encounter Care Teams Web Marketing Manager Relationship Specialty Start Date End Date Ta Jensen MD [facility] [place] [address] PCP - General Family Medicine 07/22/20 documented as of this encounter
--- OUTSIDE RECORDS SUMMARY | 2023-11-10 15:27 | XMS_ITS | Encounter Summary ---
Author Organization [facility] [place] [address] Care Team Providers Care Developmental Electronics Assembler Name Role Phone Ta Jensen MD Primary Care Provider [phone] Encounter Details Date Type Department Care Team (Late st Contact Info) Description 08/20/2021 Telephone [facility] [place] [address] Hillary Beaver RN Social History [...] on filedocumented in this encounter Care Teams Developmental Electronics Assembler Relationship Specialty Start Date End Date Ta Jensen MD [address] [place] [address] PCP - General Family Medicine 07/22/20 documented as of this encounter
--- OUTSIDE RECORDS SUMMARY | 2023-11-10 15:27 | XMS_ITS | Encounter Summary ---
Author Organization [facility] [place] [address] Care Team Providers Care Hvac/R Instructor Name Role Phone Ta Jensen MD Primary Care Provider Encounter Details Date Type Department Care Team (Late st Contact Info) Description 10/03/2021 Orders Only [place] [address] Donna Severino MD [facility] [place] [address] Lumbar spondylosis (Primary Dx) Social History Tobacco [...] myelopathy documented in this encounter Care Teams Hvac/R Instructor Relationship Specialty Start Date End Date Ta Jensen MD [address] [place] [address] [place] [address] PCP - General Family Medicine 07/22/20 documented as of this encounter
--- OUTSIDE RECORDS SUMMARY | 2023-11-10 15:27 | XMS_ITS | Encounter Summary ---
[place] [address] Care Team Providers Care Commissions Manager Name Role Phone Ta Jensen MD Primary Care Provider Encounter Details Date Type Department Care Team (Late st Contact Info) Description 08/31/2021 Ancillary Procedure [place] [address] Ta Jensen MD [facility] [place] [address] Social History Tobacco Use Types Packs/Day Years [...] Jensen MD G FILM LIBRARY ORD ERABLES [place], [place] documented in this encounter Visit Diagnoses Not on filedocumented in this encounter Care Teams Commissions Manager Relationship Specialty Start Date End Date Ta Jensen MD [facility] [place] [address] PCP - General Family Medicine 07/22/20 documented as of this encounter
--- OUTSIDE RECORDS SUMMARY | 2023-11-10 15:27 | XMS_ITS | Encounter Summary ---
Author Organization [facility] [place] [address] Care Team Providers Care Marine Cargo Specialist Name Role Phone Ta Jensen MD Primary Care Provider [phone] Reason for Visit * Auth/Cert Specialty Diagnoses [...] Expiration Date Visits Re quested Visits Authorized [id number] 1 1 Encounter Details Date Type Department Care Team (Late st Contact Info) Description 09/20/2021 9:00 AM EDT Ancillary [place] [address] Donna Severino MD [facility] [address] [place] [address] Social History Tobacco Use Types Packs/Day Years [...] Severino MD IMG FILM LIBRARY ORD ERABLES [place], [place] documented in this encounter Visit Diagnoses Not on filedocumented in this encounter Care Teams Marine Cargo Specialist Relationship Specialty Start Date End Date Ta Jensen MD [address] [place] [address] PCP - General Family Medicine 07/22/20 documented as of this encounter
--- OUTSIDE RECORDS SUMMARY | 2023-11-10 15:27 | XMS_ITS | Encounter Summary ---
Author Organization [facility] [place] [address] Care Team Providers Care Social Service Worker Name Role Phone Ta Jensen MD Primary Care Provider [phone] Encounter Details Date Type Department Care Team (Late st Contact Info) Description 09/24/2021 Telephone [place] [address] Hillary Beaver, RN Social History [...] filedocumented in this encounter Care Teams Social Service Worker Relationship Specialty Start Date End Date Ta Jensen MD [facility] [place] [address] PCP - General Family Medicine 07/22/20 documented as of this encounter
--- OUTSIDE RECORDS SUMMARY | 2023-11-10 15:27 | XMS_ITS | Encounter Summary ---
[place] [address] Care Team Providers Care Pumper Helper Name Role Phone Ta Jensen MD Primary Care Provider [phone] Reason for Referral * Consultation (Routine) - Closed Specialty Diagnoses / Procedures Referred By Contac t Referred To Contact Orthopaedics Diagnoses Pain in left wrist PAIN IN LEFT WRIST Lamin Bess MD [address] [place] [address] [facility] [address] [place] [address] Referral ID Status Reason Start Date Expiration Date V isits Requested Visits Authorized [id number] Closed Consult, Test & Treat PCP Updated and/or Approved 09/14/2021 09/14/2022 6 6 Encounter Details Date Type Department Care Team (Late st Contact Info) Description 09/14/2021 Transcribe Orders eDH Incoming Referrals [phone] Lamin Bess MD [address] [place] [address] Pain in left wrist Social [...] forearm documented in this encounter Care Teams Pumper Helper Relationship Specialty Start Date End Date Ta Jensen MD [address] [place] [address] PCP - General Family Medicine 07/22/20 documented as of this encounter
--- OUTSIDE RECORDS SUMMARY | 2023-11-10 15:27 | XMS_ITS | Encounter Summary ---
Author [facility] [place] [address] Care Team Providers Care Marketing Outreach Coordinator Name Role Phone Ta Jensen MD Primary Care Provider Encounter Details Date Type Department Care Team (Late st Contact Info) Description 03/20/2021 Ancillary Procedure [place] [phone] Ta Jensen MD [facility] [place] [address] Social History Tobacco Use Types Packs/Day Years [...] Jensen MD G FILM LIBRARY ORD ERABLES [place], [place] documented in this encounter Visit Diagnoses Not on filedocumented in this encounter Care Teams Marketing Outreach Coordinator Relationship Specialty Start Date End Date Ta Jensen MD [address] [place] [address] PCP - General Family Medicine 07/22/20 documented as of this encounter
--- OUTSIDE RECORDS SUMMARY | 2023-11-10 15:27 | XMS_ITS | Encounter Summary ---
Author Organization [facility] [place] [address] Care Team Providers Care Concrete Mixer Loader Truck Mounted Name Role Phone Ta Jensen MD Primary Care Provider [phone] Reason for Visit * Auth/Cert Specialty Diagnoses [...] Expiration Date Visits Re quested Visits Authorized [id number] 1 1 Encounter Details Date Type Department Care Team (Latest Contact Info) Description 08/16/2021 10:40 AM EDT - 08/16/2021 12:05 PM EDT Hospital [place] [address] Donna Severino MD [facility] [place] [address] Lumbar spondylosis Discharge Disposition: Home Social History [...] Post -Procedure Pain Log Patient: Nghia Owusu [id number] It is important for you to keep [...] allergic reaction (Throat tight, difficulty breathing). Call [phone] as directed. atorvastatin (Lipitor) 10 mg Tablet [...] Sincerely, Dru Reeder MD Pain Medicine Fellow [address] [address] / [facility] CC: [place] [address] [address] documented in this encounter Miscellaneous Notes * Op Note - Donna Severino MD - 08/16/2021 11:44 AM EDT Pain Management Operative Note Patient Name: Nghia Owusu : [id number] MR#: [id number] Case Date: 08/16/2021 Surgeon: Surgeon(s) and Role: * Donna Severino MD - Primary * Dru Reeder MD - Fellow Present on Admission: ??? Lumbar spondylosis ??? Spondylosis without myelopathy or radiculopathy, lumbar region Postoperative diagnosis: same PROCEDURE NOTE LUMBAR MEDIAL BRANCH DIAGNOSTIC BLOCKS Patient: Nghia Owusu Referring Physician: Ta Jensen Md [address] [place] [address] Diagnosis: 1. Lumbar spondylosis Pre-procedure Note History [...] procedure. Donna Severino MD [facility] Organizational Research Consultant of Anesthesiology [facility] [employer] [address] [address] / [facility] CC: [place] [address] documented in this encounter Plan of Treatment Not on file documented as of this encounter Procedures Procedure Name Priority Date/Time Associated Diagnosis Comments Injection Pv Facet Joint Lumbar/Sacral Second Level (41581) 08/16/2021 11:38 AM EDT Lumbar spondylosis Injection Pv Facet Joint Lumbar/Sacral Single Level (25279) 08/16/2021 11:38 AM EDT Lumbar spondylosis Inj//Paravertebral Facet Jt W/Image Guid, Lumbar/Sacral, 3Rd Or Addl Level (50882) 08/16/2021 11:38 AM EDT Lumbar spondylosis INJECTION, [...] MD) documented in this encounter Care Teams Concrete Mixer Loader Truck Mounted Relationship Specialty Start Date End Date Ta Jensen MD [address] [place] [address] PCP - General Family Medicine 07/22/20 documented as of this encounter
--- OUTSIDE RECORDS SUMMARY | 2023-11-10 15:27 | XMS_ITS | Encounter Summary ---
[place] [address] Care Team Providers Care Finger Buffs Assembler Name Role Phone Ta Jensen MD Primary Care Provider Reason for Referral * Consultation (Routine) - Closed Specialty Diagnoses / Procedures Referred By Contac t Referred To Contact Pain and Spine Center Diagnoses Disc degeneration, lumbar Lumbar spondylosis F/U to back pain/no new imaging/? repeat injections [facility] last seen 12/2021 Ta Jensen MD [address] [place] [address] [facility] [place] [address] Referral ID Status Reason Start Date Expiration Date V isits Requested Visits Authorized [id number] Closed Consult, Test & Treat PCP Updated and/or Approved 06/04/2022 06/04/2023 1 1 Encounter Details Date Type Department Care Team (Latest Contact Info) Description 06/04/2022 Transcribe Orders eDH Incoming Referrals [phone] Ta Jensen MD [address] [place] [address] Disc degeneration, lumbar; Lumbar spondylosis Social [...] myelopathy documented in this encounter Care Teams Finger Buffs Assembler Relationship Specialty Start Date End Date Ta Jensen MD [address] [place] [address] PCP - General Family Medicine 07/22/20 documented as of this encounter
--- OUTSIDE RECORDS SUMMARY | 2023-11-10 15:27 | XMS_ITS | Encounter Summary ---
Author Organization [facility] [place] [address] Care Team Providers Care Mobile Home Installer Name Role Phone Ta Jensen MD Primary Care Provider [phone] Reason for Visit * Auth/Cert Specialty Diagnoses [...] Expiration Date Visits Re quested Visits Authorized [id number] 1 1 Encounter Details Date Type Department Care Team (Late st Contact Info) Description 08/16/2021 11:15 AM EDT - 08/16/2021 12:00 PM EDT [place] [address] Donna Severino MD [facility] [place] [address] INJECTION, FACET JOINT, W\FLUORO, LUMBAR, 3RD LEVEL [...] Post -Procedure Pain Log Patient: Nghia Owusu [id number] It is important for you to keep [...] allergic reaction (Throat tight, difficulty breathing). Call [phone] as directed. atorvastatin (Lipitor) 10 mg Tablet [...] Sincerely, Dru Reeder MD Pain Medicine Fellow [address] [address] / [facility] CC: [place] [address] documented in this encounter Miscellaneous Notes * Op Note - Donna Severino MD - 08/16/2021 11:44 AM EDT Pain Management Operative Note Patient Name: Nghia Owusu : [id number] MR#: [id number] Case Date: 08/16/2021 Surgeon: Surgeon(s) and Role: * Donna Severino MD - Primary * Dru Reeder MD - Fellow Present on Admission: ??? Lumbar spondylosis ??? Spondylosis without myelopathy or radiculopathy, lumbar region Postoperative diagnosis: same PROCEDURE NOTE LUMBAR MEDIAL BRANCH DIAGNOSTIC BLOCKS Patient: Nghia Owusu Referring Physician: Ta Jensen Md [address] [place] [address] Diagnosis: 1. Lumbar spondylosis Pre-procedure Note History [...] procedure. Donna Severino MD Pain Management Center Sports Centre Manager of Anesthesiology [facility] [address] [address] / [facility] CC: [place] [address] documented in this encounter Plan of Treatment Not on file documented as of this encounter Procedures Procedure Name Priority Date/Time Associated Diagnosis Comments Injection Pv Facet Joint Lumbar/Sacral Second Level (78999) 08/16/2021 11:38 AM EDT Lumbar spondylosis Injection Pv Facet Joint Lumbar/Sacral Single Level (40054) 08/16/2021 11:38 AM EDT Lumbar spondylosis Inj//Paravertebral Facet Jt W/Image Guid, Lumbar/Sacral, 3Rd Or Addl Level (02248) 08/16/2021 11:38 AM EDT Lumbar spondylosis INJECTION, [...] (Intra-Procedure), Routine 1144 (Given - Provid er: Dur Reeder MD) documented in this encounter Care Teams Mobile Home Installer Relationship Specialty Start Date End Date Ta Jensen MD [address] [place] [address] PCP - General Family Medicine 07/22/20 documented as of this encounter
--- OUTSIDE RECORDS SUMMARY | 2023-11-10 15:27 | XMS_ITS | Encounter Summary ---
Author Organization [facility] [place] [address] Care Team Providers Care Machine Load Clerk Name Role Phone Ta Jensen MD Primary Care Provider [phone] Encounter Details Date Type Department Care Team (Late st Contact Info) Description 10/03/2021 Telephone [place] [address] Hillary Beaver RN Social History [...] on filedocumented in this encounter Care Teams Machine Load Clerk Relationship Specialty Start Date End Date Ta Jensen MD [facility] [place] [address] PCP - General Family Medicine 07/22/20 documented as of this encounter
--- OUTSIDE RECORDS SUMMARY | 2023-11-10 15:27 | XMS_ITS | Encounter Summary ---
Author Organization [facility] [place] [address] Care Team Providers Care Network Design Architect Name Role Phone Ta Jensen MD Primary Care Provider [phone] Reason for Referral * Occupational Therapy (Routine) - Closed Specialty Diagnoses / Procedures Referred By Contac t Referred To Contact Occupational Therapy Diagnoses Pain in left wrist Crow Russell Jr., MD [facility] [place] [address] [facility] [address] [place] [address] Referral ID Status Reason Start Date Expiration Date V isits Requested Visits Authorized [id number] Closed Evaluate and Treat 11/06/2021 11/06/2022 12 12 * Occupational Therapy (Routine) - Closed Specialty Diagnoses / Procedures Referred By Contac t Referred To Contact Diagnoses Pain in left wrist Crow Russell Jr., MD [facility] [place] [address] Referral ID Status Reason Start Date Expiration Date V isits Requested Visits Authorized [id number] Closed Evaluate and Treat 11/06/2021 05/05/2022 20 20 * Consultation (Routine) - Closed Specialty Diagnoses / Procedures Referred By Contac t Referred To Contact Neurology Diagnoses Pain in left wrist bilat ulnar 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 Crow Russell Jr., MD [facility] [place] [address] [facility] Neurology [address] [place] [address] Referral ID Status Reason Start Date Expiration Date V isits Requested Visits Authorized [id number] Closed Test Only 11/06/2021 11/06/2022 1 1 Reason for Visit * Reason Comments Establish Care NXR L WRIST PAIN DOI 03/20/21 * Consultation (Routine) - Closed Specialty Diagnoses / Procedures Referred By Contac t Referred To Contact Orthopaedics Diagnoses Pain in left wrist PAIN IN LEFT WRIST Lamin Bess MD [address] [address] [facility] Orthopaedics [address] [place] [address] Referral ID Status Reason Start Date Expiration Date V isits Requested Visits Authorized [id number] Closed Consult, Test & Treat PCP Updated and/or Approved 09/14/2021 09/14/2022 6 6 Encounter Details Date Type Department Care Team (Late st Contact Info) Description 11/06/2021 9:30 AM EDT Office Visit [place] [address] Crow Russell Jr., MD [facility] [place] [address] Pain in left wrist Social [...] 11/06/2021 9:30 AM EDT Nghia Owusu [id number] 11/06/2021 HPI: 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 PRO INJECTION PV FACET JOINT LUMBAR/SACRAL SECOND LEVEL Bilateral 08/16/2021 INJECTION, FACET JOINT, W\FLUORO, LUMBAR, 2ND LEVEL (WRVU 1) performed by Donna Severino MD at [facility] PAIN MGMT MSO ??? PRO INJECTION PV FACET JOINT LUMBAR/SACRAL SECOND LEVEL Bilateral 09/20/2021 INJECTION, FACET JOINT, W\FLUORO, LUMBAR, 2ND LEVEL (WRVU 1) performed by Donna Severino MD at [facility] PAIN MGMT MSO ??? PRO INJECTION PV FACET JOINT LUMBAR/SACRAL SINGLE LEVEL Bilateral 08/16/2021 INJECTION, FACET JOINT, W\FLUORO, LUMBAR, SINGLE (WRVU 1.52) performed by Donna Severino MD at [facility] PAIN MGMT MSO ??? PRO INJECTION PV FACET JOINT LUMBAR/SACRAL SINGLE LEVEL Bilateral 09/20/2021 INJECTION, FACET JOINT, W\FLUORO, LUMBAR, SINGLE (WRVU 1.52) performed by Donna Severino MD at [facility] PAIN MGMT MSO History reviewed. No pertinent [...] note supplied by the resident or physician player manager with whom I saw the patient, and reviewed our findings and recommendations with the patient in person. Crow Russell Jr, MD Department of Orthopaedics [facility] documented in this encounter Plan [...] forearm documented in this encounter Care Teams Network Design Architect Relationship Specialty Start Date End Date Ta Jensen MD [address] [place] [address] PCP - General Family Medicine 07/22/20 documented as of this encounter
--- OUTSIDE RECORDS SUMMARY | 2023-11-10 15:27 | XMS_ITS | Encounter Summary ---
Author Organization [facility] [place] [address] Care Team Providers Care Field Care Manager Name Role Phone Ta Jensen MD Primary Care Provider [phone] Reason for Visit * Auth/Cert Specialty Diagnoses [...] Expiration Date Visits Re quested Visits Authorized [id number] 1 1 Encounter Details Date Type Department Care Team (Late st Contact Info) Description 08/16/2021 11:15 AM EDT Ancillary [place] [address] Donna Severino MD [facility] [place] [address] Social History Tobacco Use Types Packs/Day Years [...] Clinic C-Arm (08/16/2021 4:28 PM EDT) Narrative [facility][NOTE 3] - 08/16/2021 4:28 PM EDT See PACS for result report. Donna Severino MD G FILM LIBRARY ORD ERABLES [place], [place] documented in this encounter Visit Diagnoses Not on filedocumented in this encounter Care Teams Field Care Manager Relationship Specialty Start Date End Date Ta Jensen MD [address] [place] [address] PCP - General Family Medicine 07/22/20 documented as of this encounter
--- OUTSIDE RECORDS SUMMARY | 2023-11-10 15:27 | XMS_ITS | Encounter Summary ---
[place] [address] Care Team Providers Care Garage Mechanic Name Role Phone Ta Jensen MD Primary Care Provider [phone] Encounter Details Date Type Department Care Team (Late st Contact Info) Description 05/29/2021 12:05 AM EST Ancillary Procedure [place] [phone] Ta Jensen MD [facility] [place] [address] Social History Tobacco Use Types Packs/Day Years [...] DX Wrist (05/29/2021 12:05 AM EST) Narrative [facility] - 09/05/2021 10:06 AM EDT This exam is auto-finalizing. It's purpose is for storage only. Ta Jensen MD [facility] FILM LIBRARY ORD ERABLES [place], [place] documented in this encounter Visit Diagnoses Not on filedocumented in this encounter Care Teams Garage Mechanic Relationship Specialty Start Date End Date Ta Jensen MD [address] [place] [address] PCP - General Family Medicine 07/22/20 documented as of this encounter
--- OUTSIDE RECORDS SUMMARY | 2023-11-10 15:27 | XMS_ITS | Encounter Summary ---
Author Organization [facility] [place] [address] Care Team Providers Care School Photographs Detailer Name Role Phone Ta Jensen MD Primary Care Provider [phone] Encounter Details Date Type Department Care Team (Late st Contact Info) Description 08/10/2021 Telephone [place] [phone] Eva Davidson, RN Social History Tobacco Use [...] contacts Identified myself and provided callback number: [phone] 1. Patient instructed to arrive at 1045 on 08/16/21 with their motor vehicle escort driver for their LMBB procedure. Please plan [...] health condition you need to call the [employer] hotline to arrange for testing prior to your procedure: fever or chills, cough, shortness of breath or difficulty breathing, fatigue, muscle or body aches, headache, new loss of taste or smell, sore throat, congestion or runny nose, nausea or vomiting, diarrhea. The [employer] number is: [phone] 5. If your pain has resolved or [...] on filedocumented in this encounter Care Teams School Photographs Detailer Relationship Specialty Start Date End Date Ta Jensen MD [address] [place] [address] PCP - General Family Medicine 07/22/20 documented as of this encounter
--- OUTSIDE RECORDS SUMMARY | 2023-11-10 15:27 | XMS_ITS | Encounter Summary ---
Author Organization [facility] [place] [address] Care Team Providers Care Forest Law And Policy Professor Name Role Phone Ta Jensen MD Primary Care Provider Reason for Visit * Reason Comments Back Pain * Consultation (Routine) - Closed Specialty Diagnoses / Procedures Referred By Contac t Referred To Contact Pain and Spine Center Diagnoses Degenerative disc disease, lumbar Low back pain s/p fall 03/20/21/ tried PT/MRI 05/2021 @ [facility] Ta Jensen MD [facility] [place] [address] [facility] [place] [address] Referral ID Status Reason Start Date Expiration Date V isits Requested Visits Authorized [id number] Closed Consult, Test & Treat 06/06/2021 06/06/2022 6 6 Encounter Details Date Type Department Care Team (Late st Contact Info) Description 07/26/2021 3:00 PM EDT Office Visit [place] [address] Sana Acevedo APRN [facility] [place] [address] Lumbar spondylosis (Primary Dx) Social [...] from the original note were not included. [facility] Date [...] therapy but he is doing this in [place] and the therapist felt the pool therapy would be the most effective form but unfortunately really has not made much difference. He is out of work. 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 His pain is predominantly aggravated by activity. 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 He is currently having difficulties even doing [...] data found. PAST THERAPIES: cyclobenzeprine PT at [place], pool therapy duloxetine Functional Status Work-- stone grader, job to return to if improves, not [...] y.o. year-old male who presents to the [facility] and [...] addition he might benefit from the functional yarsani program ultimately or the active pain group [...] in Nghia Owusu's care. Sana Acevedo, MS, MANAGER RISK-BC, COAL DRIER OPERATOR Nurse practitioner Pain management [facility] documented in this encounter Plan of Treatment Not on file documented as of this encounter Visit Diagnoses Diagnosis Lumbar spondylosis- Primary Lumbosacral spondylosis without myelopathy documented in this encounter Care Teams Forest Law And Policy Professor Relationship Specialty Start Date End Date Ta Jensen MD [address] [place] [address] PCP - General Family Medicine 07/22/20 documented as of this encounter
--- OUTSIDE RECORDS SUMMARY | 2023-11-10 15:27 | XMS_ITS | Encounter Summary ---
[place] [address] Care Team Providers Care Control Specialist Name Role Phone Ta Jensen MD Primary Care Provider [phone] Reason for Referral * Consultation (Routine) - Duplicate Referral Specialty Diagnoses / Procedures Referred By Contac t Referred To Contact Pain and Spine Center Diagnoses DDD (degenerative disc disease), lumbar Lumbar spondylosis Ta Jensen MD [address] [place] [address] [facility] [place] [address] Referral ID Status Reason Start Date Expiration Date Visits Requested Visits Authorized [id number] Duplicate Referral Consult, Test & Treat PCP Updated and/or Approved 02/20/2022 02/20/2023 6 6 Encounter Details Date Type Department Care Team (Latest Contact Info) Description 02/20/2022 Transcribe Orders eDH Incoming Referrals [phone] Ta Jensen MD [address] [place] [address] DDD (degenerative disc disease), lumbar; Lumbar [...] myelopathy documented in this encounter Care Teams Control Specialist Relationship Specialty Start Date End Date Ta Jensen MD [address] [place] [address] PCP - General Family Medicine 07/22/20 documented as of this encounter
--- OUTSIDE RECORDS SUMMARY | 2023-11-10 15:27 | XMS_ITS | Encounter Summary ---
Author Organization [facility] [place] [address] Care Team Providers Care Materials Management Clerk Name Role Phone Ta Jensen MD Primary Care Provider Encounter Details Date Type Department Care Team (Late st Contact Info) Description 05/29/2021 Ancillary Procedure [place] [phone] Ta Jensen MD [facility] [place] [address] Social History Tobacco Use Types Packs/Day Years [...] Jensen MD G FILM LIBRARY ORD ERABLES [place], [place] documented in this encounter Visit Diagnoses Not on filedocumented in this encounter Care Teams Materials Management Clerk Relationship Specialty Start Date End Date Ta Jensen MD [address] [place] [address] PCP - General Family Medicine 07/22/20 documented as of this encounter
--- OUTSIDE RECORDS SUMMARY | 2023-11-10 15:27 | XMS_ITS | Encounter Summary ---
Author Organization [facility] [place] [address] Care Team Providers Care Toy Consultant Name Role Phone Ta Jensen MD Primary Care Provider [phone] Encounter Details Date Type Department Care Team (Late st Contact Info) Description 09/17/2021 Telephone [place] [address] Dania Carr, RN Social History [...] PM EDT Contact made with patient or community health program representative as identified in contacts 1. Patient instructed to arrive at 08:30 on 09/20/21 with their coach tour driver for their LMBB procedure. Please plan [...] the patient has been directed to the [employer] hotline for testing prior to their procedure. (route telephone note to: [facility] covid 19 nurse triage with routing [...] on filedocumented in this encounter Care Teams Toy Consultant Relationship Specialty Start Date End Date Ta Jensen MD [facility] [place] [address] PCP - General Family Medicine 07/22/20 documented as of this encounter
--- OUTSIDE RECORDS SUMMARY | 2023-11-10 15:27 | XMS_ITS | Encounter Summary ---
Author Organization [facility] [place] [address] Care Team Providers Care Dry Transfer Worker Name Role Phone Ta Jensen MD Primary Care Provider [phone] Encounter Details Date Type Department Care Team (Late st Contact Info) Description 01/17/2022 12:00 PM EDT Notes Only [facility] [place] [address] [facility] [place] [address] Social History Tobacco Use Types Packs/Day Years Used Date Smoking Tobacco: Former Smokeless Tobacco: Never Comments:Quit Over 25yrs ago Sex and Gender Information Value Date Recorded Sex Assigned at Not on file Gender Identity Not on file Sexual Orientation Not on file documented as of this encounter Progress Notes * Lay Echeverria - 01/17/2022 12:00 PM EDT [facility] Active Pain Care, A Service of [...] on filedocumented in this encounter Care Teams Dry Transfer Worker Relationship Specialty Start Date End Date Ta Jensen MD [address] [place] [address] PCP - General Family Medicine 07/22/20 documented as of this encounter
[2023-11-10 18:23] LABS: Abs Immature Grans 0.02 10^3/uL (0.0-0.06); Absolute Basophil Count 0.03 10^3/uL (0.0-0.2); Absolute Eosinophil Count 0.11 10^3/uL (0.0-0.7); Absolute Lymphocyte Count 2.41 10^3/uL (1.2-3.4); Absolute Monocyte Count 0.64 10^3/uL (0.1-0.8); Absolute Neutrophil Count 3.52 10^3/uL (1.2-6.7); Basophils % 0.4 %; Eosinophils % 1.6 %; HCT 40.1 % (40.0-50.0); HGB 14.2 g/dL (13.5-17.5); Immature Grans % 0.3 %; Lymphocytes % 35.8 %; MCH 31.7 pg (27.0-33.0); MCHC 35.4 % (32.0-36.0); MCV 90 fL (80-95); MPV 9.2 fL (8.0-11.0); Monocytes % 9.5 %; Neutrophils % 52.4 %; Platelet Count 279 10^3/uL (130-400); RBC 4.48 10^6/uL (4.36-5.78); RDW 12.9 % (11.8-14.1); RDW-SD 42.8 fL; WBC 6.73 10^3/uL (4.4-10.8)
[2023-11-10 18:28] LABS: Iron 104 ug/dL (65-175)
[2023-11-10 18:39] LABS: ALT 53 U/L (16-63); AST 26 U/L (15-37); Albumin 4.1 g/dL (3.4-5.0); Alkaline Phosphatase 85 U/L (46-116); Anion Gap 11.1 mmol/L (3-11); BUN 21 mg/dL (7-18); Bilirubin, Total 0.59 mg/dL (0.2-1.0); CO2 31.9 mmol/L (21.0-32.0); CREATININE 1.3 mg/dL (0.70-1.30); Calcium 9.4 mg/dL (8.5-10.1); Chloride 100 mmol/L (98-107); Estimated GFR 62.89 (mL/min/1.73m2); Glucose 99 mg/dL (74-106); Sodium 143 mmol/L (136-145); Total Protein 7.2 g/dL (6.4-8.2)
[2023-11-10 18:55] LABS: Hemoglobin A1C 5.9 % (<5.7)
[2023-11-10 22:00] LABS: Potassium 2.9 mmol/L (3.5-5.1)
[2023-11-11 18:25] LABS: PSA, Screening 0.7 ng/mL (<=4.5)
== END 2023-11-10 15:26 | disposition home or self-care (01) ==
LOC: LBN 15:25
PROVIDERS: PCP Student in an Organized Health Care Education/Training Program; Visit Provider Nurse Practitioner Family
DX: D51.3 Other dietary vitamin B12 deficiency anemia (principal); I10 Essential (primary) hypertension; E78.5 Hyperlipidemia, unspecified; E55.9 Vitamin D deficiency, unspecified; R73.09 Other abnormal glucose; Z12.5 Encounter for screening for malignant neoplasm of prostate
CPT/HCPCS: 80053; 84153; 83036; 83540; 84443; 85025

== ENCOUNTER 2024-02-17 01:04 | Outpatient (CLI) | payer MEDICAID, SELFPAY ==
[2024-02-17] MEDS: Barium Sulfate 2% W/V-Berry Smoothie 450 ML BTL PO ×2 (12:51→12:52)
[2024-02-17 13:33] LABS: Anion Gap 7.3 mmol/L (3-11); BUN 22 mg/dL (7-18); CO2 30.7 mmol/L (21.0-32.0); CREATININE 1.5 mg/dL (0.70-1.30); Calcium 9.5 mg/dL (8.5-10.1); Chloride 102 mmol/L (98-107); Estimated GFR 52.64 (mL/min/1.73m2); Glucose 101 mg/dL (74-106); Potassium 3.4 mmol/L (3.5-5.1); Sodium 140 mmol/L (136-145)
--- NOTE | 2024-02-17 15:10 | DI.CT_ITS ---
Exam(s) CT ABDOMEN PELVIS W EXAM: CT ABDOMEN PELVIS W CLINICAL HISTORY: Chronic pelvic pain. TECHNIQUE: Imaging Protocol: Axial computed tomography images with coronal and sagittal reformatted images were created and reviewed CONTRAST MATERIAL: Intravenous: Omnipaque 350 Contrast volume:85 ml Oral: yes COMPARISON: CT RENAL COLIC WO CONTRAST from 06/12/2007 US US RENAL from 08/28/2021 FINDINGS: ABDOMEN and PELVIS: Lung Bases: No acute findings. Liver: Normal density. No suspicious mass. Gallbladder and biliary tract: No radiodense calculus. No biliary dilation. Pancreas: Normal density. No abnormal calcifications or inflammatory process. No evidence of mass. Spleen: Normal. Kidneys: Normal size, contour and axis. No radiodense stones. No obstructive uropathy. Simple cyst upper pole left kidney. No follow-up recommended. No suspicious masses seen. Adrenal glands: No masses seen. Vasculature: Abdominal aorta non-dilated. Soft tissues: Small amount of fat in both inguinal canals. Appearance unchanged from prior. Bladder: No gross wall thickening. No calculi.No focal mass. Bowel: No obstruction. No bowel wall thickening. Appendix normal. Minimal diverticulosis of the de scending colon. Moderate to increased quantity of stool. Peritoneal cavity: No ascites. No focal collection. No mesenteric inflammatory response. Bones: Unremarkable for age. Reproductive organs: Unremarkable. Vasectomy clips. Lymph nodes: No pathologically enlarged lymph nodes. IMPRESSION:: No acute abnormality in the abdomen or pelvis. RADIATION DOSE DELIVERED: Total DLP DATA REPOSITORY: All CT scans at this facility are submitted to the National Radiology Data Registry (NRDR) Dose Index Registry (DIR) with the [employer] (ACR). RADIATION OPTIMIZATION: All CT scans at this facility use at least one of these dose optimization te chniques: automated exposure control; mA and/or kV adjustment per patient size (includes targeted exa ms where dose is matched to clinical indication); or iterative reconstruction.
[2024-02-17] MEDS: Omnipaque 350 MG/ML 100 ML BTL 85 ML IJ (15:16)
[2024-02-17] MEDS: Normal Saline - Diluent 50 ML VIAL IJ (15:17)
== END 2024-02-17 01:24 ==
LOC: DI 01:04
PROVIDERS: Visit Provider Nurse Practitioner Family
DX: R10.2 Pelvic and perineal pain (principal)
CPT/HCPCS: 80048; 74177; 82565; J3490

== ENCOUNTER 2024-04-28 11:37 | Inpatient (IN) | payer MEDICAID, SELFPAY ==
[2024-04-28] VITALS (60 sets, daily range): BP systolic 119–225; BP diastolic 65–110; PULSE 42–69; RESP 10–23; TEMP 36.5–36.8; O2SAT 96–100
--- NOTE | 2024-04-28 | DI.CT_ITS ---
Exam(s) CT LUMBAR SPINE RECONS EXAM: CT LUMBAR SPINE RECONS CLINICAL HISTORY: pelvic and back pain. TECHNIQUE: Imaging Protocol: Axial computed tomography images with coronal and sagittal reformatted images were created and reviewed COMPARISON: CT CT ABDOMEN PELVIS W from 02/17/2024 FINDINGS: Bones: The last intervertebral disc space is designated the L5/S1 level for the numbering purpose of this examination. There are endplate osteophytes at several levels of the lumbar spine. There is di sc space narrowing at L1-L2 and L2-L3. Alignment is satisfactory. No fracture is seen. T12-L1: No disc herniations or bulges are present. No central spinal canal or neural foraminal steno sis. L1-2: No disc herniations or bulges are present. No central spinal canal or neural foraminal stenosi s. L2-3: No disc herniations or bulges are present. No central spinal canal or neural foraminal stenosi s. L3-4: No large focal disc herniation. No central spinal canal or neural foraminal stenosis. L4-5: There is a mild diffuse disc bulge. No significant central spinal canal stenosis. There is m ild bilateral neural foraminal narrowing. L5-S1: No large focal disc herniation. No central spinal canal or neural foraminal stenosis. Soft Tissues: The visualized SI joints and sacrum are will maintained. The paraspinal soft tissues a re unremarkable. IMPRESSION: 1. No acute fracture or subluxation. 2. Mild degenerative changes seen in the lumbar spine particularly at L4-L5 where there is mild bilat eral neural foraminal narrowing. RADIATION DOSE DELIVERED: Total DLP Total DLP DATA REPOSITORY: All CT scans at this facility are submitted to the National Radiology Data Registry (NRDR) Dose Index Registry (DIR) with the [employer] (ACR). RADIATION OPTIMIZATION: All CT scans at this facility use at least one of these dose optimization te chniques: automated exposure control; mA and/or kV adjustment per patient size (includes targeted exa ms where dose is matched to clinical indication); or iterative reconstruction.
--- NOTE | 2024-04-28 11:30 | RT.EKG_ITS ---
APPROVED REPORT Exam: Resting ECG Reason for Exam: SOB Patient Location: E HR:60 bpm ECG Measurements Heart Rate 60 AXIS NJ 153 P 59 QRSd 79 QRS -10 QT 437 T 29 QTc 435 Conclusion Sinus rhythm...normal P axis, V-rate 60- 99
--- NOTE | 2024-04-28 12:30 | DI.CT_ITS ---
Exam(s) CT THORAX ABD/PEL CTA EXAM: CT THORAX ABD/PEL CTA CLINICAL HISTORY: Chest pain concern for dissection. TECHNIQUE: Imaging Protocol: Axial CT angiography was performed with multi-slice acquisition and m ulti-planar and/or 3D reconstructions. CONTRAST MATERIAL: Intravenous: Omnipaque 350 Contrast volume:125 mL Oral: no COMPARISON: CT RENAL COLIC WO CONTRAST from 06/12/[address] ABDOMEN PELVIS W from 02/17/2024 FINDINGS: CHEST: Pulmonary Arteries: No evidence of filling defect to suggest pulmonary emboli. Tracheobronchial tree: Patent where visualized. Mediastinum and Aleksandra: No dominant adenopathy or fluid collection. Pulmonary parenchyma: No consolidation or dominant measurable mass. 3 millimeter nodule right upper l obe. 3 millimeter nodule left lung base. Perifissural nodule at minor fissure on the right. 7 mill imeter nodule right lower lobe. Pleura: No effusion or pneumothorax. Heart: The heart is mildly dilated. No coronary artery calcifications are seen. Aorta: Thoracic aorta non-dilated. No evidence of dissection. No significant atherosclerotic sage es. Bones: Normal. Tubes, Catheters, and Lines: None ABDOMEN AND PELVIS: Abdomen: Celiac axis/mesenteric arteries: No evidence of occlusion or significant stenosis. Renal Arteries: No evidence of occlusion or significant stenosis. There is a single renal artery per fusing each kidney. Aorta: No evidence of occlusion or significant stenosis. Minimal atherosclerotic calcification. No aneurysm or dissection. Pelvis: Iliac Arteries: No evidence of occlusion or significant stenosis. Mild atherosclerotic calcificatio n proximally on the right. Common Femoral Arteries: No evidence of occlusion or significant stenosis. ABDOMEN: Liver: Normal density. No measurable mass. Portal, Superior Mesenteric, and Splenic Veins: Unremarkable. Gallbladder and Biliary Tract: No radiodense calculus or dilation. Pancreas: Normal density, no abnormal calcifications or inflammatory process. Spleen: Normal. Adrenals: No masses seen. Kidneys: Normal size, contour and axis. No radiodense stones or obstructive uropathy. Cyst upper cedrick e left kidney. No suspicious masses seen. Bowel: No obstruction or bowel wall thickening. Appendix is unremarkable. Mild diverticulosis. Peritoneal Cavity: No ascites, collection or mesenteric inflammatory response. Lymph Nodes: Within normal limits. Bones: Unremarkable. Soft Tissues: Unremarkable. PELVIS: Bladder: Symmetric distention, no gross wall thickening. Reproductive Organs: Unremarkable as visualized. Lymph Nodes: Within normal limits. Bones: Unremarkable for age. Soft tissues: Small bilateral fatty inguinal hernias. IMPRESSION: Normal CT Angiogram of the chest, abdomen and pelvis. No acute abnormality in the chest abdomen or p rose. 7 millimeter nodule right lower lobe. Solitary noncalcified solid nodules measuring 6???8 mm in patients with low clinical risk are recomme nded to undergo initial follow-up at 6???12 months depending on size, morphology, and patient prefere nce (grade 1C: strong recommendation, low- or [id number] evidence). (Nilay et al., 2017) Unexpected findings RADIATION DOSE DELIVERED: Total DLP DATA REPOSITORY: All CT scans at this facility are submitted to the National Radiology Data Registry (NRDR) Dose Index Registry (DIR) with the [employer] (ACR). RADIATION OPTIMIZATION: All CT scans at this facility use at least one of these dose optimization te chniques: automated exposure control; mA and/or kV adjustment per patient size (includes targeted exa ms where dose is matched to clinical indication); or iterative reconstruction.
[2024-04-28 12:43] LABS: Abs Immature Grans 0.01 10^3/uL (0.0-0.06); Absolute Basophil Count 0.03 10^3/uL (0.0-0.2); Absolute Eosinophil Count 0.07 10^3/uL (0.0-0.7); Absolute Lymphocyte Count 1.51 10^3/uL (1.2-3.4); Absolute Monocyte Count 0.63 10^3/uL (0.1-0.8); Absolute Neutrophil Count 2.85 10^3/uL (1.2-6.7); Basophils % 0.6 %; Eosinophils % 1.4 %; HCT 43.5 % (40.0-50.0); HGB 14.7 g/dL (13.5-17.5); Immature Grans % 0.2 %; Lactate 2.1 mmol/L (0.6-1.4); Lymphocytes % 29.6 %; MCH 31.8 pg (27.0-33.0); MCHC 33.8 % (32.0-36.0); MCV 94 fL (80-95); MPV 9.4 fL (8.0-11.0); Monocytes % 12.4 %; Neutrophils % 55.8 %; Platelet Count 240 10^3/uL (130-400); RBC 4.62 10^6/uL (4.36-5.78); RDW 13.3 % (11.8-14.1); RDW-SD 46.7 fL
[2024-04-28 13:05] LABS: ALT 33 U/L (16-63); AST 18 U/L (15-37); Alkaline Phosphatase 79 U/L (46-116); Anion Gap 7.8 mmol/L (3-11); BUN 15 mg/dL (7-18); Bilirubin, Total 0.62 mg/dL (0.2-1.0); CO2 29.2 mmol/L (21.0-32.0); CREATININE 1.3 mg/dL (0.70-1.30); Calcium 9.1 mg/dL (8.5-10.1); Chloride 107 mmol/L (98-107); Glucose 95 mg/dL (74-106); Magnesium 2.1 mg/dL (1.8-2.4); Potassium 3.7 mmol/L (3.5-5.1); Sodium 144 mmol/L (136-145); Total Protein 7.6 g/dL (6.4-8.2); Troponin I 12 ng/L (<or=76)
[2024-04-28 13:08] LABS: Bilirubin Negative (Negative); Blood Trace-lysed (Negative); Clarity Clear (Clear); Glucose Negative (Negative); Ketones Negative (Negative); Leukocyte Esterase Negative (Negative); Nitrite Negative (Negative); Urobilinogen 0.2 mg/dL (Up to 0.2); pH 5.5 (5-8)
[2024-04-28 13:28] LABS: Bacteria Few HPF (Negative); Crystals Negative HPF (Negative); Epithelial Cells Rare HPF (Negative); Other Cells Negative (Negative); RBC 0-2 HPF (0-2); WBC Negative HPF (0-5)
[2024-04-28 13:29] LABS: C & S Indicated? No; Casts Negative LPF (Negative); Mucus Trace (Negative)
[2024-04-28] MEDS: Normal Saline - Diluent 50 ML VIAL IJ (13:35)
[2024-04-28] MEDS: Omnipaque 350 MG/ML 500 ML BTL-Imaging package 125 ML IJ (13:35)
[2024-04-28 13:53] LABS: Troponin I 12 ng/L (<or=76)
--- NOTE | 2024-04-28 14:14 | ED.GENADUL_ITS ---
Discharge Plan Disposition Patient Disposition: Admit to [facility] Condition: Serious Discharge Details Chief Complaint: SOB Clinical Impression: Hypertensive emergency, Pulmonary nodules Primary Care Provider: Unknown,Unknown ED Provider: Santos Sagastume Home Meds and New Rx's Prescriptions: No Action amlodipine 5 mg tablet 5 mg PO DAILY potassium chloride 20 mEq tablet extended release 20 meq PO DAILY tamsulosin 0.4 mg capsule 0.4 mg PO QHS loratadine [Allergy Relief (loratadine)] 10 mg tablet,disintegrating 10 mg PO DAILY epinephrine [EpiPen 2-Kyree] 0.3 mg/0.3 mL auto-injector 0.3 mg IM Q5-15M PRN Rx Instructions: do not exceed 3 doses per episode atorvastatin 10 mg tablet 10 mg PO QHS Ultra CoQ10 75 mg capsule 75 mg PO DAILY lisinopril 40 mg tablet 40 mg PO DAILY sildenafil [Viagra] 100 mg tablet 100 mg PO DAILY PRN Rx Instructions: administer 30 minutes to 4 hours before activity baclofen 10 mg tablet 10 mg PO BID PRN Patient Comments: TAKE ONE TABLET BY MOUTH TWICE A DAY NEEDED FOR MUSCLE SPASM amlodipine-valsartan 10-160 mg tablet 1 tab PO DAILY Patient Comments: TAKE ONE TABLET BY MOUTH EVERY DAY HPI General Mode of arrival: ambulatory . Date/Time Provider Initiated Documentation: 04/28/24 11:53 . Limitations to Documentation: no limitations . Information obtained by: patient . HPI Narrative: 59yo male with multiple medical problems including history of Crohn's disease, hypertension, presents today with chief complaint of shortness of breath. Patient notes he developed shortness of breath last night and has persisted. He has associated diaphoresis and chills as well as fatigue and dizziness. Patient denies calf pain. He has had no recent immobility or surgery. He is concerned that his blood pressure is elevated today. He has been taking his antihypertensives as prescribed. Patient has had ongoing intermittent left-sided chest discomfort times months. Patient also notes kidney problems with flank pain with intermittent hematuria that is being worked up by primary care physician. Related Data Home Medications ?Medication ?Instructions ?Recorded ?Confirmed epinephrine 0.3 mg/0.3 mL 0.3 mg IM Q5-15M PRN 05/25/20 04/28/24 injection, auto-injector (EpiPen 2-Kyree) loratadine 10 mg disintegrating 10 mg PO DAILY 05/25/20 04/28/24 tablet (Allergy Relief (loratadine)) atorvastatin 10 mg tablet 10 mg PO QHS 04/24/21 04/28/24 coenzyme Q10 75 mg capsule (Ultra 75 mg PO DAILY 06/18/23 04/28/24 CoQ10) lisinopril 40 mg tablet 40 mg PO DAILY 06/18/23 04/28/24 sildenafil 100 mg tablet (Viagra) 100 mg PO DAILY PRN 06/18/23 04/28/24 amlodipine 5 mg tablet 5 mg PO DAILY 09/12/23 04/28/24 potassium chloride 20 mEq 20 meq PO DAILY 09/12/23 04/28/24 tablet,extended release tamsulosin 0.4 mg capsule 0.4 mg PO QHS 09/12/23 04/28/24 amlodipine 10 mg-valsartan 160 mg 1 tab PO DAILY 04/28/24 04/28/24 tablet baclofen 10 mg tablet 10 mg PO BID PRN 04/28/24 04/28/24 Allergies Allergy/AdvReac Type Severity Reaction Status Date / Time bee stings Allergy Severe Anaphylaxsi Uncoded 04/28/24 11:51 s strong fragrants Allergy Severe Anaphylaxis Uncoded 04/28/24 11:51 Yellow jackets Allergy Severe Anaphylaxis Uncoded 04/28/24 11:51 General Stated Complaint: SOB YOLANDA: 3 Review of Systems All systems reviewed & are unremarkable except as noted in HPI and below Constitutional Constitutional: Reports as per HPI and Denies fever(s) Cardiovascular Cardiovascular: Reports as per HPI Respiratory Respiratory: Reports as per HPI Gastrointestinal Gastrointestinal: Reports abdominal pain (rt lower) Genitourinary Genitourinary: Reports as per HPI Exam Const General: cooperative and no acute distress [facility] Mouth: moist mucous membranes Eyes Conjunctivae: normal conjunctivae Sclera: normal sclerae EOM: EOM intact bilaterally Neck Neck: trachea midline and supple Resp Auscultation: clear to auscultation bilaterally, no rales, no rhonchi and no wheezes Cardio Rate: regular rate and not tachycardic Rhythm: regular rhythm GI Palpation: soft, not firm, no guarding, no masses, not rigid and tender in the RLQ Skin General skin exam: no rashes or lesions noted Neuro General: patient alert, patient awake, patient oriented x3 and tone normal Extrem General: no edema Psych Appearance: grossly normal Mental Status: mental status grossly normal Speech and Movement: speech and movement normal Course Vital Signs Vital signs: Vital Signs Temperature 36.6 C 04/28/24 11:44 Pulse 66 04/28/24 11:44 Respiratory Rate 14 04/28/24 11:44 Blood Pressure 225/110 H 04/28/24 11:44 Pulse Oximetry 100 04/28/24 11:44 Temperature 36.6 C 04/28/24 11:51 Temperature Source Oral 04/28/24 11:51 Pulse 46 L 04/28/24 13:15 Pulse 47 L 04/28/24 13:20 Respiratory Rate 16 04/28/24 13:20 Respiratory Effort Normal, Short of Breath 04/28/24 12:10 Respiratory Depth Normal 04/28/24 12:10 Respiratory Pattern Normal 04/28/24 12:10 Blood Pressure 176/88 H 04/28/24 13:15 Blood Pressure Mean 119 04/28/24 13:15 Blood Pressure Position Supine 04/28/24 11:51 Pulse Oximetry 98 04/28/24 13:20 Oxygen Delivery Method Room Air 04/28/24 11:51 Oxygen Flow Rate 0 04/28/24 11:51 Pain Level 7 04/28/24 12:10 Lab/Test Results Lab/Test Results: Laboratory Tests Range/Units 04/28/24 04/28/24 04/28/24 12:10 12:58 13:30 WBC (4.4-10.8) 10^3/uL 5.10 RBC (4.36-5.78) 10^6/uL 4.62 Hgb (13.5-17.5) g/dL 14.7 Hct (40.0-50.0) % 43.5 MCV (80-95) fL 94 MCH (27.0-33.0) pg 31.8 MCHC (32.0-36.0) % 33.8 RDW (11.8-14.1) % 13.3 Plt Count (130-400) 10^3/uL 240 MPV (8.0-11.0) fL 9.4 Immature Gran % % 0.2 Neutrophils % % 55.8 Lymphocytes % % 29.6 Monocytes % % 12.4 Eosinophils % % 1.4 Basophils % % 0.6 Nucleated RBC % (0.0-0.3) % 0.0 Absolute Neutrophils (1.2-6.7) 10^3/uL 2.85 Absolute Lymphocytes (1.2-3.4) 10^3/uL 1.51 Absolute Monocytes (0.1-0.8) 10^3/uL 0.63 Absolute Eosinophils (0.0-0.7) 10^3/uL 0.07 Absolute Basophils (0.0-0.2) 10^3/uL 0.03 VBG Lactate (0.6-1.4) mmol/L 2.1 H Sodium (136-145) mmol/L 144 Potassium (3.5-5.1) mmol/L 3.7 Chloride (98-107) mmol/L 107 Carbon Dioxide (21.0-32.0) mmol/L 29.2 Anion Gap (3-11) mmol/L 7.8 BUN (7-18) mg/dL 15 Creatinine (0.70-1.30) mg/dL 1.3 Est GFR (CKD-EPI 2020) (mL/min/1.73m2) 62.50 Glucose (74-106) mg/dL 95 Calcium (8.5-10.1) mg/dL 9.1 Magnesium (1.8-2.4) mg/dL 2.1 Total Bilirubin (0.2-1.0) mg/dL 0.62 AST (15-37) U/L 18 ALT (16-63) U/L 33 Alkaline Phosphatase (46-116) U/L 79 Troponin I (<or=76) ng/L 12 12 Total Protein (6.4-8.2) g/dL 7.6 Albumin (3.4-5.0) g/dL 4.0 Urine Color (Yellow) Yellow Urine Clarity (Clear) Clear Urine pH (5-8) 5.5 Ur Specific [place] (1.005-1.025) 1.020 Urine Protein (Neg-Trace) mg/dL Negative Urine Ketones (Negative) mg/dL Negative Urine Blood (Negative) Trace-lysed H Urine Nitrite (Negative) Negative Urine Bilirubin (Negative) Negative Urine Urobilinogen (Up to 0.2) mg/dL 0.2 Ur Leukocyte Esterase (Negative) Negative Urine RBC (0-2) HPF 0-2 Urine WBC (0-5) HPF Negative Ur Epithelial Cells (Negative) HPF Rare Urine Crystals (Negative) HPF Negative Urine Bacteria (Negative) HPF Few Urine Casts (Negative) LPF Negative Urine Mucus (Negative) Trace Urine Other (Negative) Negative Ur Culture Indicated? No Urine Glucose (Negative) mg/dL Negative Medical Decision Making -- 59yo male with multiple medical problems including history of Crohn's disease, hypertension, presents today new onset shortness of breath since last night with associated diaphoresis and chills. Patient hypertensive on arrival. Patient is saturating well in no respiratory distress. He is afebrile. Patient does have some right lower quadrant abdominal tenderness. Patient has had intermittent chest discomfort over the past few months. Consider acute life threatening thoracic arotic dissection. Plan for CT chest/abd/pelv. Consider ACS. EKG was reviewed and interpreted by me: Please see report, sinus rhythm 60 bpm, normal axis, nondiagnostic. No STEMI. Plan to check troponin and trend. Consider pneumonia. Patient is quite hypertensive despite compliance with multiple antihypertensives -consider hypertensive emergency. 1556 -- Labs reviewed and nondiagnostic. Initial and delta troponin negative. CT of the chest was interpreted by radiology: Normal CT Angiogram of the chest, abdomen and pelvis. No acute abnormality in the chest abdomen or pelvis. 7 millimeter nodule right lower lobe. Solitary noncalcified solid nodules measuring 6?8 mm in patients with low clinical risk are recommended to undergo initial follow-up at 6?12 months depending on size, morphology, and patient preference (grade 1C: strong recommendation, low- or [id number] evidence). (Nliay et al., 2017) 1604 --patient reassessed and continues to be hypertensive. Consider hypertensive emergency. Plan to hospitalize for continued monitoring and control of blood pressure. 1616 --I spoke with Dr. Carr, on-call hospitalist, he will admit the patient. Lab Data Lab results reviewed: Yes I reviewed the patient's lab results. Labs: Laboratory Tests Range/Units 04/28/24 04/28/24 04/28/24 12:10 12:58 13:30 WBC (4.4-10.8) 10^3/uL 5.10 RBC (4.36-5.78) 10^6/uL 4.62 Hgb (13.5-17.5) g/dL 14.7 Hct (40.0-50.0) % 43.5 MCV (80-95) fL 94 MCH (27.0-33.0) pg 31.8 MCHC (32.0-36.0) % 33.8 RDW (11.8-14.1) % 13.3 Plt Count (130-400) 10^3/uL 240 MPV (8.0-11.0) fL 9.4 Immature Gran % % 0.2 Neutrophils % % 55.8 Lymphocytes % % 29.6 Monocytes % % 12.4 Eosinophils % % 1.4 Basophils % % 0.6 Nucleated RBC % (0.0-0.3) % 0.0 Absolute Neutrophils (1.2-6.7) 10^3/uL 2.85 Absolute Lymphocytes (1.2-3.4) 10^3/uL 1.51 Absolute Monocytes (0.1-0.8) 10^3/uL 0.63 Absolute Eosinophils (0.0-0.7) 10^3/uL 0.07 Absolute Basophils (0.0-0.2) 10^3/uL 0.03 VBG Lactate (0.6-1.4) mmol/L 2.1 H Sodium (136-145) mmol/L 144 Potassium (3.5-5.1) mmol/L 3.7 Chloride (98-107) mmol/L 107 Carbon Dioxide (21.0-32.0) mmol/L 29.2 Anion Gap (3-11) mmol/L 7.8 BUN (7-18) mg/dL 15 Creatinine (0.70-1.30) mg/dL 1.3 Est GFR (CKD-EPI 2020) (mL/min/1.73m2) 62.50 Glucose (74-106) mg/dL 95 Calcium (8.5-10.1) mg/dL 9.1 Magnesium (1.8-2.4) mg/dL 2.1 Total Bilirubin (0.2-1.0) mg/dL 0.62 AST (15-37) U/L 18 ALT (16-63) U/L 33 Alkaline Phosphatase (46-116) U/L 79 Troponin I (<or=76) ng/L 12 12 Total Protein (6.4-8.2) g/dL 7.6 Albumin (3.4-5.0) g/dL 4.0 Urine Color (Yellow) Yellow Urine Clarity (Clear) Clear Urine pH (5-8) 5.5 Ur Specific [place] (1.005-1.025) 1.020 Urine Protein (Neg-Trace) mg/dL Negative Urine Ketones (Negative) mg/dL Negative Urine Blood (Negative) Trace-lysed H Urine Nitrite (Negative) Negative Urine Bilirubin (Negative) Negative Urine Urobilinogen (Up to 0.2) mg/dL 0.2 Ur Leukocyte Esterase (Negative) Negative Urine RBC (0-2) HPF 0-2 Urine WBC (0-5) HPF Negative Ur Epithelial Cells (Negative) HPF Rare Urine Crystals (Negative) HPF Negative Urine Bacteria (Negative) HPF Few Urine Casts (Negative) LPF Negative Urine Mucus (Negative) Trace Urine Other (Negative) Negative Ur Culture Indicated? No Urine Glucose (Negative) mg/dL Negative Quality:SDOH Health Related Social Needs: No Data to Display PFSH All Active Problems (Updated 04/28/24 @ 16:18 by Santos Sagastume MD) Pulmonary nodules (Acute) Hypertensive emergency (Acute) Ganglion cyst of volar aspect of right wrist (Acute) Tingling of left arm and left side of face (Acute) Syncope (Chronic) Other injury of unspecified muscle, fascia and tendon at wrist and hand level, left hand, subsequent encounter (Acute) Fracture of left distal radius (Acute) De Quervain's tenosynovitis, left (Acute) Injection: 03/26/2022 S/P Release: 10/28/2023 Right foot sprain (Acute) Right ankle sprain (Acute) Contusion of right hand (Acute) Back pain (Acute) Acute wrist pain (Acute) Fall (Acute) Tubular adenoma (Acute ~06/2020) Adenomatous polyps (Acute) History of Crohn's disease (Acute) Medical History Inflammatory bowel disease Lower urinary tract symptoms Tinea corporis ED (erectile dysfunction) Skin tag Left wrist pain Degenerative joint disease (DJD) of lumbar spine Tubular adenoma of colon (05/31/16) Bee sting allergy GERD (gastroesophageal reflux disease) Hyperlipidemia Hypertension Renal insufficiency, mild History of colon polyps Surgical History History of colonoscopy (~06/30/20) Colonoscopy - IV Sedation (05/31/16) Social History Smoking/Tobacco Use Status: Former Tobacco Use Quit Date: 04/14/99 Smoking risk assessment performed?: Yes Alcohol Intake: current Alcohol Intake frequency: holidays/special occasions only Drug use: Socially Substance use type: marijuana Housing: house Current gender identity: male Do you feel safe at home: Yes Do you feel safe in your relationship?: Yes Additional Social history: [employer]
[2024-04-28] MEDS: Mylanta Suspension 30 ML CUP PO (15:15)
[2024-04-28] MEDS: Famotidine 20 MG/2 ML VIAL IVP (15:15)
--- NOTE | 2024-04-28 16:48 | W.PM.HP.N ---
Date of service: 04/28/24 Time of Service: 16:48 Assessment and Plan Assessment and plan (1) Hypertensive emergency: Status: Acute Assessment and plan: Will restart his home meds and give hydralazine PRN. Pt would benefit significantly with an evaluation for sleep apnea as this is secondary cause of htn (2) Back pain: Status: Acute Assessment and plan: will check ct lumbar spine. Some of his s/s c/w prostate issues so will order a psa as well (3) Pulmonary nodules: Status: Acute Assessment and plan: follow up in [address] 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 Patient came into the ED for evaluation and was noted to have significant hypertension and was subsequently admitted to the hospital service for further evaluation and treatment. While he was in the ED CT chest abdomen pelvis were done which were essentially benign except for a 7 mm nodule in the right lower lobe with essentially normal CBC and CMP. Urinalysis done on admission did show hematuria. EKG done on admission showed no ST elevation or depression and a normal sinus rhythm. Per my discussion with the patient he states that he did have a stress test approximately 10 years ago for an unknown reason and he has also had a significant accident at work which is made him unable to to work and since that time he had significant pelvic and back pain. He also endorses incontinence and does not feel like his bladder is ever empty. This was happening prior to his accident but has got significantly worse since then. His partner was in the room with him and stated that the patient does have significant apneic episodes at night. When the patient was originally admitted to the ED or seen in the ED patient is a his blood pressures were 190/90. Review of Systems All systems reviewed & are unremarkable except as noted in HPI and below PFSH All Active Problems (Updated 04/28/24 @ 16:54 by Clement Carr MD) Hypertensive urgency (Acute) Pulmonary nodules (Acute) Hypertensive emergency (Acute) Ganglion cyst of volar aspect of right wrist (Acute) Tingling of left arm and left side of face (Acute) Syncope (Chronic) Other injury of unspecified muscle, fascia and tendon at wrist and hand level, left hand, subsequent encounter (Acute) Fracture of left distal radius (Acute) De Quervain's tenosynovitis, left (Acute) Injection: 03/26/2022 S/P Release: 10/28/2023 Right foot sprain (Acute) Right ankle sprain (Acute) Contusion of right hand (Acute) Back pain (Acute) Acute wrist pain (Acute) Fall (Acute) Tubular adenoma (Acute ~06/2020) Adenomatous polyps (Acute) History of Crohn's disease (Acute) Medical History Inflammatory bowel disease Lower urinary tract symptoms Tinea corporis ED (erectile dysfunction) Skin tag Left wrist pain Degenerative joint disease (DJD) of lumbar spine Tubular adenoma of colon (05/31/16) Bee sting allergy GERD (gastroesophageal reflux disease) Hyperlipidemia Hypertension Renal insufficiency, mild History of colon polyps Surgical History History of colonoscopy (~06/30/20) Colonoscopy - IV Sedation (05/31/16) Social History Smoking/Tobacco Use Status: Former Tobacco Use Quit Date: 04/14/99 Smoking risk assessment performed?: Yes Alcohol Intake: current Alcohol Intake frequency: holidays/special occasions only Drug use: Socially Substance use type: marijuana Housing: house Current gender identity: male Do you feel safe at home: Yes Do you feel safe in your relationship?: Yes Additional Social history: UTAP Meds Allergies and Home Medications Allergies Allergy/AdvReac Type Severity Reaction Status Date / Time bee stings Allergy Severe Anaphylaxsi Uncoded 04/28/24 11:51 s strong fragrants Allergy Severe Anaphylaxis Uncoded 04/28/24 11:51 Yellow jackets Allergy Severe Anaphylaxis Uncoded 04/28/24 11:51 Home Medications ?Medication ?Instructions ?Recorded ?Confirmed ?Type epinephrine 0.3 mg/0.3 mL 0.3 mg IM Q5-15M PRN 05/25/20 04/28/24 History injection, auto-injector (EpiPen 2-Kyree) loratadine 10 mg disintegrating 10 mg PO DAILY 05/25/20 04/28/24 History tablet (Allergy Relief (loratadine)) atorvastatin 10 mg tablet 10 mg PO QHS 04/24/21 04/28/24 History coenzyme Q10 75 mg capsule (Ultra 75 mg PO DAILY 06/18/23 04/28/24 History CoQ10) sildenafil 100 mg tablet (Viagra) 100 mg PO DAILY PRN 06/18/23 04/28/24 History potassium chloride 20 mEq 20 meq PO DAILY 09/12/23 04/28/24 History tablet,extended release tamsulosin 0.4 mg capsule 0.4 mg PO QHS 09/12/23 04/28/24 History amlodipine 10 mg-valsartan 160 mg 1 tab PO DAILY 04/28/24 04/28/24 History tablet baclofen 10 mg tablet 10 mg PO BID PRN 04/28/24 04/28/24 History Exam Narrative Exam Narrative: HEENT: Normocephalic atraumatic mucous membranes moist oropharynx clear extract motions are intact pupils equal round reactive to light Neck: No lymphadenopathy no JVD no thyroid megaly Cardiovascular: Regular rate and rhythm no murmur rubs gallops Lungs: Clear to auscultation bilaterally with good air exchange no accessory muscle use noted speaking in complete sentences Abdomen: Soft nontender nondistended bowel sounds are active neurologic: Cranial nerves II through XII intact as tested reflexes in upper lower extremity normal assisted Psych: Alert and oriented x 3 can give a linear history General: 59-year-old gentleman appears his stated age Results Labs 04/28/24 12:10 04/28/24 12:10 Labs: Laboratory Results - last 24 hr 04/28/24 04/28/24 04/28/24 12:10 12:58 13:30 WBC 5.10 RBC 4.62 Hgb 14.7 Hct 43.5 MCV 94 MCH 31.8 MCHC 33.8 RDW 13.3 Plt Count 240 MPV 9.4 Immature Gran % 0.2 Neutrophils % 55.8 Lymphocytes % 29.6 Monocytes % 12.4 Eosinophils % 1.4 Basophils % 0.6 Nucleated RBC % 0.0 Absolute Neutrophils 2.85 Absolute Lymphocytes 1.51 Absolute Monocytes 0.63 Absolute Eosinophils 0.07 Absolute Basophils 0.03 VBG Lactate 2.1 H Sodium 144 Potassium 3.7 Chloride 107 Carbon Dioxide 29.2 Anion Gap 7.8 BUN 15 Creatinine 1.3 Est GFR (CKD-EPI 2020) 62.50 Glucose 95 Calcium 9.1 Magnesium 2.1 Total Bilirubin 0.62 AST 18 ALT 33 Alkaline Phosphatase 79 Troponin I 12 12 Total Protein 7.6 Albumin 4.0 Urine Color Yellow Urine Clarity Clear Urine pH 5.5 Ur Specific [place] 1.020 Urine Protein Negative Urine Ketones Negative Urine Blood Trace-lysed H Urine Nitrite Negative Urine Bilirubin Negative Urine Urobilinogen 0.2 Ur Leukocyte Esterase Negative Urine RBC 0-2 Urine WBC Negative Ur Epithelial Cells Rare Urine Crystals Negative Urine Bacteria Few Urine Casts Negative Urine Mucus Trace Urine Other Negative Ur Culture Indicated? No Urine Glucose Negative Last Vital Signs Temp 36.6 C 04/28/24 11:51 Pulse 47 L 04/28/24 16:16 Resp 16 04/28/24 16:20 BP 190/90 H 04/28/24 16:16 Pulse Ox 98 04/28/24 16:20 Time Spent Time spent with Patient: 40-54 minutes Time was spent: preparing to see the patient(eg.review tests), obtaining and/or reviewing separately otained hiistory, ordering medications,tests, procedures, referring, communicating with other health landcare facilitator, indepentently interpreting results, counseling the patient and care coordination
[2024-04-28] MEDS: hydrALAZINE 20 MG/ML VIAL 10 MG IVP (16:57)
[2024-04-28] MEDS: ACETAMINOPHEN 1,000 MG/100 ML BAG 400 MG IVPB (16:57)
--- NOTE | 2024-04-28 17:09 | W.PC.ACHO ---
Registration Status: Primary Language: Preferred Language: ED Information & Data Chief Complaint SOB 04/28/24 14:20 Triage Note Pt arrives to ED c/o SOB 04/28/24 11:44 which started last night. LT sided CP x a few months; worsened over the past few days. Medical / Surgical History (Last Reviewed 04/28/24 @ 14:23 by Santos Sagastume MD) Inflammatory bowel disease Lower urinary tract symptoms Tinea corporis ED (erectile dysfunction) Skin tag Left wrist pain Degenerative joint disease (DJD) of lumbar spine Tubular adenoma of colon (05/31/16) Bee sting allergy GERD (gastroesophageal reflux disease) Hyperlipidemia Hypertension Renal insufficiency, mild History of colon polyps (Last Reviewed 04/28/24 @ 14:23 by Santos Sagastume MD) History of colonoscopy (~06/30/20) Colonoscopy - IV Sedation (05/31/16) Most Recent Vital Signs Temperature 36.6 C 04/28/24 11:51 Temperature Source Oral 04/28/24 11:51 Pulse 47 L 04/28/24 16:16 Pulse 46 L 04/28/24 16:20 Respiratory Rate 16 04/28/24 16:20 Respiratory Effort Normal, Short of Breath 04/28/24 12:10 Respiratory Depth Normal 04/28/24 12:10 Respiratory Pattern Normal 04/28/24 12:10 Blood Pressure 190/90 H 04/28/24 16:16 Blood Pressure Mean 125 04/28/24 16:16 Blood Pressure Position Supine 04/28/24 11:51 Pulse Oximetry 98 04/28/24 16:20 Oxygen Delivery Method Room Air 04/28/24 11:51 Oxygen Flow Rate 0 04/28/24 11:51 Pain Level 7 04/28/24 12:10 Allergies bee stings Allergy (Severe, Uncoded 04/28/24 11:51) Anaphylaxsis strong fragrants Allergy (Severe, Uncoded 04/28/24 11:51) Anaphylaxis with hives Yellow jackets Allergy (Severe, Uncoded 04/28/24 11:51) Anaphylaxis Precautions Isolation Standard precaution 04/28/24 11:50 IV IV Catheter Type [Left Saline Lock Antecubital] IV Catheter Gauge [Left 18 Antecubital] Diet Orders Category Date Time Status Regular/Normal [DIET] Nutrition 04/28/24 Dinner Active Diagnostics 04/28/24 04/28/24 04/28/24 Range/Units 19:43 17:43 16:46 WBC (4.4-10.8) 10^3/uL RBC (4.36-5.78) 10^6/uL Hgb (13.5-17.5) g/dL Hct (40.0-50.0) % MCV (80-95) fL MCH (27.0-33.0) pg MCHC (32.0-36.0) % RDW (11.8-14.1) % Plt Count (130-400) 10^3/uL MPV (8.0-11.0) fL Immature Gran % % Neutrophils % % Lymphocytes % % Monocytes % % Eosinophils % % Basophils % % Nucleated RBC % (0.0-0.3) % Absolute Neutrophils (1.2-6.7) 10^3/uL Absolute Lymphocytes (1.2-3.4) 10^3/uL Absolute Monocytes (0.1-0.8) 10^3/uL Absolute Eosinophils (0.0-0.7) 10^3/uL Absolute Basophils (0.0-0.2) 10^3/uL VBG Lactate (0.6-1.4) mmol/L Sodium (136-145) mmol/L Potassium (3.5-5.1) mmol/L Chloride (98-107) mmol/L Carbon Dioxide (21.0-32.0) mmol/L Anion Gap (3-11) mmol/L BUN (7-18) mg/dL Creatinine (0.70-1.30) mg/dL Est GFR (CKD-EPI 2020) (mL/min/1.73m2) Glucose (74-106) mg/dL Calcium (8.5-10.1) mg/dL Magnesium (1.8-2.4) mg/dL Total Bilirubin (0.2-1.0) mg/dL AST (15-37) U/L ALT (16-63) U/L Alkaline Phosphatase (46-116) U/L Troponin I Pending Pending (<or=76) ng/L Total Protein (6.4-8.2) g/dL Albumin (3.4-5.0) g/dL Free PSA Pending Total PSA Pending PSA Free/Total Ratio Pending Urine Color (Yellow) Urine Clarity (Clear) Urine pH (5-8) Ur Specific [place] (1.005-1.025) Urine Protein (Neg-Trace) mg/dL Urine Ketones (Negative) mg/dL Urine Blood (Negative) Urine Nitrite (Negative) Urine Bilirubin (Negative) Urine Urobilinogen (Up to 0.2) mg/dL Ur Leukocyte Esterase (Negative) Urine RBC (0-2) HPF Urine WBC (0-5) HPF Ur Epithelial Cells (Negative) HPF Urine Crystals (Negative) HPF Urine Bacteria (Negative) HPF Urine Casts (Negative) LPF Urine Mucus (Negative) Urine Other (Negative) Ur Culture Indicated? Urine Glucose (Negative) mg/dL 04/28/24 04/28/24 04/28/24 Range/Units 13:30 12:58 12:10 WBC 5.10 (4.4-10.8) 10^3/uL RBC 4.62 (4.36-5.78) 10^6/uL Hgb 14.7 (13.5-17.5) g/dL Hct 43.5 (40.0-50.0) % MCV 94 (80-95) fL MCH 31.8 (27.0-33.0) pg MCHC 33.8 (32.0-36.0) % RDW 13.3 (11.8-14.1) % Plt Count 240 (130-400) 10^3/uL MPV 9.4 (8.0-11.0) fL Immature Gran % 0.2 % Neutrophils % 55.8 % Lymphocytes % 29.6 % Monocytes % 12.4 % Eosinophils % 1.4 % Basophils % 0.6 % Nucleated RBC % 0.0 (0.0-0.3) % Absolute Neutrophils 2.85 (1.2-6.7) 10^3/uL Absolute Lymphocytes 1.51 (1.2-3.4) 10^3/uL Absolute Monocytes 0.63 (0.1-0.8) 10^3/uL Absolute Eosinophils 0.07 (0.0-0.7) 10^3/uL Absolute Basophils 0.03 (0.0-0.2) 10^3/uL VBG Lactate 2.1 H (0.6-1.4) mmol/L Sodium 144 (136-145) mmol/L Potassium 3.7 (3.5-5.1) mmol/L Chloride 107 (98-107) mmol/L Carbon Dioxide 29.2 (21.0-32.0) mmol/L Anion Gap 7.8 (3-11) mmol/L BUN 15 (7-18) mg/dL Creatinine 1.3 (0.70-1.30) mg/dL Est GFR (CKD-EPI 2020) 62.50 (mL/min/1.73m2) Glucose 95 (74-106) mg/dL Calcium 9.1 (8.5-10.1) mg/dL Magnesium 2.1 (1.8-2.4) mg/dL Total Bilirubin 0.62 (0.2-1.0) mg/dL AST 18 (15-37) U/L ALT 33 (16-63) U/L Alkaline Phosphatase 79 (46-116) U/L Troponin I 12 12 (<or=76) ng/L Total Protein 7.6 (6.4-8.2) g/dL Albumin 4.0 (3.4-5.0) g/dL Free PSA Total PSA PSA Free/Total Ratio Urine Color Yellow (Yellow) Urine Clarity Clear (Clear) Urine pH 5.5 (5-8) Ur Specific [place] 1.020 (1.005-1.025) Urine Protein Negative (Neg-Trace) mg/dL Urine Ketones Negative (Negative) mg/dL Urine Blood Trace-lysed H (Negative) Urine Nitrite Negative (Negative) Urine Bilirubin Negative (Negative) Urine Urobilinogen 0.2 (Up to 0.2) mg/dL Ur Leukocyte Esterase Negative (Negative) Urine RBC 0-2 (0-2) HPF Urine WBC Negative (0-5) HPF Ur Epithelial Cells Rare (Negative) HPF Urine Crystals Negative (Negative) HPF Urine Bacteria Few (Negative) HPF Urine Casts Negative (Negative) LPF Urine Mucus Trace (Negative) Urine Other Negative (Negative) Ur Culture Indicated? No Urine Glucose Negative (Negative) mg/dL Intake and Output - 24 Hour Total 04/28/24 11:37 thru 04/28/24 12:10 Intake Total 10 Balance 10 Weight 90.265 kg Intake: IV 10 Falls Risk Assessment History of Falls No History 04/28/24 11:57 Contributing Factors No Factors 04/28/24 11:57 Ambulatory Aids Independent 04/28/24 11:57 Tubes/Lines W/no contributing factors 04/28/24 11:57 Gait Evaluation No gait disturbance 04/28/24 11:57 Cognition No cognitive impairment 04/28/24 11:57 Fall Total Score 10 04/28/24 11:57 Level of Risk Standard/Low Risk 04/28/24 11:57 Problems (Last Reviewed 04/28/24 @ 14:23 by Santos Sagastume MD) Pulmonary nodules (Acute) Hypertensive emergency (Acute) Back pain (Acute) v v v v v v v v v Sending and/or Receiving Nurses: Please use comment section below to note any information pertinent to the patient hand-off not included above. Information / Comments: Report received from: Alysa wood to Meera JIMENEZ at [id number]
[2024-04-28 18:37] LABS: Troponin I 15 ng/L (<or=76)
[2024-04-28] MEDS: Enoxaparin 40 MG/0.4 ML SYR SC (18:47)
[2024-04-28] MEDS: Baclofen 10 MG TAB PO (18:47)
[2024-04-28 20:02] LABS: Troponin I 15 ng/L (<or=76)
[2024-04-28] MEDS: Tamsulosin 0.4 MG CAPCR PO (21:08)
[2024-04-28] MEDS: Atorvastatin 10 MG TAB PO (21:08)
[2024-04-29] MEDS: Acetaminophen 325 MG TAB PO ×2 (04:50→09:04)
[2024-04-29] MEDS: Baclofen 10 MG TAB PO (04:50)
[2024-04-29 06:43] LABS: MCH 31.9 pg (27.0-33.0); MCHC 34.1 % (32.0-36.0); MCV 93 fL (80-95); Platelet Count 222 10^3/uL (130-400); RBC 4.39 10^6/uL (4.36-5.78); RDW 13.4 % (11.8-14.1); RDW-SD 46.4 fL; WBC 5.41 10^3/uL (4.4-10.8)
[2024-04-29 07:20] LABS: ALT 31 U/L (16-63); AST 15 U/L (15-37); Albumin 3.5 g/dL (3.4-5.0); Alkaline Phosphatase 65 U/L (46-116); Anion Gap 8.5 mmol/L (3-11); BUN 14 mg/dL (7-18); Bilirubin, Total 0.77 mg/dL (0.2-1.0); CO2 27.5 mmol/L (21.0-32.0); CREATININE 1.3 mg/dL (0.70-1.30); Calcium 8.8 mg/dL (8.5-10.1); Chloride 108 mmol/L (98-107); Glucose 103 mg/dL (74-106); Potassium 3.8 mmol/L (3.5-5.1); Sodium 144 mmol/L (136-145); TSH (W/Ref FT4) 1.78 uIU/mL (0.36-3.74); Total Protein 6.7 g/dL (6.4-8.2); Troponin I 15 ng/L (<or=76)
[2024-04-29 07:50] VITALS: BP 165/95; PULSE 54; RESP 18; TEMP 36.9; O2SAT 99
[2024-04-29] MEDS: Potassium Chloride 20 MEQ TABCR PO (09:04)
[2024-04-29] MEDS: Loratidine 10 MG TAB PO (09:04)
[2024-04-29] MEDS: amLODIPine 10 MG TAB PO (09:04)
[2024-04-29] MEDS: Valsartan 80 MG TAB 160 MG PO (09:05)
--- NOTE | 2024-04-29 10:03 | INITIAL_ITS ---
Date of service: 04/29/24 Time of Service: 10:03 Care Management Initial Assmt Initial Assessment Reason for Hospitalization: hypertensive emergency Functional Status/Living Situation Patient Presentation: Brayan was sitting up in bed when CM met with him. He was alert and oriented and engaged easily with CM. Brayan was admitted with a hypertensive emergency which he states he feels is related to his chronic back and pelvic pain. Brayan lives in a single family home in [place] with his Cierra. Brayan shared that it started out as a mobile home but has undergone several expansions and is now a large home. He and Cierra have 5 children who are all living independently. Three of them are local, one lives in [place] and one in [place]. Brayan reported that he was injured at work about 3 years ago and has been unable to work since. He has chronic pain issues and has had some surgeries on his back. He stated that his most pressing issue right now is his pelvis. He hopes that more testing can be done to further identify the problem and, hopefully, fix it. Brayan is independent with all care and activities and uses only a cane for ambulatory support. 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) Instrumental Activities of Daily Living (ADLs): Independent Medications Medication Management: No Issues/Barriers identified Physical Functioning/Mobility Assistive Device: cane Advance Directives Advance Directives: Do you have an Advance Directive: N 02/03/14 08:49 AD On File at [facility]: N 01/19/14 15:16 Date Asked 02/14/24 02/14/24 13:52 AD Date Reviewed COLST On File at [facility] COLST Date Scanned Code Status Resuscitation Status Full Code Insurance Coverage/Financial Issues Insurance: Medicaid Care Team Visit Care Team Role Provider Type Unknown Unknown Primary Care Provider STAFF PHYSICIAN Raeann Alvarez Other Providers OFFICE CLERK Trisha Elias Other Providers OFFICE CLERK Aissatou Villasenor Other Providers OFFICE CLERK Adrianna Schneider RN Other Providers OFFICE CLERK Santos Sagastume MD Emergency Provider [facility] STAFF PHYSICIAN Clement Carr MD Admit Provider [facility] STAFF PHYSICIAN Attending Provider Discharge Potential Discharge Needs: PCP F/U Appt Anticipated Barriers to Discharge: None Identified Patient/Family Education Needs: Review discharge instructions, discuss Ask Me Three Transportation: Private vehicle Plan: Anticipate Nghia will be discharged home with no new services when medically cleared. He will follow up with his community providers and plan of care and transport with family. CM will follow ands continue to assess for discharge needs. Social Determinants of Health Screening Social Determinants of Health last assessed: 04/29/24 Will the Patient Participate in the Screening?: Yes Do you worry about having a steady place to live?: no Problems where you live: lack of heat and oven or stove not working In the past 12 months, have you had to go without electric, gas, oil or water in your home?: yes Have you or anyone in your house had to go without enough food to eat?: no Has lack of transportation kept you from medical appointments or from doing things needed for daily living?: yes Has anyone in your life made you feel unsafe or unsupported?: no How hard is it for you to pay for the very basics like food, housing, medical care, and heating? Would you say it is:: Somewhat hard Do you want help finding or keeping work or a job?: I do not need or want help If for any reason you need help with day-to-day activities such as bathing, preparing meals, shopping, managing finances, etc., do you get the help you need?: I don?t need any help How often do you feel lonely or isolated from those around you?: Sometimes Do you speak a language other than Belarusian at home?: No Health Related Social Needs Health related social needs: inadequate housing (Z59.1), transportation insecurity (Z59.82), material hardship(utilities) (Z59.12), problems related to housing/economic circumstances (Z59.89) and feeling lonely/isolated (Z60.8) [facility] All Active Problems (Updated 04/28/24 @ 16:54 by Clement Carr MD) Hypertensive urgency (Acute) Pulmonary nodules (Acute) Hypertensive emergency (Acute) Ganglion cyst of volar aspect of right wrist (Acute) Tingling of left arm and left side of face (Acute) Syncope (Chronic) Other injury of unspecified muscle, fascia and tendon at wrist and hand level, left hand, subsequent encounter (Acute) Fracture of left distal radius (Acute) De Quervain's tenosynovitis, left (Acute) Injection: 03/26/2022 S/P Release: 10/28/2023 Right foot sprain (Acute) Right ankle sprain (Acute) Contusion of right hand (Acute) Back pain (Acute) Acute wrist pain (Acute) Fall (Acute) Tubular adenoma (Acute ~06/2020) Adenomatous polyps (Acute) History of Crohn's disease (Acute) Medical History Inflammatory bowel disease Lower urinary tract symptoms Tinea corporis ED (erectile dysfunction) Skin tag Left wrist pain Degenerative joint disease (DJD) of lumbar spine Tubular adenoma of colon (05/31/16) Bee sting allergy GERD (gastroesophageal reflux disease) Hyperlipidemia Hypertension Renal insufficiency, mild History of colon polyps Surgical History History of colonoscopy (~06/30/20) Colonoscopy - IV Sedation (05/31/16) Social History Smoking/Tobacco Use Status: Former Tobacco Use Quit Date: 04/14/99 Smoking risk assessment performed?: Yes Alcohol Intake: current Alcohol Intake frequency: holidays/special occasions only Drug use: Socially Substance use type: marijuana Housing: house Current gender identity: male Do you feel safe at home: Yes Do you feel safe in your relationship?: Yes Additional Social history: UTAP
[2024-04-29 11:08] VITALS: BP 158/99; PULSE 66; RESP 20; TEMP 36.7; O2SAT 98
--- NOTE | 2024-04-29 13:33 | CHAPLAIN ---
Nghia was in bed, visiting with a friend/family member? when I stopped in. I explained my role and offered support.
[2024-04-29] MEDS: traMADol 50 MG TAB PO ×2 (14:40→21:15)
--- NOTE | 2024-04-29 15:16 | W.PM.PROGNOT ---
Date of Service Date of service: 04/29/24 Time of Service: 15:16 Assessment and Plan Assessment and plan (1) Hypertensive emergency: Status: Acute Assessment and plan: -Elevated blood pressure on admission up to 225/110, though without signs of endorgan damage -restarted his home amlodipine/valsartan, hydralazine PRN -worsening on chronic pain also likley contributing factor; continue baclofen, start PRN tramadol -rec outpatient sleep study as secondary cause of HTN (2) Back pain: Status: Acute Assessment and plan: -CT lumbar spine without acute findings, ongoing mild degenerative changes L4-L5 where there is bilateral foraminal narrowing (3) Pulmonary nodules: Status: Acute Assessment and plan: -follow up in [address] 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 Understands the plan to continue to work on improved pain management prior to discharge. Otherwise he has no other complaints or concerns at this time. Exam Narrative Exam Narrative: Well-appearing older gentleman sitting up in the bed in no acute distress, ANO x 4, heart regular rhythm, lungs clear to auscultation bilaterally, abdomen soft, nontender, nondistended Objective Last Vital Signs Temp 98.1 F 04/29/24 11:08 Pulse 66 04/29/24 11:08 Resp 20 04/29/24 11:08 BP 158/99 H 04/29/24 11:08 Pulse Ox 98 04/29/24 11:08 Laboratory Results - last 24 hr 04/28/24 04/28/24 04/29/24 09:30 18:04 06:26 WBC 5.41 RBC 4.39 Hgb 14.0 Hct 41.0 MCV 93 MCH 31.9 MCHC 34.1 RDW 13.4 Plt Count 222 MPV 9.0 Sodium 144 Potassium 3.8 Chloride 108 H Carbon Dioxide 27.5 Anion Gap 8.5 BUN 14 Creatinine 1.3 Est GFR (CKD-EPI 2021) 62.50 Glucose 103 Calcium 8.8 Total Bilirubin 0.77 AST 15 ALT 31 Alkaline Phosphatase 65 Troponin I 15 15 15 Total Protein 6.7 Albumin 3.5 TSH 1.78 PAWSS Have you Been Recently Intoxicated or Drunk Within the Last 30 days?: No Have you Ever Experienced Previous Episodes of Alcohol Withdrawal?: No Have you ever Experienced Withdrawal Seizures?: No Have you ever Experienced Delirium Tremens(DT)s?: No Have you ever undergone Alcohol Rehabilitation Treatment (i.e, inpt ot outpatient treatment programs)?: No Have you ever Experienced Blackouts?: No Have you ever Combined Alcohol with other Downers within the last 90 days?: No Have you ever Combined Alcohol with any other Substance of Abuse during the last 90 days?: No Positive Blood Alcohol level on Presentation? [PCS.BAL]: No Evidence of Increased Autonomic Activity (i.e. HR>120, tremor, sweating, agitation, nausea)?: No Result: 0 Time Spent with Patient Time Spent with Patient: >50 minutes Time was spent: preparing to see the patient(eg.review tests), obtaining and/or reviewing separately otained hiistory, ordering medications,tests, procedures, referring, communicating with other health insurance healthcare consultant, indepentently interpreting results, counseling the patient and care coordination
[2024-04-29 15:28] VITALS: BP 142/85; PULSE 68; RESP 18; TEMP 36.6; O2SAT 97
[2024-04-29 17:43] VITALS: O2SAT 97
[2024-04-29] MEDS: Enoxaparin 40 MG/0.4 ML SYR SC (17:47)
[2024-04-29 19:15] VITALS: BP 155/88; PULSE 74; RESP 18; TEMP 36.3; O2SAT 98
[2024-04-29] MEDS: Tamsulosin 0.4 MG CAPCR PO (20:13)
[2024-04-29] MEDS: Atorvastatin 10 MG TAB PO (20:13)
[2024-04-30] MEDS: traMADol 50 MG TAB PO ×2 (02:08→08:12)
[2024-04-30 02:12] VITALS: BP 128/86; PULSE 55; RESP 18; TEMP 36.4; O2SAT 96
[2024-04-30 07:59] VITALS: BP 135/83; PULSE 62; RESP 16; TEMP 36.5; O2SAT 99
[2024-04-30 08:10] VITALS: O2SAT 99
[2024-04-30] MEDS: Valsartan 80 MG TAB 160 MG PO (08:12)
[2024-04-30] MEDS: Potassium Chloride 20 MEQ TABCR PO (08:12)
[2024-04-30] MEDS: Loratidine 10 MG TAB PO (08:12)
[2024-04-30] MEDS: amLODIPine 10 MG TAB PO (08:13)
--- NOTE | 2024-04-30 09:15 | PDOC.CMPRO ---
Date of service: 04/30/24 Time of Service: 09:15 Care Management Progress Note Discharge Potential Discharge Needs: PCP F/U Appt Anticipated Barriers to Discharge: None Identified Patient/Family Education Needs: Review discharge instructions, discuss Ask Me Three Transportation: Private vehicle Plan: Anticipate Nghia will be discharged home with no new services when medically cleared. He will follow up with his community providers and plan of care and transport with family. CM will follow ands continue to assess for discharge needs. Social Determinants of Health Screening Social Determinants of Health last assessed: 04/30/24 Will the Patient Participate in the Screening?: Yes Do you worry about having a steady place to live?: no Problems where you live: lack of heat and oven or stove not working In the past 12 months, have you had to go without electric, gas, oil or water in your home?: yes Have you or anyone in your house had to go without enough food to eat?: no Has lack of transportation kept you from medical appointments or from doing things needed for daily living?: yes Has anyone in your life made you feel unsafe or unsupported?: no How hard is it for you to pay for the very basics like food, housing, medical care, and heating? Would you say it is:: Somewhat hard Do you want help finding or keeping work or a job?: I do not need or want help If for any reason you need help with day-to-day activities such as bathing, preparing meals, shopping, managing finances, etc., do you get the help you need?: I don?t need any help How often do you feel lonely or isolated from those around you?: Sometimes Do you speak a language other than Chinese at home?: No Health Related Social Needs Health related social needs: inadequate housing (Z59.1), transportation insecurity (Z59.82), material hardship(utilities) (Z59.12), problems related to housing/economic circumstances (Z59.89) and feeling lonely/isolated (Z60.8)
[2024-04-30] MEDS: oxyCODONE 5 MG TAB PO ×2 (10:59→16:12)
[2024-04-30 11:09] VITALS: BP 144/97; PULSE 63; RESP 16; TEMP 36.5; O2SAT 99
--- NOTE | 2024-04-30 14:21 | W.PM.DS.N ---
Date of service: 04/30/24 Time of Service: 14:21 DS: Diagnosis Discharge Diagnosis (1) Hypertensive emergency: Status: Acute (2) Back pain: Status: Acute (3) Pulmonary nodules: Status: Acute (4) Hypertension: (5) Lower urinary tract symptoms: Discharge Plan Disposition Patient Disposition: Home Condition: Good Discharge Details Reason For Visit: hypertensive urgency Admit Date/Time: 04/28/24 16:41 Admit Provider: Clement Carr Attending Provider: Clement Carr Primary Care Provider: Unknown,Unknown Hospital Course Hospital Course: Patient initially presented with weakness that was ultimately secondary to hypertensive urgency. Patient had elevated systolic blood pressures in the 220s that were improved after reinitiation of patient's home amlodipine/valsartan. Initially, patient had worsening of his chronic pain which was not improved with muscle relaxers or the tramadol. He did have significant improvement with one-time dose of p.o. 5 mg oxycodone for which she will be discharged with 12 additional tablets in order to bridge him to seeing his PCP. Otherwise it was determined the patient was stable for discharge home. Home Meds and New Rx's Prescriptions: New oxycodone 5 mg Tablet 5 mg PO Q6H PRN PRNQty: 12 0RF Continued potassium chloride 20 mEq tablet extended release 20 meq PO DAILY tamsulosin 0.4 mg capsule 0.4 mg PO QHS loratadine [Allergy Relief (loratadine)] 10 mg tablet,disintegrating 10 mg PO DAILY epinephrine [EpiPen 2-Kyree] 0.3 mg/0.3 mL auto-injector 0.3 mg IM Q5-15M PRN Rx Instructions: do not exceed 3 doses per episode atorvastatin 10 mg tablet 10 mg PO QHS Ultra CoQ10 75 mg capsule 75 mg PO DAILY sildenafil [Viagra] 100 mg tablet 100 mg PO DAILY PRN Rx Instructions: administer 30 minutes to 4 hours before activity baclofen 10 mg tablet 10 mg PO BID PRN Patient Comments: TAKE ONE TABLET BY MOUTH TWICE A DAY NEEDED FOR MUSCLE SPASM amlodipine-valsartan 10-160 mg tablet 1 tab PO DAILY Patient Comments: TAKE ONE TABLET BY MOUTH EVERY DAY Discontinued lisinopril 40 mg tablet 40 mg PO DAILY Patient Comments: TAKE ONE TABLET BY MOUTH EVERY DAY WITH 12.5MG HYDROCHLOROTHIAZIDE hydrochlorothiazide 12.5 mg tablet 12.5 mg PO DAILY Patient Comments: TAKE ONE TABLET BY MOUTH EVERY DAY Discharge Instructions Referrals: Gomez Smith [ [facility] STAFF PHYSICIAN] - 05/17/24 10:40 am Activity:: Activity as Tolerated Equipment/Supplies:: No Equipment Needed Diet:: As Tolerated Discharge Orders Discharge Orders: Discharge Order (Routine); Ordered 04/30/24 Ordered By: Dane Parrish DS: Summary Time Spent with Patient providing and/or coordinating discharge services: Greater than 30 minutes Status at Discharge Functional status at discharge: independent ambulation Overall status at discharge: patient is back to baseline Mental Status: mental status grossly normal Speech and Movement: speech and movement normal Mood: congruent mood Affect: normal affect Quality:SDOH Health Related Social Needs: Health related social needs inadequate housing (Z59.1), transportation insecurity (Z59.82), material hardship(utilities) (Z59.12), problems related to housing/economic circumstances (Z59.89), feeling lonely/isolated (Z60.8) Exam Narrative Exam Narrative: Well-appearing older gentleman sitting up in the bed in no acute distress, ANO x 4, heart regular rhythm, lungs clear to auscultation bilaterally, abdomen soft, nontender, nondistended Psych Mental Status: mental status grossly normal Speech and Movement: speech and movement normal Mood: congruent mood Affect: normal affect DS: Data Vitals/I&O Vitals and I&O: Vital Signs Temperature 97.7 F 04/30/24 11:09 Temperature Source Temporal Artery Scan 04/30/24 11:09 Pulse 63 04/30/24 11:09 Pulse Rhythm Regular 04/28/24 17:24 Pulse 53 L 04/28/24 17:01 Respiratory Rate 16 04/30/24 11:09 Respiratory Effort Normal 04/28/24 17:24 Respiratory Depth Normal 04/28/24 17:24 Respiratory Pattern Normal 04/28/24 17:24 Blood Pressure 144/97 H 04/30/24 11:09 Blood Pressure Mean 127 04/28/24 17:00 Blood Pressure Position Supine 04/28/24 11:51 Pulse Oximetry 99 04/30/24 11:09 Oxygen Delivery Method Room Air 04/30/24 11:09 Oxygen Flow Rate 0 04/30/24 11:09 Pain Level 6 04/30/24 11:09 Comment RN notified 04/30/24 11:09 Intake & Output 04/29/24 04/30/24 04/30/24 17:59 05:59 17:59 Intake Total 410 / 410 300 / 300 Balance 410 / 410 300 / 300 Weight 189 lb 6.033 oz Intake: IV Oral 400 / 400 300 / 300 Other: Urine Color Yellow Urine Appearance Clear Comment voids independently unknown amount PFSH All Active Problems (Updated 04/28/24 @ 16:54 by Clement Carr MD) Hypertensive urgency (Acute) Pulmonary nodules (Acute) Hypertensive emergency (Acute) Ganglion cyst of volar aspect of right wrist (Acute) Tingling of left arm and left side of face (Acute) Syncope (Chronic) Other injury of unspecified muscle, fascia and tendon at wrist and hand level, left hand, subsequent encounter (Acute) Fracture of left distal radius (Acute) De Quervain's tenosynovitis, left (Acute) Injection: 03/26/2022 S/P Release: 10/28/2023 Right foot sprain (Acute) Right ankle sprain (Acute) Contusion of right hand (Acute) Back pain (Acute) Acute wrist pain (Acute) Fall (Acute) Tubular adenoma (Acute ~06/2020) Adenomatous polyps (Acute) History of Crohn's disease (Acute) Medical History Inflammatory bowel disease Lower urinary tract symptoms Tinea corporis ED (erectile dysfunction) Skin tag Left wrist pain Degenerative joint disease (DJD) of lumbar spine Tubular adenoma of colon (05/31/16) Bee sting allergy GERD (gastroesophageal reflux disease) Hyperlipidemia Hypertension Renal insufficiency, mild History of colon polyps Surgical History History of colonoscopy (~06/30/20) Colonoscopy - IV Sedation (05/31/16) Social History Smoking/Tobacco Use Status: Former Tobacco Use Quit Date: 04/14/99 Smoking risk assessment performed?: Yes Alcohol Intake: current Alcohol Intake frequency: holidays/special occasions only Drug use: Socially Substance use type: marijuana Housing: house Current gender identity: male Do you feel safe at home: Yes Do you feel safe in your relationship?: Yes Additional Social history: UTAP Time Spent with Patient Time Spent with Patient: <45 minutes Time was spent: preparing to see the patient(eg.review tests), obtaining and/or reviewing separately otained hiistory, ordering medications,tests, procedures, referring, communicating with other health hiv/aids care nurse, indepentently interpreting results, counseling the patient and care coordination
--- NOTE | 2024-04-30 16:45 | PDOC.CMDIS ---
Date of service: 04/30/24 Time of Service: 16:45 LACE Index Scoring Tool Questions: Length of Stay (in days): 2 Was the patient admitted via the E.D.?: Yes E.D. Visits: 1 Answers: Total Score: 6 Risk of Readmission: Low Risk Care Management Discharge Plan Reason for Hospitalization: hypertension Discharge Plan: Brayan will be discharged home with no new services. He will follow up with his community providers and plan of care and transport with his . Brayan informed NORA that he wanted to get a new PCP. He explained that he used to see Dr. Jensen but after he left the practice he went to a provider with a different practice. He shared that he has not had a good experience with that provider so asked for assistance establishing with someone else. NORA contacted [facility] and was able to make him an appointment with Gomez Smith for 05/17/24 which Brayan appreciated. Patient/Family Education Needs: Review of discharge instructions, limitations, follow up plan and discuss Ask Me Three SDOH Health Related Social Needs: Health related social needs inadequate housing (Z59.1), transportation insecurity (Z59.82), material hardship(utilities) (Z59.12), problems related to housing/economic circumstances (Z59.89), feeling lonely/isolated (Z60.8)
== END 2024-04-30 16:24 | disposition home or self-care (01) | DRG 305 ==
LOC: ER 16:18 → MS 17:22
PROVIDERS: Admitting Provider Hospitalist; Emergency Provider Student in an Organized Health Care Education/Training Program; Visit Provider Hospitalist
DX: I16.1 Hypertensive emergency (principal); K50.90 Crohn's disease, unspecified, without complications; Z59.12 Inadequate housing utilities; I10 Essential (primary) hypertension; R91.8 Other nonspecific abnormal finding of lung field; Z87.891 Personal history of nicotine dependence; R07.89 Other chest pain; R06.02 Shortness of breath; R31.9 Hematuria, unspecified; G47.30 Sleep apnea, unspecified; R32 Unspecified urinary incontinence; M47.816 Spondylosis without myelopathy or radiculopathy, lumbar region; E78.5 Hyperlipidemia, unspecified; K21.9 Gastro-esophageal reflux disease without esophagitis; F12.90 Cannabis use, unspecified, uncomplicated; G89.29 Other chronic pain; Z59.82 Transportation insecurity; Z60.8 Other problems related to social environment; Z59.89 Other problems related to housing and economic circumstances
CPT/HCPCS: 00123; 36415; 71275; 80053; 85027; 93005; 96374; 96375; 99285; J1650; 74174; 81003; 81015; 83605; 83735; 84154; 84443; 84484; 85025; 93010; 99222; 99233; 99239; J0131; J0360

== ENCOUNTER 2024-05-21 07:12 | Day surgery (SDC) | payer MEDICAID, SELFPAY ==
[2024-05-21 07:36] VITALS: BP 152/84; PULSE 74; RESP 16; TEMP 36.8; O2SAT 97
[2024-05-21] MEDS: Lactated Ringers 1,000 ML 80 ML IV (07:58)
--- NOTE | 2024-05-21 08:21 | ANES.PREOP_ITS ---
General Info Date of Service Date Performed: 05/21/24 Height: 5 ft 5 in Weight: 86.7 kg Body Mass Index (BMI): 31.8 Surgical Procedure: Operation Date: 05/21/24 08:35 Proposed Procedure Side Surgeon jadon Scott MD Meds Allergies and Home Medications Allergies Allergy/AdvReac Type Severity Reaction Status Date / Time bee stings Allergy Severe Anaphylaxsi Uncoded 05/21/24 07:29 s strong fragrants Allergy Severe Anaphylaxis Uncoded 05/21/24 07:29 Yellow jackets Allergy Severe Anaphylaxis Uncoded 05/21/24 07:29 Home Medication ?Medication ?Instructions ?Recorded epinephrine 0.3 mg/0.3 mL 0.3 mg IM Q5-15M PRN 05/25/20 injection, auto-injector (EpiPen 2-Kyree) loratadine 10 mg disintegrating 10 mg PO DAILY 05/25/20 tablet (Allergy Relief (loratadine)) atorvastatin 10 mg tablet 10 mg PO QHS 04/24/21 coenzyme Q10 75 mg capsule (Ultra 75 mg PO DAILY 06/18/23 CoQ10) potassium chloride 20 mEq 20 meq PO DAILY 09/12/23 tablet,extended release tamsulosin 0.4 mg capsule 0.4 mg PO QHS 09/12/23 amlodipine 10 mg-valsartan 160 mg 1 tab PO DAILY 04/28/24 tablet baclofen 10 mg tablet 10 mg PO BID PRN 04/28/24 oxycodone 5 mg tablet 5 mg PO Q6H PRN PRN #12 tabs 04/30/24 acetaminophen 500 mg capsule 500 mg PO Q6H PRN 05/03/24 ibuprofen 600 mg tablet 600 mg PO Q8H PRN 05/03/24 bisacodyl 5 mg tablet,delayed 5 mg PO ONCE #4 tabs 05/06/24 release (Dulcolax (bisacodyl)) polyethylene glycol 3350 17 17 g PO ONCE #238 grams 05/06/24 gram/dose oral powder prazosin 1 mg capsule 1 mg PO QHS 05/10/24 lisinopril 40 mg tablet mg 05/21/24 Current Visit Medications: Current Medications Generic Name Dose Route Start Last Admin Trade Name Freq PRN Reason Stop Dose Admin Ringer's Solution 1,000 mls @ 80 mls/hr 05/21/24 06:00 05/21/24 07:58 IV 05/21/24 23:59 80 mls/hr INFUSION EVAN Administration IV Miscellaneous Supplies 1 each 05/21/24 06:00 Iv Access IV 05/21/24 23:59 DIRECTED EVAN Sodium Chloride 0 ml 05/21/24 06:00 Normal Saline Flush 10 Ml Syr IV 05/21/24 23:59 PRN PRN Sodium Chloride 0 ml 05/21/24 06:00 Normal Saline 10 Ml Vial IJ 05/21/24 23:59 DIRECTED PRN Sterile Water 0 ml 05/21/24 06:00 Water,Injection,Sterile 10 Ml Vial IJ 05/21/24 23:59 DIRECTED PRN PFSH Active Problems Active Problems: Problem Status Onset Code Chronic kidney disease, stage II (mild) Acute N18.2 Spasm Acute R25.2 Obstructive sleep apnea syndrome Chronic G47.33 Bilateral tinnitus Acute H93.13 Essential hypertension Acute I10 Orthopnea Acute R06.01 Lumbar radiculopathy Acute M54.16 Perineal pain Acute R10.2 Pelvic pain Acute R10.2 Hypertensive urgency Acute I16.0 Pulmonary nodules Acute R91.8 Ganglion cyst of volar aspect of right wrist Acute M67.431 Tingling of left arm and left side of face Acute R20.2 Syncope Chronic R55 Other injury of unspecified muscle, fascia and tendon at wrist and hand level, left hand, subsequent encounter Acute S66.992D Fracture of left distal radius Acute S52.502A De Quervain's tenosynovitis, left Acute M65.4 Right foot sprain Acute S93.601A Right ankle sprain Acute S93.401A Contusion of right hand Acute S60.221A Back pain Acute M54.9 Acute wrist pain Acute M25.539 Fall Acute W19.XXXA Tubular adenoma Acute ~06/2020 D36.9 Adenomatous polyps Acute D36.9 History of Crohn's disease Acute Z87.19 Medical History Medical History Inflammatory bowel disease Lower urinary tract symptoms Tinea corporis ED (erectile dysfunction) Skin tag Left wrist pain Degenerative joint disease (DJD) of lumbar spine Tubular adenoma of colon (05/31/16) Bee sting allergy GERD (gastroesophageal reflux disease) Hyperlipidemia Hypertension Renal insufficiency, mild History of colon polyps Surgical History Surgical History History of colonoscopy (~06/30/20) Colonoscopy - IV Sedation (05/31/16) Tobacco Smoking/Tobacco Use Status: Former Tobacco Use Alcohol Alcohol Intake: current Alcohol intake frequency: holidays/special occasions only Substance Use Substance use: Socially Substance use type: marijuana Vital Signs and Lab Results Vital Signs Most Recent Vital Signs in EMR: Most Recent Vital Signs Temp Pulse Resp BP Pulse Ox 36.8 C 74 16 152/84 H 97 05/21/24 07:36 05/21/24 07:36 05/21/24 07:36 05/21/24 07:36 05/21/24 07:36 Lab Results Blood Type / Crossmatch: 2 No Data to Display Complete Blood Count: 2 White Blood Count 5.41 10^3/uL (4.4-10.8) 04/29/24 06:26 Red Blood Count 4.39 10^6/uL (4.36-5.78) 04/29/24 06:26 Hemoglobin 14.0 g/dL (13.5-17.5) 04/29/24 06:26 Hematocrit 41.0 % (40.0-50.0) 04/29/24 06:26 Platelet Count 222 10^3/uL (130-400) 04/29/24 06:26 Venous Blood Lactate 2.1 mmol/L (0.6-1.4) H 04/28/24 12:10 Complete Metabolic Panel: 2 Sodium 144 mmol/L (136-145) 04/29/24 06:26 Potassium 3.8 mmol/L (3.5-5.1) 04/29/24 06:26 Chloride 108 mmol/L (98-107) H 04/29/24 06:26 Carbon Dioxide 27.5 mmol/L (21.0-32.0) 04/29/24 06:26 BUN 14 mg/dL (7-18) 04/29/24 06:26 Creatinine 1.3 mg/dL (0.70-1.30) 04/29/24 06:26 Est GFR (CKD-EPI 2020) 62.50 (mL/min/1.73m2) 04/29/24 06:26 Magnesium 2.1 mg/dL (1.8-2.4) 04/28/24 12:10 Calcium 8.8 mg/dL (8.5-10.1) 04/29/24 06:26 Albumin 3.5 g/dL (3.4-5.0) 04/29/24 06:26 Glucose 103 mg/dL (74-106) 04/29/24 06:26 Liver Function Panel: 2 Alanine Aminotransferase (ALT/SGPT) 31 U/L (16-63) 04/29/24 06: 26 Aspartate Amino Transf (AST/SGOT) 15 U/L (15-37) 04/29/24 06:26 Coagulation Panel: 2 No Data to Display Cardiac Panel: 2 Troponin I 15 ng/L (<or=76) 04/29/24 Arterial Blood Gas: 2 No Data to Display Venous Blood Gas: 2 No Data to Display Pancreas Panel: 2 No Data to Display Thyroid Panel: 2 Thyroid Stimulating Hormone (TSH) 1.78 uIU/mL (0.36-3.74) 04/29 06:26 Infectious Disease: 2 No Data to Display Blood Cultures: 2 No Data to Display Toxicology Panel: 2 No Data to Display Imaging and Studies Imaging and Studies Study information below may be from another EMR and interpreted by another provider. Please see original notes in EMR for more complete details. EKG Summary: PATIENT NAME: Nghia Owusu UNIT #: [id number] ORDERING PROVIDER: Arun Sagastume M.D. PRIMARY CARE PROVIDER: UNKNOWN,UNKNOWN DATE/TIME OF SERVICE: 04/28/24 1147 : 1965 PERFORMING LOCATION: [place] APPROVED REPORT Exam: Resting ECG Reason for Exam: SOB Patient Location: E HR:60 bpm ECG Measurements Heart Rate 60 AXIS LA 153 P 59 QRSd 79 QRS -10 QT 437 T29 QTc 435 Conclusion Sinus rhythm...normal P axis, V-rate 60- 99 - <Electronically signed by ARUN SAGASTUME MD in [place]> E-Sign Date: 04/28/24 E-Sign Time: 1618 ADDENDUM APPROVED REPORT Exam: Resting ECG Reason for Exam: SOB Patient Location: E HR:60 bpm ECG Measurements Heart Rate 60 AXIS LA 153 P 59 QRSd 79 QRS -10 QT 437 T29 QTc 435 Conclusion Sinus rhythm...normal P axis, V-rate 60- 99 I have reviewed and I agree with the emergency room physician's ECG interpretation. Electronically signed by: <Electronically signed by Antonette Mg M.D. in [place]> 04/29/24 0804 Cosigned by: Stress Test Summary: 01/25: negative for ischemia. Echocardiogram Summary: 08/05: LVEF 58%. no sig valve dz. Anesthesia Assessment and Plan Anesthesia History Personal History: No History of Anesthesia Complications Family History: No Family History of Anesthesia Complications Exercise Tolerance Exercise Tolerance: Metabolic Equivalents>4 Cardiac & Pulmonary Exam Cardiac Exam: Normal S1/S2 Heart Sounds Pulmonary Exam: Clear Bilateral Breath Sounds Implantable Cardiac Device Does patient have a Pacemaker or an ICD?: No Airway Exam Known Difficult Airway: No Mallampati Class: 3 Mouth Opening: Normal (> 3cm) Thyromental Distance: Greater than 3 cm Neck Range of Motion: Full ROM Neck Circumference: Normal Teeth Condition: Normal Dentition Tooth Numberin 1. some missing per patient 2. some missing per patient ASA Classification ASA Score: ASA 2 Emergency Case?: No NPO Status NPO Status: NPO Clears >2 hours, Solids >8 hours Anesthesia Plan Resuscitation Status: Full Code Anesthesia Technique: General Anesthesia Airway Planned: Natural Airway Monitors Used: Standard Monitors Preoperative Comments:: 59 yo male for colonoscopy Sig PMHx: HTN (amlodipine, lisinopril. well controlled), GERD (diet related), DJD, renal insufficiency, former smoker, occ EtOH/cannabis. Recent hypertensive crisis (225 systolic) sent to ER. 140 systolic with home log Previous Anes: - dequervains, natural airway, no issues. - colo, prop, natural airway, no issues.
[2024-05-21 08:48] VITALS: BMI 31.8
[2024-05-21 09:20] VITALS: BP 114/77; PULSE 67; RESP 16; TEMP 36.7; O2SAT 96
--- NOTE | 2024-05-21 09:21 | COLE_ITS ---
Date of service: 05/21/24 Time of Service: 09:21 Colonoscopy Report Date of procedure: 05/21/24 Pre-op diagnosis general: History of Crohn's disease, rectal bleeding Post-op diagnosis procedure note: same Procedure: Colonoscopy with random biopsies Surgeon: Antonette Scott Anesthesia Type: General:No Airway Pathology: other (Random biopsies including terminal ileum, cecum, transverse colon, sigmoid colon, rectum) Indications: Patient with a history of Crohn's disease which in the past has involved small intestine and previous random biopsies in 2020 were negative. Who presents with symptoms of intermittent abdominal pain, dark black stools and bright red rectal bleeding. Findings: the terminal ileum and colon appeared normal. Random biopsies were taken as noted above. There were no polyps. Good prep Procedure Description: After the risks, benefits, and alternatives of the procedure were thoroughly explained, informed consent was obtained. The Patient is brought to the proced ure room and time out is performed confirming patient identity, nature of procedure. Patient is connected to monitoring devices including O2 sat, EKG and given supplemental oxygen per anesthesia. After appropriate anesthetic is obtained, patient is placed in the left lateral decubitus position and digital rectal exam performed with the findings noted . The colonoscope is inserted through the anus and guided under direct vision to the proximal colon as confirmed by presence of the appendiceal orifice and the ileocecal valve. The TI was intubated for a short distance. Random biopsies are taken as noted above. the colonoscope is then slowly withdrawn , inspecting all aspects of the mucosa completely. Findings and any associated intervention, are noted above. The colonoscope was then completely withdrawn from the patient and the procedure terminated. The patient tolerated the procedure well and is transferred back to the Day surgery unit in stable condition.
--- NOTE | 2024-05-21 09:32 | W.ANESPOSTOP ---
Postoperative Evaluation Date, Time and Location Date Performed: 05/21/24 Time Performed: 09:32 Patient Location: Day Surgery Unit Vital Signs Most Recent Imported Vital Signs: Most Recent Vital Signs Temp Pulse Resp BP Pulse Ox 36.8 C 74 16 152/84 H 97 05/21/24 07:36 05/21/24 07:36 05/21/24 07:36 05/21/24 07:36 05/21/24 07:36 Reviewed at bedside, not entered by nursing as of this time. Please reference post-VS in [facility]. Pain Score Most Recent Pain Score: Most Recent Pain Score Pain Level 7 05/21/24 07:36 Patient reports comfortable at this time. 7/10 was his baseline pain Assessment Mental Status: Awake (Alert & Oriented to Patient Baseline) Airway and Respiratory Function: Patent airway with normal (patient baseline) respiratory exam Cardiovascular Function: Hemodynamically Stable Hydration Status: Adequately Hydrated Nausea & Vomiting: No Nausea or Vomiting Pain: Pt. Denies Any Pain Peripheral Nerve Block: Patient did not receive a nerve block
[2024-05-21 09:50] VITALS: BP 132/74; PULSE 62; RESP 18; TEMP 36.9; O2SAT 99
== END 2024-05-21 10:18 | disposition home or self-care (01) ==
PROVIDERS: PCP Student in an Organized Health Care Education/Training Program; Visit Provider Surgery
PROC: 0DJD8ZZ Inspection of Lower Intestinal Tract, Via Natural or Artificial Opening Endoscopic (ICD-10-PCS; CPT 45378; principal; 2024-05-21 08:30)
DX: Z12.11 Encounter for screening for malignant neoplasm of colon (principal); K62.5 Hemorrhage of anus and rectum; Z87.19 Personal history of other diseases of the digestive system; R10.9 Unspecified abdominal pain; I10 Essential (primary) hypertension
CPT/HCPCS: 45380; 88305; J2704

== ENCOUNTER 2024-06-08 10:19 | Outpatient (REF) | payer MEDICAID, SELFPAY ==
[2024-06-08 16:35] LABS: COMMENT (LAB VIEW ONLY) 95.54 mg/dL; Microalb ug/mg Crea 11.1 ug/mg Cr
[2024-06-08 16:53] LABS: Anion Gap 9.8 mmol/L (3-11); BUN 16 mg/dL (7-18); CO2 26.2 mmol/L (21.0-32.0); Calcium 9.2 mg/dL (8.5-10.1); Chloride 106 mmol/L (98-107); Estimated GFR 85.63 (mL/min/1.73m2); Glucose 103 mg/dL (74-106); Sodium 142 mmol/L (136-145)
== END 2024-06-08 10:20 | disposition home or self-care (01) ==
LOC: NCHCN 10:19
PROVIDERS: PCP Student in an Organized Health Care Education/Training Program; Visit Provider Student in an Organized Health Care Education/Training Program
DX: I10 Essential (primary) hypertension (principal)
CPT/HCPCS: 80048; 82043; 82570

== ENCOUNTER 2025-03-03 15:40 | Outpatient (REF) | payer MEDICAID, SELFPAY ==
[2025-03-03 19:29] LABS: ESR 9 mm/hr (0-20)
[2025-03-03 19:30] LABS: Abs Immature Grans 0.02 10^3/uL (0.0-0.06); HCT 42.5 % (40.0-50.0); HGB 14.6 g/dL (13.5-17.5); Immature Grans % 0.3 %; MCH 31.3 pg (27.0-33.0); MCHC 34.4 % (32.0-36.0); MCV 91 fL (80-95); MPV 9.1 fL (8.0-11.0); Platelet Count 246 10^3/uL (130-400); RBC 4.67 10^6/uL (4.36-5.78); RDW 13.0 % (11.8-14.1); RDW-SD 43.0 fL; WBC 6.25 10^3/uL (4.4-10.8)
[2025-03-03 19:37] LABS: C-Reactive Protein 0.73 mg/dL (<=0.50)
[2025-03-03 19:40] LABS: ALT 41 U/L (10-49); AST 27 U/L (<34); Albumin 4.8 g/dL (3.4-5.0); Alkaline Phosphatase 85 U/L (46-116); Anion Gap 7.7 mmol/L (3-11); BUN 15 mg/dL (9-23); Bilirubin, Total 0.70 mg/dL (0.2-1.2); CO2 27.3 mmol/L (20.0-31.0); Calcium 9.1 mg/dL (8.3-10.6); Chloride 108 mmol/L (98-107); Glucose 94 mg/dL (74-106); Potassium 3.7 mmol/L (3.5-5.1); Sodium 143 mmol/L (136-145); Total Protein 7.1 g/dL (5.7-8.2)
== END 2025-03-03 15:41 | disposition home or self-care (01) ==
LOC: NCHCN 15:40
PROVIDERS: PCP Student in an Organized Health Care Education/Training Program; Visit Provider Student in an Organized Health Care Education/Training Program
DX: R05.8 Other specified cough (principal)
CPT/HCPCS: 80053; 85652; 85025; 86140

== ENCOUNTER → 2025-03-22 00:25 | Outpatient (CLI) | payer MEDICAID, SELFPAY ==
--- NOTE | 2025-03-22 | DI.RAD_ITS ---
Exam(s) XR THORACIC SPINE COMPLETE EXAM: XR THORACIC SPINE COMPLETE CLINICAL HISTORY: MID BACK PAIN, T3-T8. TECHNIQUE: 2D digital imaging was performed. COMPARISON: No exams were available for comparison FINDINGS: 3 views No evidence of fracture, listhesis, nor abnormal widening of the paraspinal lines. There is no significant scoliosis. There is multilevel anterior osseous lipping throughout the thoracic spinal column.. No significant osseous lesions evident. IMPRESSION: No fractures nor scoliosis. Multilevel chronic degenerative disc disease findings in the thoracic spinal column. DATA REPOSITORY: RADIATION DOSE DELIVERED:
--- NOTE | 2025-03-22 | DI.RAD_ITS ---
Exam(s) XR CHEST 2V PA LATERAL EXAM: XR CHEST 2V PA LATERAL CLINICAL HISTORY: COUGH, R05.8 TECHNIQUE: 2D digital imaging was performed. Two views. COMPARISON: No exams were available for comparison FINDINGS: HEART: Normal size. Aorta: Not dilated. PULMONARY VASCULATURE: Normal. MEDIASTINUM: Unremarkable. LUNGS: Clear. PLEURAL SPACE: No pleural effusion or pneumothorax. BONE:Unremarkable for age. SOFT TISSUES: Unremarkable. IMPRESSION: No acute abnormality. DATA REPOSITORY: RADIATION DOSE DELIVERED:
== END ==
PROVIDERS: PCP Student in an Organized Health Care Education/Training Program; Visit Provider Student in an Organized Health Care Education/Training Program
DX: R05.8 Other specified cough (principal); M54.9 Dorsalgia, unspecified
CPT/HCPCS: 71046; 72072